=== PATIENT | male | born 1935 | race Caucasian/White ===

== ENCOUNTER 2017-08-18 17:16 | Observation (INO) | payer MEDICARE, OTHER ==
[~2017-08-18] VITALS: Ht 170.2 cm; Wt 70.8 kg
--- NOTE | 2017-08-18 17:24 | ER Report ---
History and Physical Time Seen By MD: 17:24 HPI/ROS CHIEF COMPLAINT: cva HISTORY OF PRESENT ILLNESS: Pt was in the car with his family and at 4pm had sudden onset of slurred speach, trouble finding words, blurred vision (not sure what eye) and left facial droop. Symptoms lasted a few minutes and resolved. Pt currently states he feels fine. No headache. No weakness. Pt states that yesterday when he went up to urinate he almost felt secondary to his legs were weak. Pt is not sure if it was one leg or both but states those symptoms resolved. PT has no hx of cva or tia. pt is diabetic and has hx of dm and cardiac ds. Pt takes a baby aspirin daily for his heart. Pt on current exam shows a mild left facial droop which the son states that is not his norm. REVIEW OF SYSTEMS: Constitutional: No fever, no chills. Eyes: No discharge. ENT: No sore throat. Cardiovascular: No chest pain, no palpitations. Respiratory: No cough, no shortness of breath. Gastrointestinal: No abdominal pain, no vomiting. Genitourinary: No hematuria. Musculoskeletal: No back pain. Skin: No rashes. Neurological: No headache. + garbled speach, blurred vision, weakness Allergies: Coded Allergies: meperidine (Verified Allergy, Severe, 08/18/17) morphine (Verified Allergy, Severe, 08/18/17) Past Medical/Surgical History Pmhx: prostate ca, dm, mi, htn Pshx: prostate removal, cabg Reviewed Nurses Notes: Yes Old Medical Records Reviewed: No (never been here before) Smoking Status: Former Smoker Hx Alcohol Use: No Constitutional Vital Sign - Last 24 Hours 08/18/17 17:24 Temp 98.7 Pulse 78 Resp 16 B/P (MAP) 165/69 Pulse Ox 93 O2 Delivery Room Air Physical Exam General Appearance: The patient is alert, has no immediate need for airway protection and no signs of toxicity. Eyes: Pupils equal and round no pallor or injection, EOMI ENT: no pharyngeal erythema or exudates, Mucous membranes are moist, TM are nl b/l, + left facial droop when smiling Respiratory: There are no retractions, lungs are clear to auscultation. Cardiovascular: Regular rate and rhythm. pulses are equal and symmetrical Gastrointestinal: Abdomen is soft and non tender, no masses, bowel sounds normal, no guarding, no rigidity or rebound Neurological: Cranial nerves II-XII grossly intact however pt does have a slight left facial droop; upper motor 5/5; lower motor 5/5; no pronator drift or dysmetria Skin: Warm and dry, no rashes. Musculoskeletal: Neck is supple non tender, no vertebral tenderness Extremities are nontender, non swollen and have full range of motion. DIFFERENTIAL DIAGNOSIS: After history and physical exam differential diagnosis was considered for tia/cva hemorrhagic or ischemic Medical Decision Making Data Points Result Diagram: 08/18/17175108/18/171751 Laboratory Hematology Test 08/18/17 17:52 Red Blood Count 4.07 M/uL (4.00-5.60) Mean Corpuscular Volume 90.5 fL (80.0-96.0) Mean Corpuscular Hemoglobin 32.0 pg (26.0-33.0) Mean Corpuscular Hemoglobin Concent 35.3 g/dL (32.0-36.0) Red Cell Distribution Width 13.2 % (11.5-14.5) Mean Platelet Volume 7.5 fL (7.2-11.1) Neutrophils (%) (Auto) 64.7 % (39.4-72.5) Lymphocytes (%) (Auto) 24.4 % (17.6-49.6) Monocytes (%) (Auto) 8.0 % (4.1-12.4) Eosinophils (%) (Auto) 1.7 % (0.4-6.7) Basophils (%) (Auto) 1.2 % (0.3-1.4) Nucleated RBC Relative Count (auto) 0.1 /100WBC Neutrophils # (Auto) 3.7 K/uL (2.0-7.4) Lymphocytes # (Auto) 1.4 K/uL (1.3-3.6) Monocytes # (Auto) 0.5 K/uL (0.3-1.0) Eosinophils # (Auto) 0.1 K/uL (0.0-0.5) Basophils # (Auto) 0.1 K/uL (0.0-0.1) Nucleated RBC Absolute Count (auto) 0.00 K/uL Prothrombin Time 13.6 seconds (12.0-14.4) Prothromb Time International Ratio 1.03 Activated Partial Thromboplast Time 30 seconds (23-35) Sodium Level 138 mmol/L (137-145) Potassium Level 5.1 mmol/L (3.5-5.0) Chloride Level 102 mmol/L (98-107) Carbon Dioxide Level 23 mmol/L (22-30) Blood Urea Nitrogen 56 mg/dl (9-21) Creatinine 2.70 mg/dl (0.66-1.25) Glomerular Filtration Rate Calc 22.6 Random Glucose 166 mg/dl (75-110) Calcium Level 9.1 mg/dl (8.4-10.2) Total Bilirubin 0.3 mg/dl (0.2-1.3) Aspartate Amino Transf (AST/SGOT) 25 U/L (0-35) Alanine Aminotransferase (ALT/SGPT) 37 U/L (0-56) Alkaline Phosphatase 103 U/L (0-126) Troponin I < 0.012 ng/ml Total Protein 7.6 gm/dl (6.3-8.2) Albumin 3.9 g/dl (3.5-5.0) Chemistry Test 08/18/17 17:52 White Blood Count 5.7 k/uL (4.5-11.0) Red Blood Count 4.07 M/uL (4.00-5.60) Hemoglobin 13.0 g/dL (14.0-18.0) Hematocrit 36.8 % (42.0-52.0) Mean Corpuscular Volume 90.5 fL (80.0-96.0) Mean Corpuscular Hemoglobin 32.0 pg (26.0-33.0) Mean Corpuscular Hemoglobin Concent 35.3 g/dL (32.0-36.0) Red Cell Distribution Width 13.2 % (11.5-14.5) Platelet Count 143 K/uL (150-450) Mean Platelet Volume 7.5 fL (7.2-11.1) Neutrophils (%) (Auto) 64.7 % (39.4-72.5) Lymphocytes (%) (Auto) 24.4 % (17.6-49.6) Monocytes (%) (Auto) 8.0 % (4.1-12.4) Eosinophils (%) (Auto) 1.7 % (0.4-6.7) Basophils (%) (Auto) 1.2 % (0.3-1.4) Nucleated RBC Relative Count (auto) 0.1 /100WBC Neutrophils # (Auto) 3.7 K/uL (2.0-7.4) Lymphocytes # (Auto) 1.4 K/uL (1.3-3.6) Monocytes # (Auto) 0.5 K/uL (0.3-1.0) Eosinophils # (Auto) 0.1 K/uL (0.0-0.5) Basophils # (Auto) 0.1 K/uL (0.0-0.1) Nucleated RBC Absolute Count (auto) 0.00 K/uL Prothrombin Time 13.6 seconds (12.0-14.4) Prothromb Time International Ratio 1.03 Activated Partial Thromboplast Time 30 seconds (23-35) Glomerular Filtration Rate Calc 22.6 Calcium Level 9.1 mg/dl (8.4-10.2) Total Bilirubin 0.3 mg/dl (0.2-1.3) Aspartate Amino Transf (AST/SGOT) 25 U/L (0-35) Alanine Aminotransferase (ALT/SGPT) 37 U/L (0-56) Alkaline Phosphatase 103 U/L (0-126) Troponin I < 0.012 ng/ml Total Protein 7.6 gm/dl (6.3-8.2) Albumin 3.9 g/dl (3.5-5.0) Coagulation Test 08/18/17 17:52 Prothrombin Time 13.6 seconds Prothromb Time International Ratio 1.03 Activated Partial Thromboplast Time 30 seconds EKG/Imaging EKG Interpretation nsr @ 70 with lad and non specific st wave chanes Imaging no acute finding on xray or ct of head ED Course/Re-evaluation Clinical Indication for ER IV: IV Access ED Course 08/18/2017 6:38:44 pm Spoke with son again who now statse that his dad has been having symptoms on and off this week and did not tell him. I suspect pt having multiple TIA and is at risk for cva. Pt is not a tpa candidate due to symptoms rapidly resolve and only symptom currently is small facial droop. Pt is also having renal insufficiency. Hve no olds to compare renal function but when I spoke with pt he said that he was told "my kidney's are getting old". 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 It is currently snowing and highways are closed and no one is flying. We are unable to transfer. Spoke with pts and he states he can be admitted here. Spoke with Dr. Lui who will accept to the floor. States that he plans on changing his asa to plavix. Decision to Disposition Date: Aug 18, 2017 Decision to Disposition Time: 18:42 Depart Departure Latest Vital Signs Vital Signs Date Time Temp Pulse Resp B/P (MAP) Pulse Ox O2 Delivery O2 Flow Rate FiO2 08/18/17 17:24 98.7 78 16 165/69 93 Room Air Impression: Primary Impression: CVA (cerebral vascular accident) Additional Impression: Renal insufficiency Condition: Condition Unchanged Disposition: Admitted from ER Problem Qualifiers Primary Impression: CVA (cerebral vascular accident) CVA mechanism: unspecified Qualified Codes: I63.9 - Cerebral infarction, unspecified NIKA GOSS DO Aug 18, 2017 17:24
--- NOTE | 2017-08-18 17:54 | EKG ---
FACILITY: [facility] - [place] PATIENT NAME: SANDRA CORREA : [id number] MR: [id number] V: [id number] EXAM DATE: ORDERING PHYSICIAN: NIKA GOSS TECHNOLOGIST: Edu Meade Reason : Blood Pressure : / mmHG Vent. Rate : 073 BPM Atrial Rate : 073 BPM P-R Int : 174 ms QRS Dur : 070 ms QT Int : 394 ms P-R-T Axes : 022 -42 033 degrees QTc Int : 434 ms Normal sinus rhythm Left axis deviation Minimal voltage criteria for LVH, may be normal variant No ST-T abnormalities No previous ECGs available Confirmed by ELIUD ORTIZ ([id number]) on 08/18/2017 6:02:50 PM Referred By: Confirmed By:ELIUD ORTIZ
[2017-08-18 17:58] LABS: PLATELET COUNT, AUTOMATED 143 K/uL (150-450)
--- NOTE | 2017-08-18 18:06 | RADIOLOGY IMAGING REPORT ---
FACILITY: [facility] [place] PATIENT NAME: Deion Kwong : 1935 MR: [id number] V: [id number] EXAM DATE: ORDERING PHYSICIAN: NIKA GOSS TECHNOLOGIST: Location: [facility] - [place] Patient: Deion Kwong : 1935 Visit/Account:[id number] Date of Sevice: 08/18/2017 CHEST SINGLE AP Indication: Left-sided facial droop. Comparison: 08/07/2017. Findings: Cardiomediastinal silhouette and pulmonary vessels within normal limits. There is no focal infiltrate or lobar consolidation. No pneumothorax or pleural effusion. No nodule. There is again eventration the right hemidiaphragm. Upper abdomen is unremarkable. No acut e bony abnormality. IMPRESSION: 1. No acute cardiopulmonary process. Report Dictated By: Canelo White at 08/18/2017 6:01 PM Report E-Signed By: Canelo White at 08/18/2017 6:03 PM WSN:[id number]
[2017-08-18 18:07] LABS: INR 1.03
--- NOTE | 2017-08-18 18:16 | RADIOLOGY IMAGING REPORT ---
FACILITY: [facility] PATIENT NAME: Deion Kwong : 1935 MR: [id number] V: [id number] EXAM DATE: ORDERING PHYSICIAN: NIKA GOSS TECHNOLOGIST: Location: [facility] - [place] Patient: Deion Kwong : 1935 Visit/Account:[id number] Date of Sevice: 08/18/2017 CT OF THE BRAIN WITHOUT CONTRAST HISTORY: Left-sided facial droop PROCEDURE: 3.0 mm contiguous axial sections were performed through the brain. Sagittal and coronal r eformats were submitted. COMPARISON: FINDINGS: BRAIN: Brain and intracranial structures: There is no mass lesion, hemorrhage or acute infarct. Extensive ca vernous carotid atherosclerosis and prominent vertebral artery atherosclerosis. There may be an old i nfarct at the posterior margin of the caudate on the right. Orbits (included portions): Unremarkable. Scalp: Normal. Skull: Normal. Paranasal sinuses and mastoid air cells (included portions): Normal. IMPRESSION: No evidence of acute intracranial abnormality by CT. One of the following dose optimization techniques was utilized in the performance of this exam: Autom ated exposure control; adjustment of the mA and/or kV according to the patient's size; or use of an i terative reconstruction technique. Specific details can be referenced in the facility's radiology C T exam operational policy. Report Dictated By: Brad Messina MD at 08/18/2017 6:00 PM Report E-Signed By: Brad Messina MD at 08/18/2017 6:11 PM WSN:[id number]
[2017-08-18 19:42] VITALS: BP 198/91
[2017-08-18] MEDS ORDERED: METO25TA23 PO (20:30)
[2017-08-18] MEDS ORDERED: ASPI-1471 PO (20:30)
[2017-08-18] MEDS ORDERED: LOSA25TA50 PO (20:30)
[2017-08-18] MEDS ORDERED: cancer med (20:30)
[2017-08-18] MEDS ORDERED: HUM100VI15 SQ (20:30)
[2017-08-18] MEDS ORDERED: NAPR220C12 PO (20:30)
[2017-08-18] MEDS ORDERED: INFLUENZA VIRUS VAC 0.5 ML SYR IM ONLY ONE (21:30)
[2017-08-18] MEDS ORDERED: LOSARTAN POTASSIUM 50 MG TAB PO SCH (21:30)
[2017-08-18] MEDS ORDERED: ACETAMINOPHEN 325 MG TAB PO PRN (21:30)
--- NOTE | 2017-08-18 22:04 | History & Physical ---
History of Present Illness History of Present Illness 82yo male with a h/o CAD, T2DM and HTN who was brought to the ER for concerns of a stroke. He reports that a couple of nights ago he had an event where he couldn't speak for a couple of minutes. He didn't mention it to anyone. Today , he was with his son looking at houses, when he had sudden onset of inability to speak, blurred vision in the left eye and left facial droop. It lasted a couple of minutes and mostly resolved. He now feels tired. He denies any chest pain,nausea, vomiting, diarrhea, fevers or SOB. In the ER, it was noted that he had a bit of a left mouth droop. History Problems: (1) HTN (hypertension) Status: Chronic (2) Insomnia (3) T2DM (type 2 diabetes mellitus) Status: Chronic (4) Prostate cancer Status: Chronic (5) Hx of CABG (6) History of prostatectomy (7) History of bilateral inguinal hernia repair (8) History of appendectomy (9) History of tonsillectomy (10) History of exploratory laparotomy (11) Renal insufficiency Status: Chronic Home Meds Reported Medications Naproxen Sodium (ALEVE) 220 Mg Capsule, 220 MG PO TID, CAPSULE 08/18/17 [cancer med] No Conflict Check 08/18/17 Aspirin (ASPIR 81) 81 Mg Tablet.dr, 81 MG PO QDAY, TAB 08/18/17 Losartan Potassium (LOSARTAN POTASSIUM) 25 Mg Tablet, 25 MG PO QDAY 08/18/17 Metoprolol Succinate (METOPROLOL SUCCINATE) 25 Mg Tab.er.24h, 1 TAB PO BID, TAB 08/18/17 Hum Insulin Nph/Reg Insulin Hm (NOVOLIN 70-30 100 UNIT/ML VIAL) 100 Unit/1 Ml Vial, 35 UNIT SQ BID, VIAL 08/18/17 Allergies: Coded Allergies: meperidine (Verified Allergy, Severe, 08/18/17) morphine (Verified Allergy, Severe, 08/18/17) Smoking Status: Former Smoker Caffeine Intake: Coffee Caffeine/Cups Per Day: 1 cup Hx Alcohol Use: No Hx Substance Use Disorder: No Review of Systems All Systems Reviewed/Normal: Yes, Except as Noted Exam Vital Signs Vital Signs Date Time Temp Pulse Resp B/P (MAP) Pulse Ox O2 Delivery O2 Flow Rate FiO2 08/18/17 19:45 98 08/18/17 19:42 98.3 75 16 198/91 (126) Room Air General Appearance: Alert, Awake, No Acute Distress Neuro: No Gross deficits (CN 2-12 are intact, equal strength in UE and LE bilaterally, no pronator drift, normal alternating hand clap and finger to nose testing bilaterally) Cardiovascular: Regular Rate and Rhythm Respiratory: Clear to Auscultation GI: Abd Soft and Non-Tender Extremities: No Edema Integumentary: No Jaundice, No Cyanosis Medical Decision Making Data Points Result Diagram: 08/18/17175108/18/171751 Item Value Date Time Neutrophils (%) (Auto) 64.7 % 08/18/17 175 Lymphocytes (%) (Auto) 24.4 % 08/18/171751 Monocytes (%) (Auto) 8.0 % 08/18/171751 Eosinophils (%) (Auto) 1.7 % 08/18/171751 Basophils (%) (Auto) 1.2 % 08/18/171751 Nucleated RBC Relative Count (auto) 0.1 /100WBC 08/18/17 175 Aspartate Amino Transf (AST/SGOT) 25 U/L 08/18/17 175 Alanine Aminotransferase (ALT/SGPT) 37 U/L 08/18/17 175 Alkaline Phosphatase 103 U/L 08/18/17 175 Troponin I < 0.012 ng/ml 08/18/17 175 Total Protein 7.6 gm/dl 08/18/17 1752 Albumin 3.9 g/dl 08/18/17 1752 Random Glucose 166 mg/dl H 08/18/17 1752 Prothromb Time International Ratio 1.03 08/18/17 175 EKG / Imaging EKG Interpretation Vent. Rate : 073 BPM Atrial Rate : 073 BPM P-R Int : 174 ms QRS Dur : 070 ms QT Int : 394 ms P-R-T Axes : 022 -42 033 degrees QTc Int : 434 ms Normal sinus rhythm Left axis deviation Minimal voltage criteria for LVH, may be normal variant No ST-T abnormalities No previous ECGs available Confirmed by ELIUD ORTIZ ([id number]) on 08/18/2017 6:02:50 PM Imaging CXR - 1. No acute cardiopulmonary process. Head CT - No evidence of acute intracranial abnormality by CT. Assessment and Plan Problems: (1) TIA (transient ischemic attack) Status: Acute Assessment & Plan: He presented with a couple minute event of left eye blurriness, left facial droop and inability to speak. He now has a normal exam. He cannot get an MRI because of a rhythm sensing device under the skin of his left pectoris. Will get a carotid Doppler, and echo. He has been on ASA 81mg, so will switch to Plavix. He is not on a statin, so will start atorvastatin 40mg for now to see how he tolerates it. He could be increased to 80mg but will defer to his primary. He will be on telemetry and get neuro checks. (2) Renal insufficiency Status: Chronic Assessment & Plan: It is unclear what his baseline function is. He doesn't have a large PVR by US. Will hold Losartan and get old labs. Will gently hydrate tonight and recheck tomorrow. (3) T2DM (type 2 diabetes mellitus) Status: Chronic Assessment & Plan: He is chronically on 70/30, which will be continued. Will cover with SSI level 2. (4) HTN (hypertension) Status: Chronic Assessment & Plan: Continue metoprolol, but will hold losartan. (5) Prostate cancer Status: Chronic Assessment & Plan: He had a prostatectomy over 15 years ago. He has had recurrence but has elected to only undergo antiandrogen therapy. Copies to: SUMAN GALLARDO; TONY NORRIS MD Venous Thromboembolism Antithrombotics Is Pt On Any Antithrombotics?: No Exam Sepsis Risk: No Definite Risk ELIUD ORTIZ MD Aug 18, 2017 22:03
[2017-08-18] MEDS: METOPROLOL TART 50 MG TAB PO SCH (22:52)
[2017-08-18] MEDS: CLOPIDOGREL BISULFATE 75MG TAB PO SCH (22:52)
[2017-08-18] MEDS: ATORVASTATIN 40 MG TAB PO SCH (22:52)
[2017-08-18] MEDS: NS(*) 0.9% 1000 ML BAG 1,000 ML IV PRN (22:52)
[2017-08-18 22:53] VITALS: BP 167/71
[2017-08-19 02:28] VITALS: BP 188/82
[2017-08-19 06:26] LABS: PLATELET COUNT, AUTOMATED 132 K/uL (150-450)
[2017-08-19 07:14] VITALS: BP 166/84
[2017-08-19] MEDS: METOPROLOL TART 50 MG TAB PO SCH ×2 (09:17→20:50)
[2017-08-19] MEDS: INS HUMAN ISOPH/INS REG 70/30 100 UNIT/ML 3ML VIAL SUBQ SCH ×2 (09:19→17:14)
[2017-08-19 10:57] VITALS: BP 147/74
[2017-08-19] MEDS: INSULIN HUM LISPRO 100 UN/ML 3 ML VIAL SUBQ PRN ×2 (12:06→17:14)
[2017-08-19] MEDS: NS(*) 0.9% 1000 ML BAG 1,000 ML IV PRN (12:49)
--- NOTE | 2017-08-19 13:55 | Hospitalist Progress Note ---
Subjective Progress Notes Subjective His aphasia and facial droop resolved. He has not had any recurrence, but this is his second occurrence in 3-4 days. He reports voiding seems to have improved. Physical Exam Vital Signs Date Time Temp Pulse Resp B/P (MAP) Pulse Ox O2 Delivery O2 Flow Rate FiO2 08/19/17 10:57 98.1 69 24 147/74 (98) 93 Room Air Intake and Output 08/20/17 07:00 Intake Total 824 ml Balance 824 ml Intake Oral 0 ml IV Total 824 ml Bladder Scan Volume Amount 51-75 ml # Voids 1 # Bowel Movements 1 General Appearance: Alert, Awake Neuro: Other (face symmetric/speech is fluent) Cardiovascular: Regular Rate and Rhythm Respiratory: Clear to Auscultation Result Diagram: 08/19/1749 08/19/1749 Assessment and Plan Problems: (1) TIA (transient ischemic attack) Status: Acute Assessment & Plan: He presented with a couple minute event of left eye blurriness, left facial droop and inability to speak. He now has a normal exam. He cannot get an MRI because of a rhythm sensing device under the skin of his left pectoralis. Carotid Doppler, and echocardiogram are still pending. He has been on ASA 81mg, so we have switched to Plavix. He is not on a statin , so we also started atorvastatin 40mg for now to see how he tolerates it. He could be increased to 80mg, but will defer to his primary. (2) Renal insufficiency Status: Chronic Assessment & Plan: It is unclear what his baseline function is - we are [facility]. He doesn't have a large PVR by US - second re-check is only 60cc. Will continue to hold Losartan. Will continue to gently hydrate and recheck tomorrow. (3) T2DM (type 2 diabetes mellitus) Status: Chronic Assessment & Plan: He is chronically on Humulin 70/30, which will be continued. Will continue to cover with SSI level 2. (4) HTN (hypertension) Status: Chronic Assessment & Plan: Continue metoprolol, but will hold losartan. (5) Prostate cancer Status: Chronic Assessment & Plan: He had a prostatectomy over 15 years ago. He has had recurrence, but has elected to only undergo antiandrogen therapy. If he has any ongoing voiding difficulties, may need to CT pelvis to see if any residual/ enlarging disease. Exam Sepsis Risk: No Definite Risk ANNA HERNANDEZ MD Aug 19, 2017 13:55
--- NOTE | 2017-08-19 15:03 | RADIOLOGY IMAGING REPORT ---
FACILITY: [facility] PATIENT NAME: Deion Kwong : 1935 MR: [id number] V: [id number] EXAM DATE: ORDERING PHYSICIAN: ELIUD ORTIZ TECHNOLOGIST: [place] [facility] [place]ion Kwong : 1935 Visit/Account:[id number] Date of Sevice: 08/19/2017 CAROTID HISTORY: TIA COMPARISON: None. FINDINGS: Grayscale, duplex and color Doppler interrogation of the extracranial carotid and vertebral arteries was performed bilateral. On the right, peak systolic velocities within the common and internal carotid arteries are 99 and 175 cm/sec respectively. There is a small to moderate amount of hard plaque right carotid bulb and a mo derate amount of hard plaque in the proximal right internal carotid artery. Antegrade flow within th e common, internal and external carotid arteries as well as vertebral artery. ICA/CCA ratio 1.8. On the left, peak systolic velocities within the common and internal carotid arteries are 96 and 298 cm/sec respectively. There is a long segment of soft plaque extending from the left carotid bulb int o the left internal carotid artery. Antegrade flow within the common, internal and external carotid arteries as well as vertebral artery. ICA/CCA ratio 3.1. . IMPRESSION: Small to moderate amount of hard plaque right carotid bulb and moderate amount of hard plaque in the proximal right internal carotid artery producing a peak systolic velocity consistent with a 50-69% ca tegory stenosis There is a long segment of soft plaque left carotid bulb extending into the left internal carotid art [place] with a peak systolic velocity of 298 cm/s which is consistent with a greater than 70% stenosis Velocity criteria are extrapolated from diameter data as defined by the Society of Radiologists [place] [facility] Consensus Conference Radiology 2003; 229;340-346 Results were called to Dr. Kaleb Ortiz at 08/19/2017 2:59 PM. Report Dictated By: Sarita Virgen MD at 08/19/2017 2:52 PM Report E-Signed By: Sarita Virgen MD at 08/19/2017 2:59 PM WSN:[id number]
[2017-08-19 15:40] VITALS: BP 176/81
[2017-08-19 20:39] VITALS: BP 175/90
[2017-08-19] MEDS: CLOPIDOGREL BISULFATE 75MG TAB PO SCH (20:50)
[2017-08-19] MEDS: ATORVASTATIN 40 MG TAB PO SCH (20:50)
[2017-08-20 00:47] VITALS: BP 166/81
[2017-08-20 03:43] VITALS: BP 157/75
[2017-08-20 05:30] LABS: PLATELET COUNT, AUTOMATED 124 K/uL (150-450)
[2017-08-20 07:12] VITALS: BP 177/83
[2017-08-20] MEDS: INS HUMAN ISOPH/INS REG 70/30 100 UNIT/ML 3ML VIAL SUBQ SCH (08:12)
[2017-08-20] MEDS: METOPROLOL TART 50 MG TAB PO SCH (08:17)
[2017-08-20] MEDS ORDERED: ATOR40TA69 PO (08:56)
[2017-08-20] MEDS ORDERED: CLOP75TA PO (08:56)
[2017-08-20] MEDS ORDERED: ACET-2007 PO (08:56)
--- NOTE | 2017-08-20 09:16 | Hospitalist Depart ---
Discharge Summary Reason for Hosp/Final Diag: (1) TIA (transient ischemic attack) Status: Acute Hospital Course & Plan: He presented with a couple minutes event of left eye blurriness, left facial droop and inability to speak. His symptoms resolved completely and he now has a normal exam. He cannot have an MRI because of a rhythm sensing device under the skin of his left pectoralis. Prior to admission , he had been on ASA 81mg, so we have switched him to Plavix 75mg daily. He had not been on a statin, so we also started atorvastatin 40mg daily. His telemetry monitoring while hospitalized did not show any dysrhythmias. He had an echocardiogram, which preliminary report is unremarkable. His carotid ultrasound does show some plaque in both with stenosis of 70+% on the left and 50-69% on the right. I discussed these findings with the patient and his family. It may be he could benefit from intervention with the stenoses. They seemed to understand this very well. He wished to see his cook 3 pastry, Dr. Norris in [place], [place] to discuss further. We have arranged an appointment with Dr. Norris for Tuesday08/24/17 at 3:00PM. (2) Renal insufficiency Status: Chronic Hospital Course & Plan: Most likely related to NSAID use (naproxen). It is unclear what his baseline function is - we are awaiting records from [place]. He doesn't have a large PVR by US - second re-check is only 60cc. We did give him gentle IV fluids and his creatinine did improve (2.7 at admission and 2.3 at discharge). He has been advised to stop all NSAIDs, but may use acetaminophen. He will need a follow up metabolic panel in one week. (3) T2DM (type 2 diabetes mellitus) Status: Chronic Hospital Course & Plan: He will continue his usual regimen of Humulin 70/30. (4) HTN (hypertension) Status: Chronic Hospital Course & Plan: Continue metoprolol and losartan. (5) Prostate cancer Status: Chronic Hospital Course & Plan: He had a prostatectomy over 15 years ago. He had recurrence, but has elected to only use antiandrogen therapy. If he has any ongoing voiding difficulties, may need a CT scan of abdomen and pelvis to see if any residual/enlarging disease. Departure Weight (Pounds): 156 Result Diagram: 08/20/17 0505 08/20/17 0505 Item Value Date Time Sodium Level 139 mmol/L 08/19/17 0549 Potassium Level 4.5 mmol/L 08/19/17 0549 Chloride Level 105 mmol/L 08/19/17 0549 Carbon Dioxide Level 21 mmol/L L 08/19/17 0549 Blood Urea Nitrogen 51 mg/dl H 08/19/17 0549 Creatinine 2.50 mg/dl H 08/19/17 0549 Glomerular Filtration Rate Calc 24.7 08/19/17 0549 Random Glucose 139 mg/dl H 08/19/17 0549 Calcium Level 9.1 mg/dl 08/19/17 0549 Total Bilirubin 0.3 mg/dl 08/19/17 0549 Aspartate Amino Transf (AST/SGOT) 23 U/L 08/19/17 0549 Alanine Aminotransferase (ALT/SGPT) 36 U/L 08/19/17 0549 Alkaline Phosphatase 93 U/L 08/19/17 0549 Total Protein 6.8 gm/dl 08/19/17 0549 Albumin 3.5 g/dl 08/19/17 0549 Sodium Level 138 mmol/L 08/18/17 1752 Potassium Level 5.1 mmol/L H 08/18/17 1752 Chloride Level 102 mmol/L 08/18/17 1752 Carbon Dioxide Level 23 mmol/L 08/18/17 1752 Blood Urea Nitrogen 56 mg/dl H 08/18/17 1752 Creatinine 2.70 mg/dl H 08/18/17 1752 Glomerular Filtration Rate Calc 22.6 08/18/17 1752 Random Glucose 166 mg/dl H 08/18/17 1752 Calcium Level 9.1 mg/dl 08/18/17 1752 Total Bilirubin 0.3 mg/dl 08/18/17 1752 Aspartate Amino Transf (AST/SGOT) 25 U/L 08/18/17 1752 Alanine Aminotransferase (ALT/SGPT) 37 U/L 08/18/17 1752 Troponin I < 0.012 ng/ml 08/18/17 1752 Alkaline Phosphatase 103 U/L 08/18/17 1752 Total Protein 7.6 gm/dl 08/18/17 1752 Albumin 3.9 g/dl 08/18/17 1752 Prothrombin Time 13.6 seconds 08/18/17 1752 Prothromb Time International Ratio 1.03 08/18/17 1752 Activated Partial Thromboplast Time 30 seconds 08/18/17 1752 White Blood Count 5.7 k/uL 08/18/17 1752 Hemoglobin 13.0 g/dL L 08/18/17 1752 Hematocrit 36.8 % L 08/18/17 1752 Platelet Count 143 K/uL L 08/18/17 1752 Platelet Count 132 K/uL L 08/19/17 0549 Hematocrit 37.1 % L 08/19/17 0549 Hemoglobin 13.2 g/dL L 08/19/17 0549 White Blood Count 5.4 k/uL 08/19/17 0549 Imaging PATIENT NAME: Sandra Kwong : 1935 MR: [id number] V: [id number] EXAM DATE: ORDERING PHYSICIAN: ELIUD ORTIZ TECHNOLOGIST: [place] [facility] [place] Kwong : 1935 Visit/Account:[id number] Date of Sevice: 08/19/2017 CAROTID HISTORY: TIA COMPARISON: None. FINDINGS: Grayscale, duplex and color Doppler interrogation of the extracranial carotid and vertebral arteries was performed bilateral. On the right, peak systolic velocities within the common and internal carotid arteries are 99 and 175 cm/sec respectively. There is a small to moderate amount of hard plaque right carotid bulb and a moderate amount of hard plaque in the proximal right internal carotid artery. Antegrade flow within the common , internal and external carotid arteries as well as vertebral artery. ICA/CCA ratio 1.8. On the left, peak systolic velocities within the common and internal carotid arteries are 96 and 298 cm/sec respectively. There is a long segment of soft plaque extending from the left carotid bulb into the left internal carotid artery. Antegrade flow within the common, internal and external carotid arteries as well as vertebral artery. ICA/CCA ratio 3.1. . IMPRESSION: Small to moderate amount of hard plaque right carotid bulb and moderate amount of hard plaque in the proximal right internal carotid artery producing a peak systolic velocity consistent with a 50-69% category stenosis There is a long segment of soft plaque left carotid bulb extending into the left internal carotid artery with a peak systolic velocity of 298 cm/s which is consistent with a greater than 70% stenosis Velocity criteria are extrapolated from diameter data as defined by the Society of Radiologists in Ultrasound Consensus Conference Radiology 2003; 229;340-346 Results were called to Dr. Anna Ortiz at 08/19/2017 2:59 PM. Report Dictated By: Sarita Virgen MD at 08/19/2017 2:52 PM Report E-Signed By: Sarita Virgen MD at 08/19/2017 2:59 PM WSN:[id number] PATIENT NAME: Sandra Kwong : 1935 MR: [id number] V: [id number] EXAM DATE: [id number] ORDERING PHYSICIAN: NIKA GOSS TECHNOLOGIST: [place] [facility] [place] Patient: Sandra Kwong : 1935 Visit/Account:[id number] Date of Sevice: 08/18/2017 CHEST SINGLE AP Indication: Left-sided facial droop. Comparison: 08/07/2017. Findings: Cardiomediastinal silhouette and pulmonary vessels within normal limits. There is no focal infiltrate or lobar consolidation. No pneumothorax or pleural effusion. No nodule. There is again eventration the right hemidiaphragm. Upper abdomen is unremarkable. No acute bony abnormality. IMPRESSION: 1. No acute cardiopulmonary process. Report Dictated By: Canelo White at 08/18/2017 6:01 PM Report E-Signed By: Canelo White at 08/18/2017 6:03 PM WSN:[id number] NAME: Sandra Kwong : 1935 MR: [id number] V: [id number] EXAM DATE: [id number] ORDERING PHYSICIAN: NIKA GOSS TECHNOLOGIST: [place] [facility] [place] Patient: Sandra Kwong : 1935 Visit/Account:[id number] Date of Sevice: 08/18/2017 CT OF THE BRAIN WITHOUT CONTRAST HISTORY: Left-sided facial droop PROCEDURE: 3.0 mm contiguous axial sections were performed through the brain. Sagittal and coronal reformats were submitted. COMPARISON: FINDINGS: BRAIN: Brain and intracranial structures: There is no mass lesion, hemorrhage or acute infarct. Extensive cavernous carotid atherosclerosis and prominent vertebral artery atherosclerosis. There may be an old infarct at the posterior margin of the caudate on the right. Orbits (included portions): Unremarkable. Scalp: Normal. Skull: Normal. Paranasal sinuses and mastoid air cells (included portions): Normal. IMPRESSION: No evidence of acute intracranial abnormality by CT. One of the following dose optimization techniques was utilized in the performance of this exam: Automated exposure control; adjustment of the mA and/ or kV according to the patient's size; or use of an iterative reconstruction technique. Specific details can be referenced in the facility's radiology CT exam operational policy. Report Dictated By: Brad Messina MD at 08/18/2017 6:00 PM Report E-Signed By: Brad Messina MD at 08/18/2017 6:11 PM WSN:[id number] EKG PATIENT NAME: SANDRA KWONG : [id number] MR: [id number] V: [id number] EXAM DATE: ORDERING PHYSICIAN: NIKA GOSS TECHNOLOGIST: Edu Meade Reason : Blood Pressure : / mmHG Vent. Rate : 073 BPM Atrial Rate : 073 BPM P-R Int : 174 ms QRS Dur : 070 ms QT Int : 394 ms P-R-T Axes : 022 -42 033 degrees QTc Int : 434 ms Normal sinus rhythm Left axis deviation Minimal voltage criteria for LVH, may be normal variant No ST-T abnormalities No previous ECGs available Confirmed by ELIUD ORTIZ ([id number]) on 08/18/2017 6:02:50 PM Referred By: Confirmed By:ELIUD ORTIZ Condition: Improved Discharge: Home, Self Care Time Spent: > 30 min Discharge Instructions Home Meds Active Scripts Acetaminophen (MAPAP) 325 Mg Tablet, 650 MG PO Q6H Y for PAIN OR FEVER 100 OR GREATER for 30 Days, TAB Prov:ANNA HERNANDEZ MD 08/20/17 Clopidogrel Bisulfate (CLOPIDOGREL) 75 Mg Tablet, 75 MG PO HS, #10 TAB 1 Refill Prov:ANNA HERNANDEZ MD 08/20/17 Atorvastatin Calcium (ATORVASTATIN CALCIUM) 40 Mg Tablet, 40 MG PO QHS, #10 TAB 1 Refill Prov:ANNA HERNANDEZ MD 08/20/17 Reported Medications [cancer med] No Conflict Check 08/18/17 Losartan Potassium (LOSARTAN POTASSIUM) 25 Mg Tablet, 25 MG PO QDAY 08/18/17 Metoprolol Succinate (METOPROLOL SUCCINATE) 25 Mg Tab.er.24h, 1 TAB PO BID, TAB 08/18/17 Hum Insulin Nph/Reg Insulin Hm (NOVOLIN 70-30 100 UNIT/ML VIAL) 100 Unit/1 Ml Vial, 35 UNIT SQ BID, VIAL 08/18/17 Discontinued Reported Medications Naproxen Sodium (ALEVE) 220 Mg Capsule, 220 MG PO TID, CAPSULE 08/18/17 Aspirin (ASPIR 81) 81 Mg Tablet.dr, 81 MG PO QDAY, TAB 08/18/17 Diet: Diabetic Activity: As Tolerated, No Exertion Special Instructions: Follow up with Dr. Norris on Tue08/24/17 at 3:00PM in [place], [place]. Copies to: TONY NORRIS MD Venous Thromboembolism Antithrombotics Is Pt On Any Antithrombotics?: No ANNA HERNANDEZ MD Aug 20, 2017 09:16
--- NOTE | 2017-08-22 08:50 | RADIOLOGY IMAGING REPORT ---
FACILITY: [facility] PATIENT NAME: SANDRA CORREA : [id number] MR: [id number] V: [id number] EXAM DATE: ORDERING PHYSICIAN: ELIUD ORTIZ TECHNOLOGIST: Russ Malhotra EXAMINATION:TWO-DIMENSIONAL ECHOCARDIOGRAPH REASON:TIA 2D Measurements (normal values in centimeters) LV endLV endRV endVent.LV PostAorticLeftPercent DiastolicSystolicDiastolicSeptumWallRootAtriumShortening (3.5-5.7)(0.9-2.6)(0.6-1.1)(0.6-1.1)(2.0-3.7)(1.9-4.0)(25-35%) [id number]% STROKE VOLUME: 44mL ESTIMATED EJECTION FRACTION: 62% PARASTERNAL LONG AXIS: Overall left ventricular systolic function appears to be normal right ventricle appears to contract normally. Aortic valve is minimally sclerotic but not stenotic. Color examination of the valves revealed a trace of aortic and mitral insufficiency present. PARASTERNAL SHORT AXIS: Overall left ventricular function appears to be normal. No wall motion abnormalities are noted. The aortic valve is trileaflet in configuration. Minimal aortic sclerosis. Color examination of pulmonic valve reveals a traced amount of pulmonic insufficiency there is also a traced amount of tricuspid insufficiency noted. APICAL FOUR AND TWO CHAMBER: Normal left ventricular ejection fraction and normal chamber sizes. The aortic valve area and mitral valve area both measure within normal range of 3.3 and 3.5cm/2 respectively. The tricuspid regurgitation Vmax is measured at 2.88mt/2 with an estimated right atrial pressure 3mm Hg. Left and right atrial volumes are measured within normal ranges 24 and 13ml/2. SUBCOSTAL VIEW: Difficult to obtain but no pericardial effusion was noted. Agitated saline bubble contrast study was done and there is no evidence for any ventricular or atrioseptal defects. Doppler examination of the mitral valve in diastole does reveal the A wave > E wave. OVERALL IMPRESSION: 1. Normal left ventricular ejection fraction of 62% with a Grade 1/4 decrease in diastolic function. 2. Normal chamber sizes. 3. Right ventricle appears to contract normally. 4. Trace of aortic and mitral insuff and pulmonic insuff. With no stenosis of any of the valves 5. Mild amount of tricuspid insuff with rv pressures at upper ranges of nl. Dictated by: Giorgio Flores M.D. on 08/19/2017 at 12:46 Transcribed by: WALE on 08/19/2017 at 14:40 Approved by: Giorgio Flores M.D. on 08/22/2017 at 8:49 [facility]
== END 2017-08-20 08:56 | disposition home or self-care (01) ==
LOC: ER 17:36 → MED 18:48 → INTOOBSV 18:48
PROVIDERS: ADMIT Internal Medicine; ATTEND Internal Medicine
DX: I63.9 Cerebral infarction, unspecified (principal); N28.9 Disorder of kidney and ureter, unspecified; E11.9 Type 2 diabetes mellitus without complications; C61 Malignant neoplasm of prostate; I10 Essential (primary) hypertension
CPT/HCPCS: 36415; 36416; 70450; 71045; 82948; 84484; 85025; 85610; 85730; 93005; 93306; 93880; 99285; A9270; G0378; J1815; J7030; 82040; 82247; 82310; 82374; 82435; 82565; 82947; 84075; 84132; 84155; 84295; 84450; 84460; 84520; 96372

== ENCOUNTER 2017-09-18 14:47 | Inpatient (IN) | payer MEDICARE, OTHER ==
[~2017-09-18] VITALS: Ht 167.6 cm; Wt 68.0 kg
[~2017-09-18 14:47] MED LIST: ACET-2007 PO; ASPI-1471 PO; ATOR40TA69 PO; CLOP75TA PO; HUM100VI15 SQ; LOSA25TA50 PO; METO25TA23 PO; NAPR220C12 PO; cancer med
[2017-09-18] MEDS ORDERED: CARV25TA78 PO (15:04)
[2017-09-18] MEDS ORDERED: NS(*) 0.9% 500 ML BAG 500 ML IV ONE (15:11)
[2017-09-18] MEDS ORDERED: ONDANSETRON 4 MG/2 ML VIAL IVP ONE ×2 (15:15→16:30)
--- NOTE | 2017-09-18 15:16 | ER Report ---
History and Physical Time Seen By MD: 15:02 Hx. of Stated Complaint: possible reaction to carvedolol HPI/ROS CHIEF COMPLAINT: Abdominal pain HISTORY OF PRESENT ILLNESS: This is an 82-year-old male who presents to the emergency department for abdominal pain. 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 According to the son and the patient he's been having some abdominal pain and they're concerned that this could be the cause of it the beginning contact with the hospitalist and [facility] who was helping manage the patient's care as well as the [place] doctor they were concerned that maybe he was having an issue with the carvedilol and suggested coming to the emergency department for further evaluation. Patient was also treated for a urinary tract infection recently around September 11. Patient states that he is having difficulties urinating as well as having to strain with his bowel movements. He is also having some intermittent nausea associated with the pain. Patient denies aches, fevers, chills, chest pain or shortness of breath. REVIEW OF SYSTEMS: Constitutional: No fever, no chills. Eyes: No discharge. ENT: No sore throat. Cardiovascular: No chest pain, no palpitations. Respiratory: No cough, no shortness of breath. Gastrointestinal: As above. Genitourinary: As above. Musculoskeletal: No back pain. Skin: No rashes. Neurological: No headache. Allergies: Coded Allergies: meperidine (Verified Allergy, Severe, 09/18/17) morphine (Verified Allergy, Severe, 09/18/17) Home Meds Active Scripts Acetaminophen (MAPAP) 325 Mg Tablet, 650 MG PO Q6H Y for PAIN OR FEVER 100 OR GREATER for 30 Days, TAB Prov:ANNA HERNANDEZ MD 08/20/17 Clopidogrel Bisulfate (CLOPIDOGREL) 75 Mg Tablet, 75 MG PO HS, #10 TAB 1 Refill Prov:ANNA HERNANDEZ MD 08/20/17 Atorvastatin Calcium (ATORVASTATIN CALCIUM) 40 Mg Tablet, 40 MG PO QHS, #10 TAB 1 Refill Prov:ANNA HERNANDEZ MD 08/20/17 Reported Medications Carvedilol (CARVEDILOL) 25 Mg Tablet, 25 MG PO BID, #10 TAB 09/18/17 [cancer med] No Conflict Check 08/18/17 Hum Insulin Nph/Reg Insulin Hm (NOVOLIN 70-30 100 UNIT/ML VIAL) 100 Unit/1 Ml Vial, 35 UNIT SQ BID, VIAL 08/18/17 Discontinued Reported Medications Losartan Potassium (LOSARTAN POTASSIUM) 25 Mg Tablet, 25 MG PO QDAY 08/18/17 Metoprolol Succinate (METOPROLOL SUCCINATE) 25 Mg Tab.er.24h, 1 TAB PO BID, TAB 08/18/17 Past Medical/Surgical History Patient has a past medical and surgical history of 4 cardiac stents, TIAs versus CVA, asthma, hypercholesterolemia, hypertension, cholecystectomy, prostatitis, prostatectomy, type II diabetes, tonsillectomy, appendectomy. Reviewed Nurses Notes: Yes Smoking Status: Former Smoker Hx Substance Use Disorder: No Hx Alcohol Use: No Constitutional Vital Sign - Last 24 Hours 09/18/17 09/18/17 09/18/17 09/18/17 14:54 15:00 15:00 15:02 Temp 98.0 Pulse 90 86 Resp 16 B/P (MAP) 176/100 (125) 178/102 173/97 (122) Pulse Ox 99 99 O2 Delivery Room Air 09/18/17 09/18/17 09/18/17 09/18/17 15:30 15:32 15:37 15:52 Pulse 80 82 ??? B/P (MAP) 193/98 (129) Pulse Ox 100 100 09/18/17 09/18/17 09/18/17 09/18/17 16:03 16:07 16:22 16:30 Pulse 82 82 B/P (MAP) 175/96 (122) 199/96 (130) Pulse Ox 98 99 09/18/17 09/18/17 09/18/17 09/18/17 16:37 16:52 17:00 17:05 Pulse 84 88 ??? B/P (MAP) 197/96 (129) Pulse Ox 99 99 09/18/17 09/18/17 09/18/17 09/18/17 17:20 17:50 18:00 18:05 Pulse 89 80 90 B/P (MAP) 207/109 (141) Pulse Ox 100 100 100 09/18/17 09/18/17 18:10 18:25 Pulse 86 88 Pulse Ox 100 100 Intake and Output 09/18/17 09/18/17 09/19/17 15:00 23:00 07:00 Intake Total 500 ml Balance 500 ml Physical Exam General Appearance: The patient is alert, has no immediate need for airway protection and no signs of toxicity. Eyes: Pupils equal and round no pallor or injection. ENT, Mouth: Mucous membranes are moist. Respiratory: There are no retractions, lungs are clear to auscultation. Cardiovascular: Regular rate and rhythm, no murmurs, clicks or rubs. Gastrointestinal: Abdomen is soft, tenderness to the epigastrium and the left upper quadrant, hypoactive bowel sounds with intermittent tinkles, no bruits, no masses. No CVA tenderness. Neurological: Alert and oriented 4. Moving all extremities. Following all commands. No focal neuro deficits. Skin: Warm and dry, no rashes. Musculoskeletal: Neck is supple non tender. Extremities are nontender, nonswollen and have full range of motion. DIFFERENTIAL DIAGNOSIS: After history and physical exam differential diagnosis was considered for abdominal pain including but not limited to appendicitis, myocardial infarction, constipation, cholecystitis, gastritis and urinary tract infection. Medical Decision Making Data Points Result Diagram: 09/18/17 1510 09/18/17 1510 Laboratory Hematology Test 09/18/17 15:10 09/18/17 15:29 Red Blood Count 4.29 M/uL (4.00-5.60) Mean Corpuscular Volume 89.8 fL (80.0-96.0) Mean Corpuscular Hemoglobin 31.5 pg (26.0-33.0) Mean Corpuscular Hemoglobin Concent 35.0 g/dL (32.0-36.0) Red Cell Distribution Width 13.0 % (11.5-14.5) Mean Platelet Volume 7.5 fL (7.2-11.1) Neutrophils (%) (Auto) 81.2 % (39.4-72.5) Lymphocytes (%) (Auto) 11.2 % (17.6-49.6) Monocytes (%) (Auto) 7.1 % (4.1-12.4) Eosinophils (%) (Auto) 0.2 % (0.4-6.7) Basophils (%) (Auto) 0.3 % (0.3-1.4) Nucleated RBC Relative Count (auto) 0.0 /100WBC Neutrophils # (Auto) 11.2 K/uL (2.0-7.4) Lymphocytes # (Auto) 1.5 K/uL (1.3-3.6) Monocytes # (Auto) 1.0 K/uL (0.3-1.0) Eosinophils # (Auto) 0.0 K/uL (0.0-0.5) Basophils # (Auto) 0.0 K/uL (0.0-0.1) Nucleated RBC Absolute Count (auto) 0.00 K/uL Prothrombin Time 15.8 seconds (12.0-14.4) Prothromb Time International Ratio 1.25 Activated Partial Thromboplast Time 30 seconds (23-35) Sodium Level 135 mmol/L (137-145) Potassium Level 5.8 mmol/L (3.5-5.0) Chloride Level 99 mmol/L (98-107) Carbon Dioxide Level 22 mmol/L (22-30) Blood Urea Nitrogen 58 mg/dl (9-21) Creatinine 3.40 mg/dl (0.66-1.25) Glomerular Filtration Rate Calc 17.3 Random Glucose 268 mg/dl (75-110) Calcium Level 10.3 mg/dl (8.4-10.2) Total Bilirubin 0.7 mg/dl (0.2-1.3) Aspartate Amino Transf (AST/SGOT) 33 U/L (0-35) Alanine Aminotransferase (ALT/SGPT) 32 U/L (0-56) Alkaline Phosphatase 127 U/L (0-126) Troponin I < 0.012 ng/ml Total Protein 8.0 gm/dl (6.3-8.2) Albumin 4.2 g/dl (3.5-5.0) Amylase Level 77 U/L (0-110) Lipase 222 U/L (23-300) Urine Color Yellow Urine Clarity Clear Urine pH 8.0 pH (4.8-9.5) Urine Specific [place] 1.014 Urine Protein 30 mg/dL (NEGATIVE) Urine Glucose (UA) 50 mg/dL (NEGATIVE) Urine Ketones Negative mg/dL (NEGATIVE) Urine Blood Small (NEGATIVE) Urine Nitrite Negative (NEGATIVE) Urine Bilirubin Negative (NEGATIVE) Urine Urobilinogen Negative mg/dL (0.2-1.9) Urine Leukocyte Esterase Negative (NEGATIVE) Urine RBC 9 /HPF (0-2/HPF) Urine WBC 11 /HPF (0-5/HPF) Urine Squamous Epithelial Cells None /LPF (</=FEW) Urine Bacteria Negative /HPF (NONE-FEW) Urine Mucus None /HPF (NONE-FEW) Chemistry Test 09/18/17 15:10 09/18/17 15:29 White Blood Count 13.8 k/uL (4.5-11.0) Red Blood Count 4.29 M/uL (4.00-5.60) Hemoglobin 13.5 g/dL (14.0-18.0) Hematocrit 38.6 % (42.0-52.0) Mean Corpuscular Volume 89.8 fL (80.0-96.0) Mean Corpuscular Hemoglobin 31.5 pg (26.0-33.0) Mean Corpuscular Hemoglobin Concent 35.0 g/dL (32.0-36.0) Red Cell Distribution Width 13.0 % (11.5-14.5) Platelet Count 272 K/uL (150-450) Mean Platelet Volume 7.5 fL (7.2-11.1) Neutrophils (%) (Auto) 81.2 % (39.4-72.5) Lymphocytes (%) (Auto) 11.2 % (17.6-49.6) Monocytes (%) (Auto) 7.1 % (4.1-12.4) Eosinophils (%) (Auto) 0.2 % (0.4-6.7) Basophils (%) (Auto) 0.3 % (0.3-1.4) Nucleated RBC Relative Count (auto) 0.0 /100WBC Neutrophils # (Auto) 11.2 K/uL (2.0-7.4) Lymphocytes # (Auto) 1.5 K/uL (1.3-3.6) Monocytes # (Auto) 1.0 K/uL (0.3-1.0) Eosinophils # (Auto) 0.0 K/uL (0.0-0.5) Basophils # (Auto) 0.0 K/uL (0.0-0.1) Nucleated RBC Absolute Count (auto) 0.00 K/uL Prothrombin Time 15.8 seconds (12.0-14.4) Prothromb Time International Ratio 1.25 Activated Partial Thromboplast Time 30 seconds (23-35) Glomerular Filtration Rate Calc 17.3 Calcium Level 10.3 mg/dl (8.4-10.2) Total Bilirubin 0.7 mg/dl (0.2-1.3) Aspartate Amino Transf (AST/SGOT) 33 U/L (0-35) Alanine Aminotransferase (ALT/SGPT) 32 U/L (0-56) Alkaline Phosphatase 127 U/L (0-126) Troponin I < 0.012 ng/ml Total Protein 8.0 gm/dl (6.3-8.2) Albumin 4.2 g/dl (3.5-5.0) Amylase Level 77 U/L (0-110) Lipase 222 U/L (23-300) Urine Color Yellow Urine Clarity Clear Urine pH 8.0 pH (4.8-9.5) Urine Specific [place] 1.014 Urine Protein 30 mg/dL (NEGATIVE) Urine Glucose (UA) 50 mg/dL (NEGATIVE) Urine Ketones Negative mg/dL (NEGATIVE) Urine Blood Small (NEGATIVE) Urine Nitrite Negative (NEGATIVE) Urine Bilirubin Negative (NEGATIVE) Urine Urobilinogen Negative mg/dL (0.2-1.9) Urine Leukocyte Esterase Negative (NEGATIVE) Urine RBC 9 /HPF (0-2/HPF) Urine WBC 11 /HPF (0-5/HPF) Urine Squamous Epithelial Cells None /LPF (</=FEW) Urine Bacteria Negative /HPF (NONE-FEW) Urine Mucus None /HPF (NONE-FEW) Coagulation Test 09/18/17 15:10 Prothrombin Time 15.8 seconds Prothromb Time International Ratio 1.25 Activated Partial Thromboplast Time 30 seconds Urinalysis Test 09/18/17 15:29 Urine Color Yellow Urine Clarity Clear Urine pH 8.0 pH (4.8-9.5) Urine Specific [place] 1.014 Urine Protein 30 mg/dL (NEGATIVE) Urine Glucose (UA) 50 mg/dL (NEGATIVE) Urine Ketones Negative mg/dL (NEGATIVE) Urine Blood Small (NEGATIVE) Urine Nitrite Negative (NEGATIVE) Urine Bilirubin Negative (NEGATIVE) Urine Urobilinogen Negative mg/dL (0.2-1.9) Urine Leukocyte Esterase Negative (NEGATIVE) Urine RBC 9 /HPF (0-2/HPF) Urine WBC 11 /HPF (0-5/HPF) Urine Squamous Epithelial Cells None /LPF (</=FEW) Urine Bacteria Negative /HPF (NONE-FEW) Urine Mucus None /HPF (NONE-FEW) EKG/Imaging EKG Interpretation 12 lead EKG: Time of EKG 1525. Rhythm: Sinus rhythm, ventricular rate 79 BPM. [place]: Left QRS: normal ST segments: No ST elevation or depression identified. Imaging Location: [facility] [place] Patient: Deion Kwong : 1935 Visit/Account:[id number] Date of Sevice: 09/18/2017 ACUTE ABDOMEN SERIES 3 VIEW HISTORY: Abdominal pain COMPARISON: None FINDINGS: Chest: Negative. Abdomen: No free intraperitoneal air. There is a nonobstructive bowel gas pattern. There are no abnormal calcifications. Bony structures are unremarkable. IMPRESSION: 1. Nonobstructive bowel gas pattern. Report Dictated By: Ren Ma MD at 09/18/2017 4:21 PM Report E-Signed By: Ren Ma MD at 09/18/2017 4:23 PM WSN:[id number] Location: [facility] Patient: Deion Kwong : 1935 Visit/Account:[id number] Date of Sevice: 09/18/2017 CT abdomen and pelvis without contrast Indication: Flank pain. Comparison: None Available. Technique: Axial CT images are obtained through the abdomen and pelvis. Reformatted coronal and sagittal images were reviewed. IV contrast was not administered. One of the following dose optimization techniques was utilized in the performance of this exam: automated exposure control; adjustment of the mA and/ or kV according to the patient's size; or use of an iterative reconstruction technique. Specific details can be referenced in the facility's radiology CT exam operational policy. Findings: Lower lung anne: Limited views lower lung field are unremarkable. Evaluation of the solid organs of the abdomen is limited without IV contrast. Liver: No focal parenchymal abnormality of the liver. Biliary: Status post cholecystectomy. The biliary system is unremarkable. Pancreas: Normal appearance. Spleen: Normal appearance. Adrenal glands: Unremarkable. Kidneys / retroperitoneum: There is a 2 mm stone in the right collecting system without hydronephrosis. Right ureter shows no stone. Right kidney does show a 1.3 cm cyst. Left kidney shows at least mild hydronephrosis and hydroureter down to the urinary bladder. Discrete stone is not identified. However this portion of the urinary bladder there is a faint ill-defined density measuring approximately 2.3 cm. The left kidney ureter shows no stone. The left kidney does show a 4.2 cm cyst which shows a punctate calcification. Bowel / peritoneum / mesenteries: Small bowel moderate hiatal hernia. Stomach shows no other focal abnormality. Multiple diverticula seen along the descending and sigmoid colon without pericolonic inflammation. The colon shows no other focal abnormality. The appendix is not visualized may been surgically removed. Small bowel shows no focal abnormality or obstruction. No free air, free fluid, fluid collections or areas of inflammation. Lymph node assessment: No pathologic adenopathy identified. Pelvic structures: Urinary bladder shows no focal normality. The uterus is not visualized may been surgically removed. There is prominence of the vaginal cuff. The remaining pelvic structures visualized within normal limits. Vessels: Mild atherosclerotic calcifications seen throughout a nonaneurysmal abdominal aorta and branches. Musculoskeletal / Body wall: No acute or aggressive osseous abnormality. There is bilateral pars defect at L5 level causing mild anterior spondylolisthesis of L5 over S1 approximately 5.8 mm. Degenerative changes of the spine. IMPRESSION: 1. There is at least mild left hydronephrosis and hydroureter down to the urinary bladder. A stone is not identified. In this portion of the urinary bladder is an ill-defined mildly hyperdense foci measuring 2.3 cm. Unsure if this is a blood clot, tumor or compression from the vaginal cuff process. 2. Nonobstructing right renal calculi. 3. Other chronic findings as above. Report Dictated By: Canelo White at 09/18/2017 5:49 PM Report E-Signed By: Canelo White at 09/18/2017 5:58 PM WSN:[id number] ED Course/Re-evaluation Clinical Indication for ER IV: Hydration, IV Access ED Course The patient was admitted to room. A history of physical obtained. Differential diagnoses were considered. An IV was started. A CBC, CMP were obtained. CBC showing WBC's 13.8 with a left shift. Chemistry showing sodium 135, potassium 5.8 which is elevated from his previous studies a month ago, BUN and 58, creatinine 3.40 which is up from about 2.3 a month ago. Glucose 268. UA showing 50 of glucose, small blood in the urine, urine to be PVCs 11 with negative urine bacteria. Three-view abdomen pelvis showing nonobstructive bowel gas pattern. After reviewing these results with the patient's as well as Dr. Lui we elected to go ahead and proceed with a noncontrast abdomen and pelvis CT, showing a mild left hydronephrosis and hydroureter down to the urinary bladder. No stone identified but there is an ill-defined hyperdense foci measuring 2.3 cm unsure if it's a blood clot, tumor or compression of the cuff process. Nonobstructive right renal calculi. With other chronic findings multiple diverticula no obstruction noted. I did review these results with the patient and the family and did tell them that I feel that it would be best to keep him in the hospital I did consult with Dr. Lui again as well as Dr. Gandhi as noted below. The patient will be admitted to the hospital for acute renal failure, hyperkalemia, and hydronephrosis. Dr. Lui did come down and evaluate the patient. Patient was also given 4 mg IV Zofran 2. Continue to have nausea was given 12.5 IV Phenergan. Was given a 500 mL bolus of normal saline. 09/18/2017 5:40:49 pm I did speak with Dr. Lui the hospitalist on-call regarding the patient's case and he said to go ahead and check a postvoid residual and then proceed with a noncontrast abdomen and pelvis CT. I did discuss this with patient and they're in agreement with this. 09/18/2017 7:06:22 pm his peak with Dr. Gandhi at the request of Dr. Lui regarding the patient's case. Dr. Gandhi said that he would be fine consult in with Dr. Lui for a possible renal evaluation tomorrow. 09/18/2017 7:06:[address] Lui again regarding the patient's case and did tell him that Dr. Gandhi is okay with consult tingling. Dr. Lui will be coming down to the emergency department to evaluate the patient. I did discuss this with the patient and the family and are anxiously awaiting Dr. Lui's arrival. Decision to Disposition Date: Sep 18, 2017 Decision to Disposition Time: 19:16 Depart Departure Latest Vital Signs Vital Signs Date Time Temp Pulse Resp B/P (MAP) Pulse Ox O2 Delivery O2 Flow Rate FiO2 09/18/17 18:25 88 100 09/18/17 18:00 207/109 (141) 09/18/17 15:00 98.0 16 Room Air Impression: Primary Impression: Hyperkalemia Additional Impressions: Hydronephrosis Acute renal failure Condition: Improved Disposition: Admitted from ER Problem Qualifiers Additional Impressions: Hydronephrosis Hydronephrosis type: other Qualified Codes: N13.39 - Other hydronephrosis Acute renal failure Acute renal failure type: unspecified Qualified Codes: N17.9 - Acute kidney failure, unspecified JEAN GEE-BRIANA Sep 18, 2017 15:16
[2017-09-18 15:23] LABS: PLATELET COUNT, AUTOMATED 272 K/uL (150-450)
[2017-09-18 15:32] LABS: INR 1.25
--- NOTE | 2017-09-18 15:39 | EKG ---
FACILITY: [facility] [place] PATIENT NAME: SANDRA CORREA : [id number] MR: [id number] V: [id number] EXAM DATE: ORDERING PHYSICIAN: JEAN GEE TECHNOLOGIST: DARCY Test Reason : NAUSEA Blood Pressure : / mmHG Vent. Rate : 079 BPM Atrial Rate : 079 BPM P-R Int : 154 ms QRS Dur : 082 ms QT Int : 378 ms P-R-T Axes : 047 -56 031 degrees QTc Int : 433 ms Normal sinus rhythm Left axis deviation Abnormal ECG When compared with ECG of 18-AUG-2017 17:45, No significant change was found Confirmed by ELIUD ORTIZ ([id number]) on 09/18/2017 7:52:17 PM Referred By: PO Confirmed By:ELIUD ORTIZ
--- NOTE | 2017-09-18 16:27 | RADIOLOGY IMAGING REPORT ---
FACILITY: [facility] PATIENT NAME: Deion Kwong : 1935 MR: [id number] V: [id number] EXAM DATE: ORDERING PHYSICIAN: JEAN GEE TECHNOLOGIST: Location: [facility] [place] Patient: Deion Kwong : 1935 Visit/Account:[id number] Date of Sevice: 09/18/2017 ACUTE ABDOMEN SERIES 3 VIEW HISTORY: Abdominal pain COMPARISON: None FINDINGS: Chest: Negative. Abdomen: No free intraperitoneal air. There is a nonobstructive bowel gas pattern. There are no abno rmal calcifications. Bony structures are unremarkable. IMPRESSION: 1. Nonobstructive bowel gas pattern. Report Dictated By: Ren Ma MD at 09/18/2017 4:21 PM Report E-Signed By: Ren Ma MD at 09/18/2017 4:23 PM WSN:[id number]
--- NOTE | 2017-09-18 18:03 | RADIOLOGY IMAGING REPORT ---
FACILITY: [facility] [place] PATIENT NAME: Deion Kwong : 1935 MR: [id number] V: [id number] EXAM DATE: ORDERING PHYSICIAN: JEAN GEE TECHNOLOGIST: Location: [facility] Patient: Deion Kwong : 1935 Visit/Account:[id number] Date of Sevice: 09/18/2017 ADDENDUM #1 There is a mistake in the dictation. In the pelvic structures: There was previous statement of status post hysterectomy. This is wrong. The patient is a male patient. The prostate is present and may valentino w impression to the urinary bladder. The density seen within the urinary bladder could be secondary t o the prostate impression or a bladder tumor/blood clot causing obstruction of the left UVJ. Report Dictated By: Canelo White at 09/20/2017 4:26 PM Report E-Signed By: Canelo White at 09/20/2017 4:[address] abdomen and pelvis without contrast Indication: Flank pain. Comparison: None Available. Technique: Axial CT images are obtained through the abdomen and pelvis. Reformatted coronal and sagit kendra images were reviewed. IV contrast was not administered. One of the following dose optimization techniques was utilized in the performance of this exam: auto mated exposure control; adjustment of the mA and/or kV according to the patient's size; or use of an iterative reconstruction technique. Specific details can be referenced in the facility's radiology C T exam operational policy. Findings: Lower lung anne: Limited views lower lung field are unremarkable. Evaluation of the solid organs of the abdomen is limited without IV contrast. Liver: No focal parenchymal abnormality of the liver. Biliary: Status post cholecystectomy. The biliary system is unremarkable. Pancreas: Normal appearance. Spleen: Normal appearance. Adrenal glands: Unremarkable. Kidneys / retroperitoneum: There is a 2 mm stone in the right collecting system without hydronephrosi s. Right ureter shows no stone. Right kidney does show a 1.3 cm cyst. Left kidney shows at least mild hydronephrosis and hydroureter down to the urinary bladder. Discrete stone is not identified. Howeve r this portion of the urinary bladder there is a faint ill-defined density measuring approximately 2. 3 cm. The left kidney ureter shows no stone. The left kidney does show a 4.2 cm cyst which shows a pu nctate calcification. Bowel / peritoneum / mesenteries: Small bowel moderate hiatal hernia. Stomach shows no other focal ab normality. Multiple diverticula seen along the descending and sigmoid colon without pericolonic infla mmation. The colon shows no other focal abnormality. The appendix is not visualized may been surgical ly removed. Small bowel shows no focal abnormality or obstruction. No free air, free fluid, fluid collections or areas of inflammation. Lymph node assessment: No pathologic adenopathy identified. Pelvic structures: Urinary bladder shows no focal normality. The uterus is not visualized may been surgically removed. There is prominence of the vaginal cuff. The remaining pelvic structures visuali zed within normal limits. Vessels: Mild atherosclerotic calcifications seen throughout a nonaneurysmal abdominal aorta and bran ches. Musculoskeletal / Body wall: No acute or aggressive osseous abnormality. There is bilateral pars defe ct at L5 level causing mild anterior spondylolisthesis of L5 over S1 approximately 5.8 mm. Degenerati ve changes of the spine. IMPRESSION: 1. There is at least mild left hydronephrosis and hydroureter down to the urinary bladder. A stone is not identified. In this portion of the urinary bladder is an ill-defined mildly hyperdense foci lauryn uring 2.3 cm. Unsure if this is a blood clot, tumor or compression from the vaginal cuff process. 2. Nonobstructing right renal calculi. 3. Other chronic findings as above. Report Dictated By: Canelo White at 09/18/2017 5:49 PM Report E-Signed By: Canelo White at 09/18/2017 5:58 PM WSN:[id number]
[2017-09-18] MEDS ORDERED: PROMETHAZINE 25 MG/ML 1 ML AMP IVP ONE (18:20)
[2017-09-18] MEDS: POLYETHYLENE GLYCOL 17 GM PKT PO SCH (19:25)
[2017-09-18] MEDS ORDERED: ONDANSETRON 4 MG/2 ML VIAL IVP PRN (19:25)
[2017-09-18] MEDS ORDERED: cloNIDine HCL 0.1 MG TAB PO PRN (19:25)
[2017-09-18] MEDS ORDERED: MAGNESIUM HYDROXIDE* 30ML UDCP PO PRN (19:25)
[2017-09-18] MEDS ORDERED: BISACODYL 10 MG SUPP PR PRN (19:25)
[2017-09-18] MEDS ORDERED: PROMETHAZINE 25 MG/ML 1 ML AMP IVP PRN (19:25)
[2017-09-18] MEDS ORDERED: cefTRIAXone 2 GM VIAL IVP SCH (20:00)
[2017-09-18] MEDS ORDERED: cefTRIAXone(*) 2 GM VIAL 2 GM in NS(*) 0.9% 100 ML ADDVANT BAG 100 ML IVPB SCH (20:00)
[2017-09-18 20:04] VITALS: BP 187/103
--- NOTE | 2017-09-18 20:11 | History & Physical ---
History of Present Illness History of Present Illness 82yo male with a h/o recent carotid endarterectomy, T2DM and HTN who came to the ER for abdominal "sickness". About 2 weeks ago, he had a left CEA for stenosis and TIA. He stayed 2 extra days in the hospital because of hypertension and hyperglycemia. He did fairly well after coming home. 2 days ago, he developed nausea that resolved with Tums. Yesterday, he developed nausea with dry heaves that resolved again with some Tums. Today, he came to the ER complaining of abdominal pain in the epigastric region. However, he doesn't report pain to me. He had a ruth, hard BM this morning, but chronically has problems passing stools. He denies fevers, diarrhea, cp, or sob. The surgical site on his neck is healing well and is non-tender. He noted to the ER staff that he has had some decreasing UOP today. He admits to me that he has had decreased oral intake because of the nausea, but he has continued to take his pills. In the ER, he received IVF, Zofran and Phenergan. History Problems: (1) TIA (transient ischemic attack) Status: Acute (2) Prostate cancer Status: Chronic (3) HTN (hypertension) Status: Chronic (4) T2DM (type 2 diabetes mellitus) Status: Chronic (5) History of appendectomy (6) History of prostatectomy (7) History of tonsillectomy (8) History of bilateral inguinal hernia repair (9) Hx of CABG (10) History of exploratory laparotomy (11) History of carotid endarterectomy Status: Chronic Home Meds Active Scripts Acetaminophen (MAPAP) 325 Mg Tablet, 650 MG PO Q6H Y for PAIN OR FEVER 100 OR GREATER for 30 Days, TAB Prov:ANNA HERNANDEZ MD 08/20/17 Clopidogrel Bisulfate (CLOPIDOGREL) 75 Mg Tablet, 75 MG PO HS, #10 TAB 1 Refill Prov:ANNA HERNANDEZ MD 08/20/17 Atorvastatin Calcium (ATORVASTATIN CALCIUM) 40 Mg Tablet, 40 MG PO QHS, #10 TAB 1 Refill Prov:ANNA HERNANDEZ MD 08/20/17 Reported Medications Carvedilol (CARVEDILOL) 25 Mg Tablet, 25 MG PO BID, #10 TAB 09/18/17 [cancer med] No Conflict Check 08/18/17 Hum Insulin Nph/Reg Insulin Hm (NOVOLIN 70-30 100 UNIT/ML VIAL) 100 Unit/1 Ml Vial, 35 UNIT SQ BID, VIAL 08/18/17 Discontinued Reported Medications Losartan Potassium (LOSARTAN POTASSIUM) 25 Mg Tablet, 25 MG PO QDAY 08/18/17 Metoprolol Succinate (METOPROLOL SUCCINATE) 25 Mg Tab.er.24h, 1 TAB PO BID, TAB 08/18/17 Allergies: Coded Allergies: meperidine (Verified Allergy, Severe, 09/18/17) morphine (Verified Allergy, Severe, 09/18/17) Smoking Status: Former Smoker Caffeine Intake: Coffee Caffeine/Cups Per Day: 1 cup Hx Alcohol Use: No Hx Substance Use Disorder: No Review of Systems All Systems Reviewed/Normal: Yes, Except as Noted Exam Vital Signs Vital Signs Date Time Temp Pulse Resp B/P (MAP) Pulse Ox O2 Delivery O2 Flow Rate FiO2 09/18/17 18:25 88 100 09/18/17 18:00 207/109 (141) 09/18/17 15:00 98.0 16 Room Air General Appearance: Alert, Awake, No Acute Distress (but he did get nauseated during the interview, but felt back to baseline after vomiting. Breathing comfortably) ENT: Moist Mucous Membranes Neck: Other (Left surgical scar is C/D/I. No erythema) Cardiovascular: Regular Rate and Rhythm, No JVD Respiratory: Clear to Auscultation GI: Abd Soft and Non-Tender : Other (Mild discomfort in the left flank with palpation.) Extremities: No Edema Integumentary: No Jaundice, No Cyanosis Medical Decision Making Data Points Result Diagram: 09/18/17 1510 09/18/17 1510 Item Value Date Time Creatinine 2.30 mg/dl H 08/20/17 0505 Creatinine 3.40 mg/dl H 09/18/17 1510 Potassium Level 5.8 mmol/L H 09/18/17 1510 Potassium Level 4.3 mmol/L 08/20/17 0505 Sodium Level 139 mmol/L 08/20/17 0505 Sodium Level 135 mmol/L L 09/18/17 1510 Troponin I < 0.012 ng/ml 09/18/17 1510 Calcium Level 10.3 mg/dl H 09/18/17 1510 Calcium Level 9.2 mg/dl 08/20/17 0505 Total Bilirubin 0.5 mg/dl 08/20/17 0505 Total Bilirubin 0.7 mg/dl 09/18/17 1510 Aspartate Amino Transf (AST/SGOT) 33 U/L 09/18/17 1510 Alanine Aminotransferase (ALT/SGPT) 32 U/L 09/18/17 1510 Alanine Aminotransferase (ALT/SGPT) 36 U/L 08/20/17 0505 Aspartate Amino Transf (AST/SGOT) 26 U/L 08/20/17 0505 Alkaline Phosphatase 79 U/L 08/20/17 0505 Alkaline Phosphatase 127 U/L H 09/18/17 1510 Lipase 222 U/L 09/18/17 1510 Amylase Level 77 U/L 09/18/17 1510 Albumin 4.2 g/dl 09/18/17 1510 Prothromb Time International Ratio 1.25 09/18/17 1510 Urine RBC 9 /HPF 09/18/17 1529 Urine WBC 11 /HPF 09/18/17 1529 Urine Squamous Epithelial Cells None /LPF 09/18/17 1529 Urine Bacteria Negative /HPF 09/18/17 1529 Urine Blood Small 09/18/17 1529 Urine Glucose (UA) 50 mg/dL H 09/18/17 1529 Urine Specific [place] 1.014 09/18/17 1529 Urine Protein 30 mg/dL 09/18/17 1529 Random Glucose 268 mg/dl H 09/18/17 1510 White Blood Count 13.8 k/uL H 09/18/17 1510 Neutrophils (%) (Auto) 81.2 % H 09/18/17 1510 Hemoglobin 13.5 g/dL L 09/18/17 1510 EKG / Imaging EKG Interpretation NSR, no ST-T abnormalities. Unchanged from previous Imaging Abd/Pelvis CT - 1. There is at least mild left hydronephrosis and hydroureter down to the urinary bladder. A stone is not identified. In this portion of the urinary bladder is an ill-defined mildly hyperdense foci measuring 2.3 cm. Unsure if this is a blood clot, tumor or compression from the vaginal cuff process. 2. Nonobstructing right renal calculi. 3. Other chronic findings as above. Abd Xray - 1. Nonobstructive bowel gas pattern. Assessment and Plan Problems: (1) Acute renal failure Status: Acute Assessment & Plan: He presented with an increase creatinine from baseline. At baseline, has CKD. The etiology is likely a combination of dehydration from nausea, hydronephrosis and losartan use. He will be hydrated and BMP followed. See below. (2) Hydronephrosis Status: Acute Assessment & Plan: The etiology is unclear. He has a h/o stones. He was told 2 weeks ago about a possible mass on right ureter and was going to get a formal evaluation done later because of the recent anesthesia with the CEA. He has pyuria and leukocytosis, so will start Ceftriaxone. He is afebrile and P is stable and his BP is high. Dr. Gandhi will see the patient tomorrow. The patient will be continued on ASA and Plavix because of the recent surgery. (3) Nausea & vomiting Status: Acute Assessment & Plan: Likely secondary to the hydronephrosis. He did have abdominal pain in the ER, but that has resolved. Will give IV Pepcid for gastritis and treat symptoms with Phenergan and Zofran. He is having hard BM, so will put him on a bowel regimen. (4) Hyperkalemia Status: Acute Assessment & Plan: Secondary to dehydration, ARF and Losartan use. (5) HTN (hypertension) Status: Chronic Assessment & Plan: BP is elevated to 191/95, currently. Will continue metoprolol and give clonidine prn. (6) History of carotid endarterectomy Status: Chronic Assessment & Plan: This was done on 09/06 in [place]. He had had a TIA and was found to have a stenosed carotid artery. He is chronically on ASA, Plavix and Lipitor, which will be continued. Will try to get those records. (7) T2DM (type 2 diabetes mellitus) Status: Chronic Assessment & Plan: He is chronically on 70/30 insulin and leuprolide. Will switch him, per his request, to Lantus 20 units and SSI level 2. 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 Baseline creatinine at his previous admission at [facility] was 2.3-2.5. Copies to: SUMAN GALLARDO; Deion Owen MD; TONY NORRIS MD Venous Thromboembolism Antithrombotics Is Pt On Any Antithrombotics?: No Exam Sepsis Risk: No Definite Risk Problem Qualifiers (1) Acute renal failure: Acute renal failure type: unspecified Qualified Codes: N17.9 - Acute kidney failure, unspecified (2) Hydronephrosis: Hydronephrosis type: other Qualified Codes: N13.39 - Other hydronephrosis ELIUD ORTIZ MD Sep 18, 2017 20:10
[2017-09-18] MEDS ORDERED: FAMOTIDINE(*) 20MG/50ML PREMIX 50 ML IVPB SCH (21:00)
[2017-09-18] MEDS ORDERED: CLOPIDOGREL BISULFATE 75MG TAB PO SCH (21:00)
[2017-09-18] MEDS: NS(*) 0.9% 1000 ML BAG 1,000 ML IV PRN (21:04)
[2017-09-18] MEDS: INSULIN GLARGINE 100 U/ML 3 ML PEN SUBQ SCH (21:21)
[2017-09-18] MEDS: METOPROLOL TART 50 MG TAB PO SCH (21:25)
[2017-09-18] MEDS: MELATONIN 3 MG TAB PO SCH (21:29)
[2017-09-18] MEDS: ATORVASTATIN 40 MG TAB PO SCH (21:29)
[2017-09-18] MEDS: DOCUSATE SODIUM 100 MG CAP PO SCH (21:29)
[2017-09-18 23:19] VITALS: BP 184/96
[2017-09-19] VITALS (12 sets, daily range): BP systolic 74–148; BP diastolic 38–85; Ht 167.6 cm; Wt 68.0 kg
[2017-09-19] MEDS: NS(*) 0.9% 1000 ML BAG 1,000 ML IV PRN ×3 (02:59→23:07)
[2017-09-19 05:46] LABS: PLATELET COUNT, AUTOMATED 185 K/uL (150-450)
[2017-09-19] MEDS: METOPROLOL TART 50 MG TAB PO SCH ×2 (09:00→20:38)
[2017-09-19] MEDS: POLYETHYLENE GLYCOL 17 GM PKT PO SCH (09:58)
[2017-09-19] MEDS: ASPIRIN 81 MG ENTERIC COATED PO SCH (09:58)
[2017-09-19] MEDS: DOCUSATE SODIUM 100 MG CAP PO SCH ×2 (09:59→20:38)
[2017-09-19] MEDS: FAMOTIDINE(*) 20MG/50ML PREMIX 50 ML IVPB SCH (10:03)
--- NOTE | 2017-09-19 10:11 | Hospitalist Progress Note ---
Subjective Progress Notes Subjective The patient states he feels great this am. He received promethazine last evening and was able to sleep all night. He ate breakfast this am without difficulty. Physical Exam Vital Signs Date Time Temp Pulse Resp B/P (MAP) Pulse Ox O2 Delivery O2 Flow Rate FiO2 09/19/17 07:47 98.5 68 20 88/46 (60) 98 Nasal Cannula 1.0 Intake and Output 09/20/17 07:00 Intake Total 240 ml Balance 240 ml Intake Oral 240 ml General Appearance: Alert, Awake, No Acute Distress, Afebrile Neuro: No Gross deficits Eyes: PERRLA Cardiovascular: Regular Rate and Rhythm Respiratory: Clear to Auscultation GI: Soft and Non-Tender Extremities: Warm, Perfused Psych: Appropriate Mood & Affect Result Diagram: 09/19/1735 09/19/17534 Assessment and Plan Problems: (1) Acute renal failure Status: Acute Assessment & Plan: He presented with an increase creatinine from baseline. At baseline, has CKD. The etiology is likely a combination of dehydration from nausea, hydronephrosis and losartan use. He will be hydrated and BMP followed. See below. (2) Hydronephrosis Status: Acute Assessment & Plan: L hydronephrosis. The etiology is unclear. He has a h/o stones. He was told 2 weeks ago about a possible mass on right ureter and was going to get a formal evaluation done later because of the recent anesthesia with the CEA. He has pyuria and leukocytosis, so will start Ceftriaxone. He is afebrile and pulse is stable and his BP was high but he received a dose of clonidine and now he is hypotensive. He is receiving fluids now with bolus as needed for his pressure. Dr. Gandhi will see the patient today. The patient will be continued on ASA and Plavix because of the recent surgery. Will repeat a BMP at 1600 today. (3) Nausea & vomiting Status: Acute Assessment & Plan: Likely secondary to the hydronephrosis. He did have abdominal pain in the ER, but that has resolved. Will give IV Pepcid for gastritis and treat symptoms with Phenergan and Zofran. He is having hard BM, so will put him on a bowel regimen. (4) Hyperkalemia Status: Acute Assessment & Plan: Secondary to dehydration, ARF and Losartan use. (5) HTN (hypertension) Status: Chronic Assessment & Plan: BP was elevated to 191/95. He was given a dose of prn clonidine and his BP dropped into the 80s systolic. Will hold BP meds today. Will give fluids. The clonidine may have a prolonged effect due to his renal failure. (6) History of carotid endarterectomy Status: Chronic Assessment & Plan: This was done on 09/06 in [place]. He had had a TIA and was found to have a stenosed carotid artery. He is chronically on ASA, Plavix and Lipitor, which will be continued. Will try to get those records. (7) T2DM (type 2 diabetes mellitus) Status: Chronic Assessment & Plan: He is chronically on 70/30 insulin. Will switch him, per his request, to Lantus 20 units and SSI level 2. 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 Baseline creatinine at [facility] was 2.3-2.5. Time Spent on Plan of Care: < 30 min Exam Sepsis Risk: Severe Sepsis Risk Problem Qualifiers (1) Acute renal failure: Acute renal failure type: unspecified Qualified Codes: N17.9 - Acute kidney failure, unspecified (2) Hydronephrosis: Hydronephrosis type: other Qualified Codes: N13.39 - Other hydronephrosis MARCELO HERNANDEZ MD Sep 19, 2017 10:11
[2017-09-19] MEDS ORDERED: LEUP3.753 IM (10:14)
--- NOTE | 2017-09-19 15:03 | Medical Nutrition Therapy ---
Nutrition Anthropometrics Height (Inches): 66.00 Height (Calculated Centimeters: 167.486188 Weight (Pounds): 150 Weight (Calculated Kilograms): 68.039 BMI Calculated: 24.21 Chun Nutrition Score: Probably Inadequate Chun Nutrition Risk Score: 16 Dietary Referral Nutrition Risk Factors: Unplanned Loss >10lbs Nutrition Risk Comment: Nutrition/Food History Decreased Appetite, N/V Poor Skipped Meals: Yes Breakfast: Usually consumes daily, something easy to make Dinner: Usually consumes daily, something prepared by [id number] or son Snacks: Pt drinks 1 boost per day Nutritional Diagnosis Nutritional Risk Acuity 1: Acute/ES Renal Nutritional Risk Acuity 3: Nausea Past Medical History: TIA, prostate cancer, HTN, T2DM, hx of CABG, appendectomy, prostatectomy, tonsillectomy, bilateral inguinal hernia repair, exploratory lapaotomy, carotid endarterectomy and CKD stage 4 Nutritional Acuity: 1-High Nutrition Diagnosis: Involuntary Wt. Loss Nutrition Etiology: Change in Appetite Nutrition Problem/Etiology/Sym: reported wt loss of 50 lbs in the past year, report of decreased appetite and typically not being hungry. Energy Requirement: 1735 (kcal/day (26 kcal/kg)- [place] [address]. Jeor RMR (1312) AF 1.2, IF 1.1) Protein Requirement: 54 (g/day (0.8 g/k)) Fluid Requirement: 1700 (mL/day (25 mL/kg)) Diet Type: Diabetic Nutrition Intervention: Cont diet as ordered, Encourage intake Diet Comment To [facility]: OFFER CHOCOLATE BOOST AT EVERY MEAL. Nutrition Monitoring & Eval Nutrition Goals: Eat 90-100% Meal Nutrition Follow-Up: Poor Intake RD Patient Assessment Time: [address] Assessment Type: RD Assessment Patient Nutrition Acuity: 1-High Follow Up Date: Sep 22, 2017 Nutritional Comment: 09/19 Pt admitted with acute renal failure and hydronephrosis. Per physician note, pt experiencing nausea, vomiting and has has reported unplanned weight loss greater than 10 lbs. Per EMR, pt wt stable since last visit on 08/18/17 at 68 kg. Pt on a diabetic diet order with no intakes recorded at this time. Per pt, he has lost 50 lbs in the past year with a usual body weight of 185 lbs. Pt stated usual body weight compared to current weight reflects a 35 lb weight loss. Pt weight prior to weightloss places pt in the overweight category. Pt current BMI is appropriate. Pt states that he has a significantly decreased appetite and isn't usually hungry at all. Pt states that he typically consumes two meals per day, one at breakfast and one at dinnner and usually drinks one boost per day. Pt states that he does not have any teeth but is able to chew everything he would like with his gums. Pt son in room during time of visit requesting information on local organizations that provide help with meals for the pt. Director Government encouraged pt son to contact meals on wheels. [facility] to offer Boost at each meal in order to prevent further weight loss. Glucose 152-228, BUN 54, Creat 3.6. Continue to monitor intake, weight and clinical progress. YARELY KIRBY Sep 19, 2017 13:43
[2017-09-19] MEDS: INSULIN HUM LISPRO 100 UN/ML 3 ML VIAL SUBQ PRN ×2 (16:42→20:52)
[2017-09-19] MEDS ORDERED: cefTRIAXone(*) 1 GM VIAL 1 GM in NS(*) 0.9% 100 ML ADDVANT BAG 100 ML IVPB SCH (20:00)
[2017-09-19] MEDS: MELATONIN 3 MG TAB PO SCH (20:38)
[2017-09-19] MEDS: ACETAMINOPHEN 500 MG TAB PO PRN (20:38)
[2017-09-19] MEDS: ATORVASTATIN 40 MG TAB PO SCH (20:38)
[2017-09-19] MEDS: INSULIN GLARGINE 100 U/ML 3 ML PEN SUBQ SCH (20:49)
[2017-09-20 04:16] VITALS: BP 135/65
--- NOTE | 2017-09-20 04:40 | CONSULTATION ---
EVENT DATE: September 19, 2017 CONSULTING PHYSICIAN Vincent Gandhi MD HISTORY OF PRESENT ILLNESS This is an 82-year-old white male whom I was asked to see following his recent carotid endarterectomy in [place], [place] by Dr. Owen on September 06, 2017. The patient had some difficulty postoperatively, but subsequently improved and was discharged home and returns with a complaint of nausea with dry heaves and some abdominal pain. When interviewed, patient was having no pain. Patient is known to have an obstructed left ureter and kidney that was diagnosed in [place], [place]. Urologist explained possible problem with an invasive lesion and the need for cystoscopy, biopsy and/or stent placement. Patient at this time shows a creatinine in the range of approximately 3.5, and is stable, stating it is probably around 2.7, possibly a little bit lower or slightly higher at any given time. Patient is currently markedly improved as compared to last p.m., and is tolerating fluids. Patient appears to be comfortable lying in his bed. Patient's and son and probable [id number] were in the room as well. Additional history reveals that patient had a radical prostatectomy approximately 21 years ago. Followup PSA was noted to be elevated approximately two months ago in the 18 range. Patient was started on Lupron and Casodex therapy, and his most current PSA is 0.3. There is concern, as well as mine, that patient has an invasive mass, probably related to his prostate cancer or elevated PSA, and it may be extending into his left distal ureter and causing the obstruction. Options were discussed with the patient and his family, and he is agreeable to followup cystoscopy and biopsy, possible stent placement in approximately one week. Patient's cardiovascular surgeon, Dr. Owen, was contacted as to his Plavix therapy. Dr. Owen was agreeable to discontinuing the Plavix for seven days and continuing his baby aspirin throughout his procedure, and then keeping him off the Plavix for a couple of days, and then restart his Plavix to follow his biopsy and stent placement. If the patient's kidney function fails to stabilize and continues to elevate, the patient may need temporary nephrostomy tube and/or stent placement. The interventional radiologist, Dr. Tamayo, was contacted, and he stated that if the patient's creatinine elevated significantly, that patient could probably have intervention with a nephrostomy tube placement after being off the Plavix two or three days. The above information has been conveyed to the patient as well as his family, and he is agreeable to monitoring the kidney function over the next couple of days and tentatively being scheduled a week from now for his cystoscopy, biopsy and possible stent placement. IMPRESSION 1. Obstructed left distal ureter, etiology ?, probably secondary to invasive prostate cancer. 2. Renal insufficiency secondary to #1 and probable chronic kidney disease secondary to his diabetes and age with arteriosclerotic disease. RECOMMENDATIONS Cystoscopy, biopsy of the lesion, and placement of indwelling ureteral stent. Thank you for letting me share in the care of your patient. FRANKIE
[2017-09-20 06:08] LABS: PLATELET COUNT, AUTOMATED 152 K/uL (150-450)
[2017-09-20] MEDS: ACETAMINOPHEN 500 MG TAB PO PRN (06:13)
[2017-09-20] MEDS: INSULIN HUM LISPRO 100 UN/ML 3 ML VIAL SUBQ PRN (08:04)
[2017-09-20 08:05] VITALS: BP 150/74
[2017-09-20] MEDS: ASPIRIN 81 MG ENTERIC COATED PO SCH (09:00)
[2017-09-20] MEDS: DOCUSATE SODIUM 100 MG CAP PO SCH (09:00)
[2017-09-20] MEDS: POLYETHYLENE GLYCOL 17 GM PKT PO SCH (09:00)
[2017-09-20] MEDS: FAMOTIDINE(*) 20MG/50ML PREMIX 50 ML IVPB SCH (09:00)
[2017-09-20] MEDS: METOPROLOL TART 50 MG TAB PO SCH (09:00)
[2017-09-20] MEDS ORDERED: ASPI81TA86 PO (10:03)
--- NOTE | 2017-09-20 10:36 | Hospitalist Depart ---
Discharge Summary Reason for Hosp/Final Diag: (1) Hydronephrosis Status: Acute Hospital Course & Plan: Left hydronephrosis. 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 He was told 2 weeks ago about a possible mass on right ureter and was going to get a formal evaluation done later because of the recent anesthesia with the left carotid endarterectomy. He did have some pyuria on UA, but culture is negative and he did not have any fever/symptoms. Dr. Moran did see the patient and recommended biopsy and possible stent placement. The patient will be continued on ASA 81mg daily, but Plavix will be held for upcoming procedure. This was discussed with his vascular surgeon (Dr. Owen in [place], [place]) and he was agreeable. (2) Acute renal failure Status: Acute Hospital Course & Plan: He presented with an increase in his creatinine from baseline. At baseline, he does have chronic kidney disease. The acute etiology is likely a combination of dehydration from nausea, hydronephrosis due to ureteral obstruction, and losartan use. He was given IV fluids. Labs were monitored closely. His creatinine did improve throughout his stay. His nausea/ vomiting resolved. He was eating and drinking normally. He will need close follow up on his lab as an outpatient. (3) Nausea & vomiting Status: Acute Hospital Course & Plan: Likely secondary to the hydronephrosis/uremia. He did have abdominal pain in the ER, but that resolved fairly quickly. He had no ongoing problems and was eating/drinking without problems. (4) Hyperkalemia Status: Acute Hospital Course & Plan: Resolved. Secondary to dehydration, acute on chronic renal failure, and previous Losartan use. (5) HTN (hypertension) Status: Chronic Hospital Course & Plan: BP was elevated to 191/95 initially. He was continued on beta kamar therapy. His BPs have been under fairly good control. He will be continued on metoprolol alone. (6) History of carotid endarterectomy Status: Chronic Hospital Course & Plan: This was done on 09/06/17 in [place] with Dr. Owen. He had a TIA in August 2017 and was found to have a stenosed carotid artery. He is chronically on ASA, Plavix and Lipitor. He will hold his Plavix until urology procedure can be completed. Following the procedure, he will resume the Plavix. He will continue the aspirin and Lipitor. (7) T2DM (type 2 diabetes mellitus) Status: Chronic Hospital Course & Plan: He is chronically on 70/30 insulin. He is hoping to switch to a long acting insulin in the future, but [facility] and has not been changed up to this point. Will not change at this time and allow his primary care providers to manage this. (8) CKD (chronic kidney disease) stage 4, GFR 15-29 ml/min Status: Chronic Hospital Course & Plan: Baseline creatinine at his previous admission at [facility] was 2.3-2.5. At time of admission his creatinine was 3.6 and had improved to 3.2 at time of discharge. He will need close follow up on his lab as an outpatient. Departure Weight (Pounds): 150 Result Diagram: 09/20/1752409/20/17524 Item Value Date Time Sodium Level 135 mmol/L L 09/18/17 1510 Potassium Level 5.8 mmol/L H 09/18/17 1510 Chloride Level 99 mmol/L 09/18/17 1510 Carbon Dioxide Level 22 mmol/L 09/18/17 1510 Blood Urea Nitrogen 58 mg/dl H 09/18/17 1510 Creatinine 3.40 mg/dl H 09/18/17 1510 Glomerular Filtration Rate Calc 17.3 09/18/17 1510 Random Glucose 268 mg/dl H 09/18/17 1510 Calcium Level 10.3 mg/dl H 09/18/17 1510 Total Bilirubin 0.7 mg/dl 09/18/17 1510 Aspartate Amino Transf (AST/SGOT) 33 U/L 09/18/17 1510 Alanine Aminotransferase (ALT/SGPT) 32 U/L 09/18/17 1510 Alkaline Phosphatase 127 U/L H 09/18/17 1510 Total Protein 8.0 gm/dl 09/18/17 1510 Albumin 4.2 g/dl 09/18/17 1510 Amylase Level 77 U/L 09/18/17 1510 Lipase 222 U/L 09/18/17 1510 Troponin I < 0.012 ng/ml 09/18/17 1510 Lactate 1.5 mmol/L 09/19/17 0535 Prothrombin Time 15.8 seconds H 09/18/17 1510 Prothromb Time International Ratio 1.25 09/18/17 1510 Activated Partial Thromboplast Time 30 seconds 09/18/17 1510 White Blood Count 13.8 k/uL H 09/18/17 1510 Hemoglobin 13.5 g/dL L 09/18/17 1510 Hematocrit 38.6 % L 09/18/17 1510 Platelet Count 272 K/uL 09/18/17 1510 Platelet Count 185 K/uL 09/19/17 0535 Hematocrit 29.9 % L 09/19/17 0535 Hemoglobin 10.4 g/dL L 09/19/17 0535 White Blood Count 7.7 k/uL 09/19/17 0535 Urine Color Yellow 09/18/17 1529 Urine Clarity Clear 09/18/17 1529 Urine pH 8.0 pH 09/18/17 1529 Urine Specific [place] 1.014 09/18/17 1529 Urine Protein 30 mg/dL 09/18/17 1529 Urine Glucose (UA) 50 mg/dL H 09/18/17 1529 Urine Ketones Negative mg/dL 09/18/17 1529 Urine Blood Small 09/18/17 1529 Urine Nitrite Negative 09/18/17 1529 Urine Bilirubin Negative 09/18/17 1529 Urine Urobilinogen Negative mg/dL 09/18/17 1529 Urine Leukocyte Esterase Negative 09/18/17 1529 Urine RBC 9 /HPF 09/18/17 1529 Urine WBC 11 /HPF 09/18/17 1529 Urine Squamous Epithelial Cells None /LPF 09/18/17 1529 Urine Bacteria Negative /HPF 09/18/17 1529 Urine Mucus None /HPF 09/18/17 1529 [facility] *LIVE* [address] [place] [address] FLETCHER GUTIERREZ M.D., DIRECTOR OF LABORATORY SERVICES VERONICA STEPHENS M.D., PATHOLOGIST RUN DATE: 09/19/17 Specimen Inquiry Report PAGE 1 RUN TIME: 1025 PATIENT: SANDRA KWONG ACCT: [id number] LOC: [facility] U : [id number] AGE/SX: 82/M ROOM: 2275 REG : 09/18/[address]: ELIUD ORTIZ MD : 1935 BED: 275 DIS : STATUS: ADM IN TLOC: SPEC #: [id number] GREGORIA: 09/18/17-UNK STATUS: RES REQ #: [id number] RECD: 09/18/[address]: ELIUD ORTIZ MD SOURCE: [facility] ENTR: 09/18/17 [facility] DR: JEAN GEE [facility] SPDESC: ORDERED: CULT URINE COMMENTS: Comments: use urine from the ER Procedure Result Verified URINE CULTURE Preliminary 09/19/17-1025 NO GROWTH SO FAR, SET LATE. REINCUBATED Imaging PATIENT NAME: Sandra Kwong : 1935 MR: [id number] V: [id number] EXAM DATE: [id number] ORDERING PHYSICIAN: JEAN GEE TECHNOLOGIST: Location: [facility] Patient: Sandra Kwong : 1935 Visit/Account:[id number] Date of Sevice: 09/18/2017 ACUTE ABDOMEN SERIES 3 VIEW HISTORY: Abdominal pain COMPARISON: None FINDINGS: Chest: Negative. Abdomen: No free intraperitoneal air. There is a nonobstructive bowel gas pattern. There are no abnormal calcifications. Bony structures are unremarkable. IMPRESSION: 1. Nonobstructive bowel gas pattern. Report Dictated By: Ren Ma MD at 09/18/2017 4:21 PM Report E-Signed By: Ren Ma MD at 09/18/2017 4:23 PM WSN:[id number] PATIENT NAME: Sandra Kwong : 1935 MR: [id number] V: [id number] EXAM DATE: [id number] ORDERING PHYSICIAN: JEAN GEE TECHNOLOGIST: Location: [facility] Patient: Sandra Kwong : 1935 Visit/Account:[id number] Date of Sevice: 09/18/2017 CT abdomen and pelvis without contrast Indication: Flank pain. Comparison: None Available. Technique: Axial CT images are obtained through the abdomen and pelvis. Reformatted coronal and sagittal images were reviewed. IV contrast was not administered. One of the following dose optimization techniques was utilized in the performance of this exam: automated exposure control; adjustment of the mA and/ or kV according to the patient's size; or use of an iterative reconstruction technique. Specific details can be referenced in the facility's radiology CT exam operational policy. Findings: Lower lung anne: Limited views lower lung field are unremarkable. Evaluation of the solid organs of the abdomen is limited without IV contrast. Liver: No focal parenchymal abnormality of the liver. Biliary: Status post cholecystectomy. The biliary system is unremarkable. Pancreas: Normal appearance. Spleen: Normal appearance. Adrenal glands: Unremarkable. Kidneys / retroperitoneum: There is a 2 mm stone in the right collecting system without hydronephrosis. Right ureter shows no stone. Right kidney does show a 1.3 cm cyst. Left kidney shows at least mild hydronephrosis and hydroureter down to the urinary bladder. Discrete stone is not identified. However this portion of the urinary bladder there is a faint ill-defined density measuring approximately 2.3 cm. The left kidney ureter shows no stone. The left kidney does show a 4.2 cm cyst which shows a punctate calcification. Bowel / peritoneum / mesenteries: Small bowel moderate hiatal hernia. Stomach shows no other focal abnormality. Multiple diverticula seen along the descending and sigmoid colon without pericolonic inflammation. The colon shows no other focal abnormality. The appendix is not visualized may been surgically removed. Small bowel shows no focal abnormality or obstruction. No free air, free fluid, fluid collections or areas of inflammation. Lymph node assessment: No pathologic adenopathy identified. Pelvic structures: Urinary bladder shows no focal normality. The uterus is not visualized may been surgically removed. There is prominence of the vaginal cuff. The remaining pelvic structures visualized within normal limits. Vessels: Mild atherosclerotic calcifications seen throughout a nonaneurysmal abdominal aorta and branches. Musculoskeletal / Body wall: No acute or aggressive osseous abnormality. There is bilateral pars defect at L5 level causing mild anterior spondylolisthesis of L5 over S1 approximately 5.8 mm. Degenerative changes of the spine. IMPRESSION: 1. There is at least mild left hydronephrosis and hydroureter down to the urinary bladder. A stone is not identified. In this portion of the urinary bladder is an ill-defined mildly hyperdense foci measuring 2.3 cm. Unsure if this is a blood clot, tumor or compression from the vaginal cuff process. 2. Nonobstructing right renal calculi. 3. Other chronic findings as above. Report Dictated By: Canelo White at 09/18/2017 5:49 PM Report E-Signed By: Canelo White at 09/18/2017 5:58 PM WSN:[id number] EKG PATIENT NAME: SANDRA KWONG : [id number] MR: [id number] V: [id number] EXAM DATE: ORDERING PHYSICIAN: JEAN GEE TECHNOLOGIST: DARCY Test Reason : NAUSEA Blood Pressure : / mmHG Vent. Rate : 079 BPM Atrial Rate : 079 BPM P-R Int : 154 ms QRS Dur : 082 ms QT Int : 378 ms P-R-T Axes : 047 -56 031 degrees QTc Int : 433 ms Normal sinus rhythm Left axis deviation Abnormal ECG When compared with ECG of 18-AUG-2017 17:45, No significant change was found Confirmed by ELIUD ORTIZ ([id number]) on 09/18/2017 7:52:17 PM Referred By: PO Confirmed By:ELIUD ORTIZ Condition: Improved Discharge: Home, Self Care Follow-Up Labs: Other (BMP in 7-10 days) Time Spent: > 30 min Discharge Instructions Home Meds Active Scripts Metoprolol Tartrate (METOPROLOL TARTRATE) 25 Mg Tablet, 25 MG PO BID, #60 TAB 1 Refill Prov:ANNA HERNANDEZ MD 09/20/17 Aspirin (ASPIRIN EC) 81 Mg Tablet.dr, 81 MG PO QDAY for 30 Days, #30 TAB 1 Refill Prov:ANNA HERNANDEZ MD 09/20/17 Acetaminophen (MAPAP) 325 Mg Tablet, 650 MG PO Q6H Y for PAIN OR FEVER 100 OR GREATER for 30 Days, TAB Prov:ANNA HERNANDEZ MD 08/20/17 Atorvastatin Calcium (ATORVASTATIN CALCIUM) 40 Mg Tablet, 40 MG PO QHS, #10 TAB 1 Refill Prov:ANNA HERNANDEZ MD 08/20/17 Reported Medications Leuprolide Acet 3.75 Mg Qmonth (LUPRON DEPOT 3.75 MG QMONTH) 3.75 Mg Syringekit , 0 IM DIRECTED, SYR Dose unknown. 09/19/17 Hum Insulin Nph/Reg Insulin Hm (NOVOLIN 70-30 100 UNIT/ML VIAL) 100 Unit/1 Ml Vial, 35 UNIT SQ BID, VIAL 08/18/17 Discontinued Reported Medications [cancer med] No Conflict Check 08/18/17 Losartan Potassium (LOSARTAN POTASSIUM) 25 Mg Tablet, 25 MG PO QDAY 08/18/17 Metoprolol Succinate (METOPROLOL SUCCINATE) 25 Mg Tab.er.24h, 1 TAB PO BID, TAB 08/18/17 Discontinued Scripts Clopidogrel Bisulfate (CLOPIDOGREL) 75 Mg Tablet, 75 MG PO HS, #10 TAB 1 Refill Prov:ANNA HERNANDEZ MD 08/20/17 Follow up Referrals: Internal Medicine @ [facility] with Chemo Barry Md Urology with Vincent Moran Md Diet: Diabetic Activity: As Tolerated, No Exertion Special Instructions: Follow up with Dr. Barry on Tuesday at 1:15. Follow up with Dr. Moran for urology procedure on TuesdaySeptember 26. Copies to: VINCENT MORAN MD; CHEMO BARRY MD Venous Thromboembolism Antithrombotics Is Pt On Any Antithrombotics?: No Problem Qualifiers (1) Hydronephrosis: Hydronephrosis type: other Qualified Codes: N13.39 - Other hydronephrosis (2) Acute renal failure: Acute renal failure type: unspecified Qualified Codes: N17.9 - Acute kidney failure, unspecified ANNA HERNANDEZ MD Sep 20, 2017 10:36
[2017-09-20] MEDS ORDERED: METO25TA93 PO (10:53)
[2017-09-21] MEDS ORDERED: INFLUENZA VIRUS VAC 0.5 ML SYR IM ONLY ONE (09:00)
== END 2017-09-20 12:15 | disposition home or self-care (01) | DRG 694 ==
LOC: ER 15:10 → MED 19:35
PROVIDERS: ADMIT Internal Medicine; ATTEND Internal Medicine
DX: N13.2 Hydronephrosis with renal and ureteral calculous obstruction (principal); N17.9 Acute kidney failure, unspecified; C61 Malignant neoplasm of prostate; E87.5 Hyperkalemia; E11.22 Type 2 diabetes mellitus with diabetic chronic kidney disease; I12.9 Hypertensive chronic kidney disease with stage 1 through stage 4 chronic kidney disease, or unspecified chronic kidney disease; N18.4 Chronic kidney disease, stage 4 (severe); J45.909 Unspecified asthma, uncomplicated; E78.00 Pure hypercholesterolemia, unspecified; E11.65 Type 2 diabetes mellitus with hyperglycemia; E86.0 Dehydration; T46.5X5A Adverse effect of other antihypertensive drugs, initial encounter; I95.2 Hypotension due to drugs; Y92.230 Patient room in hospital as the place of occurrence of the external cause; Z99.81 Dependence on supplemental oxygen; Z79.4 Long term (current) use of insulin; Z86.73 Personal history of transient ischemic attack (TIA), and cerebral infarction without residual deficits; Z88.5 Allergy status to narcotic agent; Z88.8 Allergy status to other drugs, medicaments and biological substances; Z90.49 Acquired absence of other specified parts of digestive tract; Z87.891 Personal history of nicotine dependence; Z95.1 Presence of aortocoronary bypass graft
CPT/HCPCS: 36415; 36416; 74022; 74176; 81001; 82040; 82150; 82247; 82310; 82374; 82435; 82565; 82947; 82948; 83605; 83690; 84075; 84132; 84155; 84295; 84450; 84460; 84484; 84520; 85025; 85610; 85730; 87088; 93005; 99285; J0696; J1815; J2405; J2550; J3490; J7030; J7040; J7050

== ENCOUNTER 2017-09-26 02:12 | Observation (INO) | payer MEDICARE, OTHER ==
[~2017-09-26] VITALS: Ht 167.6 cm; Wt 65.3 kg
[2017-09-26] VITALS (11 sets, daily range): BP systolic 93–154; BP diastolic 54–82
[~2017-09-26 02:12] MED LIST changes: +ASPI81TA86 PO; +CARV25TA78 PO; +LEUP3.753 IM; +METO25TA93 PO
[2017-09-26] MEDS ORDERED: fentaNYL CITR 100 MCG/2 ML AMP ONE ×2 (08:30→11:51)
[2017-09-26] MEDS ORDERED: PROPOFOL EMUL(*) 10MG/ML 20 ML 20 ML ONE (08:39)
[2017-09-26] MEDS ORDERED: LIDOCAINE MPF 1% 5 ML VIAL ONE (08:39)
[2017-09-26] MEDS ORDERED: ONDANSETRON 4 MG/2 ML VIAL ONE (08:39)
[2017-09-26] MEDS ORDERED: GENTAMICIN(*) 80 MG/2 ML VIAL 160 MG in NS(*) 0.9% 100 ML BAG 100 ML IVPB ONE (09:55)
[2017-09-26] MEDS ORDERED: LIDOCAINE/SOD BICARB 8.4% SYR ID ONE (09:55)
[2017-09-26] MEDS ORDERED: ceFAZolin(*) 1 GM VIAL 1 GM in NS(*) 0.9% 100 ML ADDVANT BAG 100 ML IVPB ONE (09:55)
[2017-09-26] MEDS ORDERED: NORMOSOL R SOLN(*) 1000 ML BAG 1,000 ML IV PRN (09:55)
[2017-09-26] MEDS ORDERED: FAMOTIDINE 20 MG TAB PO ONE (09:55)
[2017-09-26] MEDS ORDERED: MIDAZOLAM 2 MG/2 ML VIAL IVP PRN (09:55)
[2017-09-26 09:59] LABS: PLATELET COUNT, AUTOMATED 203 K/uL (150-450)
[2017-09-26] MEDS ORDERED: IOPAMIDOL-200 50 ML VIAL IS ONE (10:00)
[2017-09-26] MEDS ORDERED: INDIGOTINDISULF SOD 40 MG/5 ML IVP ONE (10:05)
[2017-09-26] MEDS ORDERED: ROCURONIUM BROM 10 MG/ML 5 ML ONE (10:30)
[2017-09-26] MEDS ORDERED: SUGAMMADEX SOD 200 MG/2 ML SDV ONE (10:47)
[2017-09-26] MEDS ORDERED: WATER FOR IRRIG,STERILE 3000ML IR ONE (11:14)
[2017-09-26] MEDS ORDERED: HYDROCORTISONE 1% CR 28.35 GM TP ONE (11:27)
--- NOTE | 2017-09-26 12:19 | RADIOLOGY IMAGING REPORT ---
FACILITY: [facility] PATIENT NAME: Deion Kwong : 1935 MR: [id number] V: [id number] EXAM DATE: ORDERING PHYSICIAN: RADHA MORAN TECHNOLOGIST: Location: [facility] Patient: Deion Kwong : 1935 Visit/Account:[id number] Date of Sevice: 09/26/2017 KUB SINGLE VIEW ABDOMEN HISTORY: HEMATURIA COMPARISON: None. FINDINGS: Single fluoroscopic image of the abdomen reveals nonobstructive pattern. No definite urolithiasis. Metallic density overlies right iliac wing. Correlate with procedural findings DOSE: Air kerma was 0.4 mGy. IMPRESSION: Procedural fluoroscopy Report Dictated By: Francisco Benítez MD at 09/26/2017 12:12 PM Report E-Signed By: Francisco Benítez MD at 09/26/2017 12:15 PM WSN:[id number]
[2017-09-26] MEDS ORDERED: HYDROmorphone PCA 6 MG/30 ML IV PRN (12:25)
[2017-09-26] MEDS ORDERED: FLUSH 10 ML SYR IVP PRN (12:25)
[2017-09-26] MEDS ORDERED: ZOLPIDEM TARTRATE 5 MG TAB PO PRN (12:25)
[2017-09-26] MEDS ORDERED: ONDANSETRON 4 MG/2 ML VIAL IVP PRN (12:25)
[2017-09-26] MEDS ORDERED: GLYCOPYRROLATE 0.2MG/ML 1 ML INJ IVP PRN (12:25)
[2017-09-26] MEDS ORDERED: PROPANTHELINE BROMIDE 15MG TAB PO PRN (12:25)
[2017-09-26] MEDS ORDERED: NALOXONE HCL 0.4 MG/ML VIAL IVP PRN (12:25)
[2017-09-26] MEDS ORDERED: BELLADONNA ALK/OPIUM 60MG SUPP PR PRN (12:30)
[2017-09-26] MEDS ORDERED: INSULIN HUM LISPRO 100 UN/ML 3 ML VIAL SUBQ PRN (14:55)
[2017-09-26] MEDS ORDERED: NS 0.9% 3000 ML IRRIGATION BAG 3,000 ML in NS 0.9% 3000 ML IRRIGATION BAG 3,000 ML IR PRN ×2 (15:05→15:10)
[2017-09-26] MEDS ORDERED: NS 0.9% 3000 ML IRRIGATION BAG 3,000 ML IR ONE (15:08)
[2017-09-26] MEDS: LR(*) 1000 ML BAG 1,000 ML IV PRN (15:15)
[2017-09-26] MEDS: ceFAZolin 1 GM VIAL IVP SCH ×2 (15:37→22:33)
[2017-09-26] MEDS ORDERED: ceFAZolin(*) 1 GM VIAL 1 GM in NS(*) 0.9% 100 ML ADDVANT BAG 100 ML IV SCH (16:00)
[2017-09-26] MEDS: ACETAMIN/CODEINE #3 300-30 MG PO PRN ×2 (16:12→20:52)
--- NOTE | 2017-09-26 17:02 | Hospitalist Consultation ---
History of Present Illness Requesting Physician Dr. Gandhi Reason for Consult Medication Management Chief Complaint s/p TURBT History of Present Illness He was admitted s/p cystoscopy. He was admitted for medication management. History Problems: (1) TIA (transient ischemic attack) Status: Acute (2) Prostate cancer Status: Chronic (3) HTN (hypertension) Status: Chronic (4) T2DM (type 2 diabetes mellitus) Status: Chronic (5) History of appendectomy (6) History of prostatectomy (7) History of tonsillectomy (8) History of bilateral inguinal hernia repair (9) Hx of CABG (10) History of exploratory laparotomy (11) History of carotid endarterectomy Status: Chronic Home Meds Active Scripts Metoprolol Tartrate (METOPROLOL TARTRATE) 25 Mg Tablet, 25 MG PO BID, #60 TAB 1 Refill Prov:ANNA HERNANDEZ MD 09/20/17 Aspirin (ASPIRIN EC) 81 Mg Tablet.dr, 81 MG PO QDAY for 30 Days, #30 TAB 1 Refill Prov:ANNA HERNANDEZ MD 09/20/17 Acetaminophen (MAPAP) 325 Mg Tablet, 650 MG PO Q6H Y for PAIN OR FEVER 100 OR GREATER for 30 Days, TAB Prov:ANNA HERNANDEZ MD 08/20/17 Atorvastatin Calcium (ATORVASTATIN CALCIUM) 40 Mg Tablet, 40 MG PO QHS, #10 TAB 1 Refill Prov:ANNA HERNANDEZ MD 08/20/17 Reported Medications Clopidogrel Bisulfate (CLOPIDOGREL) 75 Mg Tablet, 1 TAB PO HS, TAB 09/23/17 Leuprolide Acet 3.75 Mg Qmonth (LUPRON DEPOT 3.75 MG QMONTH) 3.75 Mg Syringekit , 0 IM DIRECTED, SYR Dose unknown. 09/19/17 Hum Insulin Nph/Reg Insulin Hm (NOVOLIN 70-30 100 UNIT/ML VIAL) 100 Unit/1 Ml Vial, 35 UNIT SQ BID, VIAL 08/18/17 Discontinued Reported Medications [cancer med] No Conflict Check 08/18/17 Discontinued Scripts Clopidogrel Bisulfate (CLOPIDOGREL) 75 Mg Tablet, 75 MG PO HS, #10 TAB 1 Refill Prov:ANNA HERNANDEZ MD 08/20/17 Allergies: Coded Allergies: meperidine (Verified Allergy, Severe, 09/18/17) morphine (Verified Allergy, Severe, 09/18/17) Patient History: FH: arthritis BROTHER OR SISTER FH: pancreatic cancer FATHER BROTHER OR SISTER Hx Smoking: Yes Smoking Status: Former Smoker Caffeine Intake: Coffee, Soda Caffeine/Cups Per Day: 1 cup HS NOT HAD COFFEE FOR OVER A MONTH Hx Alcohol Use: No Hx Substance Use Disorder: No Review of Systems All Systems Reviewed/Normal: Yes, Except as Noted Genitourinary: Other (pain) Exam Vital Signs Vital Signs Date Time Temp Pulse Resp B/P (MAP) Pulse Ox O2 Delivery O2 Flow Rate FiO2 09/26/17 15:01 94 09/26/17 14:30 83 124/55 (78) Room Air 09/26/17 13:44 97.7 16 2.0 General Appearance: Alert, Awake, No Acute Distress, Afebrile Neuro: No Gross deficits Cardiovascular: Regular Rate and Rhythm Respiratory: No Respiratory Distress, Clear to Auscultation Psych: Alert & Oriented X3, Appropriate Mood & Affect Medical Decision Making Data Points Result Diagram: 09/26/17 0945 09/26/17 0945 Assessment and Plan Problems: (1) Bladder mass Status: Acute Assessment & Plan: He was admitted s/p cystoscopy. Dr. Gandhi to follow. Per Dr. Gandhi, do not restart Plavix due to the possible need for more surgery. 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 Baseline creatinine at his previous admission at [facility] was 2.3-2.5. Creatinine 2.2 prior to surgery this morning. We will check BMP tomorrow. (3) HTN (hypertension) Status: Chronic Assessment & Plan: He is on chronic treatment with Metoprolol. This has been restarted with parameters. (4) History of carotid endarterectomy Status: Chronic Assessment & Plan: This was done on 09/06 in [place]. He had had a TIA and was found to have a stenosed carotid artery. He is chronically on ASA, Plavix and Lipitor. He stopped the Plavix 09/18/17 for surgery, and will continue to hold per Dr. Gandhi. We will continue Aspirin and Lipitor. (5) T2DM (type 2 diabetes mellitus) Status: Chronic Assessment & Plan: He is chronically on 70/30 insulin. We will start him on a sliding scale insulin scale #2 and ADA diet. Venous Thromboembolism Antithrombotics Is Pt On Any Antithrombotics?: No Prophylaxis Tx Contraindicated Pharmacological Contraindicati: Surgical Contraindication Problem Qualifiers (1) HTN (hypertension): Hypertension type: essential hypertension Qualified Codes: I10 - Essential ( primary) hypertension GISSELL ANDERSENP Sep 26, 2017 17:02
[2017-09-26] MEDS: INS HUMAN ISOPH/INS REG 70/30 100 UNIT/ML 3ML VIAL SUBQ SCH (18:25)
[2017-09-26] MEDS: NEOMYCIN/POLYMYX/BACITR OINT 1 PACKET TP SCH (20:50)
[2017-09-26] MEDS: FAMOTIDINE 20 MG TAB PO SCH (20:50)
[2017-09-26] MEDS: DOCUSATE SODIUM 100 MG CAP PO SCH (20:50)
[2017-09-26] MEDS: NS 0.9% IVPB SCH (20:51)
[2017-09-26] MEDS: BENZALKONIUM CL 1:750 TOP SOLN TP SCH (20:51)
[2017-09-26] MEDS: GENTAMICIN IVPB SCH (20:51)
[2017-09-26] MEDS: METOPROLOL TART 50 MG TAB PO SCH (20:52)
[2017-09-26] MEDS ORDERED: ATORVASTATIN 40 MG TAB PO SCH (21:00)
[2017-09-26] MEDS ORDERED: WATER FOR INJ,STERILE 20 ML 20 ML ONE (23:37)
[2017-09-27] MEDS: ACETAMIN/CODEINE #3 300-30 MG PO PRN ×2 (01:07→05:24)
[2017-09-27] MEDS ORDERED: NS 0.9% 3000 ML IRRIGATION BAG 3,000 ML IR ONE (02:49)
[2017-09-27 03:29] VITALS: BP 102/49
[2017-09-27] MEDS: LR(*) 1000 ML BAG 1,000 ML IV PRN (04:35)
[2017-09-27] MEDS: ceFAZolin 1 GM VIAL IVP SCH (04:38)
[2017-09-27] MEDS ORDERED: NS(*) 0.9% 1000 ML BAG 1,000 ML IV PRN (05:15)
[2017-09-27 07:07] VITALS: BP 133/65
[2017-09-27 07:50] VITALS: BP 132/70
[2017-09-27 07:56] VITALS: Ht 167.6 cm; Wt 65.3 kg
[2017-09-27] MEDS: INS HUMAN ISOPH/INS REG 70/30 100 UNIT/ML 3ML VIAL SUBQ SCH (08:00)
[2017-09-27] MEDS ORDERED: CIPR-214 PO (08:09)
[2017-09-27] MEDS ORDERED: HYDR-4309 PO (08:10)
[2017-09-27] MEDS ORDERED: FAMO20TA28 PO (08:11)
[2017-09-27] MEDS ORDERED: DOCU-416 PO (08:11)
--- NOTE | 2017-09-27 08:47 | Hospitalist Progress Note ---
Subjective Progress Notes Subjective He has no complaints this morning. Patient Complains of: Cardiovascular: No: Chest Pain Respiratory: No: Shortness of Breath Physical Exam Vital Signs Date Time Temp Pulse Resp B/P (MAP) Pulse Ox O2 Delivery O2 Flow Rate FiO2 09/27/17 07:07 72 133/65 (87) 96 Nasal Cannula 1.0 09/27/17 03:29 98.4 09/26/17 13:44 16 General Appearance: Alert, Awake, No Acute Distress, Afebrile Neuro: No Gross deficits Cardiovascular: Regular Rate and Rhythm Respiratory: No Respiratory Distress, Clear to Auscultation Psych: Alert & Oriented X3, Appropriate Mood & Affect Result Diagram: 09/26/17 0945 09/27/17 0523 Assessment and Plan Problems: (1) Bladder mass Status: Acute Assessment & Plan: He was admitted s/p cystoscopy. Dr. Gandhi to follow. Per Dr. Gandhi, do not restart Plavix, as the patient requires urological surgery this morning. He has been off Plavix since 09/18/17. 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 Baseline creatinine at his previous admission at [facility] was 2.3-2.5. Creatinine 1.9 this morning. (3) HTN (hypertension) Status: Chronic Assessment & Plan: He is on chronic treatment with Metoprolol. This has been restarted with parameters. (4) History of carotid endarterectomy Status: Chronic Assessment & Plan: This was done on 09/06 in [place]. He had had a TIA and was found to have a stenosed carotid artery. He is chronically on ASA, Plavix and Lipitor. He stopped the Plavix 09/18/17 for surgery, and will continue to hold per Dr. Gandhi. We will continue Aspirin and Lipitor. (5) T2DM (type 2 diabetes mellitus) Status: Chronic Assessment & Plan: He is chronically on 70/30 insulin. We will start him on a sliding scale insulin scale #2 and ADA diet. Exam Sepsis Risk: No Definite Risk Problem Qualifiers (1) HTN (hypertension): Hypertension type: essential hypertension Qualified Codes: I10 - Essential ( primary) hypertension GISSELL ANDERSEN [facility] Sep 27, 2017 08:47
[2017-09-27] MEDS: FAMOTIDINE 20 MG TAB PO SCH (08:52)
[2017-09-27] MEDS: DOCUSATE SODIUM 100 MG CAP PO SCH (08:52)
[2017-09-27] MEDS: GENTAMICIN IVPB SCH (08:52)
[2017-09-27] MEDS: METOPROLOL TART 50 MG TAB PO SCH (08:52)
[2017-09-27] MEDS: NS 0.9% IVPB SCH (08:52)
[2017-09-27] MEDS: BENZALKONIUM CL 1:750 TOP SOLN TP SCH (08:53)
[2017-09-27] MEDS: NEOMYCIN/POLYMYX/BACITR OINT 1 PACKET TP SCH (08:53)
[2017-09-27] MEDS ORDERED: ASPIRIN 81 MG ENTERIC COATED PO SCH (09:00)
--- NOTE | 2017-09-27 17:36 | DISCHARGE SUMMARY ---
ADMISSION DIAGNOSES 1. Obstructed left distal ureter with associated ureteropyelocaliectasis, etiology ?. 2. Probable invasive prostate cancer. DISCHARGE DIAGNOSIS 1. 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 HISTORY OF PRESENT ILLNESS This is an 82-year-old white male who had cystoscopy the preceding day on September 26, 2017 to evaluate for the obstructive problem involving his left distal ureter and causing the left ureteropyelocaliectasis and impaired renal function tests. 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 The lesion was resected and appeared to go well down into the muscle in that area. Patient appears to have local extension into the proximal urethra on the left and posterior. Patient is status postop radical prostatectomy approximately 19 years ago. Approximately two months ago patient was found to have an elevated PSA of 18 and was placed on androgen therapy, Lupron and Casodex and his current PSA is less than 0.3. Patient is doing well following his procedure. Catheter has been removed. His urine has been clear throughout the night. I have contacted the interventional radiologist at the [facility] and he is scheduled for 10:30 a.m. 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 The patient is being discharged this a.m. and to go by private vehicle to [facility] to the Imaging Department for care by , interventional radiologist, to be considered for his left percutaneous nephrostomy tube. Patient will be discharged home on Cipro, Pepcid, [place] therapy, in addition to his usual medication. The patient has been off his Plavix for over a week, is on a baby aspirin, and according to Dr. Owen, his cardiovascular surgeon in [place], once his percutaneous nephrostomy has been completed, he can probably restart his Plavix a day or two later if he is not bleeding. [facility]
--- NOTE | 2017-09-27 20:06 | OPERATIVE REPORT 1 ---
EVENT DATE: September 27, 2017 SURGEON: Vincent Gandhi MD ANESTHESIOLOGIST: Myron Nicole MD ANESTHESIA: General anesthetic. PREOPERATIVE DIAGNOSES 1. Bladder lesion, etiology ? 2. 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 3. Bladder catheter. 4. Urethral catheter. POSTOPERATIVE DIAGNOSES 1. Bladder lesion, etiology ? 2. 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 3. Bladder catheter. 4. Urethral catheter. PROCEDURES PERFORMED 1. Cystourethroscopy. 2. Transurethral resection of a large bladder tumor approximately 1 to 2 inches across its base. 3. Proximal urethral catheter with extension from the bladder lesion. 4. Hydrodistention of the bladder. DESCRIPTION OF PROCEDURE Under general anesthetic, the patient was prepped and draped in an extended lithotomy position. The 21 panendoscope admitted through the urethra into the bladder. Bladder showed 4+ trabeculation. There was a mushy papillary lesion at the bladder neck area that extended across almost the entire trigone and the bladder neck area. There appeared to be probable extension from the bladder into the proximal urethra on the left lateral posterior area of the proximal urethra. The primary lesion in the bladder was transurethrally resected well down into the muscle in my opinion. It is my clinical impression that the patient probably has muscular invasion and that resecting further might perforate the bladder. Biopsy was obtained of the urethral lesion. Bleeding was controlled with spot coagulation and vaporization. Bladder capacity with anesthesia approximately 450 mL. The lesion appeared to be removed grossly. The anterior papillary portion of the lesion was totally removed in my opinion. A #20 three-way Maddox was left indwelling. Irrigation was satisfactory at the conclusion of the procedure. Patient tolerated the procedures satisfactorily and returned to the recovery room in satisfactory condition. This is an 82-year-old white male complaining of left ureteral pyelocaliectasis with obstruction at the junction of the ureter to the bladder. By history, the patient had prostate cancer treated approximately 19 years ago. Recent PSA approximately two months ago showed a PSA of 24. He was treated with Lupron and Casodex therapy. PSA is currently less than 1. Clinically, my impression was of probably a mass lesion and probably recurrent prostate cancer. However, transitional cell-appearing carcinoma was found. Pathological diagnosis is pending. Patient will be probably ready for discharge in the a.m. if all is going well. Force fluids, 2 L per day. Activities are restricted to careful ambulation. He will be restarting his Brilinta antiplatelet therapy in a day or two. Patient is to continue his other medications as prescribed by the hospitalist or his local physician. Patient is a known diabetic and on insulin. Discussed with the patient and the family the obstructive lesion and the reason for not placing a left ureteral stent. They were informed that my clinic opinion was that the patient has a bladder lesion, probably mitotic in nature, and I was concerned about the spread of the problem in his bladder up into his left kidney. Currently, they are considering possible percutaneous nephrostomy to improve his kidney function tests. Digital examination at the beginning of the procedure revealed an area of induration, fairly firm approximately 1/2 inch in width and approximately 2 inches in length just to the left of midline. We will be following with the patient as to his biopsy results and any considerations as to further therapy that may be needed if this is an adverse problem such as cancer. FRANKIE
== END 2017-09-27 08:12 | disposition home or self-care (01) ==
LOC: OR 02:12 → MED 13:35 → INTOOBSV 13:35
DX: N32.9 Bladder disorder, unspecified (principal); N28.82 Megaloureter; N28.9 Disorder of kidney and ureter, unspecified; E11.9 Type 2 diabetes mellitus without complications
CPT/HCPCS: 36415; 36416; 52235; 74018; 81001; 82948; 85025; 87088; 88305; 96372; A9270; G0378; J0690; J1580; J1815; J2001; J2405; J2704; J3010; J3490; J7030; J7050; J7120; Q9966; 82310; 82374; 82435; 82565; 82947; 84132; 84295; 84520; A4346; C1758

== ENCOUNTER 2017-11-04 01:11 | Day surgery (SDC) | payer MEDICARE, OTHER ==
[2017-09-27 07:56] VITALS: Ht 167.6 cm; Wt 67.6 kg
--- NOTE | 2017-11-01 16:58 | HISTORY AND PHYSICAL ---
DATE OF ADMISSION: November 04, 2017 CHIEF COMPLAINT Metastatic prostate cancer. HISTORY OF PRESENT ILLNESS This is an 82-year-old male with a history of diabetes mellitus, hypertension, atherosclerotic coronary heart disease. He has had cardiac stents placed. He has had TIA. He has had a left carotid endarterectomy. He has prostate cancer and he is in for a port. PAST SURGICAL HISTORY * Bilateral inguinal hernia repair. * Bilateral rotator cuff repair. * Carotid endarterectomy. * Cholecystectomy. * Bone marrow biopsy. * Deviated septum surgery. * Exploratory laparotomy. * Hemorrhoidectomy. * Knee operation. * Percutaneous nephrostomy tube. * Prostatectomy. * Tonsillectomy. * Transurethral resection bladder tumor. ALLERGIES * DEMEROL. * MORPHINE. CURRENT MEDICATIONS * Aspirin 81 mg a day. * Atorvastatin 40 mg a day. * Casodex 50 mg daily. * Humalog U-100. * Lupron. * Metoprolol 25 mg. * Plavix 75 mg. REVIEW OF SYSTEMS Significant for history of hypertension, atherosclerotic coronary heart disease , diabetes, TIA. PHYSICAL EXAMINATION GENERAL: An 80-year-old male in no acute distress. IMPRESSION Metastatic prostate cancer. PLAN We will place a port. Discussed the procedure, complications, recovery time. He seems to understand and wishes to proceed. FRANKIE
[2017-11-04] VITALS (9 sets, daily range): BP systolic 98–170; BP diastolic 56–97
[~2017-11-04] VITALS: Ht 167.6 cm; Wt 67.6 kg
[~2017-11-04 01:11] MED LIST changes: +ACET-1966 PO; +ASPI81TA94 PO; +ATOR40TA24 PO; +CIPR-214 PO; +CLOP75TA43 PO; +DOCU-416 PO; +FAMO20TA28 PO; +HUM100VI SQ; +HYDR-4309 PO; +LEUP11.26 IM; +MULT1CAP59 PO
[2017-11-04] MEDS ORDERED: MIDAZOLAM 2 MG/2 ML VIAL IVP PRN (06:30)
[2017-11-04] MEDS ORDERED: ceFAZolin(*) 2GM/D5W 50ML 50 ML IVPB ONE (06:30)
[2017-11-04] MEDS ORDERED: NORMOSOL R SOLN(*) 1000 ML BAG 1,000 ML IV PRN (06:30)
[2017-11-04] MEDS ORDERED: FAMOTIDINE 20 MG TAB PO ONE (06:30)
[2017-11-04] MEDS ORDERED: LIDOCAINE/SOD BICARB 8.4% SYR ID ONE (06:30)
[2017-11-04] MEDS ORDERED: HEPARIN SOD LCK FLSH 100 UN/ML ONE (06:34)
[2017-11-04] MEDS ORDERED: NS(*) 0.9% 10 ML VIAL 10 ML ONE (06:35)
[2017-11-04] MEDS ORDERED: NS(*) 0.9% 1000 ML BAG 0 ML ONE (06:35)
[2017-11-04] MEDS ORDERED: ROPIVACAINE 0.2% 20 ML VIAL ONE ×2 (06:35→07:04)
--- NOTE | 2017-11-04 07:15 | Post Operative Progress Note ---
Post Operative Progress Note Date: Nov 04, 2017 Time: 08:10 Surgeon: kate Anesthesia: dr zuleta Pre-Op Diagnosis: bladder cancer Post-Op Diagnosis: same Procedure(s): power port placement CRISTA PALMA MD Nov 04, 2017 07:15
[2017-11-04] MEDS ORDERED: HYDR-4309 PO (07:17)
--- NOTE | 2017-11-04 07:18 | Short(Outpt) Discharge Summary ---
Discharge Summary Reason for Hosp/Final Diag: (1) Prostate cancer Status: Chronic Hospital Course & Plan: power port placed Departure Discharge to: Home Discharge Instructions Home Meds Active Scripts Hydrocodone Bit/Acetaminophen (NORCO 5-325 TABLET) 1 Each Tablet, 1 EACH PO Q4H Y for PAIN, #20 TAB Prov:CRISTA PALMA MD 11/04/17 Reported Medications Acetaminophen (TYLENOL) 325 Mg Tablet, 2 TAB PO QHS Y for PAIN, TAB 11/02/17 Multivitamin (MULTIVITAMINS) 1 Each Capsule, 1 EACH PO QDAY, CAPSULE 11/02/17 Leuprolide Acet 11.25 Mg J9iweml (LUPRON DEPOT 11.25 MG [id number]) 11.25 Mg Syringekit, 11.25 MG IM DIRECTED, SYR EVERY 3 MONTHS 11/02/17 Hum Insulin Nph/Reg Insulin Hm (RELION NOVOLIN 70-30 VIAL) 100 Unit/1 Ml Vial, 20-40 UNIT SQ PRN Y for SLIDING SCALE, VIAL 11/02/17 Atorvastatin Calcium (LIPITOR) 40 Mg Tablet, 1 TAB PO QHS, TAB 11/02/17 Metoprolol Tartrate (METOPROLOL TARTRATE) 25 Mg Tablet, 0.5 TAB PO BID, TAB 11/02/17 Clopidogrel Bisulfate (PLAVIX) 75 Mg Tablet, 1 TAB PO QDAY, TAB 11/02/17 Aspirin (ASPIRIN) 81 Mg Tab.chew, 81 MG PO QDAY, TAB.CHEW 11/02/17 Discontinued Reported Medications Leuprolide Acet 3.75 Mg Qmonth (LUPRON DEPOT 3.75 MG QMONTH) 3.75 Mg Syringekit , 0 IM DIRECTED, SYR Dose unknown. 09/19/17 Hum Insulin Nph/Reg Insulin Hm (NOVOLIN 70-30 100 UNIT/ML VIAL) 100 Unit/1 Ml Vial, 35 UNIT SQ BID, VIAL 08/18/17 Discontinued Scripts Metoprolol Tartrate (METOPROLOL TARTRATE) 25 Mg Tablet, 25 MG PO BID, #60 TAB 1 Refill Prov:ANNA HERNANDEZ MD 09/20/17 Aspirin (ASPIRIN EC) 81 Mg Tablet.dr, 81 MG PO QDAY for 30 Days, #30 TAB 1 Refill Prov:ANNA HERNANDEZ MD 09/20/17 Acetaminophen (MAPAP) 325 Mg Tablet, 650 MG PO Q6H Y for PAIN OR FEVER 100 OR GREATER for 30 Days, TAB Prov:ANNA HERNANDEZ MD 08/20/17 Atorvastatin Calcium (ATORVASTATIN CALCIUM) 40 Mg Tablet, 40 MG PO QHS, #10 TAB 1 Refill Prov:ANNA HERNANDEZ MD 08/20/17 Diet: Regular Activity: As Tolerated Special Instructions: remove bandage tuesday use CRISTA Cheema MD Nov 04, 2017 07:18
[2017-11-04] MEDS ORDERED: fentaNYL CITR 100 MCG/2 ML AMP ONE (07:20)
[2017-11-04] MEDS ORDERED: PROPOFOL EMUL(*) 10MG/ML 20 ML 20 ML ONE (07:30)
[2017-11-04] MEDS ORDERED: GLYCOPYRROLATE 0.2MG/ML 1 ML INJ ONE (07:30)
[2017-11-04] MEDS ORDERED: SUGAMMADEX SOD 200 MG/2 ML SDV ONE (07:30)
[2017-11-04] MEDS ORDERED: LIDOCAINE MPF 1% 5 ML VIAL ONE (07:30)
[2017-11-04] MEDS ORDERED: ONDANSETRON 4 MG/2 ML VIAL ONE (07:30)
[2017-11-04] MEDS ORDERED: ePHEDrine 25 MG/5 ML DISP.SYR IVP ONE (07:30)
--- NOTE | 2017-11-04 09:34 | RADIOLOGY IMAGING REPORT ---
FACILITY: [facility] - [place] PATIENT NAME: Deion Kwong : 1935 MR: [id number] V: [id number] EXAM DATE: ORDERING PHYSICIAN: CRISTA PALMA TECHNOLOGIST: Location: [facility] Patient: Deion Kwong : 1935 Visit/Account:[id number] Date of Sevice: 11/04/2017 C-ARM FLUORO PORT/CATH HISTORY: PORT PLACEMENT INTRAOPERATIVE FILMS (3 films) FINDINGS: Right chest [id number] catheter identified. Good positioning of the distal tip in the mid SVC. No obvious postplacement adverse sequela change. IMPRESSION: 1 intraoperative films as described. Fluoroscopic time of 26.2 seconds. DAP [id number] [id number] Report Dictated By: Kentrell Watson MD at 11/04/2017 9:27 AM Report E-Signed By: Kentrell Watson MD at 11/04/2017 9:30 AM WSN:[id number]
[2017-11-04] MEDS ORDERED: APAP/HYDROCODONE 325/5 TAB PO ONE (09:50)
--- NOTE | 2017-11-04 13:29 | OPERATIVE REPORT 1 ---
EVENT DATE: November 04, 2017 SURGEON: Eusebio Smith MD ANESTHESIOLOGIST: Myron Nicole MD ANESTHESIA: General. PREOPERATIVE DIAGNOSIS Bladder cancer. POSTOPERATIVE DIAGNOSIS Bladder cancer. PROCEDURE PowerPort placement. DESCRIPTION OF PROCEDURE Patient was placed in the supine position, given general anesthetic. His right neck and chest were pepped and draped in a sterile fashion. We used ultrasound to identify the internal jugular vein, cannulated it under direct vision. Good blood return was obtained. Guide wire was passed. Needle was removed. Fluoroscopy was used, showed the guide wire in position in the superior vena cava. We then created an incision on the anterior chest wall, created a pocket for the port, tunneled the catheter from the chest site through the neck site. We then passed the dilator and introducer sheath over the guide wire, removed the guide wire and dilator, passed the catheter through the sheath. Sheath was removed. The catheter was positioned with the fluoroscopy. It was cut to the appropriate length, attached to the port. Port was sutured down with 3-0 nylon. It was aspirated and flushed with saline and heparin. Subcu was reapproximated with 4-0 Maxon. Skin was closed with interrupted 4-0 Maxon. Steri-Strips and Airstrip were placed. Patient tolerated the procedure well, no apparent complications. [facility]
== END 2017-11-04 09:00 | disposition home or self-care (01) ==
LOC: OR 01:11
PROVIDERS: ATTEND Surgery
DX: C67.9 Malignant neoplasm of bladder, unspecified (principal); E11.9 Type 2 diabetes mellitus without complications
CPT/HCPCS: 36416; 36561; 77001; 82948; 94667; A9270; C1788; J1642; J2001; J2405; J2704; J2795; J3010; J3490; J0690; J7030

== ENCOUNTER 2017-11-07 21:29 | Emergency (ER) | payer MEDICARE, OTHER ==
[2017-09-27 07:56] VITALS: Wt 67.6 kg
--- NOTE | 2017-11-07 21:31 | ER Report ---
History and Physical Time Seen By MD: 21:31 HPI/ROS CHIEF COMPLAINT: Chest pain HISTORY OF PRESENT ILLNESS: 82-year-old male with a history of bladder cancer. He is a survivor of prostate cancer from 20 years ago. Patient had a internal jugular catheter placed. Patient's receiving chemotherapy on a pump. Patient' s diabetic and also noted his blood sugar at home was 489. Patient had a brief five-minute episode of chest pain. He describes a substernal without radiation to his arms. He had no shortness of breath and no diaphoresis. He had no nausea. REVIEW OF SYSTEMS: Respiratory: No cough, no dyspnea. Cardiovascular: As above Gastrointestinal: No vomiting, no abdominal pain. Musculoskeletal: No back pain. Allergies: Coded Allergies: meperidine (Verified Allergy, Severe, 11/07/17) morphine (Verified Allergy, Severe, 11/07/17) Home Meds Active Scripts Hydrocodone Bit/Acetaminophen (NORCO 5-325 TABLET) 1 Each Tablet, 1 EACH PO Q4H Y for PAIN, #20 TAB Prov:CRISTA PALMA MD 11/04/17 Reported Medications Acetaminophen (TYLENOL) 325 Mg Tablet, 2 TAB PO QHS Y for PAIN, TAB 11/02/17 Multivitamin (MULTIVITAMINS) 1 Each Capsule, 1 EACH PO QDAY, CAPSULE 11/02/17 Leuprolide Acet 11.25 Mg Z8aeaeu (LUPRON DEPOT 11.25 MG [id number]) 11.25 Mg Syringekit, 11.25 MG IM DIRECTED, SYR EVERY 3 MONTHS 11/02/17 Hum Insulin Nph/Reg Insulin Hm (RELION NOVOLIN 70-30 VIAL) 100 Unit/1 Ml Vial, 20-40 UNIT SQ PRN Y for SLIDING SCALE, VIAL 11/02/17 Atorvastatin Calcium (LIPITOR) 40 Mg Tablet, 1 TAB PO QHS, TAB 11/02/17 Metoprolol Tartrate (METOPROLOL TARTRATE) 25 Mg Tablet, 0.5 TAB PO BID, TAB 11/02/17 Clopidogrel Bisulfate (PLAVIX) 75 Mg Tablet, 1 TAB PO QDAY, TAB 11/02/17 Aspirin (ASPIRIN) 81 Mg Tab.chew, 81 MG PO QDAY, TAB.CHEW 11/02/17 Discontinued Reported Medications Leuprolide Acet 3.75 Mg Qmonth (LUPRON DEPOT 3.75 MG QMONTH) 3.75 Mg Syringekit , 0 IM DIRECTED, SYR Dose unknown. 09/19/17 Hum Insulin Nph/Reg Insulin Hm (NOVOLIN 70-30 100 UNIT/ML VIAL) 100 Unit/1 Ml Vial, 35 UNIT SQ BID, VIAL 08/18/17 Discontinued Scripts Metoprolol Tartrate (METOPROLOL TARTRATE) 25 Mg Tablet, 25 MG PO BID, #60 TAB 1 Refill Prov:ANNA HERNANDEZ MD 09/20/17 Aspirin (ASPIRIN EC) 81 Mg Tablet.dr, 81 MG PO QDAY for 30 Days, #30 TAB 1 Refill Prov:ANNA HERNANDEZ MD 09/20/17 Acetaminophen (MAPAP) 325 Mg Tablet, 650 MG PO Q6H Y for PAIN OR FEVER 100 OR GREATER for 30 Days, TAB Prov:ANNA HERNANDEZ MD 08/20/17 Atorvastatin Calcium (ATORVASTATIN CALCIUM) 40 Mg Tablet, 40 MG PO QHS, #10 TAB 1 Refill Prov:ANNA HERNANDEZ MD 08/20/17 Reviewed Nurses Notes: Yes Old Medical Records Reviewed: Yes Hx Smoking: Yes (20 YRS) Smoking Status: Former Smoker Hx Substance Use Disorder: No Hx Alcohol Use: Yes Constitutional Vital Sign - Last 24 Hours 11/07/17 11/07/17 11/07/17 11/07/17 21:32 21:34 21:44 21:59 Temp 98.2 Pulse 121 114 107 Resp 20 9 30 B/P (MAP) 188/105 188/105 (132) Pulse Ox 95 93 O2 Delivery Room Air 11/07/17 11/07/17 11/07/17 11/07/17 22:00 22:14 22:29 22:30 Pulse 104 107 Resp 18 8 B/P (MAP) 148/83 (104) 185/99 (127) 11/07/17 11/07/17 11/07/17 11/07/17 22:44 22:59 23:00 23:14 Pulse 105 105 107 Resp 13 17 13 B/P (MAP) 143/83 (103) Pulse Ox 91 96 94 11/07/17 11/07/17 11/07/17 11/07/17 23:19 23:30 23:34 23:39 Pulse 107 110 109 Resp 17 10 13 B/P (MAP) 152/93 (112) Pulse Ox 96 92 94 11/07/17 11/07/17 23:54 23:59 Pulse 104 Resp 17 B/P (MAP) 160/100 (120) Pulse Ox 94 Physical Exam General Appearance: The patient is alert, has no immediate need for airway protection and no current signs of toxicity. No acute distress, skin warm, dry , pink, vital signs stable, afebrile, pulse ox normal HEENT: Pupils equal and round no injection. Oropharynx without redness or exudate, mucous. Membranes are moist Respiratory: Chest is non tender, lungs are clear to auscultation., Intact port in the right internal jugular Cardiac: regular rate and rhythm Gastrointestinal: Abdomen is soft and non tender, no masses, bowel sounds normal. Musculoskeletal: Neck: Neck is supple and non tender. Extremities have full range of motion and are non tender. Skin: No rashes or lesions. DIFFERENTIAL DIAGNOSIS: After history and physical exam differential diagnosis was considered for chest pain including but not limited to myocardial ischemia, pericarditis pulmonary embolus, chest wall pain, pleural inflammation and pulmonary infectious causes. Medical Decision Making Data Points Result Diagram: 11/07/17215811/07/172158 Laboratory Hematology Test 11/07/17 21:59 11/07/17 23:42 Red Blood Count 4.09 M/uL (4.00-5.60) Mean Corpuscular Volume 89.2 fL (80.0-96.0) Mean Corpuscular Hemoglobin 31.5 pg (26.0-33.0) Mean Corpuscular Hemoglobin Concent 35.3 g/dL (32.0-36.0) Red Cell Distribution Width 13.8 % (11.5-14.5) Mean Platelet Volume 7.8 fL (7.2-11.1) Neutrophils (%) (Auto) 85.8 % (39.4-72.5) Lymphocytes (%) (Auto) 11.6 % (17.6-49.6) Monocytes (%) (Auto) 2.4 % (4.1-12.4) Eosinophils (%) (Auto) 0.1 % (0.4-6.7) Basophils (%) (Auto) 0.1 % (0.3-1.4) Nucleated RBC Relative Count (auto) 0.0 /100WBC Neutrophils # (Auto) 2.3 K/uL (2.0-7.4) Lymphocytes # (Auto) 0.3 K/uL (1.3-3.6) Monocytes # (Auto) 0.1 K/uL (0.3-1.0) Eosinophils # (Auto) 0.0 K/uL (0.0-0.5) Basophils # (Auto) 0.0 K/uL (0.0-0.1) Nucleated RBC Absolute Count (auto) 0.00 K/uL D-Dimer Quantitative (PE/DVT) 1.09 ug/ml (0-0.50) Sodium Level 133 mmol/L (137-145) Potassium Level 4.5 mmol/L (3.5-5.0) Chloride Level 98 mmol/L (98-107) Carbon Dioxide Level 22 mmol/L (22-30) Blood Urea Nitrogen 33 mg/dl (9-21) Creatinine 1.50 mg/dl (0.66-1.25) Glomerular Filtration Rate Calc 44.6 Random Glucose 543 mg/dl (75-110) Calcium Level 9.8 mg/dl (8.4-10.2) Total Bilirubin 0.4 mg/dl (0.2-1.3) Aspartate Amino Transf (AST/SGOT) 31 U/L (0-35) Alanine Aminotransferase (ALT/SGPT) 34 U/L (0-56) Alkaline Phosphatase 164 U/L (0-126) Troponin I < 0.012 ng/ml B-Type Natriuretic Peptide 49 pg/ml (0-100) Total Protein 7.4 gm/dl (6.3-8.2) Albumin 3.9 g/dl (3.5-5.0) Whole Blood Glucose 394 mg/DL (75-110) Chemistry Test 11/07/17 21:59 11/07/17 23:42 White Blood Count 2.7 k/uL (4.5-11.0) Red Blood Count 4.09 M/uL (4.00-5.60) Hemoglobin 12.9 g/dL (14.0-18.0) Hematocrit 36.5 % (42.0-52.0) Mean Corpuscular Volume 89.2 fL (80.0-96.0) Mean Corpuscular Hemoglobin 31.5 pg (26.0-33.0) Mean Corpuscular Hemoglobin Concent 35.3 g/dL (32.0-36.0) Red Cell Distribution Width 13.8 % (11.5-14.5) Platelet Count 144 K/uL (150-450) Mean Platelet Volume 7.8 fL (7.2-11.1) Neutrophils (%) (Auto) 85.8 % (39.4-72.5) Lymphocytes (%) (Auto) 11.6 % (17.6-49.6) Monocytes (%) (Auto) 2.4 % (4.1-12.4) Eosinophils (%) (Auto) 0.1 % (0.4-6.7) Basophils (%) (Auto) 0.1 % (0.3-1.4) Nucleated RBC Relative Count (auto) 0.0 /100WBC Neutrophils # (Auto) 2.3 K/uL (2.0-7.4) Lymphocytes # (Auto) 0.3 K/uL (1.3-3.6) Monocytes # (Auto) 0.1 K/uL (0.3-1.0) Eosinophils # (Auto) 0.0 K/uL (0.0-0.5) Basophils # (Auto) 0.0 K/uL (0.0-0.1) Nucleated RBC Absolute Count (auto) 0.00 K/uL D-Dimer Quantitative (PE/DVT) 1.09 ug/ml (0-0.50) Glomerular Filtration Rate Calc 44.6 Calcium Level 9.8 mg/dl (8.4-10.2) Total Bilirubin 0.4 mg/dl (0.2-1.3) Aspartate Amino Transf (AST/SGOT) 31 U/L (0-35) Alanine Aminotransferase (ALT/SGPT) 34 U/L (0-56) Alkaline Phosphatase 164 U/L (0-126) Troponin I < 0.012 ng/ml B-Type Natriuretic Peptide 49 pg/ml (0-100) Total Protein 7.4 gm/dl (6.3-8.2) Albumin 3.9 g/dl (3.5-5.0) Whole Blood Glucose 394 mg/DL (75-110) Coagulation Test 11/07/17 21:59 D-Dimer Quantitative (PE/DVT) 1.09 ug/ml EKG/Imaging EKG Interpretation 12 lead EK Rhythm: Sinus tachycardia, rate 160 bpm Brule: normal QRS: normal, old anterior Q waves, indeterminate age ST segments: normal, comparison to previous EKG 08/18/17 and 09/18/17, no significant change Imaging X-ray: Single view portable chest x-ray was obtained. I viewed the images myself on the PACS system. My interpretation of the images is: No infiltrate, no effusion, normal mediastinum, intact right IJ line. The radiologist interpretation had no clinically significant variation from this interpretation. ED Course/Re-evaluation Clinical Indication for ER IV: IV Access ED Course Patient was admitted to an examination room. H&P was done. The differential diagnosis was considered. On clinical examination. Patient had a brief episode of chest pain. His EKG is unchanged. His troponin returns unremarkable. Patient has grossly elevated blood glucose, which she was told to expect with this chemotherapy. His blood glucose returns at 543. He receives regular insulin 10 units IV. One hour later. His repeat glucose is 393. Patient's given an additional 10 units of regular insulin IV to bring down his glucose. He is advised to continue checking his glucose 3 times daily as planned and give Humalog insulin as he recommended by his sliding scale. He' s advised to follow-up with oncology clinic tomorrow as planned. Decision to Disposition Date: Nov 07, 2017 Decision to Disposition Time: 23:54 Depart Departure Latest Vital Signs Vital Signs Date Time Temp Pulse Resp B/P (MAP) Pulse Ox O2 Delivery O2 Flow Rate FiO2 11/07/17 23:59 160/100 (120) 11/07/17 23:54 104 17 94 11/07/17 21:32 98.2 Room Air Impression: Primary Impression: Chest pain Additional Impressions: Hyperglycemia Bladder cancer Condition: Improved Disposition: HOME OR SELF-CARE Patient Instructions: Chest Pain (ED), Diabetic Hyperglycemia (ED) Additional Instructions: Follow-up with oncology clinic as planned tomorrow Problem Qualifiers Primary Impression: Chest pain Chest pain type: unspecified Qualified Codes: R07.9 - Chest pain, unspecified Additional Impressions: Bladder cancer Bladder location: unspecified site Qualified Codes: C67.9 - Malignant neoplasm of bladder, unspecified JORGE L MENDOZA DO Nov 07, 2017 21:31
--- NOTE | 2017-11-07 22:01 | EKG ---
FACILITY: [facility] - [place] PATIENT NAME: SANDRA CORREA : [id number] MR: [id number] V: [id number] EXAM DATE: ORDERING PHYSICIAN: JORGE L MENDOZA TECHNOLOGIST: JORI Test Reason : CP Blood Pressure : / mmHG Vent. Rate : 116 BPM Atrial Rate : 116 BPM P-R Int : 174 ms QRS Dur : 084 ms QT Int : 336 ms P-R-T Axes : 052 -56 062 degrees QTc Int : 467 ms Sinus tachycardia Left anterior fascicular block V2 appears incorrectly placed. 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 Abnormal ECG When compared with ECG of 18-SEP-2017 15:25, Anterior infarct is now present Confirmed by LU MARIN ([id number]) on 11/08/2017 6:02:41 AM Referred By: Confirmed By:LU MARIN
[2017-11-07 22:19] LABS: PLATELET COUNT, AUTOMATED 144 K/uL (150-450)
[2017-11-07] MEDS ORDERED: INSU HUM REG 100 U/ML(ER ONLY) 10 ML VIAL IV ONE ×2 (22:35→23:55)
--- NOTE | 2017-11-07 22:40 | RADIOLOGY IMAGING REPORT ---
FACILITY: [facility] [place]IENT NAME: Deion Kwong : 1935 MR: [id number] V: [id number] EXAM DATE: ORDERING PHYSICIAN: JORGE L MENDOZA TECHNOLOGIST: Location: [facility] - [place] Patient: Deion Kwong : 1935 Visit/Account:[id number] Date of Sevice: 11/07/2017 AP CHEST 11/07/2017 9:37 PM. INDICATION: Chest Pain COMPARISON: 08/18/2017. FINDINGS: Lungs are well-expanded. There is no consolidation. No pleural effusion or pneumothorax. Heart size i s normal. Right IJ central venous catheter with port terminates in the superior vena cava. Implante d cardiac cath tech overlying the cardiac silhouette. Surgical clips over the left lower neck. IMPRESSION: No acute abnormality. Report Dictated By: John Nogueira MD at 11/07/2017 10:34 PM Report E-Signed By: John Nogueira MD at 11/07/2017 10:36 PM WSN:[id number]
[2017-11-07 23:59] VITALS: BP 160/100
== END 2017-11-08 00:10 | disposition home or self-care (01) ==
LOC: ER 21:42
DX: E11.65 Type 2 diabetes mellitus with hyperglycemia (principal); R07.89 Other chest pain; C67.9 Malignant neoplasm of bladder, unspecified; I44.4 Left anterior fascicular block; R00.0 Tachycardia, unspecified
CPT/HCPCS: 36415; 36416; 71045; 82948; 83880; 84484; 85025; 85379; 93005; 99284; A9270; 82040; 82247; 82310; 82374; 82435; 82565; 82947; 84075; 84132; 84155; 84295; 84450; 84460; 84520; J1815

== ENCOUNTER → 2017-11-11 | Outpatient (CLI) | payer MEDICARE, OTHER ==
[2017-09-27 07:56] VITALS: BMI 23.2
== END ==
LOC: CT 11:57
PROVIDERS: ATTEND Internal Medicine Hematology
DX: N32.89 Other specified disorders of bladder (principal)

== ENCOUNTER 2017-12-30 09:00 | Outpatient (RCR) | payer MEDICARE, OTHER ==
[2017-09-27 07:56] VITALS: BMI 23.2
[2017-11-11 09:19] VITALS: BP 149/72
--- NOTE | 2017-12-16 16:15 | Oncology Note ---
[facility] Patient History: FH: arthritis BROTHER OR SISTER FH: diabetes mellitus MOTHER, , Age:86 FH: pancreatic cancer FATHER, , Age:61 BROTHER OR SISTER Social/Occupational History Social History: Social History This is a 82 Yr old White male, he is U Unknown and has [] Children Hx Smoking: Yes (20 YRS) Smoking Status: Former Smoker Allergies & Medications Allergies: Coded Allergies: meperidine (Verified Allergy, Severe, 11/07/17) morphine (Verified Allergy, Severe, 11/07/17) Home Meds Active Scripts Hydrocodone Bit/Acetaminophen (NORCO 5-325 TABLET) 1 Each Tablet, 1 EACH PO Q4H Y for PAIN, #20 TAB Prov:CRISTA PALMA MD 11/04/17 Reported Medications Acetaminophen (TYLENOL) 325 Mg Tablet, 2 TAB PO QHS Y for PAIN, TAB 11/02/17 Multivitamin (MULTIVITAMINS) 1 Each Capsule, 1 EACH PO QDAY, CAPSULE 11/02/17 Leuprolide Acet 11.25 Mg [id number] (LUPRON DEPOT 11.25 MG [id number]) 11.25 Mg Syringekit, 11.25 MG IM DIRECTED, SYR EVERY 3 MONTHS 11/02/17 Hum Insulin Nph/Reg Insulin Hm (RELION NOVOLIN 70-30 VIAL) 100 Unit/1 Ml Vial, 20-40 UNIT SQ PRN Y for SLIDING SCALE, VIAL 11/02/17 Atorvastatin Calcium (LIPITOR) 40 Mg Tablet, 1 TAB PO QHS, TAB 11/02/17 Metoprolol Tartrate (METOPROLOL TARTRATE) 25 Mg Tablet, 0.5 TAB PO BID, TAB 11/02/17 Clopidogrel Bisulfate (PLAVIX) 75 Mg Tablet, 1 TAB PO QDAY, TAB 11/02/17 Aspirin (ASPIRIN) 81 Mg Tab.chew, 81 MG PO QDAY, TAB.CHEW 11/02/17 Mr. Elenita Albarran is an 82 year old male who has Metastatic urothelial carcinoma high grade Dx 10/[address]-guided biopsy . Patient is seen at infusion room, for hydration. Continues to complain of diarrhea. Patient appears dehydrated patient is hemodynamically stable, afebrile, no cardiac type chest pain, no abdominal pain. appetite ok, he denies nausea and vomiting and he reports diarrhea "small scant amounts throughout the day. Currently patient is being treated with radiation therapy, completed mitomycin and 5-FU as of 12/05/2017. Patient is s/p left-sided percutaneous nephrostomy tube placement on September 27, 2017. His creatinine dropped after that. Patient had recent carotid endarterectomy in [place], September 2017. 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 DIAGNOSTIC DATA WBC WBCs 1.7; hemoglobin 10.1; hematocrit 28.6; platelet count 85; absolute neutrophil count is 1.0; chemistry panel within normal limits except BUN 40; creatinine 1.6; 1.Metastatic urothelial carcinoma high grade Dx 10/2017 s/p chemo , currently on radiation therapy aprox 7-8 more session to be completed. 2. Diarrhea. stool specimen negative for C-diff negative, we will administer Rx hydration support, and treat presumed c-diff with [id number] POTID; oral vancomycin 125mgPo QID for 10 days. 3. Thrombocytopenia. Platelet count today 86k, no active bleeding or bruising at present moment.Continue close monitoring of counts 4. Constipation. Resolved, on stool softeners PRN 5. Hx of Hyperglycemia. on sliding scale insulin 6. Hx of diabetic retinopathy. Patient due for Ophthalmology/Diabetic retinopathy check up January 2018. 7. ID. nephrostomy tube site assessed clean dry intact, no leaking, no drainage. patient continues to urinate naturally . UA specimen from Nephrostomy tube reveal elevated leukocyte esterase. Awaiting culture . patient on Ppfx antibiotics. 8. Neutropenia/Leukopenia. s/p chemo mitomycin and 5-FU on 12/05/2017. currently undergoing XRT WBC 1.7; ANC 1.0. Ppfx levaquin Initiate one time loading dose of 500mg POx1 dose today. followed 250mg PO daily x10 days;Bactrim DS 1 tab daily Q MWF#30 Pills. 9. Will consider Growth factors, prior authorization requested from [facility]. 10. Patient to RTC per protocol and as scheduled, and to call with any issues or concerns. 11. We will continue to Renally adjust patient medications. 12. Instructions provided on appropriate diet (hand outs printed for diarrhea an change of taste.smell education given to patient and son, and medication indication and possible side effects to patient and son Edson. Both parties agree with plan. CHRONIC 1. Type 2 diabetes. HX of Diabetic retinopathy Denies diabetic neuropathy. on Humalog 70/30 ( Reported).per patient and son his BG in the A.m is in the 97s range for which he typically gets 20units of insulin SC. Followed by BG in the P.M is in the 165-200 for which he injects 25 units of insulin SC. 2. History of prostate cancer. on Lupron and casodex, 3. Hypertension. on Metoprolol 25mg PO BID. 4. Coronary artery disease status post four stent placement. 5. 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 6. Chronic kidney disease stage 4. -Education, patient instructed to go to ER immediately and or call Clinic if any Shortness of Breath, Temp >/=100.4, fevers, chills, cardiac type chest pain , bleeding, excessive bruising, headaches, blurry vision, dizziness, abdominal pain, and pain unrelieved by medication. TIME SPENT: 30 minutes 20> minutes includes but not limited to discussion, counselling and co-ordination~ of care. Discussion with other health care providers, record review, review of lab work, diagnostic tests. Plan discussed extensively with patient. All the questions answered today. Thank you for the opportunity to be involved in the care of Deion Kwong Level: sick visit 4 RIGO GENTILE, ONC Dec 16, 2017 16:15
[~2017-12-30 09:00] MED LIST changes: +ALTEPLASE RECOMB 2 MG VIAL IVP PRN; +DEXTROSE 5%(*) 100 ML BAG 100 ML IVPB PRN; +HEPARIN FLSH (PORT) 500 UN/5ML IVP PRN; +LEVO250T55 PO; +LIDOCAINE/SOD BICARB 8.4% SYR ID PRN; +NS(*) 0.9% 100 ML BAG 100 ML IVPB PRN; +NS(*) 0.9% 500 ML BAG 500 ML IV PRN; +SULF-198 PO; +WATER FOR INJ,STERILE 20 ML IVP PRN
--- NOTE | 2018-01-02 16:59 | Oncology Progress Note ---
History of Present Illness Evaluation Evaluation Date: Jan 02, 2018 Evaluation Time: 10:20 Accompanied by Accompanied by: Zane Sandhu Last seen by : Teddy 12/15/17 Chief Complaint Chief Complaint Dehydration Oncology History Oncology History In early 2017 patient was noted to have an elevated PSA in the range of 18 and he started on Lupron and Casodex therapy, and his PSA was brought under control. - Patient had recent carotid endarterectomy in [place], September 2017, and during his hospitalization patient was found to have obstructed left ureter and hydronephrosis, so the patient was referred to Dr. Gandhi in [place] for further evaluation and management. - He had a CT abdomen and pelvis done on September 28, 2017 which showed status post prostatectomy. There may be some residual soft tissue present which is causing mild compression to the urinary bladder versus an intramedullary bladder abnormality with mild left hydronephrosis. - He had cystoscopy with bladder and urethral biopsies done on September 26, 2017 under the direction of Dr. 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 - Patient underwent left-sided percutaneous nephrostomy tube placement on September 27, 2017. His creatinine dropped after that. - He was evaluated by Dr. You, who requested a PET/CT scan which was done on October 14, 2017, which showed asymmetric thickening of the left posterolateral wall of the urinary bladder, likely correlates with the patient's nonbladder cancer. There was subcentimeter left pelvic side wall lymph node with no prominent uptake. There was also hypermetabolic lytic lesion in the inferior right pubic bone, and a second lytic lesion in the lower sacrum to the left of the midline with mild uptake concerning for bony metastasis. - Patient is scheduled for CT-guided biopsy of one of the bone lesions in [place]. 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 - The patient started chemotherapy and radiosensitizer with radiation therapy with mitomycin and 5-FU on November 07, 2017 Treatment Treatment treated with XRT radiation therapy, completed mitomycin and 5-FU as of 12/05/2017 HPI HPI Mr. Elenita Albarran is an 82 year old male who has Metastatic urothelial carcinoma high grade Dx 10/[address]-guided biopsy . Patient is seen at infusion room, for management of XRT. He is hemodynamically stable, with a BP of 96/59-95. Patient is afebrile, no cardiac type chest pain, no dizziness, or headache, no abdominal pain. appetite ok, he denies nausea and vomiting and he reports no diarrhea, no constipation. no bruising, no bleeding. Patient and his son inform me that he has had a great week, with good oral intake, and good balanced meals. He is pleased that he only has three more fractions of XRT to go and he can't believe he is almost through radiation treatment. Currently patient is being treated with radiation therapy, completed mitomycin and 5-FU as of 2017. Patient is s/p left-sided percutaneous nephrostomy tube placement on September 27, 2017. His creatinine dropped after that. Patient had recent carotid endarterectomy in [place], September 2017. 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 Living Conditions Has sons support. PMH Patient History: FH: arthritis BROTHER OR SISTER FH: diabetes mellitus MOTHER, , Age:86 FH: pancreatic cancer FATHER, , Age:61 BROTHER OR SISTER Social/Occupational History Social History: Social History This is a 82 Yr old White male, he is U Unknown and has [] Children Hx Smoking: Yes (20 YRS) Smoking Status: Former Smoker Allergies & Medications Allergies: Coded Allergies: meperidine (Verified Allergy, Severe, 11/07/17) morphine (Verified Allergy, Severe, 11/07/17) Home Meds Active Scripts Hydrocodone Bit/Acetaminophen (NORCO 5-325 TABLET) 1 Each Tablet, 1 EACH PO Q4H Y for PAIN, #20 TAB Prov:CRISTA PALMA MD 11/04/17 Reported Medications Sulfamethoxazole/Trimet 800-160 Mg Tab (BACTRIM DS TABLET) 1 Each Tablet, 1 TAB PO DAILY, TAB Tuesday/Tuesday/Tuesday12/19/17 Acetaminophen (TYLENOL) 325 Mg Tablet, 2 TAB PO QHS Y for PAIN, TAB 11/02/17 Multivitamin (MULTIVITAMINS) 1 Each Capsule, 1 EACH PO QDAY, CAPSULE 11/02/17 Leuprolide Acet 11.25 Mg P0awmnd (LUPRON DEPOT 11.25 MG [id number]) 11.25 Mg Syringekit, 11.25 MG IM DIRECTED, SYR EVERY 3 MONTHS 11/02/17 Hum Insulin Nph/Reg Insulin Hm (RELION NOVOLIN 70-30 VIAL) 100 Unit/1 Ml Vial, 20-40 UNIT SQ PRN Y for SLIDING SCALE, VIAL 11/02/17 Atorvastatin Calcium (LIPITOR) 40 Mg Tablet, 1 TAB PO QHS, TAB 11/02/17 Metoprolol Tartrate (METOPROLOL TARTRATE) 25 Mg Tablet, 0.5 TAB PO BID, TAB 11/02/17 Aspirin (ASPIRIN) 81 Mg Tab.chew, 81 MG PO QDAY, TAB.CHEW 11/02/17 Discontinued Reported Medications Levofloxacin 250 Mg Tab (LEVAQUIN 250 MG TAB) 250 Mg Tablet, 250 MG PO DAILY, TAB Times 10 days starting on 12/16/17 12/19/17 Clopidogrel Bisulfate (PLAVIX) 75 Mg Tablet, 1 TAB PO QDAY, TAB 11/02/17 Review of Systems Constitution: Positive for Appetite/Weight Change, Positive for Other HEENT: No EARS: Tinnitus, No NOSE: Nasal Discharge, No THROAT: Sore Throat, No EYES: Dipolpia, No EARS: Hearing Problems, No NOSE: Epistaxis, No THROAT: Mouth Ulcers, No EYES: Vision Change, No OTHER Respiratory: No Cough, No Expectoration, No Hemoptysis, No Shortness of Breath , No OTHER Cardiovascular: No Chest Pain, No Orthopnea, No Edema, No Palpitations, No OTHER Gastrointestinal: No Nausea, No Vomitting, No Diarrehea, No Constipation, No Heart Burn, No Swallowing Difficulties, No Abdominal Pain, No Other Musculoskeletal: No Muscle Pain, No Joint Pain, Bone Pain, No Other Hematological: No Bleeding, Weakness, No Enlarged Lyph Nodes, No Bruising, No Fatigue, No Other Skin: Skin Rash Psychiatric: Anxiety Vital Signs Vital Signs Temperature: 97.2 Pulse: 95 BP Systolic: 96 BP Diastolic: 59 Respiratory Rate: 16 O2 SAT: 97% RA O2 Delivery: Height (feet) Height (inches) Weight lb: 149 Weight oz: Weight Kg (Ayan): Pain: 0 ECOG-3 Physical Exam General: Looks Stable, Other (In no acute distress) HEENT: HEAD:Atraumatic Neck: Supple Lungs: Clear to Auscultation, Percussion Bilaterally Heart: Regular Rate and Rhythm Abdomen: Soft and Nontender, Other Extremities: No Cyanosis, No Clubbing, No Edema, Other (Left ankle edema +1) Lymphatics: No Peripheral Lymphadenopathy, No Other Psychiatric: Mood appears normal, Other Skin: No Skin Rashes, No Bruising, No Purpura, No Moist Desquamation, No Dry Desquamation, No Errythema, No Mild Errythema, No Moderate Errythema, No Severe Errythema, No Induration, No Other Breast: No No Masses, No No Nipple Discharge, No No Skin Changes, No Other Assessment and Plan Assessment and Plan Mr. Elenita Albarran is an 82 year old male who has Metastatic urothelial carcinoma high grade Dx 10/[address]-guided biopsy . Patient is seen at infusion room, for management of XRT. He is hemodynamically stable, with a BP of 96/59-95. O2 sats 97% room air.Patient is afebrile, no cardiac type chest pain, no dizziness , or headache, no abdominal pain. appetite ok, he denies nausea and vomiting and he reports no diarrhea, no constipation. no bruising, no bleeding. Minimal left ankle edema, alleviated by elevating the leg. DIAGNOSTIC DATA WBC WBCs 3.5; hemoglobin 11.6; hematocrit 33.4.; platelet count 104; absolute neutrophil count is 2.5; chemistry panel within normal limits except BUN 23 from (40 on 12/12/17); creatinine 1.70; A&P 1 .Metastatic urothelial carcinoma high grade Dx 10/2017 s/p chemo , currently on radiation therapy aprox 3 more session to be completed. 2. Dehydration/Hypotension. Please admin 1Liter NS x1 now. BP after hydration 142/75-80. O2 sats 97% room air 3. Thrombocytopenia. Platelet count today 104k, trending up , no active bleeding or bruising at present moment.Continue close monitoring of counts 4. Diarrhea. resolved was treated with Rx hydration support, and treat presumed c-diff treatment with [id number] PO TID; oral vancomycin 125mgPo QID for 10 days. 5. Hx of Hyperglycemia. on sliding scale insulin 6. Hx of diabetic retinopathy. Patient due for Ophthalmology/Diabetic retinopathy check up January 2018. 7. ID. nephrostomy tube site assessed clean dry intact, no leaking, no drainage. patient continues to urinate naturally .s/p UTI on abx. Patient has upcoming Appointment on 01/26/18 with Nephrology Md and nephrostomy tube exchange with IR. 8. Anticipating Neutropenia/Leukopenia. counts trending up s/p chemo mitomycin and 5-FU on 12/05/2017. currently undergoing XRT will monitor Ppfx levaquin and to continuer Bactrim DS 1 tab daily Q MWF#30 Pills. 9. We will continue to Renally adjust patient medications. 10. History of Constipation. Resolved, on stool softeners PRN 11.Patient to take antiemetics PRN. and to RTC per protocol and as scheduled, and to call with any issues or concerns. CHRONIC 1. Type 2 diabetes. HX of Diabetic retinopathy Denies diabetic neuropathy. on Humalog 70/30 ( Reported).per patient and son his BG in the A.m is in the 97s range for which he typically gets 20units of insulin SC. Followed by BG in the P.M is in the 165-200 for which he injects 25 units of insulin SC. 2. History of prostate cancer. on Lupron and casodex, 3. Hypertension. on Metoprolol 25mg PO BID. 4. Coronary artery disease status post four stent placement. 5. 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 6. Chronic kidney disease stage 4. -Education, patient instructed to go to ER immediately and or call Clinic if any Shortness of Breath, Temp >/=100.4, fevers, chills, cardiac type chest pain , bleeding, excessive bruising, headaches, blurry vision, dizziness, abdominal pain, and pain unrelieved by medication. TIME SPENT: 20 minutes 15> minutes includes but not limited to discussion, counselling and co-ordination~ of care. Discussion with other health care providers, record review, review of lab work, diagnostic tests. Plan discussed extensively with patient. All the questions answered today. Thank you for the opportunity to be involved in the care of Deion Kwong Level: sick visit 3 RIGO GENTILE, ONC Jan 02, 2018 16:59
[2018-01-05] MEDS ORDERED: ONDA4TAB PO (10:12)
[2018-01-09] MEDS ORDERED: ENOX100D5 SQ (10:17)
== END 2018-01-08 ==
LOC: RAON 09:00
PROVIDERS: ATTEND Radiology Radiation Oncology
DX: Z51.0 Encounter for antineoplastic radiation therapy (principal); C67.9 Malignant neoplasm of bladder, unspecified; C79.89 Secondary malignant neoplasm of other specified sites; Z85.46 Personal history of malignant neoplasm of prostate; Z86.73 Personal history of transient ischemic attack (TIA), and cerebral infarction without residual deficits; N18.4 Chronic kidney disease, stage 4 (severe); E11.9 Type 2 diabetes mellitus without complications; I10 Essential (primary) hypertension; I25.10 Atherosclerotic heart disease of native coronary artery without angina pectoris; N13.30 Unspecified hydronephrosis; K59.00 Constipation, unspecified
CPT/HCPCS: 36415; 77280; 77290; 77300; 77301; 77336; 77338; 77386; G0463; 36416; 36591; 74176; 77334; 81001; 82040; 82247; 82274; 82310; 82374; 82435; 82565; 82705; 82947; 82948; 83630; 83735; 84075; 84132; 84155; 84295; 84450; 84460; 84520; 84550; 85025; 85027; 87077; 87088; 87186; 87324; 87449; 96360; 96361; 96372; 96374; 96375; 96413; 96416; 99203; 99212; 99213; J1100; J1642; J1815; J2405; J2997; J7030; J7040; J9280

== ENCOUNTER 2018-01-03 12:40 | Inpatient (IN) | payer MEDICARE, OTHER ==
[2017-09-27 07:56] VITALS: Ht 167.6 cm; Wt 65.3 kg
[~2018-01-03] VITALS: Ht 167.6 cm; Wt 65.3 kg
[~2018-01-03 12:40] MED LIST changes: -ALTEPLASE RECOMB 2 MG VIAL IVP PRN; -DEXTROSE 5%(*) 100 ML BAG 100 ML IVPB PRN; -HEPARIN FLSH (PORT) 500 UN/5ML IVP PRN; -LIDOCAINE/SOD BICARB 8.4% SYR ID PRN; -NS(*) 0.9% 100 ML BAG 100 ML IVPB PRN; -NS(*) 0.9% 500 ML BAG 500 ML IV PRN; -WATER FOR INJ,STERILE 20 ML IVP PRN
--- NOTE | 2018-01-03 12:50 | ER Report ---
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 He is currently being treated with radiation therapy he completed mitomycin and 5 fluorouracil as of 12/05/2017. Who presents to the emergency department with acute nausea and vomiting. The patient's last radiation therapy was today. Patient had been doing well yesterday having routine blood work drawn but approximately an hour after returning home from radiation therapy he developed severe nausea and vomiting. He is been battling diarrhea which is worsened over the past 24 hours. Patient had a history of leukopenia with a lilliana of white blood cell count of 1.7 with an absolute neutrophil count of 1054 on December 16. White count on January 02 was 3.5 with an absolute neutrophil count of 1200. He is currently on prophylactic doses of Bactrim 1 tablet by mouth every 3 days. Patient does report also abdominal pain that is diffuse that began after the vomiting. There is no reported history of fevers or chills. Patient denies chest pain or shortness of breath. REVIEW OF SYSTEMS: Constitutional: No fever, chills and shakes Eyes: No discharge. ENT: No sore throat. Cardiovascular: No chest pain, no palpitations. Respiratory: No cough, no shortness of breath. Gastrointestinal: Generalized abdominal pain, intractable nausea vomiting and diarrhea Genitourinary: History of left nephrostomy tube Musculoskeletal: No back pain. Skin: No rashes. Neurological: No headache. Allergies: Coded Allergies: meperidine (Verified Allergy, Severe, 11/07/17) morphine (Verified Allergy, Severe, 11/07/17) Home Meds Active Scripts Hydrocodone Bit/Acetaminophen (NORCO 5-325 TABLET) 1 Each Tablet, 1 EACH PO Q4H Y for PAIN, #20 TAB Prov:CRISTA PALMA MD 11/04/17 Reported Medications Levofloxacin 250 Mg Tab (LEVAQUIN 250 MG TAB) 250 Mg Tablet, 250 MG PO DAILY, TAB Times 10 days starting on 12/16/17 12/19/17 Sulfamethoxazole/Trimet 800-160 Mg Tab (BACTRIM DS TABLET) 1 Each Tablet, 1 TAB PO DAILY, TAB Tuesday/Tuesday/Tuesday12/19/17 Acetaminophen (TYLENOL) 325 Mg Tablet, 2 TAB PO QHS Y for PAIN, TAB 11/02/17 Multivitamin (MULTIVITAMINS) 1 Each Capsule, 1 EACH PO QDAY, CAPSULE 11/02/17 Leuprolide Acet 11.25 Mg Y4ckarx (LUPRON DEPOT 11.25 MG [id number]) 11.25 Mg Syringekit, 11.25 MG IM DIRECTED, SYR EVERY 3 MONTHS 11/02/17 Hum Insulin Nph/Reg Insulin Hm (RELION NOVOLIN 70-30 VIAL) 100 Unit/1 Ml Vial, 20-40 UNIT SQ PRN Y for SLIDING SCALE, VIAL 11/02/17 Atorvastatin Calcium (LIPITOR) 40 Mg Tablet, 1 TAB PO QHS, TAB 11/02/17 Metoprolol Tartrate (METOPROLOL TARTRATE) 25 Mg Tablet, 0.5 TAB PO BID, TAB 11/02/17 Clopidogrel Bisulfate (PLAVIX) 75 Mg Tablet, 1 TAB PO QDAY, TAB 11/02/17 Aspirin (ASPIRIN) 81 Mg Tab.chew, 81 MG PO QDAY, TAB.CHEW 11/02/17 Past Medical/Surgical History Past medical history includes type II diabetes with history of diabetic retinopathy also diabetic neuropathy. 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 History of chronic kidney disease stage IV. Baseline creatinine approximate 1.6 with a GFR of approximately 44 Hx Smoking: Yes (20 YRS) Smoking Status: Former Smoker Hx Substance Use Disorder: No Hx Alcohol Use: Yes Constitutional Vital Sign - Last 24 Hours 01/03/18 01/03/18 01/03/18 01/03/18 12:47 13:00 13:15 13:30 Temp 97.4 Pulse 130 131 122 B/P (MAP) 135/78 136/114 (121) 140/61 (87) 83/71 (75) Pulse Ox 91 92 88 01/03/18 01/03/18 01/03/18 01/03/18 13:49 14:00 14:30 14:45 Pulse 120 117 118 B/P (MAP) 129/65 (86) 127/58 (81) 107/49 (68) 103/49 (67) Pulse Ox 98 96 95 Intake and Output 01/03/18 01/03/18 01/04/18 15:00 23:00 07:00 Intake Total 500 ml Balance 500 ml Physical Exam General/Constitutional: Patient is awake, alert, nontoxic and in no acute respiratory distress. Head: Normocephalic and atraumatic. Eyes: Conjunctival clear, Sclera are clear and anicteric. Ears:External canals are clear. Tympanic membranes are clear with normal landmarks and light reflex. Nares: No rhinorrhea or bleeding. Turbinates are pink and moist. Oropharyngeal: Mucous membranes are moist. There is no pharyngeal erythema or exudate. Neck: Supple, no adenopathy. Cardiovascular: Heart is regular rate and rhythm without audible murmurs, rubs or gallops. Pulmonary: Lungs are clear to auscultation bilaterally. There are no wheezes, rales, or rhonchi. Chest rise is symmetrical Abdomen: Soft, nontender, no guarding or peritoneal signs. Extremities: No gross deformities, No peripheral cyanosis. Able to move all 4 extremities. Neuro: Alert and oriented X3, Skin: No rashes, skin is warm dry and well perfused. Medical Decision Making Data Points Result Diagram: 01/03/18 1320 01/03/18 1320 Laboratory Hematology Test 01/03/18 13:20 01/03/18 13:30 Red Blood Count 4.24 M/uL (4.00-5.60) Mean Corpuscular Volume 93.0 fL (80.0-96.0) Mean Corpuscular Hemoglobin 32.0 pg (26.0-33.0) Mean Corpuscular Hemoglobin Concent 34.4 g/dL (32.0-36.0) Red Cell Distribution Width 19.7 % (11.5-14.5) Mean Platelet Volume 7.5 fL (7.2-11.1) Neutrophils (%) (Auto) 82.3 % (39.4-72.5) Lymphocytes (%) (Auto) 3.4 % (17.6-49.6) Monocytes (%) (Auto) 13.6 % (4.1-12.4) Eosinophils (%) (Auto) 0.5 % (0.4-6.7) Basophils (%) (Auto) 0.2 % (0.3-1.4) Nucleated RBC Relative Count (auto) 0.0 /100WBC Neutrophils # (Auto) 5.6 K/uL (2.0-7.4) Lymphocytes # (Auto) 0.2 K/uL (1.3-3.6) Monocytes # (Auto) 0.9 K/uL (0.3-1.0) Eosinophils # (Auto) 0.0 K/uL (0.0-0.5) Basophils # (Auto) 0.0 K/uL (0.0-0.1) Nucleated RBC Absolute Count (auto) 0.00 K/uL Peripheral Blood Smear Y/N Sodium Level 140 mmol/L (137-145) Potassium Level 3.3 mmol/L (3.5-5.0) Chloride Level 102 mmol/L (98-107) Carbon Dioxide Level 21 mmol/L (22-30) Blood Urea Nitrogen 23 mg/dl (9-21) Creatinine 2.10 mg/dl (0.66-1.25) Glomerular Filtration Rate Calc 30.2 Random Glucose 167 mg/dl (75-110) Calcium Level 9.5 mg/dl (8.4-10.2) Total Bilirubin 0.4 mg/dl (0.2-1.3) Aspartate Amino Transf (AST/SGOT) 35 U/L (0-35) Alanine Aminotransferase (ALT/SGPT) 35 U/L (0-56) Alkaline Phosphatase 108 U/L (0-126) Total Protein 8.0 g/dl (6.3-8.2) Albumin 4.5 g/dl (3.5-5.0) Lipase 193 U/L (23-300) Helicobacter pylori IgG Antibody Positive (NEGATIVE) Urine Color Yellow Urine Clarity Cloudy Urine pH 6.0 pH (4.8-9.5) Urine Specific [place] 1.010 Urine Protein 30 mg/dL (NEGATIVE) Urine Glucose (UA) Negative mg/dL (NEGATIVE) Urine Ketones Negative mg/dL (NEGATIVE) Urine Blood Small (NEGATIVE) Urine Nitrite Negative (NEGATIVE) Urine Bilirubin Negative (NEGATIVE) Urine Urobilinogen Negative mg/dL (0.2-1.9) Urine Leukocyte Esterase Large (NEGATIVE) Urine RBC 7 /HPF (0-2/HPF) Urine WBC 14 /HPF (0-5/HPF) Urine Squamous Epithelial Cells Few /LPF (</=FEW) Urine Bacteria Few /HPF (NONE-FEW) Urine Mucus Few /HPF (NONE-FEW) Chemistry Test 01/03/18 13:20 01/03/18 13:30 White Blood Count 6.7 k/uL (4.5-11.0) Red Blood Count 4.24 M/uL (4.00-5.60) Hemoglobin 13.6 g/dL (14.0-18.0) Hematocrit 39.5 % (42.0-52.0) Mean Corpuscular Volume 93.0 fL (80.0-96.0) Mean Corpuscular Hemoglobin 32.0 pg (26.0-33.0) Mean Corpuscular Hemoglobin Concent 34.4 g/dL (32.0-36.0) Red Cell Distribution Width 19.7 % (11.5-14.5) Platelet Count 134 K/uL (150-450) Mean Platelet Volume 7.5 fL (7.2-11.1) Neutrophils (%) (Auto) 82.3 % (39.4-72.5) Lymphocytes (%) (Auto) 3.4 % (17.6-49.6) Monocytes (%) (Auto) 13.6 % (4.1-12.4) Eosinophils (%) (Auto) 0.5 % (0.4-6.7) Basophils (%) (Auto) 0.2 % (0.3-1.4) Nucleated RBC Relative Count (auto) 0.0 /100WBC Neutrophils # (Auto) 5.6 K/uL (2.0-7.4) Lymphocytes # (Auto) 0.2 K/uL (1.3-3.6) Monocytes # (Auto) 0.9 K/uL (0.3-1.0) Eosinophils # (Auto) 0.0 K/uL (0.0-0.5) Basophils # (Auto) 0.0 K/uL (0.0-0.1) Nucleated RBC Absolute Count (auto) 0.00 K/uL Peripheral Blood Smear Y/N Glomerular Filtration Rate Calc 30.2 Calcium Level 9.5 mg/dl (8.4-10.2) Total Bilirubin 0.4 mg/dl (0.2-1.3) Aspartate Amino Transf (AST/SGOT) 35 U/L (0-35) Alanine Aminotransferase (ALT/SGPT) 35 U/L (0-56) Alkaline Phosphatase 108 U/L (0-126) Total Protein 8.0 g/dl (6.3-8.2) Albumin 4.5 g/dl (3.5-5.0) Lipase 193 U/L (23-300) Helicobacter pylori IgG Antibody Positive (NEGATIVE) Urine Color Yellow Urine Clarity Cloudy Urine pH 6.0 pH (4.8-9.5) Urine Specific [place] 1.010 Urine Protein 30 mg/dL (NEGATIVE) Urine Glucose (UA) Negative mg/dL (NEGATIVE) Urine Ketones Negative mg/dL (NEGATIVE) Urine Blood Small (NEGATIVE) Urine Nitrite Negative (NEGATIVE) Urine Bilirubin Negative (NEGATIVE) Urine Urobilinogen Negative mg/dL (0.2-1.9) Urine Leukocyte Esterase Large (NEGATIVE) Urine RBC 7 /HPF (0-2/HPF) Urine WBC 14 /HPF (0-5/HPF) Urine Squamous Epithelial Cells Few /LPF (</=FEW) Urine Bacteria Few /HPF (NONE-FEW) Urine Mucus Few /HPF (NONE-FEW) Urinalysis Test 01/03/18 13:30 Urine Color Yellow Urine Clarity Cloudy Urine pH 6.0 pH (4.8-9.5) Urine Specific [place] 1.010 Urine Protein 30 mg/dL (NEGATIVE) Urine Glucose (UA) Negative mg/dL (NEGATIVE) Urine Ketones Negative mg/dL (NEGATIVE) Urine Blood Small (NEGATIVE) Urine Nitrite Negative (NEGATIVE) Urine Bilirubin Negative (NEGATIVE) Urine Urobilinogen Negative mg/dL (0.2-1.9) Urine Leukocyte Esterase Large (NEGATIVE) Urine RBC 7 /HPF (0-2/HPF) Urine WBC 14 /HPF (0-5/HPF) Urine Squamous Epithelial Cells Few /LPF (</=FEW) Urine Bacteria Few /HPF (NONE-FEW) Urine Mucus Few /HPF (NONE-FEW) EKG/Imaging EKG Interpretation EKG from 11/07/2017 shows sinus tachycardia with a ventricular rate of 116 bpm there is noted to be a left anterior fascicular block further V2 appears to be misplaced lead. EKG from today shows sinus tachycardia with left axis deviation and premature atrial contractions ventricular rate is 132 bpm when comparing to EKG from November there is no significant appreciable change in axis or in ST segment or T-wave appearance ED Course/Re-evaluation Clinical Indication for ER IV: Hydration, IV Access ED Course 01/03/2018 1:12:48 pm patient with intractable vomiting status post radiation therapy. Plan at this time will be to access his port place an IV for IV fluid resuscitation we'll give IV Zofran and Protonix. I will perform CBC CMP lipase we will also send for stool cultures including for C. difficile. It is likely patient will require admission Decision to Disposition Date: Jan 03, 2018 Decision to Disposition Time: 15:24 Depart Departure Latest Vital Signs Vital Signs Date Time Temp Pulse Resp B/P (MAP) Pulse Ox O2 Delivery O2 Flow Rate FiO2 01/03/18 14:45 118 103/49 (67) 95 01/03/18 12:47 97.4 Impression: Primary Impression: Intractable vomiting with nausea Additional Impression: Helicobacter pylori (H. pylori) infection Condition: Improved Disposition: Admitted from ER (to Med/surg) Problem Qualifiers Primary Impression: Intractable vomiting with nausea Vomiting type: unspecified Qualified Codes: R11.2 - Nausea with vomiting, unspecified GRECIA ALVAREZ MD Jan 03, 2018 12:50
[2018-01-03] MEDS ORDERED: ONDANSETRON 4 MG/2 ML VIAL IVP ONE (13:05)
[2018-01-03] MEDS ORDERED: NS(*) 0.9% 500 ML BAG 500 ML IV ONE ×2 (13:07→19:10)
[2018-01-03] MEDS ORDERED: PANTOPRAZOLE SOD 40 MG IV VIAL IVP ONE (13:10)
--- NOTE | 2018-01-03 13:19 | EKG ---
FACILITY: [facility] - [place] PATIENT NAME: SANDRA CORREA : [id number] MR: [id number] V: [id number] EXAM DATE: ORDERING PHYSICIAN: GRECIA ALVAREZ TECHNOLOGIST: EDSON Meade Reason : VOMITING Blood Pressure : / mmHG Vent. Rate : 132 BPM Atrial Rate : 133 BPM P-R Int : 148 ms QRS Dur : 074 ms QT Int : 294 ms P-R-T Axes : 053 -58 086 degrees QTc Int : 435 ms Sinus tachycardia with premature atrial complexes Left axis deviation Abnormal ECG When compared with ECG of 07-NOV-2017 21:37, premature atrial complexes are now present Confirmed by Joby Daley ([id number]) on 01/03/2018 8:08:14 PM Referred By: Confirmed By:Joby Pool
[2018-01-03 13:40] LABS: PLATELET COUNT, AUTOMATED 134 K/uL (150-450)
--- NOTE | 2018-01-03 14:09 | RADIOLOGY IMAGING REPORT ---
FACILITY: [facility] - [place], [place] PATIENT NAME: Deion Kwong : 1935 MR: [id number] V: [id number] EXAM DATE: ORDERING PHYSICIAN: GRECIA ALVAREZ TECHNOLOGIST: Location: [facility] Patient: Deion Kwong : 1935 Visit/Account:[id number] Date of Sevice: 01/03/2018 EXAMINATION: Portable chest radiograph single view at 1340 hours HISTORY: Vomiting, diarrhea. COMPARISON: 11/07/2017. FINDINGS: A single portable AP view of the chest is obtained. Lines/tubes: Right IJ central venous port with the tip overlying the distal SVC is unchanged. Wirel ess pacemaker is unchanged in position. Lungs/pleura: No focal consolidation or pleural effusion. Heart: Negative. Mediastinum: Atherosclerotic calcifications of the aorta. Bony structures/body wall: Negative. IMPRESSION: No radiographic evidence of acute cardiopulmonary disease. Report Dictated By: Isela Ga MD at 01/03/2018 2:02 PM Report E-Signed By: Isela Ga MD at 01/03/2018 2:05 PM WSN:[id number]
--- NOTE | 2018-01-03 15:00 | RADIOLOGY IMAGING REPORT ---
FACILITY: [facility] [place] PATIENT NAME: Deion Kwong : 1935 MR: [id number] V: [id number] EXAM DATE: ORDERING PHYSICIAN: GRECIA ALVAREZ TECHNOLOGIST: Location: [facility] - [place] Patient: Deion Kwong : 1935 Visit/Account:[id number] Date of Sevice: 01/03/2018 ABDOMEN/PELVIS W/O CONTRAST HISTORY: Vomiting x1 day, history of prostate cancer and prostatectomy and bladder cancer TECHNIQUE: Axial images acquired through the abdomen/pelvis. Coronal and sagittal reformatting also performed. No IV contrast administered. Dose Lowering Technique One of the following dose optimization techniques was utilized in the performance of this exam: Autom ated exposure control; adjustment of the mA and/or kV according to the patient's size; or use of an i terative reconstruction technique. Specific details can be referenced in the facility's radiology C T exam operational policy. COMPARISON: CT abdomen pelvis November 11, 2017 FINDINGS: Visualized lung bases: Incompletely imaged is the previously noted 4 mm nodule in the right lower lo be. The other pulmonary nodules described are not included within the scan. Three coronary artery c alcifications also noted Hepatobiliary: A small linear calcification is seen along the posterior border of the right hepatic dome. There are postsurgical changes from cholecystectomy Spleen: Negative. Adrenals: Negative. Pancreas: Replacement of the head the pancreas. There is a questionable 1.2 cm solid mass tail the pancreas Kidneys ureters and bladder: 1 mm nonobstructing calculus lower pole the right kidney There is a percutaneous nephrostomy tube on the left exophytic cyst projecting from the upper pole th e left kidney with small sheri of calcium and suggestion of thin septations appears similar The bladder wall appears markedly thickened and slightly irregular although this could in part be rel ated to underdistention. There is irregular hyperdensity seen along the posterior inferior aspect of the bladder could be partially calcified mass within the bladder wall or possibly faintly calcified bladder calculi Genitalia: Postsurgical changes from a prostatectomy with slightly lobular soft tissue density mater ial projecting just inferior to the bladder anterior the rectum possibly related to the prior surgery although tumor recurrence not excluded GI: There Is diverticulosis left-sided colon although no CT evidence of acute diverticulitis. There is a large hiatal hernia Vessels/spaces/nodes: Extensive vascular calcifications are seen throughout the abdomen and pelvis. The previous noted left obturator lymph node has decreased in size and now measures 7 mm as opposed t o 9 mm previously Bones/soft tissues: Again noted is the lytic destructive process involving the right ischium extendi ng into the inferior pubic ramus . This has a more mottled appearance than on the prior study and t here now appears to be a pathologic fracture along the lateral most aspect of the inferior pubic juliano s on the right Additional findings: None pertinent. IMPRESSION: Questionable 1.2 cm solid mass tail the pancreas Percutaneous nephrostomy tube noted on the left with no evidence of hydronephrosis. There is an exop hytic cyst projecting from the upper pole of the left kidney that appears similar to the prior study and appears to contain small flecks of calcium and thin septations The bladder wall appears markedly thickened and slightly irregular could in part be related to underd istention. There is however irregular thickening and hyperdensity along the posterior inferior aspec t left side of the bladder this could be related to calcified tumor within the bladder wall or faintl y calcified bladder calculi. Irregular soft tissue density also projects between the floor of the bl adder and the anterior rectum which could be related to postsurgical changes from patient's prostatec pradip although tumor recurrence is included in the different al diagnosis. Diverticulosis left-sided colon Large hiatal hernia. The previously noted left upper tracheal lymph node has decrease in size now measuring 7 mm as oppose d to 9 mmLytic destructive process involving the right is seen extending into the inferior pubic juliano s has a more mottled appearance on the prior study. There now appears to be a pathologic fracture al marcia the lateral most aspect of the inferior pubic ramus on the right Report Dictated By: Sarita Virgen MD at 01/03/2018 2:35 PM Report E-Signed By: Sarita Virgen MD at 01/03/2018 2:56 PM WSN:[email or web address]
[2018-01-03] MEDS ORDERED: NS(*) 0.9% 1000 ML BAG 1,000 ML ONE (16:24)
[2018-01-03 16:29] VITALS: BP 90/50
[2018-01-03] MEDS ORDERED: KCL/NS* 20 MEQ/1000 ML PREMIX 1,000 ML IV SCH ×3 (16:38→23:33)
[2018-01-03] MEDS ORDERED: ACETAMINOPHEN 325 MG TAB PO PRN (16:45)
[2018-01-03] MEDS ORDERED: PROMETHAZINE 25 MG/ML 1 ML AMP IVP PRN (16:45)
[2018-01-03] MEDS ORDERED: INSULIN HUM LISPRO 100 UN/ML 3 ML VIAL SUBQ PRN (16:50)
--- NOTE | 2018-01-03 17:50 | History & Physical ---
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 He is currently being treated with radiation therapy he completed mitomycin and 5 fluorouracil as of 12/05/2017. Who presented to the emergency department with acute nausea and vomiting. The patient's last radiation therapy was today. Patient had been doing well yesterday having routine blood work drawn but approximately an hour after returning home from radiation therapy he developed severe nausea and vomiting. He is been battling diarrhea which is worsened over the past 24 hours. Patient had a history of leukopenia with a lilliana of white blood cell count of 1.7 with an absolute neutrophil count of 1054 on December 16. White count on January 02 was 3.5 with an absolute neutrophil count of 1200. He is currently on prophylactic doses of Bactrim 1 tablet by mouth every 3 days. Patient does report also abdominal pain that is diffuse that began after the vomiting. There is no reported history of fevers or chills. Patient denies chest pain or shortness of breath. He was recommended for admission for IV hydration. History Problems: (1) T2DM (type 2 diabetes mellitus) Status: Chronic (2) HTN (hypertension) Status: Chronic (3) TIA (transient ischemic attack) Status: Acute (4) Transitional cell bladder cancer Status: Acute (5) Prostate cancer Status: Chronic (6) CKD (chronic kidney disease) stage 4, GFR 15-29 ml/min Status: Chronic (7) History of appendectomy (8) History of prostatectomy (9) History of tonsillectomy (10) Hx of CABG (11) History of carotid endarterectomy Status: Chronic Home Meds Active Scripts Hydrocodone Bit/Acetaminophen (NORCO 5-325 TABLET) 1 Each Tablet, 1 EACH PO Q4H Y for PAIN, #20 TAB Prov:CRISTA PALMA MD 11/04/17 Reported Medications Sulfamethoxazole/Trimet 800-160 Mg Tab (BACTRIM DS TABLET) 1 Each Tablet, 1 TAB PO DAILY, TAB Tuesday/Tuesday/Tuesday12/19/17 Acetaminophen (TYLENOL) 325 Mg Tablet, 2 TAB PO QHS Y for PAIN, TAB 11/02/17 Multivitamin (MULTIVITAMINS) 1 Each Capsule, 1 EACH PO QDAY, CAPSULE 11/02/17 Leuprolide Acet 11.25 Mg [id number] (LUPRON DEPOT 11.25 MG [id number]) 11.25 Mg Syringekit, 11.25 MG IM DIRECTED, SYR EVERY 3 MONTHS 11/02/17 Hum Insulin Nph/Reg Insulin Hm (RELION NOVOLIN 70-30 VIAL) 100 Unit/1 Ml Vial, 20-40 UNIT SQ PRN Y for SLIDING SCALE, VIAL 11/02/17 Atorvastatin Calcium (LIPITOR) 40 Mg Tablet, 1 TAB PO QHS, TAB 11/02/17 Metoprolol Tartrate (METOPROLOL TARTRATE) 25 Mg Tablet, 0.5 TAB PO BID, TAB 11/02/17 Aspirin (ASPIRIN) 81 Mg Tab.chew, 81 MG PO QDAY, TAB.CHEW 11/02/17 Discontinued Reported Medications Levofloxacin 250 Mg Tab (LEVAQUIN 250 MG TAB) 250 Mg Tablet, 250 MG PO DAILY, TAB Times 10 days starting on 12/16/17 12/19/17 Clopidogrel Bisulfate (PLAVIX) 75 Mg Tablet, 1 TAB PO QDAY, TAB 11/02/17 Allergies: Coded Allergies: meperidine (Verified Allergy, Severe, 11/07/17) morphine (Verified Allergy, Severe, 11/07/17) Patient History: FH: arthritis BROTHER OR SISTER FH: diabetes mellitus MOTHER, , Age:86 FH: pancreatic cancer FATHER, , Age:61 BROTHER OR SISTER Hx Smoking: Yes (20 YRS) Smoking Status: Former Smoker When Quit Tobacco?: 50years ago Caffeine Intake: Soda Caffeine/Cups Per Day: 1 CUP Hx Alcohol Use: Yes Hx Substance Use Disorder: No Review of Systems All Systems Reviewed/Normal: Yes, Except as Noted Gastrointestinal: Nausea, Vomiting, Diarrhea, Abdominal Pain Exam Vital Signs Vital Signs Date Time Temp Pulse Resp B/P (MAP) Pulse Ox O2 Delivery O2 Flow Rate FiO2 01/03/18 16:29 99 Nasal Cannula 0.5 01/03/18 16:29 98.6 106 12 90/50 (63) General Appearance: Alert, Awake, No Acute Distress Neuro: No Gross deficits Cardiovascular: Regular Rate and Rhythm Respiratory: No Respiratory Distress, Clear to Auscultation GI: Abd Soft and Non-Tender Extremities: Warm, Perfused, No Edema Psych: Alert & Oriented X3, Appropriate Mood & Affect Medical Decision Making Data Points Result Diagram: 01/03/18 1320 01/03/18 1320 Item Value Date Time Potassium Level 3.3 mmol/L L 01/03/18 1320 Creatinine 2.10 mg/dl H 01/03/18 1320 Magnesium Level 1.7 mg/dl 01/03/18 1320 Urine culture pending EKG / Imaging Imaging FACILITY: [facility] PATIENT NAME: Deion Kwong : 1935 MR: [id number] V: [id number] EXAM DATE: ORDERING PHYSICIAN: GRECIA ALVAREZ TECHNOLOGIST: Location: [facility] Patient: Deion Kwong : 1935 Visit/Account:[id number] Date of Sevice: 01/03/2018 ABDOMEN/PELVIS W/O CONTRAST HISTORY: Vomiting x1 day, history of prostate cancer and prostatectomy and bladder cancer TECHNIQUE: Axial images acquired through the abdomen/pelvis. Coronal and sagittal reformatting also performed. No IV contrast administered. Dose Lowering Technique One of the following dose optimization techniques was utilized in the performance of this exam: Automated exposure control; adjustment of the mA and/ or kV according to the patient's size; or use of an iterative reconstruction technique. Specific details can be referenced in the facility's radiology CT exam operational policy. COMPARISON: CT abdomen pelvis November 11, 2017 FINDINGS: Visualized lung bases: Incompletely imaged is the previously noted 4 mm nodule in the right lower lobe. The other pulmonary nodules described are not included within the scan. Three coronary artery calcifications also noted Hepatobiliary: A small linear calcification is seen along the posterior border of the right hepatic dome. There are postsurgical changes from cholecystectomy Spleen: Negative. Adrenals: Negative. Pancreas: Replacement of the head the pancreas. There is a questionable 1.2 cm solid mass tail the pancreas Kidneys ureters and bladder: 1 mm nonobstructing calculus lower pole the right kidney There is a percutaneous nephrostomy tube on the left exophytic cyst projecting from the upper pole the left kidney with small sheri of calcium and suggestion of thin septations appears similar The bladder wall appears markedly thickened and slightly irregular although this could in part be related to underdistention. There is irregular hyperdensity seen along the posterior inferior aspect of the bladder could be partially calcified mass within the bladder wall or possibly faintly calcified bladder calculi Genitalia: Postsurgical changes from a prostatectomy with slightly lobular soft tissue density material projecting just inferior to the bladder anterior the rectum possibly related to the prior surgery although tumor recurrence not excluded GI: There Is diverticulosis left-sided colon although no CT evidence of acute diverticulitis. There is a large hiatal hernia Vessels/spaces/nodes: Extensive vascular calcifications are seen throughout the abdomen and pelvis. The previous noted left obturator lymph node has decreased in size and now measures 7 mm as opposed to 9 mm previously Bones/soft tissues: Again noted is the lytic destructive process involving the right ischium extending into the inferior pubic ramus . This has a more mottled appearance than on the prior study and there now appears to be a pathologic fracture along the lateral most aspect of the inferior pubic ramus on the right Additional findings: None pertinent. IMPRESSION: Questionable 1.2 cm solid mass tail the pancreas Percutaneous nephrostomy tube noted on the left with no evidence of hydronephrosis. There is an exophytic cyst projecting from the upper pole of the left kidney that appears similar to the prior study and appears to contain small flecks of calcium and thin septations The bladder wall appears markedly thickened and slightly irregular could in part be related to underdistention. There is however irregular thickening and hyperdensity along the posterior inferior aspect left side of the bladder this could be related to calcified tumor within the bladder wall or faintly calcified bladder calculi. Irregular soft tissue density also projects between the floor of the bladder and the anterior rectum which could be related to postsurgical changes from patient's prostatectomy although tumor recurrence is included in the different al diagnosis. Diverticulosis left-sided colon Large hiatal hernia. The previously noted left upper tracheal lymph node has decrease in size now measuring 7 mm as opposed to 9 mmLytic destructive process involving the right is seen extending into the inferior pubic ramus has a more mottled appearance on the prior study. There now appears to be a pathologic fracture along the lateral most aspect of the inferior pubic ramus on the right Report Dictated By: Sarita Virgen MD at 01/03/2018 2:35 PM Report E-Signed By: Sarita Virgen MD at 01/03/2018 2:56 PM [id number] Assessment and Plan Problems: (1) Intractable vomiting with nausea Status: Acute Assessment & Plan: He was hypotensive upon arrival to the medical floor. He did respond well to IV hydration and became normotensive. He will be given IV hydration overnight. He also will have Phenergan for nausea and vomiting. (2) Transitional cell bladder cancer Status: Acute Assessment & Plan: Receiving radiation and chemotherapy. Last radiation today. He reports he will not do another radiation at this time. He was suppose to do three more treatments. (3) T2DM (type 2 diabetes mellitus) Status: Chronic Assessment & Plan: He is on chronic treatment with 70/30 insulin. This has been held at this time secondary to decreased appetite. He will be started on SSI level 2 and AC/HS blood sugars. (4) HTN (hypertension) Status: Chronic Assessment & Plan: He is on chronic treatment with Metoprolol. This has been restarted with hold parameters. (5) Renal insufficiency Status: Chronic Assessment & Plan: He does have acute on chronic renal insufficiency. His baseline creatinine appears to be 1.5. His creatinine is 2.1 today. We will hydrate overnight. (6) TIA (transient ischemic attack) Status: Acute Assessment & Plan: Left carotid endarterectomy done 09/06/17. He is on chronic treatment with Aspirin. Venous Thromboembolism Antithrombotics Is Pt On Any Antithrombotics?: Yes Exam Sepsis Risk: No Definite Risk Problem Qualifiers (1) Intractable vomiting with nausea: Vomiting type: unspecified Qualified Codes: R11.2 - Nausea with vomiting, unspecified GISSELL ANDERSEN [employer]DRINIER W[employer]AVER Jan 03, 2018 17:50
[2018-01-03 19:00] VITALS: BP 76/44
[2018-01-03 19:30] VITALS: BP 96/51
[2018-01-03 20:00] VITALS: BP 93/49
[2018-01-03 20:30] VITALS: BP 95/48
[2018-01-03] MEDS: ATORVASTATIN 40 MG TAB PO SCH (20:46)
[2018-01-03] MEDS: METOPROLOL TART 50 MG TAB PO SCH (20:46)
[2018-01-04] VITALS (7 sets, daily range): BP systolic 98–174; BP diastolic 49–104
[2018-01-04 06:25] LABS: PLATELET COUNT, AUTOMATED 72 K/uL (150-450)
[2018-01-04] MEDS: METOPROLOL TART 50 MG TAB PO SCH ×2 (08:44→21:17)
[2018-01-04] MEDS: ENOXAPARIN 30 MG/0.3 ML SYR SC SCH (08:49)
[2018-01-04] MEDS: NS(*) 0.9% 1000 ML BAG 1,000 ML IV PRN (09:46)
--- NOTE | 2018-01-04 11:13 | Hospitalist Progress Note ---
Subjective Progress Notes Subjective He reports feeling much improved. No further vomiting. No diarrhea. Physical Exam Vital Signs Date Time Temp Pulse Resp B/P (MAP) Pulse Ox O2 Delivery O2 Flow Rate FiO2 01/04/18 10:58 99.1 87 16 109/95 (100) 95 Nasal Cannula 0.5 01/04/18 06:28 21.0 Intake and Output 01/05/18 07:00 Intake Total 1554 ml Output Total 125 ml Balance 1429 ml Intake Oral 440 ml IV Total 1114 ml Output Urine Total 125 ml # Voids 1 General Appearance: Alert, Awake Cardiovascular: Regular Rate and Rhythm Respiratory: Clear to Auscultation GI: Soft and Non-Tender Musculoskeletal: Other (nephrostomy left flank) Extremities: Warm, Perfused Psych: Alert & Oriented X3 Result Diagram: 01/04/18 0551 01/04/18 0551 Assessment and Plan Problems: (1) Intractable vomiting with nausea Status: Acute Assessment & Plan: He was hypotensive upon arrival to the medical floor. He did respond well to IV hydration and has become normotensive. Will continue IV fluids. He also will have Phenergan for nausea and vomiting. (2) Transitional cell bladder cancer Status: Acute Assessment & Plan: Treated with radiation and chemotherapy. He reports he will not do another radiation at this time. He was scheduled to do three more treatments. Mitomycin and 5-FU completed in early December. (3) T2DM (type 2 diabetes mellitus) Status: Chronic Assessment & Plan: He is on chronic treatment with 70/30 insulin. This has been held at this time secondary to decreased appetite. He is on SSI level 2 and AC/HS blood sugar monitoring. (4) HTN (hypertension) Status: Chronic Assessment & Plan: He is on chronic treatment with Metoprolol. This has been restarted with hold parameters. (5) TIA (transient ischemic attack) Status: Acute Assessment & Plan: Left carotid endarterectomy done 09/06/17. He is on chronic treatment with aspirin. (6) Acute renal failure Status: Acute Assessment & Plan: He does have acute on chronic renal failure. His baseline creatinine appears to be 1.5-1.7. His creatinine at time of admission was 2.1 yesterday. With IV fluids overnight, creatinine has improved to 2.0 today. Continue fluids and watch labs. Exam Sepsis Risk: No Definite Risk Problem Qualifiers (1) Intractable vomiting with nausea: Vomiting type: unspecified Qualified Codes: R11.2 - Nausea with vomiting, unspecified ANNA HERNANDEZ MD Jan 04, 2018 11:13
--- NOTE | 2018-01-04 12:54 | Medical Nutrition Therapy ---
Nutrition Anthropometrics Height (Inches): 66.00 Height (Calculated Centimeters: 167.608366 Weight (Pounds): 144 (pt reported wt of 144#) Weight (Calculated Kilograms): 47.372 BMI: 23.2 Chun Nutrition Score: Probably Inadequate Chun Nutrition Risk Score: 17 Dietary Referral Nutrition Risk Factors: Unplanned Loss >10lbs Nutrition Risk Comment: Nutrition/Food History > 10 lb Wt Loss/1 Month (pt reports 45# wt loss past 1.5 years) Nutritional Diagnosis Nutritional Risk Acuity 1: Acute/ES Renal, Malnutrition (per nutrition physical assessment) Nutritional Risk Acuity 2: Head/Neck/GI Cancer (metastatic urethral carcinoma, recieving RO) Nutritional Risk Acuity 3: Nausea, Weight Loss Past Medical History: TIA, prostate cancer, HTN, T2DM, hx of CABG, appendectomy, prostatectomy, tonsillectomy, bilateral inguinal hernia repair, exploratory lapaotomy, carotid endarterectomy and CKD stage 4 Nutritional Acuity: 1-High Nutrition Problem/Etiology/Sym: Mild malnutrtion per nutrtion physical assessment AEB muscle wasting of triceps,temporal muscle softening, clavicle wasting. Energy Requirement: 2000 ([address] X 1.2 SF) Protein Requirement: 65 (1gm/kg) Fluid Requirement: 1625 (25ml/kg) Diet Type: Diabetic Nutrition Intervention: Cont diet as ordered, Encourage intake Additional Diet Restrictions: OFFER SF NUTR SUPPLMENT IF NO HIGH PROTEIN FOOD ORDERED OR CONSUMED Nutrition Monitoring & Eval Nutrition Goals: Eat 75-100% Meal RD Patient Assessment Time: [address] Assessment Type: RD Assessment Patient Nutrition Acuity: 1-High Follow Up Date: Jan 07, 2018 Nutritional Comment: 01/04 Pt admitted N/V/D. Pt has dx metastatic urethral carcinoma and is recieving RO. N/V has improved per DrSnow Pt on ADA diet with 100% intake. Pt reports 45# wt loss past 1.5 years. Mild malnutriton was observed following nutrition physical assessment with wasting to tricepts, and clavicle and temporal softening. ALB 2.5. Pt has dx of ARF. BUN 25, creatinine 2. Goal is to provide adequat but not excessive protein. Will offer SF nutr supplment if no high protien food ordered or consumed. Cont to monitor and encourage intake. FINA DENIS Jan 04, 2018 12:54
[2018-01-04] MEDS: ATORVASTATIN 40 MG TAB PO SCH (21:17)
[2018-01-05] MEDS: NS(*) 0.9% 1000 ML BAG 1,000 ML IV PRN (00:13)
[2018-01-05 02:53] VITALS: BP 152/84
[2018-01-05 05:44] LABS: PLATELET COUNT, AUTOMATED 75 K/uL (150-450)
[2018-01-05 07:53] VITALS: BP 157/74
[2018-01-05] MEDS: ENOXAPARIN 30 MG/0.3 ML SYR SC SCH (08:30)
[2018-01-05] MEDS: METOPROLOL TART 50 MG TAB PO SCH (08:30)
[2018-01-05] MEDS ORDERED: ONDA4TAB PO (10:12)
--- NOTE | 2018-01-05 10:18 | Hospitalist Depart ---
Discharge Summary Reason for Hosp/Final Diag: (1) Intractable vomiting with nausea Status: Acute Hospital Course & Plan: He was hypotensive upon arrival to the medical floor. He did respond well to IV hydration and has become normotensive. Will continue IV fluids. The nausea and vomiting has resolved, but he has requested a prescription of Zofran to go home with. He will be sent home with Zofran for his nausea. (2) Transitional cell bladder cancer Status: Acute Hospital Course & Plan: Treated with radiation and chemotherapy. He reports he will not do another radiation at this time. He was scheduled to do three more treatments. Mitomycin and 5-FU completed in early December. He will follow up with cancer center next week as scheduled. (3) T2DM (type 2 diabetes mellitus) Status: Chronic Hospital Course & Plan: He is on chronic treatment with 70/30 insulin. (4) HTN (hypertension) Status: Chronic Hospital Course & Plan: He is on chronic treatment with Metoprolol. (5) TIA (transient ischemic attack) Status: Acute Hospital Course & Plan: Left carotid endarterectomy done 09/06/17. He is on chronic treatment with aspirin. (6) Acute renal failure Status: Acute Hospital Course & Plan: He does have acute on chronic renal failure. His baseline creatinine appears to be 1.5-1.7. His creatinine at time of admission was 2.1. With IV fluids, creatinine has improved to 1.6 today. Departure Latest Vital Signs Vital Signs 01/05/18 01/05/18 01/05/18 00:47 07:53 07:57 Temp 98.7 Pulse 94 Resp 18 B/P (MAP) 157/74 (101) Pulse Ox 95 O2 Delivery Room Air O2 Flow Rate 0.5 FiO2 21.0 Weight (Pounds): 144 (pt reported wt of 144#) Weight (Ounces): 7.0 Result Diagram: 01/05/1852701/05/18527 Condition: Improved Discharge: Home, Self Care Discharge Instructions Home Meds Active Scripts Ondansetron (ZOFRAN ODT) 4 Mg Tab.rapdis, 4 MG PO Q12H Y for NAUSEA, #20 TAB.NINOSKA Prov:GISSELL ANDERSEN MACHINE HAND 01/05/18 Hydrocodone Bit/Acetaminophen (NORCO 5-325 TABLET) 1 Each Tablet, 1 EACH PO Q4H Y for PAIN, #20 TAB Prov:CRISTA PALMA MD 11/04/17 Reported Medications Sulfamethoxazole/Trimet 800-160 Mg Tab (BACTRIM DS TABLET) 1 Each Tablet, 1 TAB PO DAILY, TAB Tuesday/Tuesday/Tuesday12/19/17 Acetaminophen (TYLENOL) 325 Mg Tablet, 2 TAB PO QHS Y for PAIN, TAB 11/02/17 Multivitamin (MULTIVITAMINS) 1 Each Capsule, 1 EACH PO QDAY, CAPSULE 11/02/17 Leuprolide Acet 11.25 Mg [id number] (LUPRON DEPOT 11.25 MG [id number]) 11.25 Mg Syringekit, 11.25 MG IM DIRECTED, SYR EVERY 3 MONTHS 11/02/17 Hum Insulin Nph/Reg Insulin Hm (RELION NOVOLIN 70-30 VIAL) 100 Unit/1 Ml Vial, 20-40 UNIT SQ PRN Y for SLIDING SCALE, VIAL 11/02/17 Atorvastatin Calcium (LIPITOR) 40 Mg Tablet, 1 TAB PO QHS, TAB 11/02/17 Metoprolol Tartrate (METOPROLOL TARTRATE) 25 Mg Tablet, 0.5 TAB PO BID, TAB 11/02/17 Aspirin (ASPIRIN) 81 Mg Tab.chew, 81 MG PO QDAY, TAB.CHEW 11/02/17 Discontinued Reported Medications Levofloxacin 250 Mg Tab (LEVAQUIN 250 MG TAB) 250 Mg Tablet, 250 MG PO DAILY, TAB Times 10 days starting on 12/16/17 12/19/17 Clopidogrel Bisulfate (PLAVIX) 75 Mg Tablet, 1 TAB PO QDAY, TAB 11/02/17 Diet: Regular Activity: As Tolerated Special Instructions: Follow up with Cancer Center as scheduled. Copies to: [facility], ONC Venous Thromboembolism Antithrombotics Is Pt On Any Antithrombotics?: Yes Problem Qualifiers (1) Intractable vomiting with nausea: Vomiting type: unspecified Qualified Codes: R11.2 - Nausea with vomiting, unspecified GISSELL ANDERSEN MACHINE HAND Jan 05, 2018 10:18
[2018-01-05] MEDS ORDERED: HEPARIN FLSH (PORT) 500 UN/5ML ONE (10:39)
== END 2018-01-05 11:00 | disposition home or self-care (01) | DRG 315 ==
LOC: ER 12:51 → MED 15:37
PROVIDERS: ADMIT Internal Medicine; ATTEND Internal Medicine
DX: I95.9 Hypotension, unspecified (principal); N18.4 Chronic kidney disease, stage 4 (severe); N17.9 Acute kidney failure, unspecified; I12.9 Hypertensive chronic kidney disease with stage 1 through stage 4 chronic kidney disease, or unspecified chronic kidney disease; T45.1X5A Adverse effect of antineoplastic and immunosuppressive drugs, initial encounter; R11.2 Nausea with vomiting, unspecified; C67.9 Malignant neoplasm of bladder, unspecified; E11.22 Type 2 diabetes mellitus with diabetic chronic kidney disease; E11.319 Type 2 diabetes mellitus with unspecified diabetic retinopathy without macular edema; E11.40 Type 2 diabetes mellitus with diabetic neuropathy, unspecified; I25.10 Atherosclerotic heart disease of native coronary artery without angina pectoris; Z90.49 Acquired absence of other specified parts of digestive tract; Z86.73 Personal history of transient ischemic attack (TIA), and cerebral infarction without residual deficits; Z88.5 Allergy status to narcotic agent; Z88.8 Allergy status to other drugs, medicaments and biological substances; Z87.891 Personal history of nicotine dependence; Z95.1 Presence of aortocoronary bypass graft; Z92.3 Personal history of irradiation; Z79.4 Long term (current) use of insulin
CPT/HCPCS: 36415; 36416; 71045; 74176; 81001; 82040; 82247; 82274; 82310; 82374; 82435; 82565; 82947; 82948; 83630; 83690; 83735; 84075; 84132; 84155; 84295; 84450; 84460; 84520; 85025; 86677; 87045; 87077; 87088; 87186; 87324; 87338; 87449; 93005; 94660; 96361; 96374; 96375; 99284; C9113; J1642; J1650; J2405; J3480; J7030; J7040

== ENCOUNTER 2018-01-06 13:42 | Inpatient (IN) | payer MEDICARE, OTHER ==
[~2018-01-06] VITALS: Ht 167.6 cm; Wt 66.0 kg
[~2018-01-06 13:42] MED LIST changes: -ENOX100D5 SQ
--- NOTE | 2018-01-06 13:53 | ER Report ---
History and Physical Time Seen By MD: 13:53 Hx. of Stated Complaint: PT JUST ENDED CHEMO THERAPY 2 WEEKS FINISHED RADATION TUESDAY FOR BLADDER AND PROSTATE WITH METS TO THE BONE HPI/ROS 82-year-old male with a history of bladder cancer. He was most recently undergoing a regimen of combined chemotherapy and radiation. He last had chemotherapy in early December and last had radiation 3 days ago. Shortly after his radiation treatment this week he developed severe nausea vomiting and explosive diarrhea. He was hospitalized for dehydration and intractable nausea and vomiting. He was discharged after a short hospital stay. Within 24 hours the symptoms of nausea vomiting and severe diarrhea returned. Of note he was recently put on Bactrim for a urinary tract infection. He has not had radiation treatment since Tuesday. He is unable to take by mouth. He presented to the emergency department actively vomiting. He complains of mild suprapubic pain which he has had from his radiation treatments. No travel. No known food intolerance. No chest pain no shortness of breath no fever chills Allergies: Coded Allergies: meperidine (Verified Allergy, Severe, 01/06/18) morphine (Verified Allergy, Severe, 01/06/18) Home Meds Active Scripts Ondansetron (ZOFRAN ODT) 4 Mg Tab.rapdis, 4 MG PO Q12H Y for NAUSEA, #20 TAB.NINOSKA Prov:GISSELL ANDERSEN [employer] ATTENDANT 01/05/18 Hydrocodone Bit/Acetaminophen (NORCO 5-325 TABLET) 1 Each Tablet, 1 EACH PO Q4H Y for PAIN, #20 TAB Prov:CRISTA PALMA MD 11/04/17 Reported Medications Sulfamethoxazole/Trimet 800-160 Mg Tab (BACTRIM DS TABLET) 1 Each Tablet, 1 TAB PO DAILY, TAB Tuesday/Tuesday/Tuesday12/19/17 Acetaminophen (TYLENOL) 325 Mg Tablet, 2 TAB PO QHS Y for PAIN, TAB 11/02/17 Multivitamin (MULTIVITAMINS) 1 Each Capsule, 1 EACH PO QDAY, CAPSULE 11/02/17 Leuprolide Acet 11.25 Mg [id number] (LUPRON DEPOT 11.25 MG [id number]) 11.25 Mg Syringekit, 11.25 MG IM DIRECTED, SYR EVERY 3 MONTHS 11/02/17 Hum Insulin Nph/Reg Insulin Hm (RELION NOVOLIN 70-30 VIAL) 100 Unit/1 Ml Vial, 20-40 UNIT SQ PRN Y for SLIDING SCALE, VIAL 11/02/17 Atorvastatin Calcium (LIPITOR) 40 Mg Tablet, 1 TAB PO QHS, TAB 11/02/17 Metoprolol Tartrate (METOPROLOL TARTRATE) 25 Mg Tablet, 0.5 TAB PO BID, TAB 11/02/17 Aspirin (ASPIRIN) 81 Mg Tab.chew, 81 MG PO QDAY, TAB.CHEW 11/02/17 Discontinued Reported Medications Levofloxacin 250 Mg Tab (LEVAQUIN 250 MG TAB) 250 Mg Tablet, 250 MG PO DAILY, TAB Times 10 days starting on 12/16/17 12/19/17 Clopidogrel Bisulfate (PLAVIX) 75 Mg Tablet, 1 TAB PO QDAY, TAB 11/02/17 Reviewed Nurses Notes: Yes Old Medical Records Reviewed: Yes Hx Smoking: Yes (20 YRS) Smoking Status: Former Smoker Hx Substance Use Disorder: No Hx Alcohol Use: Yes Constitutional Vital Sign - Last 24 Hours 01/06/18 01/06/18 01/06/18 01/06/18 13:42 13:45 13:57 14:00 Temp 97.9 Pulse 122 115 111 Resp 16 B/P (MAP) 106/87 (93) 106/87 124/65 (84) Pulse Ox 98 98 O2 Delivery Room Air Nasal Cannula O2 Flow Rate 2 01/06/18 01/06/18 01/06/18 01/06/18 14:12 14:27 14:30 14:42 Pulse 110 114 106 B/P (MAP) 110/53 (72) Pulse Ox 96 96 100 O2 Delivery Nasal Cannula Nasal Cannula Nasal Cannula O2 Flow Rate 2 2 2 01/06/18 01/06/18 01/06/18 01/06/18 14:57 15:02 15:30 15:32 Pulse 103 105 101 B/P (MAP) 106/52 (70) Pulse Ox 97 98 98 O2 Delivery Nasal Cannula Nasal Cannula O2 Flow Rate 2 2 01/06/18 01/06/18 01/06/18 01/06/18 16:00 16:02 16:30 16:32 Pulse 93 101 B/P (MAP) 110/61 (77) 131/62 (85) Pulse Ox 100 98 Intake and Output 01/06/18 01/06/18 01/07/18 15:00 23:00 07:00 Intake Total 1360 ml Balance 1360 ml Physical Exam General Appearance: The patient is alert, has no immediate need for airway protection and no current signs of toxicity. Eyes: Pupils equal and round no injection. Respiratory: Chest is non tender, lungs are clear to auscultation. Cardiac: regular rate and rhythm Gastrointestinal: Abdomen is soft with mild TTP at the suprapubic region, no masses, bowel sounds normal. Neck: Neck is supple and non tender. Extremities have full range of motion and are non tender. Skin: No rashes or lesions. DIFFERENTIAL DIAGNOSIS: After history and physical exam differential diagnosis was considered for intractable nausea and vomiting including but not limited to appendicitis, cholecystitis, gastritis and urinary tract infection, medication reaction. Medical Decision Making Data Points Result Diagram: 01/06/18 1408 01/06/18 1408 Laboratory Hematology Test 01/06/18 14:08 01/06/18 16:00 Red Blood Count 3.91 M/uL (4.00-5.60) Mean Corpuscular Volume 91.9 fL (80.0-96.0) Mean Corpuscular Hemoglobin 32.4 pg (26.0-33.0) Mean Corpuscular Hemoglobin Concent 35.3 g/dL (32.0-36.0) Red Cell Distribution Width 19.4 % (11.5-14.5) Mean Platelet Volume 7.1 fL (7.2-11.1) Neutrophils (%) (Auto) 78.6 % (39.4-72.5) Lymphocytes (%) (Auto) 6.7 % (17.6-49.6) Monocytes (%) (Auto) 13.2 % (4.1-12.4) Eosinophils (%) (Auto) 1.2 % (0.4-6.7) Basophils (%) (Auto) 0.3 % (0.3-1.4) Nucleated RBC Relative Count (auto) 0.0 /100WBC Neutrophils # (Auto) 3.5 K/uL (2.0-7.4) Lymphocytes # (Auto) 0.3 K/uL (1.3-3.6) Monocytes # (Auto) 0.6 K/uL (0.3-1.0) Eosinophils # (Auto) 0.1 K/uL (0.0-0.5) Basophils # (Auto) 0.0 K/uL (0.0-0.1) Nucleated RBC Absolute Count (auto) 0.00 K/uL Sodium Level 140 mmol/L (137-145) Potassium Level 3.2 mmol/L (3.5-5.0) Chloride Level 103 mmol/L (98-107) Carbon Dioxide Level 25 mmol/L (22-30) Blood Urea Nitrogen 20 mg/dl (9-21) Creatinine 1.80 mg/dl (0.66-1.25) Glomerular Filtration Rate Calc 36.1 Random Glucose 138 mg/dl (75-110) Calcium Level 9.3 mg/dl (8.4-10.2) Total Bilirubin 0.6 mg/dl (0.2-1.3) Aspartate Amino Transf (AST/SGOT) 33 U/L (0-35) Alanine Aminotransferase (ALT/SGPT) 26 U/L (0-56) Alkaline Phosphatase 109 U/L (0-126) Total Protein 7.5 g/dl (6.3-8.2) Albumin 4.1 g/dl (3.5-5.0) Lactate 1.9 mmol/L (0.7-2.1) Chemistry Test 01/06/18 14:08 01/06/18 16:00 White Blood Count 4.4 k/uL (4.5-11.0) Red Blood Count 3.91 M/uL (4.00-5.60) Hemoglobin 12.7 g/dL (14.0-18.0) Hematocrit 35.9 % (42.0-52.0) Mean Corpuscular Volume 91.9 fL (80.0-96.0) Mean Corpuscular Hemoglobin 32.4 pg (26.0-33.0) Mean Corpuscular Hemoglobin Concent 35.3 g/dL (32.0-36.0) Red Cell Distribution Width 19.4 % (11.5-14.5) Platelet Count 107 K/uL (150-450) Mean Platelet Volume 7.1 fL (7.2-11.1) Neutrophils (%) (Auto) 78.6 % (39.4-72.5) Lymphocytes (%) (Auto) 6.7 % (17.6-49.6) Monocytes (%) (Auto) 13.2 % (4.1-12.4) Eosinophils (%) (Auto) 1.2 % (0.4-6.7) Basophils (%) (Auto) 0.3 % (0.3-1.4) Nucleated RBC Relative Count (auto) 0.0 /100WBC Neutrophils # (Auto) 3.5 K/uL (2.0-7.4) Lymphocytes # (Auto) 0.3 K/uL (1.3-3.6) Monocytes # (Auto) 0.6 K/uL (0.3-1.0) Eosinophils # (Auto) 0.1 K/uL (0.0-0.5) Basophils # (Auto) 0.0 K/uL (0.0-0.1) Nucleated RBC Absolute Count (auto) 0.00 K/uL Glomerular Filtration Rate Calc 36.1 Calcium Level 9.3 mg/dl (8.4-10.2) Total Bilirubin 0.6 mg/dl (0.2-1.3) Aspartate Amino Transf (AST/SGOT) 33 U/L (0-35) Alanine Aminotransferase (ALT/SGPT) 26 U/L (0-56) Alkaline Phosphatase 109 U/L (0-126) Total Protein 7.5 g/dl (6.3-8.2) Albumin 4.1 g/dl (3.5-5.0) Lactate 1.9 mmol/L (0.7-2.1) ED Course/Re-evaluation ED Course This is an extremely pleasant 82-year-old male who is currently undergoing palliative treatment with chemotherapy and radiation for stage IV bladder cancer. He was admitted and discharged the hospital this week for dehydration and intractable nausea and vomiting. He went home and was well for approximately 12 hours and then the symptoms returned. I think his symptoms could be related to the Bactrim that he is taking. After looking at his urine cultures, he does not have a urinary tract infection. I spoke with Dr. Perez and she agrees that she will take him off Bactrim. His initial lactate was 2.4. He was given 2 L of normal saline, and was able to drink a diet Pepsi and Sprite after receiving the fluids and Zofran. He was also given 40 mEq of potassium chloride as a powder. His repeat lactate is improved. His potassium has not been repeated yet after the potassium chloride. I spoke with Dr. Perez who admit the patient for further hydration as well as gentle advancement of diet. I also spoke with Dr. Hassan who will coordinate discharge planning the patient and his family. Decision to Disposition Date: Jan 06, 2018 Decision to Disposition Time: 17:32 Depart Departure Latest Vital Signs Vital Signs Date Time Temp Pulse Resp B/P (MAP) Pulse Ox O2 Delivery O2 Flow Rate FiO2 01/06/18 16:32 101 98 01/06/18 16:30 131/62 (85) 01/06/18 15:02 Nasal Cannula 2 01/06/18 13:45 97.9 16 Impression: Primary Impression: Intractable vomiting with nausea Condition: Improved Disposition: Admitted from ER Problem Qualifiers Primary Impression: Intractable vomiting with nausea Vomiting type: unspecified Qualified Codes: R11.2 - Nausea with vomiting, unspecified KERRY FONTENOT MD Jan 06, 2018 13:53
[2018-01-06] MEDS ORDERED: NS(*) 0.9% 1000 ML BAG 1,000 ML IV ONE ×2 (13:55→15:10)
[2018-01-06] MEDS ORDERED: ONDANSETRON 4 MG/2 ML VIAL IVP ONE (14:20)
[2018-01-06 14:21] LABS: PLATELET COUNT, AUTOMATED 107 K/uL (150-450)
[2018-01-06] MEDS ORDERED: POTASSIUM CHL PWDR 20 MEQ PKT PO ONE (15:50)
--- NOTE | 2018-01-06 17:56 | History & Physical ---
History of Present Illness Chief Complaint Recurrent nausea, vomiting and diarrhea. History of Present Illness The patient is an 82 year old male who was discharged yesterday after a 2 day stay for intractable vomiting with nausea. Per the patient's family, he was doing well the day prior to discharge, with no further nausea or vomiting, and was ambulating well. His IV fluids were stopped. The day of discharge the patient developed recurrent nausea and had to take nausea medication shortly after returning home. He continued to eat and drink poorly and by this am he was once again very weak and had several syncopal episodes at home. EMS was called and he was brought back to [facility] ER for evaluation. The patient's family states that he has been unable to eat or drink well and can not keep up with fluids at home. For this reason, they talked with Dr. Espinal who has agreed to order prn fluids at the [facility] for the patient once he discharges from the hospital. 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 (9) Prostate cancer Status: Chronic (10) T2DM (type 2 diabetes mellitus) Status: Chronic (11) CKD (chronic kidney disease) stage 4, GFR 15-29 ml/min Status: Chronic (12) HTN (hypertension) Status: Chronic (13) TIA (transient ischemic attack) Status: Resolved (14) CVA (cerebral vascular accident) Status: Resolved Home Meds Active Scripts Ondansetron (ZOFRAN ODT) 4 Mg Tab.rapdis, 4 MG PO Q12H Y for NAUSEA, #20 TAB.NINOSKA Prov:GISSELL ANDERSEN [employer] ASSISTANT 01/05/18 Hydrocodone Bit/Acetaminophen (NORCO 5-325 TABLET) 1 Each Tablet, 1 EACH PO Q4H Y for PAIN, #20 TAB Prov:CRISTA PALMA MD 11/04/17 Reported Medications Acetaminophen (TYLENOL) 325 Mg Tablet, 2 TAB PO QHS Y for PAIN, TAB 11/02/17 Multivitamin (MULTIVITAMINS) 1 Each Capsule, 1 EACH PO QDAY, CAPSULE 11/02/17 Leuprolide Acet 11.25 Mg [id number] (LUPRON DEPOT 11.25 MG [id number]) 11.25 Mg Syringekit, 11.25 MG IM DIRECTED, SYR EVERY 3 MONTHS 11/02/17 Hum Insulin Nph/Reg Insulin Hm (RELION NOVOLIN 70-30 VIAL) 100 Unit/1 Ml Vial, 20-40 UNIT SQ PRN Y for SLIDING SCALE, VIAL 11/02/17 Atorvastatin Calcium (LIPITOR) 40 Mg Tablet, 1 TAB PO QHS, TAB 11/02/17 Metoprolol Tartrate (METOPROLOL TARTRATE) 25 Mg Tablet, 0.5 TAB PO BID, TAB 11/02/17 Aspirin (ASPIRIN) 81 Mg Tab.chew, 81 MG PO QDAY, TAB.CHEW 11/02/17 Discontinued Reported Medications Sulfamethoxazole/Trimet 800-160 Mg Tab (BACTRIM DS TABLET) 1 Each Tablet, 1 TAB PO DAILY, TAB Tuesday/Tuesday/Tuesday12/19/17 Levofloxacin 250 Mg Tab (LEVAQUIN 250 MG TAB) 250 Mg Tablet, 250 MG PO DAILY, TAB Times 10 days starting on 12/16/17 12/19/17 Clopidogrel Bisulfate (PLAVIX) 75 Mg Tablet, 1 TAB PO QDAY, TAB 11/02/17 Allergies: Coded Allergies: meperidine (Verified Allergy, Severe, 01/06/18) morphine (Verified Allergy, Severe, 01/06/18) Patient History: FH: arthritis BROTHER OR SISTER FH: diabetes mellitus MOTHER, , Age:86 FH: pancreatic cancer FATHER, , Age:61 BROTHER OR SISTER Other Social/Family Hx The patient lives in [place] and has family who help care for him. Hx Smoking: Yes (20 YRS) Smoking Status: Former Smoker Caffeine Intake: Soda Caffeine/Cups Per Day: 1 CUP Hx Alcohol Use: Yes Hx Substance Use Disorder: No Review of Systems All Systems Reviewed/Normal: Yes, Except as Noted Neurological: Syncope, Weakness Cardiovascular: No Chest Pain Respiratory: No Shortness of Breath Gastrointestinal: Nausea, Vomiting, Diarrhea Exam Vital Signs Vital Signs Date Time Temp Pulse Resp B/P (MAP) Pulse Ox O2 Delivery O2 Flow Rate FiO2 01/06/18 17:57 98.6 86 18 136/62 (86) 97 Nasal Cannula 3.0 General Appearance: Alert, Awake, No Acute Distress, Afebrile Neuro: No Gross deficits Eyes: PERRLA Cardiovascular: Regular Rate and Rhythm Respiratory: Clear to Auscultation Chest: Other (Port in right upper chest clean and dry.) GI: Other (Abdomen soft, nondistended with tenderness in the LLQ to deep palpation.) Lymph: Cervical Nodes Benign Extremities: Warm, Other (L LE with edema and increased girth compared with R LE.) Integumentary: Other (Well healed abdominal scars noted. ) Psych: Alert & Oriented X3, Appropriate Mood & Affect Medical Decision Making Data Points Result Diagram: 01/06/18 1408 01/06/18 1408 Item Value Date Time Lactate 2.4 mmol/L H 01/06/18 1408 Lactate 1.9 mmol/L 01/06/18 1600 Calcium Level 9.3 mg/dl 01/06/18 1408 Total Bilirubin 0.6 mg/dl 01/06/18 1408 Aspartate Amino Transf (AST/SGOT) 33 U/L 01/06/18 1408 Alanine Aminotransferase (ALT/SGPT) 26 U/L 01/06/18 1408 Alkaline Phosphatase 109 U/L 01/06/18 1408 Total Protein 7.5 g/dl 01/06/18 1408 Albumin 4.1 g/dl 01/06/18 1408 Pre-Admit Course Medical Record Review: Yes (Cancer Center Notes, ER records.) Assessment and Plan Problems: (1) Intractable vomiting with nausea Status: Acute Assessment & Plan: Will admit and hydrate. Antiemetics prn. (2) Dehydration Status: Acute Assessment & Plan: Due to above. Hydrate with IV NS. (3) Syncope Status: Acute Assessment & Plan: Likely due to dehydration. Will place on telemetry overnight. (4) Acute renal failure Status: Acute Assessment & Plan: Due to above. Will hydrate and repeat BMP in am. (5) Hypokalemia Status: Acute Assessment & Plan: He received 40meq of KCl in ER. Will repeat BMP in am. (6) T2DM (type 2 diabetes mellitus) Status: Chronic Assessment & Plan: Will monitor glucoses AC/HS and place on SSI. (7) HTN (hypertension) Status: Chronic Assessment & Plan: Hold metoprolol for now. (8) Prostate cancer Status: Chronic Assessment & Plan: Diagnosed early 2018. See Cancer Center notes for details of treatment. 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 See Cancer Center notes for details of treatment. L nephrostomy tube in place. PET scan scheduled for 01/20. Plans to start immunotherapy if possible and also potentially have resection of the bladder tumor. (10) CKD (chronic kidney disease) stage 4, GFR 15-29 ml/min Status: Chronic (11) CAD (coronary artery disease) Status: Chronic Assessment & Plan: He has had 4 cardiac stents. Will hold ASA 81mg and metoprolol for now. Restart when able. Time Spent on Plan of Care: < 30 min Venous Thromboembolism Antithrombotics Is Pt On Any Antithrombotics?: Yes Exam Sepsis Risk: No Definite Risk Problem Qualifiers (1) Intractable vomiting with nausea: Vomiting type: unspecified Qualified Codes: R11.2 - Nausea with vomiting, unspecified MARCELO HERNANDEZ MD Jan 06, 2018 17:56
[2018-01-06 17:57] VITALS: BP 136/62
[2018-01-06] MEDS ORDERED: NS(*) 0.9% 1000 ML BAG 1,000 ML ONE (17:57)
[2018-01-06 18:56] VITALS: BP 104/51
[2018-01-06] MEDS ORDERED: ACETAMINOPHEN 325 MG TAB PO PRN (19:00)
[2018-01-06] MEDS ORDERED: INFLUENZA VIRUS VAC 0.5 ML SYR IM ONLY ONE (19:00)
[2018-01-06] MEDS: NS(*) 0.9% 1000 ML BAG 1,000 ML IV PRN (20:01)
[2018-01-06] MEDS: ATORVASTATIN 40 MG TAB PO SCH (20:19)
[2018-01-06 23:37] VITALS: BP 120/70
[2018-01-07] MEDS: NS(*) 0.9% 1000 ML BAG 1,000 ML IV PRN ×3 (03:02→22:10)
[2018-01-07 03:03] VITALS: BP 128/63
[2018-01-07 06:14] LABS: PLATELET COUNT, AUTOMATED 71 K/uL (150-450)
[2018-01-07 07:43] VITALS: BP 139/72
[2018-01-07] MEDS ORDERED: ENOXAPARIN 40 MG/0.4ML SYR SC SCH (09:00)
--- NOTE | 2018-01-07 10:42 | RADIOLOGY IMAGING REPORT ---
[place] [facility] [place] Deion Kwong : 1935 MR: [id number] V: [id number] EXAM DATE: ORDERING PHYSICIAN: MARCELO HERNANDEZ TECHNOLOGIST: Location: [facility] Patient: Deion Kwong : 1935 Visit/Account:[id number] Date of Sevice: 01/07/2018 Venous Doppler ultrasound left lower extremity Indication: Left leg swelling. Underlying malignancy.. Comparison: None Available Findings: Duplex Doppler and color flow imaging was performed. Examination is positive for DVT. There is obstructing thrombus within the common femoral vein at the junction of the common femoral vein and the greater saphenous vein. This occlusive thrombus extends i nto the proximal superficial femoral vein. The deep profunda vein is patent. This propagates into the mid and distal portions of the superficial femoral vein. These vessels are noncompressible. There is propagation of this obstructing DVT into the left popliteal vein. Below the knee, there is occlusion of the anterior tibial vein. Peroneal and posterior tibial veins a ppear patent and compressible. IMPRESSION: 1. Extensive occlusive DVT within the left lower extremity. This begins in the distal common femoral vein and extends to the below the knee popliteal vein and into the anterior tibial vein beyond the t rifurcation. Results were discussed with Dr. Pool at 01/07/2018 10:37 AM. Report Dictated By: King Boothe at 01/07/2018 10:22 AM Report E-Signed By: King Boothe at 01/07/2018 10:39 AM WSN:[id number]
--- NOTE | 2018-01-07 10:57 | Hospitalist Progress Note ---
Subjective Progress Notes Subjective 82M presented with dehydration and malaise. Reports improvement with IV hydration. Asymetric lower extremity edema noted, US shows extensive DVT. Patient Complains of: Neurological: No: Syncope, Confusion Cardiovascular: No: Chest Pain, Palpitations Respiratory: No: Cough, Congestion Gastrointestinal: No Nausea, No Vomiting Genitourinary: No Dysuria Musculoskeletal: No: Pain, Sprain Physical Exam Vital Signs Date Time Temp Pulse Resp B/P (MAP) Pulse Ox O2 Delivery O2 Flow Rate FiO2 01/07/18 07:48 95 Nasal Cannula 1.0 01/07/18 07:45 80 01/07/18 07:43 97.9 16 139/72 (94) Intake and Output 01/08/18 07:00 Intake Total 867 ml Balance 867 ml IV Total 867 ml General Appearance: Alert, Awake, No Acute Distress Neuro: No Gross deficits Eyes: PERRLA ENT: Normal Neck: No Masses Cardiovascular: Normal Rhythm & Peripheral Pulses Respiratory: No Respiratory Distress Chest: No Masses GI: Soft and Non-Tender Lymph: Cervical Nodes Benign Musculoskeletal: No Weakness/Pain Extremities: Soft and Non Tender, Edema (LLE edema) Integumentary: Skin Intact without Lesion / Mass Psych: Alert & Oriented X3 Result Diagram: 01/07/18 0512 01/07/18 0512 Assessment and Plan Problems: (1) DVT (deep venous thrombosis) Assessment & Plan: US shows extensive DVT in LLE, begin Lovenox 1mg/kg q12h. Could use Savaysa or Lovenox outpatient for DVT in setting of malignancy. (2) [id number] kidney injury Assessment & Plan: Resolved, at baseline Cr clearance. (3) Intractable vomiting with nausea Status: Acute Assessment & Plan: Improved with IV fluids and antiemetic. Will continue IV hydration. (4) Dehydration Status: Acute Assessment & Plan: Improved. Continue IV hydration. (5) Syncope Status: Acute Assessment & Plan: No further episodes, dc telemetry. (6) Hypokalemia Status: Acute Assessment & Plan: Resolved. He received 40meq of KCl in ER. (7) T2DM (type 2 diabetes mellitus) Status: Chronic Assessment & Plan: Monitor glucose AC/HS and place on SSI. (8) HTN (hypertension) Status: Chronic Assessment & Plan: Resume metoprolol with parameters. (9) Prostate cancer Status: Chronic Assessment & Plan: Diagnosed early 2017. See Cancer Center notes for details of treatment. (10) Transitional cell bladder cancer Status: Chronic Assessment & Plan: Diagnosed early 2017. See Cancer Center notes for details of treatment. L nephrostomy tube in place. PET scan scheduled for 01/20. Plans to start immunotherapy if possible and also potentially have resection of the bladder tumor. (11) CAD (coronary artery disease) Status: Chronic Assessment & Plan: He has had 4 cardiac stents. Will hold ASA 81mg and metoprolol for now. Restart when able. Exam Sepsis Risk: No Definite Risk Problem Qualifiers (1) Intractable vomiting with nausea: Vomiting type: unspecified Qualified Codes: R11.2 - Nausea with vomiting, unspecified VERONICA GIBBONS DO Jan 07, 2018 10:52
[2018-01-07] MEDS ORDERED: ENOXAPARIN 30 MG/0.3 ML SYR SC ONE (11:00)
[2018-01-07 11:14] VITALS: BP 140/76
[2018-01-07 12:43] VITALS: Ht 167.6 cm; Wt 66.0 kg
[2018-01-07 15:43] VITALS: BP 148/74
[2018-01-07 19:51] VITALS: BP 169/77
[2018-01-07] MEDS: ATORVASTATIN 40 MG TAB PO SCH (20:42)
[2018-01-07] MEDS: METOPROLOL TART 50 MG TAB PO SCH (20:42)
[2018-01-07] MEDS: ENOXAPARIN 100 MG/ML SYR SC SCH (20:42)
[2018-01-07 23:51] VITALS: BP 148/76
[2018-01-07] MEDS: ONDANSETRON 4 MG/2 ML VIAL IVP PRN (23:58)
[2018-01-08 02:34] VITALS: BP 131/77
[2018-01-08] MEDS: NS(*) 0.9% 1000 ML BAG 1,000 ML IV PRN (05:20)
[2018-01-08 07:13] VITALS: BP 135/64
[2018-01-08] MEDS: ENOXAPARIN 100 MG/ML SYR SC SCH ×2 (08:30→21:30)
[2018-01-08] MEDS: METOPROLOL TART 50 MG TAB PO SCH ×2 (08:31→21:31)
--- NOTE | 2018-01-08 09:37 | Hospitalist Progress Note ---
Subjective Progress Notes Subjective He reports that he hasn't vomited since admission. He had nausea last night that resolved with Zofran. Physical Exam Vital Signs Date Time Temp Pulse Resp B/P (MAP) Pulse Ox O2 Delivery O2 Flow Rate FiO2 01/08/18 07:13 99.7 85 18 135/64 (87) 96 Nasal Cannula 0.5 Intake and Output 01/09/18 07:00 Intake Total 255 ml Balance 255 ml IV Total 255 ml General Appearance: Alert, Awake, No Acute Distress Extremities: Edema (LLE with trace edema compared to the RLE) Result Diagram: 01/07/18 0512 01/08/18 0515 Assessment and Plan Problems: (1) Intractable vomiting with nausea Status: Acute Assessment & Plan: Improved with IV fluids and antiemetic. He is eating and drinking some. No more vomiting since admission. Will saline lock. (2) DVT (deep venous thrombosis) Status: Acute Assessment & Plan: US shows extensive DVT in LLE. Now on Lovenox 1mg/kg q12h. Could use Savaysa or Lovenox outpatient for DVT in setting of malignancy. (3) Anemia Status: Chronic Assessment & Plan: Likely related to chemo, but has had positive tests for occult blood in stool (i.e. last on 01/04). See below. No evidence of active bleeding, but Hgb dropped from admission. Follow closely. (4) CAD (coronary artery disease) Status: Chronic Assessment & Plan: He has had 4 cardiac stents. Will hold ASA 81mg for now because of the drop in Hgb and positive occult blood in stool on 01/04. Restart when able. (5) [id number] kidney injury Status: Resolved Assessment & Plan: Resolved, at baseline Cr clearance. (6) Dehydration Status: Acute Assessment & Plan: Improved. Continue IV hydration. (7) Syncope Status: Acute Assessment & Plan: No further episodes, dc telemetry. (8) Hypokalemia Status: Acute Assessment & Plan: Resolved. He received 40meq of KCl in ER. (9) T2DM (type 2 diabetes mellitus) Status: Chronic Assessment & Plan: Monitor glucose AC/HS and place on SSI. (10) HTN (hypertension) Status: Chronic Assessment & Plan: Resume metoprolol with parameters. (11) Prostate cancer Status: Chronic Assessment & Plan: Diagnosed early 2018. See Cancer Center notes for details of treatment. (12) Transitional cell bladder cancer Status: Chronic Assessment & Plan: Diagnosed early 2017. See Cancer Center notes for details of treatment. L nephrostomy tube in place. PET scan scheduled for 01/20. Plans to start immunotherapy if possible and also potentially have resection of the bladder tumor. Problem Qualifiers (1) Intractable vomiting with nausea: Vomiting type: unspecified Qualified Codes: R11.2 - Nausea with vomiting, unspecified ELIUD ORTIZ MD Jan 08, 2018 09:37
[2018-01-08 11:04] VITALS: BP 124/57
[2018-01-08] MEDS ORDERED: LOPERAMIDE HCL 2 MG CAP PO PRN (14:35)
[2018-01-08 14:50] VITALS: BP 114/62
[2018-01-08 19:59] VITALS: BP 155/82
[2018-01-08] MEDS: ONDANSETRON 4 MG/2 ML VIAL IVP PRN (21:20)
[2018-01-08] MEDS: ATORVASTATIN 40 MG TAB PO SCH (21:30)
[2018-01-09 05:26] VITALS: BP 95/60
[2018-01-09 06:01] LABS: PLATELET COUNT, AUTOMATED 77 K/uL (150-450)
[2018-01-09 07:08] VITALS: BP 111/54
[2018-01-09] MEDS ORDERED: NS(*) 0.9% 1000 ML BAG 1,000 ML IV ONE (07:45)
[2018-01-09] MEDS ORDERED: POTASSIUM CHL 20 MEQ TABCR PO ONE (08:15)
[2018-01-09] MEDS: METOPROLOL TART 50 MG TAB PO SCH ×2 (08:25→21:03)
[2018-01-09] MEDS ORDERED: MAGNESIUM SUL* 4 GM/100 ML BAG 100 ML IVPB ONE (08:25)
[2018-01-09] MEDS: ENOXAPARIN 100 MG/ML SYR SC SCH ×2 (08:26→21:11)
--- NOTE | 2018-01-09 09:27 | Hospitalist Progress Note ---
Subjective Progress Notes Subjective He has complaints of being light-headed this morning. He had no acute events overnight. Patient Complains of: Cardiovascular: No: Chest Pain Respiratory: No: Shortness of Breath Physical Exam Vital Signs Date Time Temp Pulse Resp B/P (MAP) Pulse Ox O2 Delivery O2 Flow Rate FiO2 01/09/18 07:12 95 Room Air 01/09/18 07:08 98.9 97 16 111/54 (73) 01/08/18 11:04 0.5 Intake and Output 01/10/18 07:00 Intake Total 636 ml Balance 636 ml Intake Oral 636 ml # Voids 1 General Appearance: Alert, Awake, No Acute Distress Neuro: No Gross deficits Cardiovascular: Regular Rate and Rhythm Respiratory: No Respiratory Distress, Clear to Auscultation Psych: Alert & Oriented X3, Appropriate Mood & Affect Result Diagram: 01/09/1852401/09/18524 Assessment and Plan Problems: (1) Intractable vomiting with nausea Status: Acute Assessment & Plan: Improved with IV fluids and antiemetic. He is eating and drinking some. No more vomiting since admission. He will receive a liter of normal saline today. (2) DVT (deep venous thrombosis) Status: Acute Assessment & Plan: US shows extensive DVT in LLE. Now on Lovenox 1mg/kg q12h. Could use Savaysa or Lovenox outpatient for DVT in setting of malignancy. We will consult oncology for advice for anticoagulation. (3) Anemia Status: Chronic Assessment & Plan: Likely related to chemo, but has had positive tests for occult blood in stool (i.e. last on 01/04). See below. No evidence of active bleeding, but Hgb dropped from admission. Follow closely. (4) CAD (coronary artery disease) Status: Chronic Assessment & Plan: He has had 4 cardiac stents. Will hold ASA 81mg for now because of the drop in Hgb and positive occult blood in stool on 01/04. Restart when able. (5) Xoqjv-eh-wgglkba kidney injury Status: Resolved Assessment & Plan: Resolved, at baseline Cr clearance. (6) Dehydration Status: Acute Assessment & Plan: Improved. Continue IV hydration. Blood pressure lower this morning, with symptoms of light-headedness, will restart fluids. We will try to arrange infusion prn for hydration. (7) Syncope Status: Acute Assessment & Plan: No further episodes, dc telemetry. (8) Hypokalemia Status: Acute Assessment & Plan: Resolved. He received 40meq of KCl in ER. (9) T2DM (type 2 diabetes mellitus) Status: Chronic Assessment & Plan: Monitor glucose AC/HS and place on SSI. (10) HTN (hypertension) Status: Chronic Assessment & Plan: Resume metoprolol with parameters. (11) Prostate cancer Status: Chronic Assessment & Plan: Diagnosed early 2018. See Cancer Center notes for details of treatment. 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 See Cancer Center notes for details of treatment. L nephrostomy tube in place. PET scan scheduled for 01/20. Plans to start immunotherapy if possible and also potentially have resection of the bladder tumor. Exam Sepsis Risk: No Definite Risk Problem Qualifiers (1) Intractable vomiting with nausea: Vomiting type: unspecified Qualified Codes: R11.2 - Nausea with vomiting, unspecified GISSELL ANDERSEN MATH INSTRUCTOR Jan 09, 2018 09:27
[2018-01-09] MEDS ORDERED: ENOX100D5 SQ (10:17)
[2018-01-09 11:15] VITALS: BP_SYST 100; BP_DIAS 3; BP_DIAS 63
[2018-01-09] MEDS: INSULIN HUM LISPRO 100 UN/ML 3 ML VIAL SUBQ PRN ×2 (11:22→21:12)
[2018-01-09 16:17] VITALS: BP 156/75
[2018-01-09 18:55] VITALS: BP 142/71
[2018-01-09] MEDS: ATORVASTATIN 40 MG TAB PO SCH (21:03)
[2018-01-10 02:35] VITALS: BP 141/70
[2018-01-10 06:00] LABS: PLATELET COUNT, AUTOMATED 68 K/uL (150-450)
[2018-01-10 07:10] VITALS: BP 97/55
[2018-01-10] MEDS: INSULIN HUM LISPRO 100 UN/ML 3 ML VIAL SUBQ PRN ×2 (07:14→11:10)
[2018-01-10] MEDS ORDERED: POTASSIUM CHL 20 MEQ TABCR PO ONE (08:10)
[2018-01-10] MEDS ORDERED: NS(*) 0.9% 1000 ML BAG 1,000 ML IV ONE (08:10)
[2018-01-10] MEDS ORDERED: ENOXAPARIN 100 MG/ML SYR SC ONE (09:00)
[2018-01-10] MEDS: METOPROLOL TART 50 MG TAB PO SCH (09:05)
[2018-01-10] MEDS ORDERED: ENOX100D5 SQ (11:04)
[2018-01-10 11:06] VITALS: BP 148/68
--- NOTE | 2018-01-10 11:23 | Hospitalist Depart ---
Discharge Summary Reason for Hosp/Final Diag: (1) Intractable vomiting with nausea Status: Acute Hospital Course & Plan: Improved with IV fluids and antiemetic. He is eating and drinking some. He has discovered he does like Boost drinks. He was encouraged to drink Boost, to help keep up nutrition. No more vomiting since admission. He will receive a liter of normal saline again today. He will go to the infusion center for IV hydration Tuesday, Tuesday, and Tuesday. (2) DVT (deep venous thrombosis) Status: Acute Hospital Course & Plan: US shows extensive DVT in LLE. Per Dr. Perry Espinal, patient should be on Lovenox for DVT. He will be prescribed Lovenox 1.5mg/kg for once daily dosing. He will follow up with Cancer Center Tuesday as scheduled. Continue to watch platelet count on Lovenox. (3) Anemia Status: Chronic Hospital Course & Plan: Likely related to chemo, but has had positive tests for occult blood in stool (i.e. last on 01/04). See below. No evidence of active bleeding, but Hgb dropped from admission. (4) CAD (coronary artery disease) Status: Chronic Hospital Course & Plan: He has had 4 cardiac stents. Continue Aspirin 81mg daily. No evidence of bleeding. (5) Zqwib-sh-pjxhyuo kidney injury Status: Resolved Hospital Course & Plan: Resolved, at baseline Cr clearance. (6) Dehydration Status: Acute Hospital Course & Plan: Improved. Continue IV hydration. Blood pressure lower this morning, with symptoms of light-headedness, will restart fluids. We will try to arrange infusion prn for hydration. (7) Syncope Status: Acute Hospital Course & Plan: No further episodes, dc telemetry. (8) Hypokalemia Status: Acute Hospital Course & Plan: Resolved. (9) T2DM (type 2 diabetes mellitus) Status: Chronic Hospital Course & Plan: Continue on usual insulin regimen at home and monitor blood sugars. (10) HTN (hypertension) Status: Chronic Hospital Course & Plan: Continue metoprolol. (11) Prostate cancer Status: Chronic Hospital Course & Plan: Diagnosed early 2018. See Cancer Center notes for details of treatment. 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 See Cancer Center notes for details of treatment. L nephrostomy tube in place. PET scan scheduled for . Plans to start immunotherapy if possible and also potentially have resection of the bladder tumor. Departure Latest Vital Signs Vital Signs 01/10/18 01/10/18 01/10/18 02:35 07:10 07:17 Temp 98.5 Pulse 92 Resp 15 B/P (MAP) 97/55 (69) Pulse Ox 92 O2 Delivery Room Air O2 Flow Rate 1.0 Weight (Pounds): 145 Weight (Ounces): 7.0 Result Diagram: 01/10/1852501/10/18525 Condition: Improved Discharge: Home, Self Care Discharge Instructions Home Meds Active Scripts Enoxaparin Sodium (LOVENOX) 100 Mg/1 Ml Disp.syrin, 100 MG SQ DAILY, #7 SYR Prov:GISSELL ANDERSEN [facility] 01/10/18 Enoxaparin Sodium (LOVENOX) 100 Mg/1 Ml Disp.syrin, 100 MG SQ DAILY, #90 SYR Prov:GISSELL ANDERSEN [facility] 01/09/18 Reported Medications Hum Insulin Nph/Reg Insulin Hm (RELION NOVOLIN 70-30 VIAL) 100 Unit/1 Ml Vial, 20-40 UNIT SQ PRN Y for SLIDING SCALE, VIAL 11/02/17 Atorvastatin Calcium (LIPITOR) 40 Mg Tablet, 1 TAB PO QHS, TAB 11/02/17 Metoprolol Tartrate (METOPROLOL TARTRATE) 25 Mg Tablet, 0.5 TAB PO BID, TAB 11/02/17 Aspirin (ASPIRIN) 81 Mg Tab.chew, 81 MG PO QDAY, TAB.CHEW 11/02/17 Discontinued Reported Medications Sulfamethoxazole/Trimet 800-160 Mg Tab (BACTRIM DS TABLET) 1 Each Tablet, 1 TAB PO DAILY, TAB Tuesday/Tuesday/Tuesday12/19/17 Acetaminophen (TYLENOL) 325 Mg Tablet, 2 TAB PO QHS Y for PAIN, TAB 11/02/17 Multivitamin (MULTIVITAMINS) 1 Each Capsule, 1 EACH PO QDAY, CAPSULE 11/02/17 Leuprolide Acet 11.25 Mg Q1uyduh (LUPRON DEPOT 11.25 MG N1YQBTE) 11.25 Mg Syringekit, 11.25 MG IM DIRECTED, SYR EVERY 3 MONTHS 11/02/17 Levofloxacin 250 Mg Tab (LEVAQUIN 250 MG TAB) 250 Mg Tablet, 250 MG PO DAILY, TAB Times 10 days starting on 7/13/18 7/16/18 Clopidogrel Bisulfate (PLAVIX) 75 Mg Tablet, 1 TAB PO QDAY, TAB 11/02/17 Discontinued Scripts Ondansetron (ZOFRAN ODT) 4 Mg Tab.rapdis, 4 MG PO Q12H Y for NAUSEA, #20 TAB.NINOSKA Prov:GISSELL ANDERSEN 01/05/18 Hydrocodone Bit/Acetaminophen (NORCO 5-325 TABLET) 1 Each Tablet, 1 EACH PO Q4H Y for PAIN, #20 TAB Prov:CRISTA PALMA MD 11/04/17 Diet: Regular Activity: As Tolerated Copies to: EMILI SCHNEIDER MD Venous Thromboembolism Antithrombotics Is Pt On Any Antithrombotics?: Yes Problem Qualifiers (1) Intractable vomiting with nausea: Vomiting type: unspecified Qualified Codes: R11.2 - Nausea with vomiting, unspecified GISSELL ANDERSEN Jan 10, 2018 11:22
[2018-01-10] MEDS ORDERED: HEPARIN FLSH (PORT) 500 UN/5ML ONE (12:38)
--- NOTE | 2018-01-11 08:51 | Miscellaneous Provider Note ---
Miscellaneous Provider Note Note Late entry for date 01/09/18- [address] Perry Espinal on the phone regarding patient with DVT to the left lower extremity for drug therapy. Concern for patient with lower platelet count. Dr. Perry Espinal recommends patient to take Lovenox 1.5mg/kg daily, which was better for patient's with cancer. Use daily dosing for better compliance vs twice daily dosing. He states that we should continue Lovenox unless platelet count reaches 50K, then Lovenox should be discontinued. Dr. Perry Espinal will see the patient Tuesday at the Cancer Center for follow up for labs and appointment. He also will coordinate the patient to have outpatient infusions for hydration. [facility], since he does not have [facility] otherwise. 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 GISSELL ANDERSEN Jan 11, 2018 08:51
== END 2018-01-10 13:55 | disposition home or self-care (01) | DRG 641 ==
LOC: ER 13:55 → MED 17:32
PROVIDERS: ADMIT Internal Medicine; ATTEND Internal Medicine
DX: E86.0 Dehydration (principal); N17.9 Acute kidney failure, unspecified; N18.4 Chronic kidney disease, stage 4 (severe); I82.412 Acute embolism and thrombosis of left femoral vein; I82.492 Acute embolism and thrombosis of other specified deep vein of left lower extremity; I82.432 Acute embolism and thrombosis of left popliteal vein; I82.442 Acute embolism and thrombosis of left tibial vein; R55 Syncope and collapse; E87.6 Hypokalemia; E11.22 Type 2 diabetes mellitus with diabetic chronic kidney disease; I12.9 Hypertensive chronic kidney disease with stage 1 through stage 4 chronic kidney disease, or unspecified chronic kidney disease; C61 Malignant neoplasm of prostate; C67.9 Malignant neoplasm of bladder, unspecified; I25.10 Atherosclerotic heart disease of native coronary artery without angina pectoris; D64.81 Anemia due to antineoplastic chemotherapy; D63.0 Anemia in neoplastic disease; Z95.1 Presence of aortocoronary bypass graft; Z86.73 Personal history of transient ischemic attack (TIA), and cerebral infarction without residual deficits; Z90.49 Acquired absence of other specified parts of digestive tract; Z79.4 Long term (current) use of insulin
CPT/HCPCS: 36415; 36416; 82040; 82247; 82274; 82310; 82374; 82435; 82565; 82947; 82948; 83605; 83630; 83735; 84075; 84132; 84155; 84295; 84450; 84460; 84520; 85025; 87045; 87324; 87449; J1642; J1650; J2405; J3475; J7030

== ENCOUNTER → 2018-01-06 | Outpatient (CLI) | payer MEDICARE, OTHER ==
[~2018-01-06] MED LIST changes: +ENOX100D5 SQ; +ONDA4TAB PO
[2018-01-07 12:43] VITALS: BMI 23.4
== END ==
LOC: AMB 13:14
PROVIDERS: ATTEND Nurse Practitioner
DX: R53.1 Weakness (principal); E86.0 Dehydration; R53.83 Other fatigue
CPT/HCPCS: A0425; A0429

== ENCOUNTER → 2018-01-18 | Outpatient (RCR) | payer MEDICARE, OTHER ==
[2017-10-21 15:43] VITALS: BP 144/78
--- NOTE | 2017-10-21 19:34 | ONCOLOGY CONSULTATION ---
EVENT DATE: October 21, 2017 REFERRING PHYSICIAN MD Patsy Rocha MD REASON FOR CONSULTATION Evaluation and management of muscle invasive bladder cancer. HISTORY OF PRESENT ILLNESS Patient is an 82-year-old male who had prior oncologic history of prostate cancer for which he underwent radical prostatectomy approximately 20 years ago. In early 2017 patient was noted to have an elevated PSA in the range of 18 and he started on Lupron and Casodex therapy, and his PSA was brought under control. Patient had recent carotid endarterectomy in [place], September 2017, and during his hospitalization patient was found to have obstructed left ureter and hydronephrosis, so the patient was referred to Dr. Gandhi in [place] for further evaluation and management. He had a CT abdomen and pelvis done on September 28, 2017 which showed status post prostatectomy. There may be some residual soft tissue present which is causing mild compression to the urinary bladder versus an intramedullary bladder abnormality with mild left hydronephrosis. He had cystoscopy with bladder and urethral biopsies done on September 26, 2017 under the direction of Dr. 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 Patient underwent left-sided percutaneous nephrostomy tube placement on September 27, 2017. His creatinine dropped after that. He has been evaluated by Dr. You, who requested a PET/CT scan which was done on October 14, 2017, which showed asymmetric thickening of the left posterolateral wall of the urinary bladder, likely correlates with the patient's nonbladder cancer. There was subcentimeter left pelvic side wall lymph node with no prominent uptake. There was also hypermetabolic lytic lesion in the inferior right pubic bone, and a second lytic lesion in the lower sacrum to the left of the midline with mild uptake concerning for bony metastasis. Patient is scheduled for CT-guided biopsy of one of the bone lesions in [place]. PAST MEDICAL HISTORY 1. Type 2 diabetes. 2. History of prostate cancer. 3. Hypertension. 4. Coronary artery disease status post four stent placement. 5. 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 6. Chronic kidney disease stage 4. PAST SURGICAL HISTORY 1. Carotid endarterectomy September 06, 2017. 2. Tonsillectomy. 3. Hemorrhoidectomy. 4. Prostatectomy. 5. Bilateral inguinal hernia repair. 6. Exploratory laparotomy. 7. Bilateral rotator cuff repair. 8. Deviated septum surgery. 9. Cholecystectomy. 10. Status post percutaneous nephrostomy tube placement. FAMILY HISTORY Father with pancreatic cancer. Paternal uncle had prostate cancer. Brother had both prostate and pancreatic cancer. SOCIAL HISTORY Patient is with two children. 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 He quit smoking 44 years ago after half a pack a day for 15 years. He chewed tobacco for about seven years. He denies any abuse of alcohol or illicit drugs. CURRENT MEDICATIONS 1. Plavix 75 mg daily. 2. Metoprolol 25 mg twice daily. 3. Aspirin 81 mg daily. 4. Lupron 7.5 mg as directed. 5. Casodex 50 mg daily. 6. Atorvastatin 40 mg at bedtime. 7. Humalog insulin as directed. ALLERGIES 1. DEMEROL which causes his heart to stop. 2. MORPHINE which causes skin rash. REVIEW OF SYSTEMS CONSTITUTIONAL: No appetite or weight change. No fever. The patient has some chills. No sweating. No recent infection. He has lost about 50 pounds in the last one and a half years. HEENT: Ears: No tinnitus or hearing problem. Nose: No nasal discharge or epistaxis. Throat: No sore throat or mouth ulcers. Eyes: No diplopia or visual changes. RESPIRATORY: No shortness of breath. He has a dry cough. No expectoration or hemoptysis. CARDIOVASCULAR: No chest pain, orthopnea, or paroxysmal nocturnal dyspnea (PND) . No edema. No palpitations. GASTROINTESTINAL: No nausea or vomiting. No diarrhea or constipation. No change in bowel movements. No heartburn or swallowing difficulties. No abdominal pain. No jaundice. No hematemesis, melena or rectal bleeding. GENITOURINARY: No hematuria or dysuria. He is currently on a nephrostomy tube. MUSCULOSKELETAL: No pain in the muscles, joints or bones. NEUROLOGICAL: No tingling or numbness in the hands or feet. No headaches or convulsions. HEMATOLOGIC/LYMPHATIC: No bleeding or easy bruising. He is weak, tired and fatigued. No enlarged lymph nodes. SKIN: No skin rash or lumps. PSYCHIATRIC: No anxiety or depression. PHYSICAL EXAMINATION GENERAL: Looks stable. Well-developed, well-nourished, and in no acute distress. VITAL SIGNS: Blood pressure 144/78, pulse 78 per minute, respirations 16 per minute, temperature 97.2, pulse ox 96% on room air. HEENT: Head: Atraumatic. No sinus tenderness to palpation. Eyes: No icterus or conjunctivitis. Mouth and Throat: No oral thrush or mucositis. NECK: Supple. No cervical or supraclavicular lymphadenopathy. LUNGS: Clear to auscultation and percussion bilaterally. HEART: Regular rate and rhythm. No gallops, murmurs, clicks or rubs. ABDOMEN: Soft and lax. No tenderness. No hepatosplenomegaly. No masses. Nephrostomy tube is noted. EXTREMITIES: No cyanosis, clubbing or edema. LYMPHATICS: No peripheral lymphadenopathy. NEUROLOGICAL: Conscious, alert and oriented times three. No focal motor or sensory deficits. PSYCHIATRIC: Mood and affect appear normal. SKIN: No skin rash, bruise or purpuric eruption. ASSESSMENT 1. 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 Gandhi. Patient is not a candidate for radical cystectomy. Bladder preservation therapy will be the plan of management. Given that the patient has chronic kidney disease stage 4 he is not eligible for cisplatin therapy, which is the standard of care as radiosensitization with chemotherapy and for this reason I am planning to treat him with 5-FU and mitomycin like the way we treat patients with anal carcinoma. His PET scan done on October 14, 2017 did reveal besides the abnormal area in the bladder, two lytic lesions, one at the inferior right pubic bone, the second one in the lower sacrum, and the patient is scheduled to have CT-guided biopsy next week. I will await the result of the CT-guided biopsy to decide about further management. If the CT-guided biopsy will come back positive for transitional cell carcinoma this means that he has stage IV bladder cancer, and after chemoradiotherapy I am planning to treat him with immune therapy with one of the checkpoint inhibitors which are approved for stage IV bladder cancer. If the bone metastasis turns out to be due to prostate cancer, I believe he is under control currently with a drop of his PSA with the current treatment with Casodex and Lupron from 18 to 0.3. I explained that to the patient and his son. They are agreeable with the plan of management. 2. History of prostate cancer. Currently on Lupron and Casodex with PSA control. Continue the same treatment. 3. History of transient ischemic attack status post carotid endarterectomy, September 2017. PLAN 1. Await the pathology from the CT-guided biopsy of one of the lytic bone lesions. 2. Consider treatment with mitomycin and 5-FU as radiosensitization with radiation therapy for his bladder cancer, and if the patient will prove to have stage IV then we will treat him with checkpoint inhibitor after finishing his chemoradiation. 3. Patient to return in one week for further evaluation and management. 4. Patient to contact us for any new concern or complaints. MTDD
[2017-10-28 15:52] VITALS: BP 122/71
--- NOTE | 2017-10-28 19:35 | ONCOLOGY FOLLOW UP NOTE ---
EVENT DATE: October 28, 2017 DIAGNOSES 1. 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 2. History of prostate cancer. 3. History of transient ischemic attack status post carotid endarterectomy, September 2017. 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 ONCOLOGY HISTORY Patient is an 82-year-old male who had prior oncologic history of prostate cancer for which he underwent radical prostatectomy approximately 20 years ago. In early 2017 patient was noted to have an elevated PSA in the range of 18 and he started on Lupron and Casodex therapy, and his PSA was brought under control. Patient had recent carotid endarterectomy in [place], September 2017, and during his hospitalization patient was found to have obstructed left ureter and hydronephrosis, so the patient was referred to Dr. Gandhi in [place] for further evaluation and management. He had a CT abdomen and pelvis done on September 28, 2017 which showed status post prostatectomy. There may be some residual soft tissue present which is causing mild compression to the urinary bladder versus an intramedullary bladder abnormality with mild left hydronephrosis. He had cystoscopy with bladder and urethral biopsies done on September 26, 2017 under the direction of Dr. 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 Patient underwent left-sided percutaneous nephrostomy tube placement on September 27, 2017. His creatinine dropped after that. He has been evaluated by Dr. You, who requested a PET/CT scan which was done on October 14, 2017, which showed asymmetric thickening of the left posterolateral wall of the urinary bladder, likely correlates with the patient's nonbladder cancer. There was subcentimeter left pelvic side wall lymph node with no prominent uptake. There was also hypermetabolic lytic lesion in the inferior right pubic bone, and a second lytic lesion in the lower sacrum to the left of the midline with mild uptake concerning for bony metastasis. Patient is scheduled for CT-guided biopsy of one of the bone lesions in [place]. 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 HISTORY OF PRESENT ILLNESS Patient is here today for followup of his metastatic bladder cancer. He is having some pain at the site of his CT-guided biopsy, but other than that his general condition is stable. He has a nephrostomy tube. PAST MEDICAL HISTORY 1. Type 2 diabetes. 2. History of prostate cancer. 3. Hypertension. 4. Coronary artery disease status post four stent placement. 5. 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 6. Chronic kidney disease stage 4. PAST SURGICAL HISTORY 1. Carotid endarterectomy September 06, 2017. 2. Tonsillectomy. 3. Hemorrhoidectomy. 4. Prostatectomy. 5. Bilateral inguinal hernia repair. 6. Exploratory laparotomy. 7. Bilateral rotator cuff repair. 8. Deviated septum surgery. 9. Cholecystectomy. 10. Status post percutaneous nephrostomy tube placement. FAMILY HISTORY Father with pancreatic cancer. Paternal uncle had prostate cancer. Brother had both prostate and pancreatic cancer. SOCIAL HISTORY Patient is with two children. 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 He quit smoking 44 years ago after half a pack a day for 15 years. He chewed tobacco for about seven years. He denies any abuse of alcohol or illicit drugs. CURRENT MEDICATIONS 1. Plavix 75 mg daily. 2. Metoprolol 25 mg twice daily. 3. Aspirin 81 mg daily. 4. Lupron 7.5 mg as directed. 5. Casodex 50 mg daily. 6. Atorvastatin 40 mg at bedtime. 7. Humalog insulin as directed. ALLERGIES 1. DEMEROL which causes his heart to stop. 2. MORPHINE which causes skin rash. REVIEW OF SYSTEMS CONSTITUTIONAL: No appetite or weight change. No fever. The patient has some chills. No sweating. No recent infection. He has lost about 50 pounds in the last one and a half years. HEENT: Ears: No tinnitus or hearing problem. Nose: No nasal discharge or epistaxis. Throat: No sore throat or mouth ulcers. Eyes: No diplopia or visual changes. RESPIRATORY: No shortness of breath. He has a dry cough. No expectoration or hemoptysis. CARDIOVASCULAR: No chest pain, orthopnea, or paroxysmal nocturnal dyspnea (PND) . No edema. No palpitations. GASTROINTESTINAL: No nausea or vomiting. No diarrhea or constipation. No change in bowel movements. No heartburn or swallowing difficulties. No abdominal pain. No jaundice. No hematemesis, melena or rectal bleeding. GENITOURINARY: No hematuria or dysuria. He is currently on a nephrostomy tube. MUSCULOSKELETAL: He has pain at the site of his bone biopsy. NEUROLOGICAL: No tingling or numbness in the hands or feet. No headaches or convulsions. HEMATOLOGIC/LYMPHATIC: No bleeding or easy bruising. He is weak, tired and fatigued. No enlarged lymph nodes. SKIN: No skin rash or lumps. PSYCHIATRIC: No anxiety or depression. PHYSICAL EXAMINATION GENERAL: Looks stable. Well-developed, well-nourished, and in no acute distress. VITAL SIGNS: Blood pressure 122/71, pulse 81 per minute, respirations 16 per minute, temperature 97, pulse ox 96% on room air. HEENT: Head: Atraumatic. No sinus tenderness to palpation. Eyes: No icterus or conjunctivitis. Mouth and Throat: No oral thrush or mucositis. NECK: Supple. No cervical or supraclavicular lymphadenopathy. LUNGS: Clear to auscultation and percussion bilaterally. HEART: Regular rate and rhythm. No gallops, murmurs, clicks or rubs. ABDOMEN: Soft and lax. No tenderness. No hepatosplenomegaly. No masses. Nephrostomy tube is noted. EXTREMITIES: No cyanosis, clubbing or edema. LYMPHATICS: No peripheral lymphadenopathy. NEUROLOGICAL: Conscious, alert and oriented times three. No focal motor or sensory deficits. PSYCHIATRIC: Mood and affect appear normal. SKIN: No skin rash, bruise or purpuric eruption. DIAGNOSTIC DATA CT-guided biopsy of the symphysis pubis bone lesions done on October 25, 2017 came back positive for high grade metastatic urothelial carcinoma. ASSESSMENT 1. 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 Gandhi. Patient is not a candidate for radical cystectomy. Bladder preservation therapy will be the plan of management given that the patient has obstructive uropathy and having nephrostomy tube, and hoping with chemoradiation the tumor will shrink and this will help to take the nephrostomy tube out. Patient also had history of chronic kidney disease stage 4 and he is not eligible for cisplatin therapy. For radiosensitization I am planning to use a combination of 5-FU and mitomycin together with radiation therapy, and after patient will finish his chemoradiation I will give him four weeks rest, then after that I will treat him for his systemic disease with gemcitabine and Taxol. His PET scan done October 14, 2017 did reveal besides the abnormal area of the bladder, two lytic lesions, one in the inferior right pubic bone, the second one in the lower sacrum, and CT-guided biopsy of the symphysis pubis lesion on October 25, 2017 came back positive for high grade transitional cell carcinoma. I talked to Dr. You and we are going to coordinate together for his local treatment, which is a priority currently because of the obstructive uropathy. I am planning to treat him with mitomycin and 5-FU like the way we treat patients with anal carcinoma for two cycles every 28 days during his radiation therapy to be followed by systemic chemotherapy for his systemic disease with a combination of gemcitabine and Taxol. I am planning to see him prior to the second cycle of chemotherapy, and I am planning to refer him to Dr. Smith for placement of central port. I am planning to check is CBC weekly after he will start the treatment. I explained to the patient and his son and they are agreeable with the plan of management. 2. History of prostate cancer. Currently on Lupron and Casodex with PSA control. His PSA dropped from 18 to 0.3, and his bone metastasis proved to be due to his bladder cancer not his prostate cancer. 3. History of transient ischemic attack status post carotid endarterectomy, September 2017. PLAN 1. Coordinate with Dr. You, our radiation oncologist, to start chemoradiation for his bladder cancer. Hopefully this will shrink the tumor and open the obstructed urinary tract. I am planning to treat him with chemotherapy with mitomycin and 5-FU because the patient is not a candidate for cisplatin therapy given is stage 4 chronic kidney disease. I am planning for two cycles every 28 days during radiation therapy. 2. Refer to Dr. Smith for placement of central port. 3. CBC, chem panel to be checked weekly. 4. No Neulasta during radiation and chemotherapy. 5. Patient to return prior to the next cycle of of chemotherapy with CBC and chem panel. 6. Patient to contact us for any new concern or complaints. MTDD
[2017-11-07 09:00] VITALS: BP 114/54
[2017-11-07] MEDS: LIDOCAINE/SOD BICARB 8.4% SYR ID PRN (10:49)
[2017-11-07] MEDS: NS(*) 0.9% 500 ML BAG 500 ML IV PRN (10:49)
[2017-11-07] MEDS: DEXAMETHASONE SOD PHOS 10MG/ML IVP PRN (11:42)
[2017-11-09 15:56] VITALS: BP 106/49
[2017-11-09 15:58] LABS: PLATELET COUNT, AUTOMATED 160 K/uL (150-450)
[2017-11-10] MEDS: LIDOCAINE/SOD BICARB 8.4% SYR ID PRN (09:49)
[2017-11-10] MEDS: NS(*) 0.9% 1000 ML BAG 1,000 ML IV PRN (09:54)
[2017-11-10 11:20] VITALS: BP 120/53
[2017-11-11] MEDS: HEPARIN FLSH (PORT) 500 UN/5ML IVP PRN (14:48)
--- NOTE | 2017-11-11 14:52 | RADIOLOGY IMAGING REPORT ---
FACILITY: [facility] - [place] PATIENT NAME: Deion Kwong : 1935 MR: [id number] V: [id number] EXAM DATE: ORDERING PHYSICIAN: EMILI SCHNEIDER TECHNOLOGIST: Location: [facility] [place] Patient: Deion Kwong : 1935 Visit/Account:[id number] Date of Sevice: 11/11/2017 CT abdomen and pelvis without contrast Indication: Bladder cancer. History of prostate cancer and prostatectomy. Comparison: 09/18/2017 Technique: Axial CT images are obtained through the abdomen and pelvis. Reformatted coronal and sagit kendra images were reviewed. IV contrast was not administered. One of the following dose optimization techniques was utilized in the performance of this exam: Autom ated exposure control; adjustment of the mA and/or kV according to the patient's size; or use of an i terative reconstruction technique. Specific details can be referenced in the facility's radiology C T exam operational policy. Findings: Lower lung anne: Within the periphery of the left upper lobe on image 4, there is a 4-5 mm pulmonar y nodule identified. This area was not included in the [id number] on the prior study. There are several small nodules seen within the right middle lobe near the minor fissure on or about image 3 of 161. 2 of these may be calcified. One of these does not appear calcified and measures 2 to 3 mm. This was also not included in the mdmih-rw-apho on the prior exam. A small nodule measuring 4 mm is seen in the right lower lobe on image 9. This is new since the prior study. Calcifications are seen in the region of the aortic valve. There are dense coronary artery atheroscl erotic calcifications and there are atherosclerotic calcifications in the descending aorta. There is an intermediate-hernia. Evaluation of the solid organs of the abdomen is limited without IV contrast. Liver: No focal parenchymal abnormality of the liver. Biliary: There has been previous cholecystectomy. Pancreas: There is atrophy involving the head of the pancreas. Spleen: Normal appearance. Adrenal glands: Unremarkable. Kidneys / retroperitoneum: On the right side, there is a tiny nonobstructing lower pole stone measuri ng 2 mm in size. On the left, there has been interval placement of a percutaneous nephrostomy tube. Coiled portion is seen overlying the lower pole calyces. Single sheri of gas, an expected finding i s seen within the collecting system. No left-sided stone. No evidence for hydronephrosis. There is an exophytic cyst arising from the upper pole of the left kidney. This is unchanged. Bowel / peritoneum / mesenteries: There is colonic diverticulosis. No colonic wall thickening or per icolic inflammation. No small bowel dilatation. Lymph node assessment: There is a new, round left obturator node on image 126. This measures 9 mm bu t is suspicious for a metastatic node. This is larger than on the prior exam. Pelvic structures: Surgical clips are seen within the low pelvis which are unchanged. This is con sistent with a prior prostatectomy. There is thickening of the bladder wall which is asymmetric. Th is is predominantly seen on the left lateral and posterior wall of the bladder. This extends to the anterior bladder. There is relative sparing of the right lateral bladder wall. There is soft tissue attenuation seen along the undersurface of the bladder which may extend to involve the anterior rect al wall inferiorly. Given the history of prostatectomy, concern is for bladder tumor in this locatio n. Similar findings were seen previously. For index purposes, this area of masslike soft tissue att enuation measures 3.7 x 4.4 cm on image 146. Vessels: Atherosclerotic vascular calcifications are seen within the abdominal aorta and its branch v essels. Musculoskeletal / Body wall: Multilevel degenerative changes involve the spine. There is a lytic, de structive lesion involving the right ischial extending into the inferior pubic ramus. Correlate clin ically. Concern is for metastatic dise se. This appears larger than on the prior study and more reinier tructive. IMPRESSION: 1. No evidence of hydronephrosis involving either kidney. 2. Interval placement of a left percutaneous nephrostomy tube.3. Known bladder wall malignancy wh ich appears to extend along the undersurface of the bladder and may involve the anterior wall of the rectum. There is a new suspicious left obturator node. Bladder wall thickening is more circumferent ial which may be related to ongoing radiation therapy. 4. Prior prostatectomy. 5. 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 More bone destruction on the prior study is seen. 6. Hiatal hernia. 7. Bilateral pulmonary nodules suspicious for metastatic disease. Consider dedicated chest CT to co mpletely evaluate extent of pulmonary disease. 8. Atherosclerosis. Results were discussed with EMILI SCHNEIDER at 11/11/2017 2:46 PM. Report Dictated By: King Boothe at 11/11/2017 1:54 PM Report E-Signed By: King Boothe at 11/11/2017 2:47 PM WSN:[id number]
[2017-11-14 09:19] VITALS: BP 96/48
[2017-11-14 09:47] LABS: PLATELET COUNT, AUTOMATED 162 K/uL (150-450)
[2017-11-14] MEDS: LIDOCAINE/SOD BICARB 8.4% SYR ID PRN (11:00)
[2017-11-14] MEDS: NS(*) 0.9% 1000 ML BAG 1,000 ML IV PRN (11:00)
[2017-11-14] MEDS: HEPARIN FLSH (PORT) 500 UN/5ML IVP PRN (11:00)
[2017-11-14 11:26] VITALS: BP 114/55
[2017-11-22] MEDS: LIDOCAINE/SOD BICARB 8.4% SYR ID PRN (10:49)
[2017-11-22] MEDS: HEPARIN FLSH (PORT) 500 UN/5ML IVP PRN (10:50)
[2017-11-22] MEDS: NS(*) 0.9% 500 ML BAG 500 ML IV PRN (10:50)
[2017-11-22 10:56] LABS: PLATELET COUNT, AUTOMATED 77 K/uL (150-450)
[2017-11-24 09:20] VITALS: BP 109/63
--- NOTE | 2017-11-24 20:21 | ONCOLOGY FOLLOW UP NOTE ---
EVENT DATE: November 24, 2017 DIAGNOSES 1. 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 2. History of prostate cancer. 3. History of transient ischemic attack status post carotid endarterectomy, September 2017. 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 ONCOLOGY HISTORY Patient is an 82-year-old male who had prior oncologic history of prostate cancer for which he underwent radical prostatectomy approximately 20 years ago. In early 2017 patient was noted to have an elevated PSA in the range of 18 and he started on Lupron and Casodex therapy, and his PSA was brought under control. Patient had recent carotid endarterectomy in [place], September 2017, and during his hospitalization patient was found to have obstructed left ureter and hydronephrosis, so the patient was referred to Dr. Gandhi in [place] for further evaluation and management. He had a CT abdomen and pelvis done on September 28, 2017 which showed status post prostatectomy. There may be some residual soft tissue present which is causing mild compression to the urinary bladder versus an intramedullary bladder abnormality with mild left hydronephrosis. He had cystoscopy with bladder and urethral biopsies done on September 26, 2017 under the direction of Dr. 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 Patient underwent left-sided percutaneous nephrostomy tube placement on September 27, 2017. His creatinine dropped after that. He has been evaluated by Dr. You, who requested a PET/CT scan which was done on October 14, 2017, which showed asymmetric thickening of the left posterolateral wall of the urinary bladder, likely correlates with the patient's nonbladder cancer. There was subcentimeter left pelvic side wall lymph node with no prominent uptake. There was also hypermetabolic lytic lesion in the inferior right pubic bone, and a second lytic lesion in the lower sacrum to the left of the midline with mild uptake concerning for bony metastasis. Patient is scheduled for CT-guided biopsy of one of the bone lesions in [place]. 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 The patient started chemotherapy and radiosensitizer with radiation therapy with mitomycin and 5-FU on November 07, 2017. HISTORY OF PRESENT ILLNESS Patient is here today for followup of his metastatic bladder cancer. After his last chemotherapy he developed high blood sugar and the patient went to the emergency room. He has also some nausea and he vomited twice after chemotherapy. He is complaining of some cough with expectoration. He has pain in the right groin after his bone biopsy, for which the patient had CT abdomen and pelvis, which really did not show much changes except for a nodule in the lung which was not actually covered by the field or with initial scan. There was also some suspicious obturator lymph node which is new. He is complaining also of some weakness and fatigue. PAST MEDICAL HISTORY 1. Type 2 diabetes. 2. History of prostate cancer. 3. Hypertension. 4. Coronary artery disease status post four stent placement. 5. 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 6. Chronic kidney disease stage 4. PAST SURGICAL HISTORY 1. Carotid endarterectomy September 06, 2017. 2. Tonsillectomy. 3. Hemorrhoidectomy. 4. Prostatectomy. 5. Bilateral inguinal hernia repair. 6. Exploratory laparotomy. 7. Bilateral rotator cuff repair. 8. Deviated septum surgery. 9. Cholecystectomy. 10. Status post percutaneous nephrostomy tube placement. FAMILY HISTORY Father with pancreatic cancer. Paternal uncle had prostate cancer. Brother had both prostate and pancreatic cancer. SOCIAL HISTORY Patient is with two children. 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 He quit smoking 44 years ago after half a pack a day for 15 years. He chewed tobacco for about seven years. He denies any abuse of alcohol or illicit drugs. CURRENT MEDICATIONS 1. Plavix 75 mg daily. 2. Metoprolol 25 mg twice daily. 3. Aspirin 81 mg daily. 4. Lupron 7.5 mg as directed. 5. Casodex 50 mg daily. 6. Atorvastatin 40 mg at bedtime. 7. Humalog insulin as directed. ALLERGIES 1. DEMEROL which causes his heart to stop. 2. MORPHINE which causes skin rash. REVIEW OF SYSTEMS CONSTITUTIONAL: No appetite or weight change. No fever. The patient has some chills. No sweating. No recent infection. He has lost about 50 pounds in the last one and a half years. HEENT: Ears: No tinnitus or hearing problem. Nose: No nasal discharge or epistaxis. Throat: No sore throat or mouth ulcers. Eyes: No diplopia or visual changes. RESPIRATORY: No shortness of breath. No has cough with expectoration. No hemoptysis. CARDIOVASCULAR: No chest pain, orthopnea, or paroxysmal nocturnal dyspnea (PND) . No edema. No palpitations. GASTROINTESTINAL: He has nausea after his chemotherapy. No diarrhea or constipation. No change in bowel movements. No heartburn or swallowing difficulties. No abdominal pain. No jaundice. No hematemesis, melena or rectal bleeding. GENITOURINARY: No hematuria or dysuria. He is currently on a nephrostomy tube. MUSCULOSKELETAL: He has right groin pain. NEUROLOGICAL: No tingling or numbness in the hands or feet. No headaches or convulsions. HEMATOLOGIC/LYMPHATIC: No bleeding or easy bruising. He is weak, tired and fatigued. No enlarged lymph nodes. SKIN: No skin rash or lumps. PSYCHIATRIC: No anxiety or depression. PHYSICAL EXAMINATION GENERAL: Looks stable. Well-developed, well-nourished, and in no acute distress. VITAL SIGNS: Blood pressure 109/63, pulse 73 per minute, respirations 16 per minute, temperature 97.3, pulse ox 98% on room air. HEENT: Head: Atraumatic. No sinus tenderness to palpation. Eyes: No icterus or conjunctivitis. Mouth and Throat: No oral thrush or mucositis. NECK: Supple. No cervical or supraclavicular lymphadenopathy. LUNGS: Clear to auscultation and percussion bilaterally. HEART: Regular rate and rhythm. No gallops, murmurs, clicks or rubs. ABDOMEN: Soft and lax. No tenderness. No hepatosplenomegaly. No masses. Nephrostomy tube is noted. EXTREMITIES: No cyanosis, clubbing or edema. LYMPHATICS: No peripheral lymphadenopathy. NEUROLOGICAL: Conscious, alert and oriented times three. No focal motor or sensory deficits. PSYCHIATRIC: Mood and affect appear normal. SKIN: No skin rash, bruise or purpuric eruption. DIAGNOSTIC DATA CBC shows white count 2.8, hemoglobin 10.1, hematocrit 28.9, platelets 77,000. ANC 1.5. Chem panel totally normal except BUN 29, creatinine 1.3 and total protein 5.6. ASSESSMENT 1. 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 Gandhi. Patient is not a candidate for radical cystectomy. Bladder preservation therapy will be the plan of management given that the patient has obstructive uropathy and currently is having nephrostomy tube, and hoping chemoradiation will shrink the tumor so a stent can be placed and the nephrostomy tube and be taken out. Patient has a history of chronic kidney disease stage 4 and he is not eligible for cisplatin therapy. For radiosensitization the patient started is first cycle of chemistry with 5-FU and mitomycin on November 07, 2017, and following his first cycle of chemotherapy patient developed very high blood sugar above 500, went to the emergency room, and he had also high blood pressure at that time. He has some nausea after his chemotherapy, and he vomited twice, but currently he is doing fine. My plan in the future after finishing the chemoradiation, I will treat him with gemcitabine and Taxol, and he will be a candidate for immunotherapy with Tecentriq as a second line treatment. PET scan done October 14, 2017 did reveal besides the abnormal area of the bladder, two lytic lesions, one in the inferior right pubic bone, and the second one in the lower sacrum, and CT- guided biopsy of the symphysis pubis lesion on October 25, 2017 came back positive for high grade transitional cell carcinoma. Patient was not planning to continue his treatment, but after talking to him today, he decided to proceed with his chemotherapy at this time. Because of his poor sugar control after the first cycle, most probably because of the Decadron use, I am planning to treat him with a prophylactic dose of insulin 12 units with his premedication to prevent the high blood sugar, and will continue to monitor his blood sugar closely during his treatment. Patient is due for his second cycle of mitomycin and 5-FU on November 28, and I will proceed with chemotherapy as planned. I will see him a month after he will finish his chemotherapy to start his next chemotherapy with Taxol and gemcitabine. I had a long discussion with the patient and his family today regarding all these issues, and they are agreeable to continue the treatment, and patient himself is willing to do so. 2. History of prostate cancer. He is currently on Lupron and Casodex with PSA control. His PSA dropped from 18 to 0.3, and his bone metastasis proved to be due to his bladder cancer rather than the prostate cancer. 3. History of transient ischemic attack status post carotid endarterectomy, September 2017. PLAN 1. Chemotherapy with mitomycin and 5-FU. This will be the second last cycle on November 28, 2017. 2. CBC, chem panel to be checked weekly. 3. Patient to return in a month from now with CBC and chem panel. 4. No Neulasta during radiation and chemotherapy. 5. Patient to contact us for any new concerns or complaints. MTDD
[2017-11-28] MEDS: LIDOCAINE/SOD BICARB 8.4% SYR ID PRN (09:33)
[2017-11-28 11:27] LABS: PLATELET COUNT, AUTOMATED 72 K/uL (150-450)
[2017-11-28] MEDS: HEPARIN FLSH (PORT) 500 UN/5ML IVP PRN (16:42)
[2017-12-05 10:30] VITALS: BP 105/62
[2017-12-05] MEDS: NS(*) 0.9% 500 ML BAG 500 ML IV PRN (11:04)
[2017-12-05] MEDS: LIDOCAINE/SOD BICARB 8.4% SYR ID PRN (11:04)
[2017-12-05] MEDS: DEXAMETHASONE SOD PHOS 10MG/ML IVP PRN (11:05)
--- NOTE | 2017-12-05 15:26 | Oncology Progress Note ---
History of Present Illness Evaluation Evaluation Date: Dec 05, 2017 Evaluation Time: 10:00 Accompanied by Accompanied by: Son & Grandson Last seen by : Teddy Chief Complaint Chief Complaint Treatment for Radiosensitizer with mitomycin and 5-FU for Metastatic urothelial carcinoma high grade Dx 10/2017 Oncology History Oncology History - In early 2017 patient was noted to have an elevated PSA in the range of 18 and he started on Lupron and Casodex therapy, and his PSA was brought under control. - Patient had recent carotid endarterectomy in [place], September 2017, and during his hospitalization patient was found to have obstructed left ureter and hydronephrosis, so the patient was referred to Dr. Gandhi in [place] for further evaluation and management. - He had a CT abdomen and pelvis done on September 28, 2017 which showed status post prostatectomy. There may be some residual soft tissue present which is causing mild compression to the urinary bladder versus an intramedullary bladder abnormality with mild left hydronephrosis. - He had cystoscopy with bladder and urethral biopsies done on September 26, 2017 under the direction of Dr. 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 - Patient underwent left-sided percutaneous nephrostomy tube placement on September 27, 2017. His creatinine dropped after that. - He was evaluated by Dr. You, who requested a PET/CT scan which was done on October 14, 2017, which showed asymmetric thickening of the left posterolateral wall of the urinary bladder, likely correlates with the patient's nonbladder cancer. There was subcentimeter left pelvic side wall lymph node with no prominent uptake. There was also hypermetabolic lytic lesion in the inferior right pubic bone, and a second lytic lesion in the lower sacrum to the left of the midline with mild uptake concerning for bony metastasis. - Patient is scheduled for CT-guided biopsy of one of the bone lesions in [place]. 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 - The patient started chemotherapy and radiosensitizer with radiation therapy with mitomycin and 5-FU on November 07, 2017 HPI HPI Mr. Elenita Albarran is an 82 year old male who has Metastatic urothelial carcinoma high grade Dx 10/2017. Patient is seen at the infusion center today for his treatment , he is accompany by his loved ones Son and Grandson. Currently patient is being treated with radiation therapy, mitomycin and 5-FU as of November 07, 2017. Patient is s/p left-sided percutaneous nephrostomy tube placement on September 27, 2017. His creatinine dropped after that. Patient had recent carotid endarterectomy in [place], September 2017, and during his hospitalization patient was found to have obstructed left ureter and hydronephrosis. He had cystoscopy with bladder and urethral biopsies done on September 26, 2017 under the direction of Dr. 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 In early 2017 patient was noted to have an elevated PSA in the range of 18 and he started on Lupron and Casodex therapy, and his PSA was brought under control. Significant oncologic PMH of prostate cancer for which he underwent radical prostatectomy approximately 20 years ago (1997). 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 Denies any recent infections, nor starting n any new medications. Patient reports feeling in his usual state of health, reports some fatigue for which he takes naps. He reports having constipation; he informs me that he has not had a bowel movement for the last 2-3 days and he has been taking been Dulcolax [id number] over the weekend in fear of having an accident during treatment. Living Conditions Lives with family, with great support of his son and grandson Diagnostic Studies Result Diagram: 12/05/1794012/05/17 09 PMH Patient History: FH: arthritis BROTHER OR SISTER FH: diabetes mellitus MOTHER, , Age:86 FH: pancreatic cancer FATHER, , Age:61 BROTHER OR SISTER Social/Occupational History Social History: Social History This is a 82 Yr old White male, he is U Unknown and has [] Children Hx Smoking: Yes (20 YRS) Smoking Status: Former Smoker Allergies & Medications Allergies: Coded Allergies: meperidine (Verified Allergy, Severe, 11/07/17) morphine (Verified Allergy, Severe, 11/07/17) Home Meds Active Scripts Hydrocodone Bit/Acetaminophen (NORCO 5-325 TABLET) 1 Each Tablet, 1 EACH PO Q4H Y for PAIN, #20 TAB Prov:CRISTA PALMA MD 11/04/17 Reported Medications Acetaminophen (TYLENOL) 325 Mg Tablet, 2 TAB PO QHS Y for PAIN, TAB 11/02/17 Multivitamin (MULTIVITAMINS) 1 Each Capsule, 1 EACH PO QDAY, CAPSULE 11/02/17 Leuprolide Acet 11.25 Mg [id number] (LUPRON DEPOT 11.25 MG [id number]) 11.25 Mg Syringekit, 11.25 MG IM DIRECTED, SYR EVERY 3 MONTHS 11/02/17 Hum Insulin Nph/Reg Insulin Hm (RELION NOVOLIN 70-30 VIAL) 100 Unit/1 Ml Vial, 20-40 UNIT SQ PRN Y for SLIDING SCALE, VIAL 11/02/17 Atorvastatin Calcium (LIPITOR) 40 Mg Tablet, 1 TAB PO QHS, TAB 11/02/17 Metoprolol Tartrate (METOPROLOL TARTRATE) 25 Mg Tablet, 0.5 TAB PO BID, TAB 11/02/17 Clopidogrel Bisulfate (PLAVIX) 75 Mg Tablet, 1 TAB PO QDAY, TAB 11/02/17 Aspirin (ASPIRIN) 81 Mg Tab.chew, 81 MG PO QDAY, TAB.CHEW 11/02/17 Review of Systems Constitution: Positive for Appetite/Weight Change (reports weight loss of > 50lbs in the ast year ), Denies Fever/Chills/Sweating, Denies Recent Infection, Positive for Other ( erate fatigue) HEENT: No EARS: Tinnitus, No NOSE: Nasal Discharge, No THROAT: Sore Throat, No EYES: Dipolpia, No EARS: Hearing Problems, No NOSE: Epistaxis, No THROAT: Mouth Ulcers, No EYES: Vision Change, No OTHER Respiratory: No Cough, No Expectoration, No Hemoptysis, No Shortness of Breath , No OTHER Cardiovascular: No Chest Pain, No Orthopnea, No Edema, No Palpitations, No OTHER Gastrointestinal: No Nausea, No Vomitting, No Diarrehea, Constipation, No Heart Burn, No Swallowing Difficulties, No Abdominal Pain, No Other Gentiourinary: No Hematuria, No Dysuria, No Nocturia, No Other Musculoskeletal: Bone Pain Hematological: Weakness Skin: No Skin Rash, No Lumps, No Erythema, No Dry Skin, No Moist Skin, No Other Psychiatric: Anxiety Vital Signs Vital Signs Temperature: 96.9 Pulse: 78 BP Systolic: 105 BP Diastolic: 62 Respiratory Rate: 16 O2 SAT: 93 O2 Delivery: Height (feet) Height (inches) 65.25 Weight lb: 149 Weight oz: Weight Kg (Ayan): Pain: 3 PERFORMANCE STATUS: ECOG 1- 1- Strenuous physical activity restricted; fully ambulatory and able to carry out light work. Physical Exam General: Looks Stable, Well Nourished, Other (in no acute distress) HEENT: HEAD:Atraumatic Neck: Supple, No Cervical Lymphadenopathy, No Subclavicular Lymphadopathy, No Thyromegaly, No Other Lungs: Clear to Auscultation, Percussion Bilaterally Heart: Regular Rate and Rhythm, No Gallops, No Murmurs, No Clicks, No Rubs, No Other Abdomen: No Soft and Nontender, No Hepatosplenomegaly, No Masses, No Other Extremities: No Cyanosis, No Clubbing, No Edema, No Other Lymphatics: No Peripheral Lymphadenopathy, No Other Psychiatric: Mood appears normal, Affect appears normal Skin: No Skin Rashes, No Bruising, No Purpura, No Moist Desquamation, No Dry Desquamation, No Errythema, No Mild Errythema, No Moderate Errythema, No Severe Errythema, No Induration, No Other Breast: No No Masses, No No Nipple Discharge, No No Skin Changes, No Other Assessment and Plan Assessment and Plan Mr. Elenita Albarran is an 82 year old male who has Metastatic urothelial carcinoma high grade Dx 10/[address]-guided biopsy . Patient is seen [facility] for his treatment , he is accompany by his loved ones Son and Grandson. Currently patient is being treated with radiation therapy, mitomycin and 5-FU as of November 07, 2017. Patient is s/p left-sided percutaneous nephrostomy tube placement on September 27, 2017. His creatinine dropped after that. Patient had recent carotid endarterectomy in , September 2017. Significant oncologic PMH of prostate cancer for which he underwent radical prostatectomy approximately 20 years ago (1997). 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 1. Metastatic urothelial carcinoma high grade Dx 10/2017 2. Thrombocytopenia in the setting of chemo/radiation treatment. No active bleeding, no bruising, bleeding precautions teaching reinforced, patient instructed to take Tylenol for pain, vs. Ibuprofen. 3. Constipation. Patient reports That He Has Not Had a Bowel Movement for a Couple of 2-3 Days and That He's Been Scared to Take His Dulcolax in fear of Having Accidents. Patient Was Prescribed Colace, Senokot and MiraLAX Patient Was Instructed to Stop Taking Dulcolax [id number]. We Will Monitor Closely in the Next f/u appointment. Patient Was Instructed to Back off the Stool Softeners If He Has More Than 3 Bowel Movements per Day, to keep hydrated with water in between meals. Patient and Family Agrees with the Plan. 4. s/p left-sided percutaneous nephrostomy tube placement on September 27, 2017. left posterior lower flank nephrostomy tube noted, dressing was clean dry and intact, no drainage, no sign of infection, teaching was reinforced on how to keep the nephrostomy tube empty and closed as tube was slightly loose after a visit to the bathroom and he was leaking urine from the bottom of the tube. 5. Hx of Hyperglycemia. After his last chemotherapy his BG spiked in the 500s approximately high blood sugar and the patient went to the emergency room. Patient to get 12 units of insulin per Dr. Espinal orders, BG prior to initiation of treatment was 182; BG s/p 2 hours after treatment reported 132. He reports having awareness of hypoglycemic episodes , his eyesight gets blurry. Teaching provided to patient to always check his glucose levels before administering insulin, and to always carry a snack, candy, juice, and water with him. 6. Hx of diabetic retinopathy. Patient due for Ophthalmology/Diabetic retinopathy check up January 2018. CHRONIC 1. Type 2 diabetes. HX of Diabetic retinopathy Denies diabetic neuropathy. on Humalog 70/30 ( Reported). he informs me that his BG in the A.m is in the 97 range for which he typically gets 20units of insulin SC. Followed by BG in the P.M is in the 165-200 for which he injects 25 units of insulin SC. 2. History of prostate cancer. on Lupron and casodex 3. Hypertension. on Metoprolol 25mg PO BID. 4. Coronary artery disease status post four stent placement. 5. 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 6. Chronic kidney disease stage 4. PLAN 1. Administer Chemotherapy with mitomycin and 5-FU as planned today. Last cycle today 2017. Patient to get 12 units of insulin per Dr. Espinal orders, BG prior to initiation of treatment 182. Patient to check BG 2 hours after insulin administration, Patient to call Clinic and report BG level. If Blood Glucose level >/=165 patient may administer 10 units of his home insulin, and to continue with his regular evening routine of checking blood glucose and administering insulin per sliding scale. Patient did call RN and his BG 2 hours s/p insulin and treatment was 132. 2. CBC, chem panel to be checked weekly. 3. Patient to have Pump place today12/05/17 , and remove on 12/09/17 3a. to return in a month from now with CBC and chem panel. 4. No Neulasta during radiation and chemotherapy. 5. Anticipatory Pancytopenia. We will monitor counts closely 6. Patient may take tylenol for pain, patient to stop taking Ibuprofen 7. Patient to stop taking OTC dulcolax for now, patient Rx colace, senna, and Miralax. Patient to keep hydrated, take sips of water in between meals. 8. RN to asses Bowel movement status and constipation on next visit 9. Patient has an an eye exam for drivers license this Tuesday12/09/17 . Patient due for Ophthalmology/Diabetic retinopathy check up January 2018. Please include report in chart. 10.Patient to contact us for any new concerns or complaints. TIME SPENT: 45 minutes 40 > minutes includes but not limited to discussion, counselling and co-ordination~ of care. Discussion with other health care providers, record review, review of lab work, diagnostic tests. Plan discussed extensively with patient, son and grandson. All the questions answered today. Thank you for the opportunity to be involved in the care of Deion Kwong. Billing Level: Return visit 5 CC Copies to: EMILI SCHNEIDER MD; BARRY YOU MD-RIGO RAJAN-C, ONC Dec 05, 2017 15:26
[2017-12-09 09:42] VITALS: BP 112/58
[2017-12-09] MEDS: HEPARIN FLSH (PORT) 500 UN/5ML IVP PRN (11:17)
[2017-12-12 09:51] VITALS: BP 107/64
[2017-12-12 10:12] LABS: PLATELET COUNT, AUTOMATED 105 K/uL (150-450)
[2017-12-12] MEDS: LIDOCAINE/SOD BICARB 8.4% SYR ID PRN (10:54)
[2017-12-12] MEDS: NS(*) 0.9% 1000 ML BAG 1,000 ML IV PRN (10:54)
[2017-12-12] MEDS: HEPARIN FLSH (PORT) 500 UN/5ML IVP PRN (11:29)
--- NOTE | 2017-12-13 09:11 | Oncology Progress Note ---
History of Present Illness Evaluation Evaluation Date: Dec 12, 2017 Evaluation Time: 10:30 Accompanied by Accompanied by: Zane Sandhu Last seen by : Teddy Chief Complaint Chief Complaint Diarrhea Oncology History Oncology History In early 2017 patient was noted to have an elevated PSA in the range of 18 and he started on Lupron and Casodex therapy, and his PSA was brought under control. - Patient had recent carotid endarterectomy in [place], September 2017, and during his hospitalization patient was found to have obstructed left ureter and hydronephrosis, so the patient was referred to Dr. Gandhi in [place] for further evaluation and management. - on September 28, [address] abdomen and pelvis done on September 28, 2017 which showed status post prostatectomy. There may be some residual soft tissue present which is causing mild compression to the urinary bladder versus an intramedullary bladder abnormality with mild left hydronephrosis. - He had cystoscopy with bladder and urethral biopsies done on September 26, 2017 under the direction of Dr. 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 - Patient underwent left-sided percutaneous nephrostomy tube placement on September 27, 2017. His creatinine dropped after that. - He was evaluated by Dr. You, who requested a PET/CT scan which was done on October 14, 2017, which showed asymmetric thickening of the left posterolateral wall of the urinary bladder, likely correlates with the patient's nonbladder cancer. There was subcentimeter left pelvic side wall lymph node with no prominent uptake. There was also hypermetabolic lytic lesion in the inferior right pubic bone, and a second lytic lesion in the lower sacrum to the left of the midline with mild uptake concerning for bony metastasis. - Patient is scheduled for CT-guided biopsy of one of the bone lesions in [place]. 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 - on November 07, 2017 patient started chemotherapy and radiosensitizer with radiation therapy with mitomycin and 5-FU on November 07, 2017 Treatment Treatment - November 07, 2017 Approximately 37 sessions of radiation therapy, Mitomycin and 5- FU - 2017 last cycle of mitomycin and 5-FU -Patient to have Pump place today 12/05/17 , and remove on Tuesday12/09/17 HPI HPI Mr. Elenita Albarran is an 82 year old male who has Metastatic urothelial carcinoma high grade Dx 10/[address]-guided biopsy . Patient presents to the clinic, accompany by his son Edson after radiation therapy complaining of abdominal cramps, diarrhea. Patient appears dehydrated patient is hemodynamically stable. he denies nausea and vomiting and he reports diarrhea "small scant amounts throughout today. Patient informs me that this is the worse he has ever felt throughout the treatment, the abdominal cramps started on Tuesday12/11/17, prior to that he had an excellent week. and he sounds quite discouraged. I reassured patient that we will address this symptom, and to not be discouraged. Patient is examined and hypoactive bowel sounds present. No SOB, No dizziness, No cardiac type chest pain, No bleeding or bruising, no night sweats, no coughing, apatite ok, sleeping ok, moderate fatigue, able to carry on ADLs within his baseline. INTERVAL HISTORY Patient is s/p left-sided percutaneous nephrostomy tube placement on September 27, 2017. His creatinine dropped after that. Patient had recent carotid endarterectomy in [place], September 2017, and during his hospitalization patient was found to have obstructed left ureter and hydronephrosis. He had cystoscopy with bladder and urethral biopsies done on September 26, 2017 under the direction of Dr. 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 In early 2017 patient was noted to have an elevated PSA in the range of 18 and he started on Lupron and Casodex therapy, and his PSA was brought under control. Significant oncologic PMH of prostate cancer for which he underwent radical prostatectomy approximately 20 years ago (1997). 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 Denies any recent infections, nor starting n any new medications. Diagnostic Studies Result Diagram: 12/12/17 1000 12/12/17 1000 PMH Patient History: FH: arthritis BROTHER OR SISTER FH: diabetes mellitus MOTHER, , Age:86 FH: pancreatic cancer FATHER, , Age:61 BROTHER OR SISTER Social/Occupational History Social History: Social History This is a 82 Yr old White male, he is U Unknown and has [] Children Hx Smoking: Yes (20 YRS) Smoking Status: Former Smoker Allergies & Medications Allergies: Coded Allergies: meperidine (Verified Allergy, Severe, 11/07/17) morphine (Verified Allergy, Severe, 11/07/17) Home Meds Active Scripts Hydrocodone Bit/Acetaminophen (NORCO 5-325 TABLET) 1 Each Tablet, 1 EACH PO Q4H Y for PAIN, #20 TAB Prov:CRISTA PALMA MD 11/04/17 Reported Medications Acetaminophen (TYLENOL) 325 Mg Tablet, 2 TAB PO QHS Y for PAIN, TAB 11/02/17 Multivitamin (MULTIVITAMINS) 1 Each Capsule, 1 EACH PO QDAY, CAPSULE 11/02/17 Leuprolide Acet 11.25 Mg [id number] (LUPRON DEPOT 11.25 MG [id number]) 11.25 Mg Syringekit, 11.25 MG IM DIRECTED, SYR EVERY 3 MONTHS 11/02/17 Hum Insulin Nph/Reg Insulin Hm (RELION NOVOLIN 70-30 VIAL) 100 Unit/1 Ml Vial, 20-40 UNIT SQ PRN Y for SLIDING SCALE, VIAL 11/02/17 Atorvastatin Calcium (LIPITOR) 40 Mg Tablet, 1 TAB PO QHS, TAB 11/02/17 Metoprolol Tartrate (METOPROLOL TARTRATE) 25 Mg Tablet, 0.5 TAB PO BID, TAB 11/02/17 Clopidogrel Bisulfate (PLAVIX) 75 Mg Tablet, 1 TAB PO QDAY, TAB 11/02/17 Aspirin (ASPIRIN) 81 Mg Tab.chew, 81 MG PO QDAY, TAB.CHEW 11/02/17 Review of Systems Constitution: Positive for Appetite/Weight Change (reports weight loss of > 50lbs in the ast year ), Denies Fever/Chills/Sweating, Denies Recent Infection, Positive for Other ( moderate fatigue) HEENT: No EARS: Tinnitus, No NOSE: Nasal Discharge, No THROAT: Sore Throat, No EYES: Dipolpia, No EARS: Hearing Problems, No NOSE: Epistaxis, No THROAT: Mouth Ulcers, No EYES: Vision Change, No OTHER Respiratory: No Cough, No Expectoration, No Hemoptysis, No Shortness of Breath , No OTHER Cardiovascular: No Chest Pain, No Orthopnea, No Edema, No Palpitations, No OTHER Gastrointestinal: Diarrehea, Abdominal Pain (started 7/8/18) Gentiourinary: No Hematuria, No Dysuria, No Nocturia, No Other Musculoskeletal: Bone Pain Hematological: Weakness Skin: No Skin Rash, No Lumps, No Erythema, No Dry Skin, No Moist Skin, No Other Psychiatric: Anxiety Vital Signs Vital Signs Temperature: 97.1 Pulse: 77 BP Systolic: 107 BP Diastolic: 64 Respiratory Rate: 16 O2 SAT: 96 O2 Delivery: Height (feet) Height (inches) 65.25 Weight lb: 149 Weight oz: Weight Kg (Ayan): Pain: 5 abdominal cramps ECOG- 2 Capable of all self-care but unable to carry out any work activities. Up and about >50% of waking hours Physical Exam General: Looks Stable, Other (in no acute distress) HEENT: HEAD:Atraumatic Neck: Supple, No Cervical Lymphadenopathy, No Subclavicular Lymphadopathy, No Thyromegaly, No Other Lungs: Clear to Auscultation, Percussion Bilaterally Heart: Regular Rate and Rhythm, No Gallops, No Murmurs, No Clicks, No Rubs, No Other Abdomen: Other (Hypoactive bowel sounds) Extremities: No Cyanosis, No Clubbing, No Edema, No Other Lymphatics: No Peripheral Lymphadenopathy, No Other Psychiatric: Other (Discouraged with treatment today) Skin: No Skin Rashes, No Bruising, No Purpura, No Moist Desquamation, No Dry Desquamation, No Errythema, No Mild Errythema, No Moderate Errythema, No Severe Errythema, No Induration, No Other Breast: No No Masses, No No Nipple Discharge, No No Skin Changes, No Other Assessment and Plan Assessment and Plan Mr. Elenita Albarran is an 82 year old male who has Metastatic urothelial carcinoma high grade Dx 10/[address]-guided biopsy . Patient's presents to the clinic, accompany by his son Edson after radiation therapy complaining of abdominal cramps, diarrhea. Patient appears dehydrated patient is hemodynamically stable. he denies nausea and vomiting and he reports diarrhea "small scant amounts throughout today. Patient informs me that this is the worse he has ever felt throughout the treatment, the abdominal cramps started on Tuesday, prior to that he had an excellent week. and he sounds quite discouraged. I reassured patient that we will address this symptom, and not be discouraged. Currently patient is being treated with radiation therapy, completed mitomycin and 5-FU as of 12/05/2017. Patient is s/p left-sided percutaneous nephrostomy tube placement on September 27, 2017. His creatinine dropped after that. Patient had recent carotid endarterectomy in [place], September 2017. 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 DIAGNOSTIC DATA WBC 2.4; hemoglobin 12.0; hematocrit 34.0; platelet 105; ANC 1.8; chemistry panel completely normal within normal limits GFR 41.4; except for BUN 40; creatinine 1.60; random glucose 254; 1.Metastatic urothelial carcinoma high grade Dx 10/2017 s/p chemo , currently on radiation therapy aprox 9 more session to be completed. 2. Diarrhea. stool specimen negative for C-diff negative, we will administer diclycomine Rx for abdominal cramps,x3 days, and hydration support. 3. Thrombocytopenia. Platelet count today 102k, no active bleeding or bruising at present moment. 4. Constipation. Resolved, on stool softeners PRN 5. Hx of Hyperglycemia. on sliding scale insulin 6. Hx of diabetic retinopathy. Patient due for Ophthalmology/Diabetic retinopathy check up January 2018. CHRONIC 1. Type 2 diabetes. HX of Diabetic retinopathy Denies diabetic neuropathy. on Humalog 70/30 ( Reported).per patient and son his BG in the A.m is in the 97s range for which he typically gets 20units of insulin SC. Followed by BG in the P.M is in the 165-200 for which he injects 25 units of insulin SC. 2. History of prostate cancer. on Lupron and casodex, 3. Hypertension. on Metoprolol 25mg PO BID. 4. Coronary artery disease status post four stent placement. 5. 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 6. Chronic kidney disease stage 4. PLAN 1. 1 L normal saline IV now for dehydration, please infuse over 90 minutes. 2. Stool specimen for C-diff leukocytes, occult blood 3. Dicyclomine admin 10mg Po x1 now ,followed by RX Dicyclomine 10mg Po BID# 6pills. Patient felt better at the end of treatment. 4. Pepcid famotidine 20 mg by mouth twice a day 10 pills 5. patient and son instructed to Call clinic Immediately or go to ER if abdominal cramps worsen 5. Patient to RTC per protocol and as scheduled, and to call with any issues or concerns. TIME SPENT: 45 minutes 40> minutes includes but not limited to discussion, counselling and co-ordination~ of care. Discussion with other health care providers, record review, review of lab work, diagnostic tests. Plan discussed extensively with patient. All the questions answered today. Thank you for the opportunity to be involved in the care of Deion Kwong Level: sick visit 5 CC Copies to: EMILI SCHNEIDER MD; BARRY YOU MD-RIGO RAJAN-Ginger, ONC Dec 12, 2017 17:16
[2017-12-15 14:27] VITALS: BP 105/54
[2017-12-15] MEDS: HEPARIN FLSH (PORT) 500 UN/5ML IVP PRN (15:39)
[2017-12-15] MEDS: NS(*) 0.9% 1000 ML BAG 1,000 ML IV PRN (15:39)
[2017-12-15 17:19] VITALS: BP 114/55
--- NOTE | 2017-12-15 17:33 | ONCOLOGY FOLLOW UP NOTE ---
EVENT DATE: December 15, 2017 DIAGNOSES 1. 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 2. History of prostate cancer. 3. History of transient ischemic attack status post carotid endarterectomy, September 2017. 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 ONCOLOGY HISTORY Patient is an 82-year-old male who had prior oncologic history of prostate cancer for which he underwent radical prostatectomy approximately 20 years ago. In early 2017 patient was noted to have an elevated PSA in the range of 18 and he started on Lupron and Casodex therapy, and his PSA was brought under control. Patient had recent carotid endarterectomy in [place], September 2017, and during his hospitalization patient was found to have obstructed left ureter and hydronephrosis, so the patient was referred to Dr. Gandhi in [place] for further evaluation and management. He had a CT abdomen and pelvis done on September 28, 2017 which showed status post prostatectomy. There may be some residual soft tissue present which is causing mild compression to the urinary bladder versus an intramedullary bladder abnormality with mild left hydronephrosis. He had cystoscopy with bladder and urethral biopsies done on September 26, 2017 under the direction of Dr. 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 Patient underwent left-sided percutaneous nephrostomy tube placement on September 27, 2017. His creatinine dropped after that. He has been evaluated by Dr. You, who requested a PET/CT scan which was done on October 14, 2017, which showed asymmetric thickening of the left posterolateral wall of the urinary bladder, likely correlates with the patient's nonbladder cancer. There was subcentimeter left pelvic side wall lymph node with no prominent uptake. There was also hypermetabolic lytic lesion in the inferior right pubic bone, and a second lytic lesion in the lower sacrum to the left of the midline with mild uptake concerning for bony metastasis. Patient is scheduled for CT-guided biopsy of one of the bone lesions in [place]. 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 The patient started chemotherapy and radiosensitizer with radiation therapy with mitomycin and 5-FU on November 07, 2017. HISTORY OF PRESENT ILLNESS Patient is here today for followup of his metastatic bladder cancer on chemoradiation. He is complaining of being very weak, tired and fatigued and dehydrated. He has also diarrhea, significant. PAST MEDICAL HISTORY 1. Type 2 diabetes. 2. History of prostate cancer. 3. Hypertension. 4. Coronary artery disease status post four stent placement. 5. 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 6. Chronic kidney disease stage 4. PAST SURGICAL HISTORY 1. Carotid endarterectomy September 06, 2017. 2. Tonsillectomy. 3. Hemorrhoidectomy. 4. Prostatectomy. 5. Bilateral inguinal hernia repair. 6. Exploratory laparotomy. 7. Bilateral rotator cuff repair. 8. Deviated septum surgery. 9. Cholecystectomy. 10. Status post percutaneous nephrostomy tube placement. FAMILY HISTORY Father with pancreatic cancer. Paternal uncle had prostate cancer. Brother had both prostate and pancreatic cancer. SOCIAL HISTORY Patient is with two children. 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 He quit smoking 44 years ago after half a pack a day for 15 years. He chewed tobacco for about seven years. He denies any abuse of alcohol or illicit drugs. CURRENT MEDICATIONS 1. Plavix 75 mg daily. 2. Metoprolol 25 mg twice daily. 3. Aspirin 81 mg daily. 4. Lupron 7.5 mg as directed. 5. Casodex 50 mg daily. 6. Atorvastatin 40 mg at bedtime. 7. Humalog insulin as directed. ALLERGIES 1. DEMEROL which causes his heart to stop. 2. MORPHINE which causes skin rash. REVIEW OF SYSTEMS CONSTITUTIONAL: The patient has generalized weakness. HEENT: Ears: No tinnitus or hearing problem. Nose: No nasal discharge or epistaxis. Throat: No sore throat or mouth ulcers. Eyes: No diplopia or visual changes. RESPIRATORY: No shortness of breath. No has cough with expectoration. No hemoptysis. CARDIOVASCULAR: No chest pain, orthopnea, or paroxysmal nocturnal dyspnea (PND) . No edema. No palpitations. GASTROINTESTINAL: He has significant diarrhea lately. GENITOURINARY: No hematuria or dysuria. He is currently on a nephrostomy tube. MUSCULOSKELETAL: He has right groin pain. NEUROLOGICAL: No tingling or numbness in the hands or feet. No headaches or convulsions. HEMATOLOGIC/LYMPHATIC: No bleeding or easy bruising. He is weak, tired and fatigued. No enlarged lymph nodes. SKIN: No skin rash or lumps. PSYCHIATRIC: No anxiety or depression. PHYSICAL EXAMINATION GENERAL: Looks stable. Well-developed, well-nourished, and in no acute distress. VITAL SIGNS: Blood pressure 105/54, pulse 86 per minute, respirations 16 per minute, temperature 97.7, pulse ox 98% on room air. HEENT: Head: Atraumatic. No sinus tenderness to palpation. Eyes: No icterus or conjunctivitis. Mouth and Throat: No oral thrush or mucositis. NECK: Supple. No cervical or supraclavicular lymphadenopathy. LUNGS: Clear to auscultation and percussion bilaterally. HEART: Regular rate and rhythm. No gallops, murmurs, clicks or rubs. ABDOMEN: Soft and lax. No tenderness. No hepatosplenomegaly. No masses. Nephrostomy tube is noted. EXTREMITIES: No cyanosis, clubbing or edema. LYMPHATICS: No peripheral lymphadenopathy. NEUROLOGICAL: Conscious, alert and oriented times three. No focal motor or sensory deficits. PSYCHIATRIC: Mood and affect appear normal. SKIN: No skin rash, bruise or purpuric eruption. DIAGNOSTIC DATA CBC shows white count 2.4, hemoglobin 12, hematocrit 34, platelets 105,000. ANC is 1.8. BUN 40, creatinine 1.6. Blood sugar 254. ASSESSMENT 1. 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 Gandhi. Patient is not a candidate for radical cystectomy. Bladder preservation therapy was the plan of management given that the patient has obstructive uropathy and on nephrostomy tube, and hoping that chemoradiation will shrink the tumor so a stent can be placed and the nephrostomy tube and be taken out. Patient has a history of chronic kidney disease stage 4 and he is not eligible for cisplatin therapy. For radiosensitization the patient started is first cycle of chemotherapy with 5-FU and mitomycin on November 07, 2017 and he received two cycles so far. He developed severe high blood sugar after his first cycle of chemotherapy, so the patient before the second cycle received insulin as a prophylaxis. He has 12 treatments of radiation to finish, and I am planning to see him in a month from now to start chemotherapy after that with gemcitabine and Taxol. His PET scan done October 14, 2017 did reveal besides the abnormal area of the bladder, two lytic lesions, one in the inferior right pubic bone, and the second one in the lower sacrum, and CT-guided biopsy of the symphysis pubis lesion on October 25, 2017 came back positive for high grade transitional cell carcinoma. Patient is complaining of dehydration and diarrhea currently with severe fatigue. I am planning to infuse normal saline 1 L today and 3 L tomorrow. I will see him in a month from now with CBC, chem panel and discuss the next chemo with gemcitabine and Taxol. After he will finish radiation therapy we are going to check his CT chest, abdomen and pelvis for further evaluation. 2. History of prostate cancer. He is currently on Lupron and Casodex with PSA control. His PSA dropped from 18 to 0.3, and his bone metastasis proved to be due to his bladder cancer rather than the prostate cancer. 3. History of transient ischemic attack status post carotid endarterectomy, September 2017. 4. Dehydration due to diarrhea. I am planning to infuse normal saline today and tomorrow. PLAN 1. IV fluids with normal saline 1 L today and 3 L tomorrow. 2. Patient to return in four weeks with CBC, chem panel prior to the next cycle of chemotherapy. 3. Consider CT chest, abdomen and pelvis after he will finish radiation therapy. 4. Patient is to contact us for any new concerns or complaints. MTDD
[2017-12-16] MEDS: NS(*) 0.9% 1000 ML BAG 1,000 ML IV PRN ×3 (10:00→14:31)
[2017-12-16 10:02] VITALS: BP 107/53
[2017-12-16 11:26] LABS: PLATELET COUNT, AUTOMATED 85 K/uL (150-450)
[2017-12-16 14:45] VITALS: BP 127/58
[2017-12-16] MEDS: HEPARIN FLSH (PORT) 500 UN/5ML IVP PRN (16:12)
[2017-12-16 16:13] VITALS: BP 138/67
[2017-12-20 10:17] VITALS: BP 92/46
[2017-12-20 10:33] LABS: PLATELET COUNT, AUTOMATED 95 K/uL (150-450)
[2017-12-20] MEDS: NS(*) 0.9% 1000 ML BAG 1,000 ML IV PRN ×2 (10:40→12:46)
[2017-12-20] MEDS: HEPARIN FLSH (PORT) 500 UN/5ML IVP PRN (14:55)
[2017-12-27 09:44] VITALS: BP 94/50
[2017-12-27 09:59] LABS: PLATELET COUNT, AUTOMATED 109 K/uL (150-450)
[2017-12-27] MEDS: NS(*) 0.9% 1000 ML BAG 1,000 ML IV PRN (10:15)
[2017-12-27 11:22] VITALS: BP 127/65
[2017-12-27] MEDS: HEPARIN FLSH (PORT) 500 UN/5ML IVP PRN (11:56)
[2018-01-02 09:30] VITALS: BP 96/59
[2018-01-02 10:04] LABS: PLATELET COUNT, AUTOMATED 104 K/uL (150-450)
[2018-01-02] MEDS: NS(*) 0.9% 1000 ML BAG 1,000 ML IV PRN (10:09)
[2018-01-02] MEDS: HEPARIN FLSH (PORT) 500 UN/5ML IVP PRN (11:02)
[2018-01-02 11:08] VITALS: BP 142/75
[2018-01-07 12:43] VITALS: Ht 165.7 cm; Wt 69.2 kg
[2018-01-11 11:27] VITALS: BP 112/70
[2018-01-11] MEDS: NS(*) 0.9% 1000 ML BAG 1,000 ML IV PRN (11:33)
[2018-01-11] MEDS: HEPARIN FLSH (PORT) 500 UN/5ML IVP PRN (12:36)
[2018-01-11 12:39] VITALS: BP 119/61
[2018-01-13] MEDS: NS(*) 0.9% 1000 ML BAG 1,000 ML IV PRN (13:30)
[2018-01-13 14:00] VITALS: BP 90/43
[2018-01-13 14:05] LABS: PLATELET COUNT, AUTOMATED 110 K/uL (150-450)
--- NOTE | 2018-01-13 17:09 | Medical Nutrition Therapy ---
Nutritional Education Nutrition Education Topic: Other (Nutrition and Cancer ) Learning Readiness: Interested Teaching Methods: Discussion, Handout Response to Teaching: Verbalize understanding Teaching Recipient: Patient, Family (Son ) Nutrition Counseling: Provided and reviewed handout on how to manage nutrition impact symptoms. Focused on Diarrhea/Constipation and encouraged patient to review additional information if he experiences additional nutrition impact symptoms Nutrition Monitoring & Eval Nutrition Goals: Eat 90-100% Meal, Drink > 2 liters/day Nutritional Goals Comment: regain weight, patients states ideal wt 165 lbs continue to drink boost 2-3 x/day Nutrition Follow-Up: Taking Snack Supplement, Fair Intake Nutrition Monitoring: patient states he eats normal foods just less than usual amounts, poor appetite, food doesn't taste good, issues with constipation and diarrhea RD Patient Assessment Time: [address] Assessment Type: RD Education Patient Nutrition Acuity: 2-Moderate Nutritional Comment: Encouraged patient to contact me if he has any nutrition related questions JUSTICE MARTIN RDN, ANGE Jan 13, 2018 17:09
--- NOTE | 2018-01-13 18:46 | ONCOLOGY FOLLOW UP NOTE ---
EVENT DATE: January 13, 2018 DIAGNOSES 1. 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 2. History of prostate cancer. 3. History of transient ischemic attack status post carotid endarterectomy, September 2017. 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 ONCOLOGY HISTORY Patient is an 82-year-old male who had prior oncologic history of prostate cancer for which he underwent radical prostatectomy approximately 20 years ago. In early 2017 patient was noted to have an elevated PSA in the range of 18 and he started on Lupron and Casodex therapy, and his PSA was brought under control. Patient had recent carotid endarterectomy in [place], September 2017, and during his hospitalization patient was found to have obstructed left ureter and hydronephrosis, so the patient was referred to Dr. Gandhi in [place] for further evaluation and management. He had a CT abdomen and pelvis done on September 28, 2017 which showed status post prostatectomy. There may be some residual soft tissue present which is causing mild compression to the urinary bladder versus an intramedullary bladder abnormality with mild left hydronephrosis. He had cystoscopy with bladder and urethral biopsies done on September 26, 2017 under the direction of Dr. 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 Patient underwent left-sided percutaneous nephrostomy tube placement on September 27, 2017. His creatinine dropped after that. He has been evaluated by Dr. You, who requested a PET/CT scan which was done on October 14, 2017, which showed asymmetric thickening of the left posterolateral wall of the urinary bladder, likely correlates with the patient's nonbladder cancer. There was subcentimeter left pelvic side wall lymph node with no prominent uptake. There was also hypermetabolic lytic lesion in the inferior right pubic bone, and a second lytic lesion in the lower sacrum to the left of the midline with mild uptake concerning for bony metastasis. Patient is scheduled for CT-guided biopsy of one of the bone lesions in [place]. 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 The patient started chemotherapy and radiosensitizer with radiation therapy with mitomycin and 5-FU on November 07, 2017. HISTORY OF PRESENT ILLNESS Patient is here today for followup of his metastatic bladder cancer after he finished his chemoradiation. Patient had a stormy reaction to the treatment, especially chemotherapy with severe diarrhea, nausea, vomiting, dehydration. He was admitted to the hospital and became very weak, tired and fatigued. He is complaining of shortness of breath, increased frequency of urine and weakness currently, but his diarrhea and vomiting resolved completely now. PAST MEDICAL HISTORY 1. Type 2 diabetes. 2. History of prostate cancer. 3. Hypertension. 4. Coronary artery disease status post four stent placement. 5. 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 6. Chronic kidney disease stage 4. PAST SURGICAL HISTORY 1. Carotid endarterectomy September 06, 2017. 2. Tonsillectomy. 3. Hemorrhoidectomy. 4. Prostatectomy. 5. Bilateral inguinal hernia repair. 6. Exploratory laparotomy. 7. Bilateral rotator cuff repair. 8. Deviated septum surgery. 9. Cholecystectomy. 10. Status post percutaneous nephrostomy tube placement. FAMILY HISTORY Father with pancreatic cancer. Paternal uncle had prostate cancer. Brother had both prostate and pancreatic cancer. SOCIAL HISTORY Patient is with two children. 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 He quit smoking 44 years ago after half a pack a day for 15 years. He chewed tobacco for about seven years. He denies any abuse of alcohol or illicit drugs. CURRENT MEDICATIONS 1. Plavix 75 mg daily. 2. Metoprolol 25 mg twice daily. 3. Aspirin 81 mg daily. 4. Lupron 7.5 mg as directed. 5. Casodex 50 mg daily. 6. Atorvastatin 40 mg at bedtime. 7. Humalog insulin as directed. ALLERGIES 1. DEMEROL which causes his heart to stop. 2. MORPHINE which causes skin rash. REVIEW OF SYSTEMS CONSTITUTIONAL: The patient has generalized weakness. HEENT: Ears: No tinnitus or hearing problem. Nose: No nasal discharge or epistaxis. Throat: No sore throat or mouth ulcers. Eyes: No diplopia or visual changes. RESPIRATORY: The patient has shortness of breath. No has cough with expectoration. No hemoptysis. CARDIOVASCULAR: No chest pain, orthopnea, or paroxysmal nocturnal dyspnea (PND) . No edema. No palpitations. GASTROINTESTINAL: He has significant diarrhea lately. GENITOURINARY: He has increased frequency of urine. No hematuria or dysuria. He is currently on a nephrostomy tube. MUSCULOSKELETAL: He has right groin pain. NEUROLOGICAL: No tingling or numbness in the hands or feet. No headaches or convulsions. HEMATOLOGIC/LYMPHATIC: No bleeding or easy bruising. He is weak, tired and fatigued. No enlarged lymph nodes. SKIN: No skin rash or lumps. PSYCHIATRIC: No anxiety or depression. PHYSICAL EXAMINATION GENERAL: Looks stable. Well-developed, well-nourished, and in no acute distress. VITAL SIGNS: Blood pressure 90/47, pulse 75 per minute, respirations 16 per minute, temperature 97.9, pulse ox 93% on room air. HEENT: Head: Atraumatic. No sinus tenderness to palpation. Eyes: No icterus or conjunctivitis. Mouth and Throat: No oral thrush or mucositis. NECK: Supple. No cervical or supraclavicular lymphadenopathy. LUNGS: Clear to auscultation and percussion bilaterally. HEART: Regular rate and rhythm. No gallops, murmurs, clicks or rubs. ABDOMEN: Soft and lax. No tenderness. No hepatosplenomegaly. No masses. Nephrostomy tube is noted. EXTREMITIES: No cyanosis, clubbing or edema. LYMPHATICS: No peripheral lymphadenopathy. NEUROLOGICAL: Conscious, alert and oriented times three. No focal motor or sensory deficits. PSYCHIATRIC: Mood and affect appear normal. SKIN: No skin rash, bruise or purpuric eruption. DIAGNOSTIC DATA CBC shows white count 3.5, hemoglobin 11.6, hematocrit 33.4, platelets 104,000. Chem panel totally normal except creatinine 1.7, blood sugar 221. ASSESSMENT 1. 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 Gandhi. Patient is not a candidate for radical cystectomy. Bladder preservation therapy was the plan of management given that the patient has obstructive uropathy on nephrostomy tube. Patient has a history of chronic kidney disease stage 4 and he is not eligible for cisplatin therapy. For radiosensitization the patient received chemotherapy with 5-FU and mitomycin started November 07, 2017, and he received two cycles, complicated with severe vomiting, diarrhea, dehydration and very high blood sugar after the first cycle of chemotherapy. He received radiation therapy. His PET scan done October 14, 2017 did reveal besides the abnormal area in the bladder, two lytic lesions, one in the inferior right pubic bone, the second one in the lower sacrum, and CT-guided biopsy of the symphysis pubis lesion done October 25, 2017 came back positive for high grade transitional cell carcinoma. Patient is starting to feel better, but he is still very extremely weak, tired and fatigued. I talked to him today that because he is not a candidate for cisplatin therapy, I am planning to treat him with Tecentriq, which is one of the check point inhibitors approved for transitional cell carcinoma of the bladder. I am planning to bring him back in three weeks with CBC, chem panel, and we will start treatment with Tecentriq at that time, and in the meantime I am planning to refer him to Physical Therapy for evaluation and management because of extreme fatigue. 2. Neoplastic-related fatigue. I am planning to refer the patient for physical therapy for evaluation and treatment. 3. History of prostate cancer. He is currently on Lupron and Casodex with PSA control. His PSA dropped from 18 to 0.3. 4. History of transient ischemic attack status post carotid endarterectomy, September 2017. PLAN 1. Continue follow-up. 2. Patient to return in three weeks with CBC, chem panel, and start treatment with Tecentriq. 3. Referral to Physical Therapy for evaluation and management of neoplastic- related fatigue. 5. Patient is to contact us for any new concerns or complaints. CORDELIAD
[2018-01-16] MEDS: NS(*) 0.9% 1000 ML BAG 1,000 ML IV PRN (14:30)
[2018-01-16 16:31] VITALS: BP 118/78
[2018-01-16] MEDS: HEPARIN FLSH (PORT) 500 UN/5ML IVP PRN (16:32)
[~2018-01-18] VITALS: Ht 165.7 cm; Wt 69.2 kg
[~2018-01-18] MED LIST changes: +ALTEPLASE RECOMB 2 MG VIAL IVP PRN; +APIX5TAB PO; +ATOR-1 PO; +DEXTROSE 5%(*) 100 ML BAG 100 ML IVPB PRN; +DICYCLOMINE HCL 10 MG CAP PO ONE; +ENOX100D5 SQ; +FLUOROURACIL IV ONE; +INS HUM LISPRO 100U/ML (ER ONLY) 10 ML VIAL SUBQ PRN; +MITOMYCIN 20 MG IV ONE; +NS 0.9% IV ONE; +NS(*) 0.9% 100 ML BAG 100 ML IVPB PRN; +NS(*) 0.9% 1000 ML BAG 1,000 ML IV ONE; +NS(*) 0.9% 1000 ML BAG 1,000 ML IV PRN; +ONDA-2 PO; +ONDANSETRON 4 MG/2 ML VIAL IVP ONE; +WATER FOR INJ,STERILE 20 ML IVP PRN; +[UNRECOGNIZED DRUG - OTHER] IV ONE
[2018-01-18 08:11] VITALS: BP 118/62
[2018-01-18] MEDS: LIDOCAINE/SOD BICARB 8.4% SYR ID PRN (08:39)
[2018-01-18] MEDS: NS(*) 0.9% 1000 ML BAG 1,000 ML IV PRN (08:39)
== END ==
LOC: ONC 10-20 14:07 → SPU 11-09 15:30 → ONC 11-24 08:54 → SPU 11-28 08:57 → ONC 12-05 08:51 → SPU 12-09 09:21 → ONC 12-12 09:52 → SPU 12-16 09:57
PROVIDERS: ATTEND Internal Medicine Hematology
DX: Z51.11 Encounter for antineoplastic chemotherapy (principal); C67.9 Malignant neoplasm of bladder, unspecified; N18.4 Chronic kidney disease, stage 4 (severe); Z85.46 Personal history of malignant neoplasm of prostate; Z86.73 Personal history of transient ischemic attack (TIA), and cerebral infarction without residual deficits; E11.9 Type 2 diabetes mellitus without complications; Z87.891 Personal history of nicotine dependence; R53.1 Weakness; R53.83 Other fatigue; M89.9 Disorder of bone, unspecified; K44.9 Diaphragmatic hernia without obstruction or gangrene; R91.8 Other nonspecific abnormal finding of lung field; Z93.6 Other artificial openings of urinary tract status
CPT/HCPCS: 36416; 36591; 74176; 82274; 82705; 82948; 83630; 83735; 84550; 85025; 85027; 87324; 87449; 96360; 96361; 96365; 96372; 96374; 96375; 96416; A9270; G0463; J1100; J1642; J2405; J2997; J7030; J7040; J9280; 81001; 82040; 82247; 82310; 82374; 82435; 82565; 82947; 84075; 84132; 84155; 84295; 84450; 84460; 84520; 87077; 87088; 87186; 96413; 99202; 99212; 99213; J1815

== ENCOUNTER 2018-01-22 14:40 | Observation (INO) | payer MEDICARE, OTHER ==
[~2018-01-22] VITALS: Ht 167.6 cm; Wt 65.8 kg
--- NOTE | 2018-01-22 14:46 | ER Report ---
History and Physical Time Seen By MD: 14:45 HPI/ROS CHIEF COMPLAINT: Upper diffuse abdominal pain, nausea, vomiting HISTORY OF PRESENT ILLNESS: Patient is an 82-year-old male with a history of prostate, bladder and bone cancer here with diffuse upper abdominal pain, nausea , vomiting which started approximately 1-2 hours prior to arrival. Patient reports recent admission at the end of December and early January for similar issues with nausea and vomiting, hypokalemia, generalized weakness, dehydration and acute on chronic kidney injury. Patient did have chemotherapy on November 07 with Mitocyn and then 5-FU. 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 His history is complicated for diabetes, prior CABG, radical prostatectomy, appendectomy, cholecystectomy and inguinal hernia repairs. Patient also reports that he started with diarrhea today. Patient denies headache, blurred vision, chest pain, shortness of breath, hematuria, burning with urination, fevers or chills. REVIEW OF SYSTEMS: Constitutional: No fever, no chills. Eyes: No discharge. ENT: No sore throat. Cardiovascular: No chest pain, no palpitations. Respiratory: No cough, no shortness of breath. Gastrointestinal: + diffuse rapidly recurrent upper abdominal pain, + nausea and vomiting, + diarrhea Genitourinary: No hematuria. Musculoskeletal: No back pain. Skin: No rashes. Neurological: No headache. Allergies: Coded Allergies: meperidine (Verified Allergy, Severe, 01/22/18) morphine (Verified Allergy, Severe, 01/22/18) Home Meds Active Scripts Apixaban (ELIQUIS) 5 Mg Tablet, 1 TAB PO BID for 90 Days, #90 TAB finish one week of lovenox shots and then start eliquis for tx of dvt Prov:KONRAD HAMMONDS MD 01/19/18 Enoxaparin Sodium (LOVENOX) 100 Mg/1 Ml Disp.syrin, 100 MG SQ DAILY, #90 SYR Prov:GISSELL ANDERSEN [facility] 01/09/18 Reported Medications Ondansetron Hcl (ONDANSETRON HCL) 4 Mg Tablet, 8 MG PO Q8H Y for NAUSEA, TAB 01/19/18 Hum Insulin Nph/Reg Insulin Hm (NOVOLIN 70-30 100 UNIT/ML VIAL) 100 Unit/1 Ml Vial, 20-30 UNIT SQ BID, VIAL 01/19/18 Aspirin (ASPIR 81) 81 Mg Tablet.dr, 1 TAB PO QDAY, TAB 01/19/18 Discontinued Reported Medications Atorvastatin Calcium (ATORVASTATIN CALCIUM) 80 Mg Tablet, 0.5 TAB PO HS, TAB 01/19/18 Atorvastatin Calcium (LIPITOR) 40 Mg Tablet, 1 TAB PO QHS, TAB 11/02/17 Metoprolol Tartrate (METOPROLOL TARTRATE) 25 Mg Tablet, 0.5 TAB PO BID 11/02/17 Hx Smoking: Yes (20 YRS) Smoking Status: Former Smoker Hx Substance Use Disorder: No Hx Alcohol Use: Yes Constitutional Vital Sign - Last 24 Hours 01/22/18 01/22/18 01/22/18 01/22/18 14:43 14:44 14:55 15:00 Temp 97.8 Pulse 92 95 Resp 18 B/P (MAP) 122/85 122/85 (97) 153/69 (97) Pulse Ox 100 100 O2 Delivery Room Air 01/22/18 01/22/18 01/22/18 01/22/18 15:05 15:20 15:30 15:35 Pulse 88 83 90 B/P (MAP) 151/56 (87) Pulse Ox 100 87 92 01/22/18 01/22/18 01/22/18 01/22/18 16:00 16:30 17:00 17:05 Pulse 94 B/P (MAP) 148/65 (92) 129/56 (80) 127/72 (90) Pulse Ox 92 Intake and Output 01/22/18 01/22/18 01/23/18 15:00 23:00 07:00 Intake Total 1000 ml Balance 1000 ml Physical Exam General Appearance: The patient is alert, has no immediate need for airway protection and no signs of toxicity. Significant distress secondary to pain, nausea and vomiting Eyes: Pupils equal and round no pallor or injection. ENT, Mouth: Mucous membranes are moist. Respiratory: There are no retractions, lungs are clear to auscultation. Cardiovascular: Regular rate and rhythm. Gastrointestinal: Abdomen is diffusely tender in the upper abdomen b/l, + rebound and guarding without distension or rigidity Neurological: No new focal neurological deficits, moving all extremities spontaneously Skin: Warm and dry, no rashes. Musculoskeletal: Neck is supple non tender. Extremities are nontender, nonswollen and have full range of motion. DIFFERENTIAL DIAGNOSIS: After history and physical exam differential diagnosis was considered for abdominal pain including but not limited to appendicitis, cholecystitis, gastritis and urinary tract infection, metastasis Medical Decision Making Data Points Result Diagram: 01/22/18 1455 01/22/18 1455 Laboratory Hematology Test 01/22/18 14:55 Red Blood Count 3.96 M/uL (4.00-5.60) Mean Corpuscular Volume 94.7 fL (80.0-96.0) Mean Corpuscular Hemoglobin 32.6 pg (26.0-33.0) Mean Corpuscular Hemoglobin Concent 34.4 g/dL (32.0-36.0) Red Cell Distribution Width 20.6 % (11.5-14.5) Mean Platelet Volume 7.2 fL (7.2-11.1) Neutrophils (%) (Auto) 73.1 % (39.4-72.5) Lymphocytes (%) (Auto) 15.6 % (17.6-49.6) Monocytes (%) (Auto) 9.1 % (4.1-12.4) Eosinophils (%) (Auto) 0.7 % (0.4-6.7) Basophils (%) (Auto) 1.5 % (0.3-1.4) Nucleated RBC Relative Count (auto) 0.0 /100WBC Neutrophils # (Auto) 5.1 K/uL (2.0-7.4) Lymphocytes # (Auto) 1.1 K/uL (1.3-3.6) Monocytes # (Auto) 0.6 K/uL (0.3-1.0) Eosinophils # (Auto) 0.0 K/uL (0.0-0.5) Basophils # (Auto) 0.1 K/uL (0.0-0.1) Nucleated RBC Absolute Count (auto) 0.00 K/uL Peripheral Blood Smear No Y/N Prothrombin Time 13.0 seconds (12.0-14.4) Prothromb Time International Ratio 0.99 Activated Partial Thromboplast Time 33 seconds (23-35) Sodium Level 143 mmol/L (137-145) Potassium Level 3.0 mmol/L (3.5-5.0) Chloride Level 104 mmol/L (98-107) Carbon Dioxide Level 23 mmol/L (22-30) Blood Urea Nitrogen 21 mg/dl (9-21) Creatinine 1.50 mg/dl (0.66-1.25) Glomerular Filtration Rate Calc 44.6 Random Glucose 143 mg/dl (75-110) Lactate 5.0 mmol/L (0.7-2.1) Calcium Level 9.7 mg/dl (8.4-10.2) Total Bilirubin 0.5 mg/dl (0.2-1.3) Aspartate Amino Transf (AST/SGOT) 63 U/L (0-35) Alanine Aminotransferase (ALT/SGPT) 57 U/L (0-56) Alkaline Phosphatase 194 U/L (0-126) Troponin I < 0.012 ng/ml C-Reactive Protein 1.0 mg/dl (<1.0) Total Protein 8.2 g/dl (6.3-8.2) Albumin 4.3 g/dl (3.5-5.0) Lipase 92 U/L (23-300) Chemistry Test 01/22/18 14:55 White Blood Count 6.9 k/uL (4.5-11.0) Red Blood Count 3.96 M/uL (4.00-5.60) Hemoglobin 12.9 g/dL (14.0-18.0) Hematocrit 37.5 % (42.0-52.0) Mean Corpuscular Volume 94.7 fL (80.0-96.0) Mean Corpuscular Hemoglobin 32.6 pg (26.0-33.0) Mean Corpuscular Hemoglobin Concent 34.4 g/dL (32.0-36.0) Red Cell Distribution Width 20.6 % (11.5-14.5) Platelet Count 170 K/uL (150-450) Mean Platelet Volume 7.2 fL (7.2-11.1) Neutrophils (%) (Auto) 73.1 % (39.4-72.5) Lymphocytes (%) (Auto) 15.6 % (17.6-49.6) Monocytes (%) (Auto) 9.1 % (4.1-12.4) Eosinophils (%) (Auto) 0.7 % (0.4-6.7) Basophils (%) (Auto) 1.5 % (0.3-1.4) Nucleated RBC Relative Count (auto) 0.0 /100WBC Neutrophils # (Auto) 5.1 K/uL (2.0-7.4) Lymphocytes # (Auto) 1.1 K/uL (1.3-3.6) Monocytes # (Auto) 0.6 K/uL (0.3-1.0) Eosinophils # (Auto) 0.0 K/uL (0.0-0.5) Basophils # (Auto) 0.1 K/uL (0.0-0.1) Nucleated RBC Absolute Count (auto) 0.00 K/uL Peripheral Blood Smear No Y/N Prothrombin Time 13.0 seconds (12.0-14.4) Prothromb Time International Ratio 0.99 Activated Partial Thromboplast Time 33 seconds (23-35) Glomerular Filtration Rate Calc 44.6 Lactate 5.0 mmol/L (0.7-2.1) Calcium Level 9.7 mg/dl (8.4-10.2) Total Bilirubin 0.5 mg/dl (0.2-1.3) Aspartate Amino Transf (AST/SGOT) 63 U/L (0-35) Alanine Aminotransferase (ALT/SGPT) 57 U/L (0-56) Alkaline Phosphatase 194 U/L (0-126) Troponin I < 0.012 ng/ml C-Reactive Protein 1.0 mg/dl (<1.0) Total Protein 8.2 g/dl (6.3-8.2) Albumin 4.3 g/dl (3.5-5.0) Lipase 92 U/L (23-300) Coagulation Test 01/22/18 14:55 Prothrombin Time 13.0 seconds Prothromb Time International Ratio 0.99 Activated Partial Thromboplast Time 33 seconds EKG/Imaging EKG Interpretation 12 lead EKG: Sinus rhythm with PVCs, QTc 469, ventricular rate 87, T-wave inversions present in the anterior lateral leads new when compared to prior study on 01/03/18, no ST segment depressions or elevations- patient denies current chest pain or shortness of breath Rhythm: Sinus rhythm with PVCs [place]: Left axis deviation QRS: normal ST segments: normal Imaging Location: [facility] [place] Patient: Deion Kwong : 1935 Visit/Account:[id number] Date of Sevice: 01/22/2018 CT chest abdomen and pelvis without contrast INDICATION: Upper abdominal pain. COMPARISON: CT of abdomen pelvis on 01/03/2018. Technique: Axial CT images are obtained through the chest abdomen and pelvis without administration of IV contrast. Reformatted coronal and sagittal images were reviewed. One of the following dose optimization techniques was utilized in the performance of this exam: Automated exposure control; adjustment of the mA and/ or kV according to the patient's size; or use of an iterative reconstruction technique. Specific details can be referenced in the facility's radiology CT exam operational policy. FINDINGS: CT Chest: Heart is normal size without pericardial effusion. Coronary artery calcifications. Aorta shows atherosclerotic calcific changes without aneurysm. The pulmonary arteries are grossly normal. Right Port-A-Cath is in place tip in [facility] [place]. There is no mediastinal hematoma and there is no pathologic mediastinal adenopathy seen. Lungs show no consolidation, pleural effusion or pneumothorax. There are a few scattered micronodules present in both lungs. Some of these are calcified. The largest in the right is in the superior right lower lobe measuring 3 mm on image #53 of series 3. Largest in the left is pleural-based left lower lobe measuring 4.5 mm and does have a punctate calcification seen on image 45. The nodules visualized on the previous exam appear stable. No focal interstitial opacities. Airways are clear. Bony structures show no acute fractures or aggressive bony lesions. Degenerative changes spine and shoulders. Chest wall shows no enlarged axillary lymph nodes or masses. CT Abdomen and Pelvis: Evaluation of the solid organs of the abdomen is limited without IV contrast. The liver shows no focal normality. Status post cholecystectomy. The biliary system is unremarkable. The pancreas shows no focal normality. The spleen shows no focal abnormality. The adrenal glands are within normal limits. Percutaneous nephrostomy tube seen in the left kidney without residual hydronephrosis. The left kidney does show a stable 4 cm cyst in the superior pole. No callus cases are seen in left kidney. The right kidney does show a 2 mm calcification in the inferior collecting system without hydronephrosis, stable. Left right kidney also shows a stable 1.3 cm cyst. Mild atherosclerotic calcifications seen throughout a nonaneurysmal abdominal aorta and branches. Fluid-filled loops of large and small bowel without obstruction. The sigmoid colon does show several diverticula without pericolonic inflammation. The colon shows no other focal normality. Small bowel shows no focal abnormality. Stomach shows a large hiatal hernia without other focal abnormality which is stable. No free air, free fluid, fluid collections or areas of inflammation. Pelvic structures show a 9 mm stone in the urinary bladder. The urinary bladder does show wall thickening however is decompressed. The remaining pelvic structures visualized within normal limits. No evidence of pathologic mesenteric adenopathy. The right inferior ramus does show mixed sclerotic and lucencies with possible linear lucency suggestive a fracture. This is similar to the previous examination is slightly more prominent than the exam done September 2017. No other indication of aggressive bony lesions or acute bony abnormality. Degenerative changes seen in the spine. 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 This measures approximately 7 mm and unchanged. IMPRESSION: 1. The chest shows no acute cardiopulmonary disease. Multiple subcentimeter pulmonary nodules are present. Some of these are stable and some are not pre iously visualized. Some do show calcifications. These are most likely postinflammatory but are nonspecific. Consideration to follow-up per Fleischner guidelines described below.2. The abdomen pelvis show no acute abnormality. 3. Percutaneous left nephrostomy tube without residual hydronephrosis or stone. There is a 9 mm stone seen in the urinary bladder. 4. Stable nonobstructing right renal stone. Stable renal cysts. 5. The right inferior rami does show mixed chronic lucency appearance with a question of a fracture. This has a similar appearance to the previous exam however is slightly more prominent than in September 2017. This could be secondary to a poorly healing fracture or a metastatic lesion if the patient does have a known cancer. 6. Other chronic stable findings as above. FLEISCHNER SOCIETY FOLLOW-UP GUIDELINES FOR NEWLY DETECTED INCIDENTAL NODULES IN PERSONS 35 YEARS OF AGE OR OLDER. *THESE RECOMMENDATIONS DO NOT APPLY TO LUNG CANCER SCREENING, PATIENTS WITH IMMUNOSUPPRESSION , OR PATIENTS WITH KNOWN PRIMARY MALIGNANCY. MULTIPLE SOLID NODULES If largest nodule size is less than 6 mm: Low risk patient - no follow up needed High risk patient - Optional CT at 12 months. If largest nodule size is 6-8 mm: Low risk patient - follow up CT at 3-6 months, then consider CT at 18-24 months if no change. High risk patient - follow up CT at 3-6 months, then CT at 18-24 months if no change. If largest nodule size is greater than 8 mm: Low risk patient - follow up CT at 3-6 months, then consider CT at 18-24 months High risk patient - follow up CT at 3-6 months, then at 18-24 months LOW RISK PATIENT: Minimal or absent history of tobacco use and of other known risk factors. HIGH RISK PATIENT: Tobacco use, family history of lung cancer, upper pulmonary lobe location of nodule, presence of emphysema, pulmonary fibrosis, older age. Christopher H, Eduardo DP, Tylero JM, et al. Guidelines for Management of Incidental Pulmonary Nodules Detected on CT Images: From the Fleischner Society 2017. Radiology. 2. No acute intraabdominal abnormality seen. 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 Patient also reports having history of prior abdominal surgeries including inguinal hernia repairs, status post prostatectomy. Patient also has a history significant for diabetes, hypertension, hyperlipidemia, 4 prior stents with CABG. Patient denies current chest pain or shortness breath, fevers or chills and denies urinary symptoms however he was noted to have T-wave inversions in the anterior lateral leads and his EKG which is new compared to his last EKG on 01/03. Patient also reports a recent history of lower extremity DVT and is currently being treated with Elaquis. Patient denies hematuria, dark stools or bright red blood per rectum. Patient's [employer] was accessed. Patient didn't have recent chemotherapy in November with Mitocyn and 5- FU. Fluids, Dilaudid, Zofran were ordered for symptom management. Lactate was noted to be at 5. CT of the abdomen and pelvis showed no acute intra-abdominal pathology. I discussed the patient with Dr. Perez who accepted the patient to the hospitalist service for further optimization. Patient was updated regarding evaluation and plan. Re-evaluation 01/22/2018 5:32:49 pm Patient had significant improvement of symptoms at time of reevaluation Decision to Disposition Date: Jan 22, 2018 Decision to Disposition Time: 17:30 Depart Departure Latest Vital Signs Vital Signs Date Time Temp Pulse Resp B/P (MAP) Pulse Ox O2 Delivery O2 Flow Rate FiO2 01/22/18 17:05 94 92 01/22/18 17:00 127/72 (90) 01/22/18 14:43 97.8 18 Room Air Impression: Primary Impression: Dehydration Additional Impressions: Failure to thrive Nausea & vomiting Condition: Improved Disposition: Admitted from ER Problem Qualifiers JADEN SIMS DO Jan 22, 2018 14:45
[2018-01-22] MEDS ORDERED: ONDANSETRON 4 MG/2 ML VIAL IVP ONE (14:55)
[2018-01-22] MEDS ORDERED: HYDROMORPHONE HCL 1 MG/ML SYRINGE IVP ONE (14:55)
[2018-01-22] MEDS ORDERED: NS(*) 0.9% 1000 ML BAG 1,000 ML IV ONE (14:55)
[2018-01-22 15:10] LABS: PLATELET COUNT, AUTOMATED 170 K/uL (150-450)
[2018-01-22 15:12] LABS: INR 0.99
[2018-01-22] MEDS ORDERED: IOPAMIDOL 76% 75 ML INFUS BTL 0 ML ONE (15:16)
[2018-01-22] MEDS ORDERED: KCL (*) 20 MEQ/100 ML PREMIX 100 ML IV ONE (15:45)
--- NOTE | 2018-01-22 16:35 | RADIOLOGY IMAGING REPORT ---
FACILITY: [facility] PATIENT NAME: Deion Kwong : 1935 MR: [id number] V: [id number] EXAM DATE: ORDERING PHYSICIAN: JADEN SIMS TECHNOLOGIST: Location: [facility] Patient: Deion Kwong : 1935 Visit/Account:[id number] Date of Sevice: 01/22/2018 CT chest abdomen and pelvis without contrast INDICATION: Upper abdominal pain. COMPARISON: CT of abdomen pelvis on 01/03/2018. Technique: Axial CT images are obtained through the chest abdomen and pelvis without administration o f IV contrast. Reformatted coronal and sagittal images were reviewed. One of the following dose optimization techniques was utilized in the performance of this exam: Autom ated exposure control; adjustment of the mA and/or kV according to the patient's size; or use of an i terative reconstruction technique. Specific details can be referenced in the facility's radiology C T exam operational policy. FINDINGS: CT Chest: Heart is normal size without pericardial effusion. Coronary artery calcifications. Aorta shows athero sclerotic calcific changes without aneurysm. The pulmonary arteries are grossly normal. Right Port-A- Cath is in place tip in S[facility]. There is no mediastinal hematoma and there is no pathologic mediastinal adenopathy seen. Lungs show no consolidation, pleural effusion or pneumothorax. There are a few scattered micronodules present in both lungs. Some of these are calcified. The largest in the right is in the superior righ t lower lobe measuring 3 mm on image #53 of series 3. Largest in the left is pleural-based left lower lobe measuring 4.5 mm and does have a punctate calcification seen on image 45. The nodules visualize d on the previous exam appear stable. No focal interstitial opacities. Airways are clear. Bony structures show no acute fractures or aggressive bony lesions. Degenerative changes spine and sh [place]. Chest wall shows no enlarged axillary lymph nodes or masses. CT Abdomen and Pelvis: Evaluation of the solid organs of the abdomen is limited without IV contrast. The liver shows no focal normality. Status post cholecystectomy. The biliary system is unremarkable. The pancreas shows no focal normality. The spleen shows no focal abnormality. The adrenal glands are within normal limits. Percutaneous nephrostomy tube seen in the left kidney without residual hydronep hrosis. The left kidney does show a stable 4 cm cyst in the superior pole. No callus cases are seen i n left kidney. The right kidney does show a 2 mm calcification in the inferior collecting system with out hydronephrosis, stable. Left right kidney also shows a stable 1.3 cm cyst. Mild atherosclerotic calcifications seen throughout a nonaneurysmal abdominal aorta and branches. Fluid-filled loops of large and small bowel without obstruction. The sigmoid colon does show several diverticula without pericolonic inflammation. The colon shows no other focal normality. Small bowel s hows no focal abnormality. Stomach shows a large hiatal hernia without other focal abnormality which is stable. No free air, free fluid, fluid collections or areas of inflammation. Pelvic structures show a [address] one in the urinary bladder. The urinary bladder does show wall thickening however is decompressed. Th e remaining pelvic structures visualized within normal limits. No evidence of pathologic mesenteric adenopathy. The right inferior ramus does show mixed sclerotic and lucencies with possible linear lucency suggest kenrick a fracture. This is similar to the previous examination is slightly more prominent than the exam done September 2017. No other indication of aggressive bony lesions or acute bony abnormality. Degenerati ve changes seen in the spine. There is stable anterior spondylolisthesis of L5 over S1 due to bilater al pars defects. This measures approximately 7 mm and unchanged. IMPRESSION: 1. The chest shows no acute cardiopulmonary disease. Multiple subcentimeter pulmonary nodules are pre sent. Some of these are stable and some are not pre iously visualized. Some do show calcifications. T hese are most likely postinflammatory but are nonspecific. Consideration to follow-up per Fleischner guidelines described below.2. The abdomen pelvis show no acute abnormality. 3. Percutaneous left nephrostomy tube without residual hydronephrosis or stone. There is a 9 mm stone seen in the urinary bladder. 4. Stable nonobstructing right renal stone. Stable renal cysts. 5. The right inferior rami does show mixed chronic lucency appearance with a question of a fracture. This has a similar appearance to the previous exam however is slightly more prominent than in September 05 018. This could be secondary to a poorly healing fracture or a metastatic lesion if the patient does have a known cancer. 6. Other chronic stable findings as above. FLEISCHNER SOCIETY FOLLOW-UP GUIDELINES FOR NEWLY DETECTED INCIDENTAL NODULES IN PERSONS 35 YEARS OF AGE OR OLDER. *THESE RECOMMENDATIONS DO NOT APPLY TO LUNG CANCER SCREENING, PATIENTS WITH IMMUNOSUPPRESSION , OR PA TIENTS WITH KNOWN PRIMARY MALIGNANCY. MULTIPLE SOLID NODULES If largest nodule size is less than 6 mm: Low risk patient - no follow up needed High risk patient - Optional CT at 12 months. If largest nodule size is 6-8 mm: Low risk patient - follow up CT at 3-6 months, then consider CT at 18-24 months if no change. High risk patient - follow up CT at 3-6 months, then CT at 18-24 months if no change. If largest nodule size is greater than 8 mm: Low risk patient - follow up CT at 3-6 months, then consider CT at 18-24 months High risk patient - follow up CT at 3-6 months, then at 18-24 months LOW RISK PATIENT: Minimal or absent history of tobacco use and of other known risk factors. HIGH RISK PATIENT: Tobacco use, family history of lung cancer, upper pulmonary lobe location of nodul e, presence of emphysema, pulmonary fibrosis, older age. Christopher H, Eduardo DP, Kane JM, et al. Guidelines for Management of Incidental Pulmonary Nodules Dete cted on CT Images: From the Fleischner Society 2017. Radiology. 2. No acute intraabdominal abnormality seen. Report Dictated By: Canelo White at 01/22/2018 4:12 PM Report E-Signed By: Canelo White at 01/22/2018 4:31 PM WSN:[id number]
[2018-01-22] MEDS ORDERED: METOCLOPRAMIDE 10 MG/2 ML SDV IVP ONE (17:15)
--- NOTE | 2018-01-22 17:50 | EKG ---
[place] [facility] [place]: SANDRA CORREA : [id number] MR: [id number] V: [id number] EXAM DATE: ORDERING PHYSICIAN: JADEN SIMS TECHNOLOGIST: RAMESH Meade Reason : Blood Pressure : / mmHG Vent. Rate : 087 BPM Atrial Rate : 087 BPM P-R Int : 150 ms QRS Dur : 088 ms QT Int : 390 ms P-R-T Axes : 038 -55 040 degrees QTc Int : 469 ms Sinus rhythm with occasional premature ventricular complexes Left axis deviation T wave abnormality, consider anterolateral ischemia Prolonged QT Abnormal ECG Confirmed by ANNA HERNANDEZ ([id number] on 01/23/2018 6:04:49 AM Referred By: LEVI Confirmed By:ANNA HERNANDEZ
[2018-01-22] MEDS ORDERED: METO25TA93 PO (18:04)
[2018-01-22 18:05] VITALS: BP 101/53
[2018-01-22] MEDS ORDERED: PROMETHAZINE 25 MG/ML 1 ML AMP IVP PRN (18:50)
[2018-01-22] MEDS ORDERED: INSULIN HUM LISPRO 100 UN/ML 3 ML VIAL SUBQ PRN (19:00)
--- NOTE | 2018-01-22 19:01 | History & Physical ---
History of Present Illness Chief Complaint Nausea and vomiting History of Present Illness 82yo male with extensive PMHx including recent DVT (on Lovenox), CAD, cerebrovascular disease, CVA, prostate cancer, transitional cell carcinoma s/p nephrostomy placement. He has had recurrent episodes of N/V associated with diarrhea and low abdominal pain. He states he had done very well for upwards of 10-12 days and had gained 4# prior to this episode. He reports onset of nausea with vomiting approximately 2 hours after breakfast this AM. Following several instances of vomiting he developed low anterior abdominal pain that was followed by a few diarrheal stools. He denies any hematemesis, hematochezia, melena. He states he had some "clammy" and chilled sensations while vomiting. He was evaluated in the ER and found to have normal WBC count, hypokalemia, elevated lactate, slightly elevated AST/ALT/Alk phos. CT scan of chest, abdomen and pelvis showed several chronic changes which appear stable. He was recommended for admission. History Problems: (1) DVT (deep venous thrombosis) Status: Acute (2) CVA (cerebral vascular accident) Status: Resolved (3) CAD (coronary artery disease) Status: Chronic (4) Anemia Status: Chronic (5) CKD (chronic kidney disease) stage 4, GFR 15-29 ml/min Status: Chronic (6) T2DM (type 2 diabetes mellitus) Status: Chronic (7) Prostate cancer Status: Chronic (8) Transitional cell bladder cancer Status: Chronic (9) History of appendectomy Status: Resolved (10) History of prostatectomy Status: Resolved (11) History of tonsillectomy Status: Resolved (12) History of bilateral inguinal hernia repair Status: Resolved (13) Hx of CABG Status: Resolved (14) History of exploratory laparotomy Status: Resolved (15) History of carotid endarterectomy Status: Resolved (16) History of cholecystectomy Status: Resolved Home Meds Active Scripts Enoxaparin Sodium (LOVENOX) 100 Mg/1 Ml Disp.syrin, 100 MG SQ DAILY, #90 SYR Prov:GISSELL ANDERSEN [facility] 01/09/18 Reported Medications Metoprolol Tartrate (METOPROLOL TARTRATE) 25 Mg Tablet, 12.5 MG PO BID, TAB 01/22/18 Ondansetron Hcl (ONDANSETRON HCL) 4 Mg Tablet, 8 MG PO Q8H Y for NAUSEA, TAB 01/19/18 Hum Insulin Nph/Reg Insulin Hm (NOVOLIN 70-30 100 UNIT/ML VIAL) 100 Unit/1 Ml Vial, 20-30 UNIT SQ BID, VIAL 01/19/18 Discontinued Reported Medications Aspirin (ASPIR 81) 81 Mg Tablet.dr, 1 TAB PO QDAY, TAB 01/19/18 Atorvastatin Calcium (ATORVASTATIN CALCIUM) 80 Mg Tablet, 0.5 TAB PO HS, TAB 01/19/18 Atorvastatin Calcium (LIPITOR) 40 Mg Tablet, 1 TAB PO QHS, TAB 11/02/17 Metoprolol Tartrate (METOPROLOL TARTRATE) 25 Mg Tablet, 0.5 TAB PO BID 11/02/17 Discontinued Scripts Apixaban (ELIQUIS) 5 Mg Tablet, 1 TAB PO BID for 90 Days, #90 TAB finish one week of lovenox shots and then start eliquis for tx of dvt Prov:KONRAD HAMMONDS MD 01/19/18 Allergies: Coded Allergies: meperidine (Verified Allergy, Severe, 01/22/18) morphine (Verified Allergy, Severe, 01/22/18) Patient History: FH: arthritis BROTHER OR SISTER FH: diabetes mellitus MOTHER, , Age:86 FH: pancreatic cancer FATHER, , Age:61 BROTHER OR SISTER Hx Smoking: Yes (20 YRS) Smoking Status: Former Smoker Caffeine Intake: Soda Caffeine/Cups Per Day: 1 CUP Hx Alcohol Use: Yes Hx Substance Use Disorder: No Review of Systems Constitutional: Chills, No Fever Neurological: Weakness, No Syncope Eyes: No Vision Change, No Loss of Vision ENT: No Hearing Loss Cardiovascular: No Chest Pain, No Palpitations Respiratory: No Shortness of Breath Gastrointestinal: Nausea, Vomiting, Diarrhea, No Hematemesis, No Hematochezia, No Melena, Abdominal Pain Genitourinary: No Dysuria, No Hematuria Exam Vital Signs Vital Signs Date Time Temp Pulse Resp B/P (MAP) Pulse Ox O2 Delivery O2 Flow Rate FiO2 01/22/18 18:05 98.4 89 12 101/53 (69) 97 Room Air General Appearance: Alert, Awake Neuro: No Gross deficits Eyes: PERRLA ENT: Oropharynx Clear Cardiovascular: Regular Rate and Rhythm Respiratory: Clear to Auscultation Chest: No Tenderness, Other (implanted recorder over lower left anterior chest) GI: Other (soft/BS present/nontender at present/multiple healed surgical scars/ multiple ecchymoses related to Lovenox) : No CVA Tenderness, Other (left nephrostomy in place) Extremities: Warm Integumentary: Generalized Fragile Skin Psych: Alert & Oriented X3 Medical Decision Making Data Points Result Diagram: 01/22/18 1455 01/22/18 1455 Item Value Date Time Lipase 92 U/L 01/22/18 1455 Albumin 4.3 g/dl 01/22/18 1455 Total Protein 8.2 g/dl 01/22/18 1455 C-Reactive Protein 1.0 mg/dl H 01/22/18 1455 Alkaline Phosphatase 194 U/L H 01/22/18 1455 Alanine Aminotransferase (ALT/SGPT) 57 U/L H 01/22/18 1455 Aspartate Amino Transf (AST/SGOT) 63 U/L H 01/22/18 1455 Total Bilirubin 0.5 mg/dl 01/22/18 145 Calcium Level 9.7 mg/dl 01/22/18 145 Lactate 5.0 mmol/L *H 01/22/18 145 Troponin I < 0.012 ng/ml 01/22/18 145 Activated Partial Thromboplast Time 33 seconds 01/22/18 1455 Prothromb Time International Ratio 0.99 01/22/18 145 Prothrombin Time 13.0 seconds 01/22/18 1455 Assessment and Plan Problems: (1) Nausea & vomiting Status: Acute Assessment & Plan: Unsure of etiology. Question if related to his previous chemotherapy/radiation regimen vs. acute GE vs. ischemic gut (robin with elevated lactate) vs. other cause. Will admit for further evaluation and treatment. Will re-check lactate. Will check serial troponin as well. Will give gentle IV fluids and anti-emetics as needed. Watch closely and modify therapy as needed. (2) Dehydration Status: Acute Assessment & Plan: Will give gentle IV fluids. (3) T2DM (type 2 diabetes mellitus) Status: Chronic Assessment & Plan: Monitor glucoses and use SSI as needed. Will resume ADA diet and restart his Humulin 70/30 when eating better. (4) Transitional cell bladder cancer Status: Chronic Assessment & Plan: He is followed by Dr. Perry Espinal in the [facility]. (5) Prostate cancer Status: Chronic (6) CKD (chronic kidney disease) stage 4, GFR 15-29 ml/min Status: Chronic Assessment & Plan: His creatinine is fairly close to his baseline. Will give gentle IV fluids and watch labs. (7) DVT (deep venous thrombosis) Status: Acute Assessment & Plan: Will continue his Lovenox. Apparently, he has a Rx for Eliquis pending at the [facility], but has not received it. (8) Hypokalemia Status: Acute Assessment & Plan: Will give K+ with IV fluids. Watch labs. (9) HTN (hypertension) Status: Chronic Assessment & Plan: Continue metoprolol. Monitor BPs. Modify regimen if needed. Copies to: KONRAD HAMMONDS MD Venous Thromboembolism Antithrombotics Is Pt On Any Antithrombotics?: Yes Exam Sepsis Risk: No Definite Risk ANNA HERNANDEZ MD Jan 22, 2018 19:01
[2018-01-22] MEDS: KCL/NS* 20 MEQ/1000 ML PREMIX 1,000 ML IV PRN (19:29)
[2018-01-22] MEDS: ENOXAPARIN 100 MG/ML SYR SC SCH (19:30)
[2018-01-22 20:21] VITALS: BP 75/48
[2018-01-22 20:22] VITALS: BP 90/42
[2018-01-22] MEDS: METOPROLOL TART 50 MG TAB PO SCH (20:25)
[2018-01-22 21:00] VITALS: BP 100/47
[2018-01-22 22:00] VITALS: BP 106/44
[2018-01-22 23:03] VITALS: BP 99/53
[2018-01-23] VITALS: BP 130/58
[2018-01-23 00:03] VITALS: BP 130/58
[2018-01-23 01:00] VITALS: BP 123/58
[2018-01-23 02:00] VITALS: BP 155/66
[2018-01-23] MEDS: ONDANSETRON 4 MG/2 ML VIAL IVP PRN ×2 (02:15→17:00)
[2018-01-23] MEDS ORDERED: HYDROmorphone HCL 2 MG/ML SDV IVP ONE (05:20)
[2018-01-23 05:34] LABS: PLATELET COUNT, AUTOMATED 106 K/uL (150-450)
[2018-01-23] MEDS: KCL/NS* 20 MEQ/1000 ML PREMIX 1,000 ML IV PRN (05:41)
[2018-01-23 05:46] VITALS: BP 178/99
[2018-01-23] MEDS ORDERED: cefTRIAXone 1 GM VIAL IVP SCH (06:00)
[2018-01-23] MEDS ORDERED: HYDROmorphone HCL 2 MG/ML SDV IVP PRN (06:00)
[2018-01-23 07:25] VITALS: BP 174/92
[2018-01-23] MEDS ORDERED: MAGNESIUM SUL/D5W* 1 GM/100 ML 100 ML IVPB ONE (08:45)
[2018-01-23] MEDS: METOPROLOL TART 50 MG TAB PO SCH (09:23)
[2018-01-23] MEDS: ENOXAPARIN 100 MG/ML SYR SC SCH (09:23)
[2018-01-23 10:23] VITALS: Ht 167.6 cm; Wt 65.8 kg
--- NOTE | 2018-01-23 13:57 | Hospitalist Depart ---
Discharge Summary Reason for Hosp/Final Diag: (1) Nausea & vomiting Status: Acute Hospital Course & Plan: Unsure of etiology. Believed related to radiation injury from therapy vs. acute GE vs. ischemic gut (robin with elevated lactate) vs. other cause. Lactate rapidly resolved. Responded well to IV fluids and antiemetics, reevaluation of outpt regimen would be beneficial. (2) Dehydration Status: Acute Hospital Course & Plan: Resolved with IV fluids. (3) T2DM (type 2 diabetes mellitus) Status: Chronic Hospital Course & Plan: Resume ADA diet and restart his Humulin 70/30 when eating better. (4) Transitional cell bladder cancer Status: Chronic Hospital Course & Plan: He is followed by Dr. Perry Espinal in the [facility]. While inpatient reports he does not want to pursue further treatment and would like to be comfortable. Consulted CM from cancer center to discuss. (5) Prostate cancer Status: Chronic Hospital Course & Plan: Stable. (6) CKD (chronic kidney disease) stage 4, GFR 15-29 ml/min Status: Chronic Hospital Course & Plan: Resolved with IV fluids. (7) DVT (deep venous thrombosis) Status: Acute Hospital Course & Plan: Will continue his Lovenox. Apparently, [facility], but [facility] not [facility]. (8) Hypokalemia Status: Acute Hospital Course & Plan: Given K+ with IV fluids. Resolved . (9) HTN (hypertension) Status: Chronic Hospital Course & Plan: Continue metoprolol. Monitor BPs. Departure Weight (Pounds): 145 Weight (Ounces): 8.0 Result Diagram: 01/23/1851101/23/18511 Condition: Improved Discharge: Home Discharge Code Status: DNR, DNI Discharge Instructions Home Meds Active Scripts Enoxaparin Sodium (LOVENOX) 100 Mg/1 Ml Disp.syrin, 100 MG SQ DAILY, #90 SYR Prov:GISSELL ANDERSEN [facility] 01/09/18 Reported Medications Metoprolol Tartrate (METOPROLOL TARTRATE) 25 Mg Tablet, 12.5 MG PO BID, TAB 01/22/18 Ondansetron Hcl (ONDANSETRON HCL) 4 Mg Tablet, 8 MG PO Q8H Y for NAUSEA, TAB 01/19/18 Hum Insulin Nph/Reg Insulin Hm (NOVOLIN 70-30 100 UNIT/ML VIAL) 100 Unit/1 Ml Vial, 20-30 UNIT SQ BID, VIAL 01/19/18 Discontinued Reported Medications Aspirin (ASPIR 81) 81 Mg Tablet.dr, 1 TAB PO QDAY, TAB 01/19/18 Atorvastatin Calcium (ATORVASTATIN CALCIUM) 80 Mg Tablet, 0.5 TAB PO HS, TAB 01/19/18 Atorvastatin Calcium (LIPITOR) 40 Mg Tablet, 1 TAB PO QHS, TAB 11/02/17 Metoprolol Tartrate (METOPROLOL TARTRATE) 25 Mg Tablet, 0.5 TAB PO BID 11/02/17 Discontinued Scripts Apixaban (ELIQUIS) 5 Mg Tablet, 1 TAB PO BID for 90 Days, #90 TAB finish one week of lovenox shots and then start eliquis for tx of dvt Prov:KONRAD HAMMONDS MD 01/19/18 Diet: Regular Activity: As Tolerated Special Instructions: Copies to: KONRAD HAMMONDS MD Venous Thromboembolism Antithrombotics Is Pt On Any Antithrombotics?: Yes VERONICA GIBBONS DO Jan 23, 2018 13:56
[2018-01-23] MEDS ORDERED: HEPARIN FLSH (PORT) 500 UN/5ML ONE (14:29)
[2018-01-24] MEDS ORDERED: cefTRIAXone 1 GM VIAL IVP SCH (06:00)
== END 2018-01-23 13:48 | disposition home or self-care (01) ==
LOC: ER 14:50 → MED 17:30 → INTOOBSV 17:30
PROVIDERS: ADMIT Internal Medicine; ATTEND Internal Medicine
DX: R62.7 Adult failure to thrive (principal); E86.0 Dehydration; R11.2 Nausea with vomiting, unspecified; E11.22 Type 2 diabetes mellitus with diabetic chronic kidney disease; I12.9 Hypertensive chronic kidney disease with stage 1 through stage 4 chronic kidney disease, or unspecified chronic kidney disease; N18.4 Chronic kidney disease, stage 4 (severe); C67.9 Malignant neoplasm of bladder, unspecified; C61 Malignant neoplasm of prostate; I82.409 Acute embolism and thrombosis of unspecified deep veins of unspecified lower extremity; E87.6 Hypokalemia
CPT/HCPCS: 36415; 36416; 71250; 74176; 81001; 82948; 83605; 83690; 83735; 84484; 85025; 85610; 85730; 86140; 93005; 96361; 96365; 96372; 96375; 99284; A9270; G0378; J0696; J1170; J1642; J1650; J2405; J2765; J3475; J3480; J7030; 82040; 82247; 82310; 82374; 82435; 82565; 82947; 84075; 84132; 84155; 84295; 84450; 84460; 84520; Q9967

== ENCOUNTER → 2018-01-22 | Outpatient (CLI) | payer MEDICARE, OTHER ==
[~2018-01-22] MED LIST changes: -ALTEPLASE RECOMB 2 MG VIAL IVP PRN; -DEXTROSE 5%(*) 100 ML BAG 100 ML IVPB PRN; -DICYCLOMINE HCL 10 MG CAP PO ONE; -FLUOROURACIL IV ONE; -INS HUM LISPRO 100U/ML (ER ONLY) 10 ML VIAL SUBQ PRN; -MITOMYCIN 20 MG IV ONE; -NS 0.9% IV ONE; -NS(*) 0.9% 100 ML BAG 100 ML IVPB PRN; -NS(*) 0.9% 1000 ML BAG 1,000 ML IV ONE; -NS(*) 0.9% 1000 ML BAG 1,000 ML IV PRN; -ONDANSETRON 4 MG/2 ML VIAL IVP ONE; -WATER FOR INJ,STERILE 20 ML IVP PRN; -[UNRECOGNIZED DRUG - OTHER] IV ONE
[2018-01-23 10:23] VITALS: BMI 23.4
== END ==
LOC: AMB 14:16
PROVIDERS: ATTEND Nurse Practitioner
DX: R53.1 Weakness (principal); R11.2 Nausea with vomiting, unspecified
CPT/HCPCS: A0425; A0427

== ENCOUNTER 2018-01-27 11:04 | Inpatient (IN) | payer MEDICARE, OTHER ==
[~2018-01-27] VITALS: Ht 167.6 cm; Wt 71.9 kg
--- NOTE | 2018-01-27 11:15 | ER Report ---
History and Physical Time Seen By MD: 11:12 HPI/ROS CHIEF COMPLAINT: Nausea, vomiting and diarrhea HISTORY OF PRESENT ILLNESS: This is an 82-year-old male who presents to the emergency department from the cancer center for nausea, vomiting and diarrhea. Patient is end-stage bladder cancer. Has received radiation, most recently 3 weeks ago, patient states that he's had diarrhea since his radiation treatment. He did however today developed some nausea and vomiting with abdominal pain. Patient was at the cancer center today for a Lupron injection however the patient has elected no more treatment. This patient was having severe nausea and vomiting with diarrhea labs studies were obtained and since college patient was sent to the ER for further evaluation. The patient is willing to come into the hospital for management of his nausea, vomiting and diarrhea as well as his pain and weakness. Patient also states that he has been incredibly weak over the last several days more so today with a recent symptoms. Patient denies fevers, no sore throat, no chest pain or shortness of breath. The patient also states he is willing to speak with hospitalist. REVIEW OF SYSTEMS: Constitutional: No fever, no chills. Eyes: No discharge. ENT: No sore throat. Cardiovascular: No chest pain, no palpitations. Respiratory: No cough, no shortness of breath. Gastrointestinal: As above. Genitourinary: As above. Musculoskeletal: No back pain. Skin: No rashes. Neurological: No headache. Allergies: Coded Allergies: meperidine (Verified Allergy, Severe, 01/22/18) morphine (Verified Allergy, Severe, 01/22/18) Home Meds Active Scripts Enoxaparin Sodium (LOVENOX) 100 Mg/1 Ml Disp.syrin, 100 MG SQ DAILY, #90 SYR Prov:GISSELL ANDERSEN [facility] 01/09/18 Reported Medications Ondansetron (ZOFRAN ODT) 4 Mg Tab.rapdis, 1 TAB PO Q12H 01/27/18 Metoprolol Tartrate (METOPROLOL TARTRATE) 25 Mg Tablet, 12.5 MG PO BID, TAB 01/22/18 Hum Insulin Nph/Reg Insulin Hm (NOVOLIN 70-30 100 UNIT/ML VIAL) 100 Unit/1 Ml Vial, 20-30 UNIT SQ BID, VIAL pt states sliding scale BG >165 give 30 units 01/19/18 Discontinued Reported Medications Ondansetron Hcl (ONDANSETRON HCL) 4 Mg Tablet, 8 MG PO Q8H PRN for NAUSEA, TAB 01/19/18 Aspirin (ASPIR 81) 81 Mg Tablet.dr, 1 TAB PO QDAY, TAB 01/19/18 Discontinued Scripts Apixaban (ELIQUIS) 5 Mg Tablet, 1 TAB PO BID for 90 Days, #90 TAB finish one week of lovenox shots and then start eliquis for tx of dvt Prov:KONRAD HAMMONDS MD 01/19/18 Past Medical/Surgical History The patient has a past medical and surgical history of CABG with 4 stents, an aayush, hypertension, hypercholesterolemia, end-stage bladder cancer, with metastasis, inguinal hernia, type II diabetes, uses insulin, hard of hearing, diabetic retinopathy, arthritis, prostate cancer with radiation, prostatectomy, shoulder repair, tonsillectomy. Reviewed Nurses Notes: Yes Hx Smoking: Yes (20 YRS) Smoking Status: Former Smoker Hx Substance Use Disorder: No Hx Alcohol Use: Yes Constitutional Vital Sign - Last 24 Hours 01/27/18 01/27/18 01/27/18 01/27/18 11:12 11:14 11:18 11:30 Temp 97.5 Pulse 118 Resp 18 B/P (MAP) 121/54 (76) 121/54 121/65 (83) 145/65 (91) Pulse Ox 91 O2 Delivery Room Air 01/27/18 01/27/18 01/27/18 01/27/18 11:34 12:00 12:04 12:30 Pulse 102 B/P (MAP) 112/52 (72) 114/56 (75) Pulse Ox 86 96 01/27/18 12:34 Pulse 99 Pulse Ox 97 Physical Exam General Appearance: The patient is alert, has no immediate need for airway protection and no signs of toxicity, pale. Eyes: Pupils equal and round no pallor or injection. ENT, Mouth: Mucous membranes are moist. Respiratory: There are no retractions, lungs are clear to auscultation. Cardiovascular: Regular rate and rhythm. Gastrointestinal: Abdomen is soft and non tender, no masses, bowel sounds normal. Neurological: Alert and oriented 4. Moving all external days. Following all commands. No focal neuro deficits. Skin: Warm and dry, no rashes. Musculoskeletal: Neck is supple non tender. Extremities are nontender, nonswollen and have full range of motion. DIFFERENTIAL DIAGNOSIS: After history and physical exam differential diagnosis was considered for radiation reaction, chemotherapeutic agent reaction, gastroenteritis. Medical Decision Making ED Course/Re-evaluation Clinical Indication for ER IV: Hydration, IV Access ED Course The patient was admitted to room. History and physical were obtained. Differential diagnoses were considered. An IV was started prior to admission to the ER, patient was also given an S with 20 K prior to the emergency department. Patient was also given 4 mg Zofran 60 mg Solu-Medrol, Ativan and Dilaudid prior to arrival as well. Patient arrives with minimal pain at this time, he does st ill have intermittent nausea no vomiting. Patient was given 12.5 mg IV Phenergan. Patient declined Lomotil at this time as he does not feel is warranted. I did talk to the patient about his wishes at this time, he would like to be admitted to the hospital if possible for pain control as well as management of his acute nausea and vomiting and diarrhea. Patient states he is willing to talk to hospice at this time. I did speak with Dr. Samara Perez as noted below, she is accepted the patient into the hospital services. Patient will be admitted to the medical unit for pain control as well as management of his acute nausea and vomiting. They will also try to set him up with hospice at this time. The patient is in agreement with this plan of care. Patient is been resting comfortably in the emergency department no other interventions required at this time. Lab studies obtained in the cancer center Showing hemoglobin 11.1, hematocrit 32.1, creatinine 1.4 alkaline phosphatase 155 up from 114. 01/27/2018 12:04:23 pm I did speak with Dr. Samara Perez regarding the patient's case, she has accepted the patient in the hospital services for [place], vomiting, diarrhea and pain control. Decision to Disposition Date: Jan 27, 2018 Decision to Disposition Time: 12:00 Depart Departure Latest Vital Signs Vital Signs Date Time Temp Pulse Resp B/P (MAP) Pulse Ox O2 Delivery O2 Flow Rate FiO2 01/27/18 12:34 99 97 01/27/18 12:30 114/56 (75) 01/27/18 11:14 97.5 18 Room Air Impression: Primary Impression: Transitional cell bladder cancer Additional Impressions: Nausea & vomiting Diarrhea Condition: Improved Disposition: Admitted from ER Problem Qualifiers Additional Impressions: Nausea & vomiting Vomiting type: unspecified Vomiting Intractability: non-intractable Qualified Codes: R11.2 - Nausea with vomiting, unspecified Diarrhea Diarrhea type: unspecified type Qualified Codes: R19.7 - Diarrhea, unspecified [facility]- Jan 27, 2018 11:15
[2018-01-27] MEDS ORDERED: DIPHENOX/ATROPINE 2.5-0.025MG PO ONE (11:30)
[2018-01-27] MEDS ORDERED: PROMETHAZINE 25 MG/ML 1 ML AMP IVP ONE (11:30)
[2018-01-27 15:04] VITALS: BP 128/85
[2018-01-27] MEDS ORDERED: ENOXAPARIN 100 MG/ML SYR SC ONE (15:05)
[2018-01-27] MEDS ORDERED: DIPHENOX/ATROPINE 2.5-0.025MG PO PRN (15:05)
[2018-01-27] MEDS ORDERED: ONDA4TAB PO (15:26)
--- NOTE | 2018-01-27 15:47 | History & Physical ---
History of Present Illness Chief Complaint Nausea, vomiting, diarrhea. History of Present Illness 82yo male with extensive PMHx including recent DVT (on Lovenox), CAD, cerebrovascular disease, CVA, prostate cancer, transitional cell carcinoma s/p nephrostomy placement. He has had recurrent episodes of N/V associated with diarrhea and low abdominal pain. He states he has done very well for periods of time and then his symptoms recur. He reports onset of nausea with vomiting while getting an infusion at the [facility]. Zofran was given as well as Solu- medrol 60mg (while at the [facility]). He was evaluated in the ER and found to have normal WBC count, low normal potassium, slightly elevated AST/ALT/Alk phos. CT scan of chest, abdomen and pelvis was not repeated this time, but last visit several days ago it showed several chronic changes which appeared stable. He was recommended for admission. Per his provider at the [facility], the patient recently had a PET scan which showed progression of his disease. History Problems: (1) Transitional cell bladder cancer Status: Chronic (2) Prostate cancer Status: Chronic (3) T2DM (type 2 diabetes mellitus) Status: Chronic (4) CKD (chronic kidney disease) stage 4, GFR 15-29 ml/min Status: Chronic (5) HTN (hypertension) Status: Chronic (6) TIA (transient ischemic attack) Status: Resolved (7) CVA (cerebral vascular accident) Status: Resolved (8) CAD (coronary artery disease) Status: Chronic (9) DVT (deep venous thrombosis) Status: Chronic (10) Failure to thrive Status: Acute Home Meds Active Scripts Enoxaparin Sodium (LOVENOX) 100 Mg/1 Ml Disp.syrin, 100 MG SQ DAILY, #90 SYR Prov: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 01/09/18 Reported Medications Metoprolol Tartrate (METOPROLOL TARTRATE) 25 Mg Tablet, 12.5 MG PO BID, TAB 01/22/18 Ondansetron Hcl (ONDANSETRON HCL) 4 Mg Tablet, 8 MG PO Q8H PRN for NAUSEA, TAB 01/19/18 Hum Insulin Nph/Reg Insulin Hm (NOVOLIN 70-30 100 UNIT/ML VIAL) 100 Unit/1 Ml Vial, 20-30 UNIT SQ BID, VIAL 01/19/18 Discontinued Reported Medications Aspirin (ASPIR 81) 81 Mg Tablet.dr, 1 TAB PO QDAY, TAB 01/19/18 Discontinued Scripts Apixaban (ELIQUIS) 5 Mg Tablet, 1 TAB PO BID for 90 Days, #90 TAB finish one week of lovenox shots and then start eliquis for tx of dvt Prov:KONRAD HAMMONDS MD 01/19/18 Allergies: Coded Allergies: meperidine (Verified Allergy, Severe, 01/22/18) morphine (Verified Allergy, Severe, 01/22/18) Patient History: FH: arthritis BROTHER OR SISTER FH: diabetes mellitus MOTHER, , Age:86 FH: pancreatic cancer FATHER, , Age:61 BROTHER OR SISTER Other Social/Family Hx The patient lives at home with his currently. They are in the process of transitioning into assisted living at [facility]. Hx Smoking: Yes (20 YRS) Smoking Status: Former Smoker Caffeine Intake: Soda Caffeine/Cups Per Day: 1 CUP Hx Alcohol Use: Yes Hx Substance Use Disorder: No History of IV Drug Use: No Review of Systems All Systems Reviewed/Normal: Yes, Except as Noted Constitutional: Weight Loss Neurological: Weakness Gastrointestinal: Nausea, Vomiting, Diarrhea Genitourinary: Other (Nephrostomy tube.) Musculoskeletal: Other (Left lower leg swelling, improving on Lovenox.) Exam Vital Signs Vital Signs Date Time Temp Pulse Resp B/P (MAP) Pulse Ox O2 Delivery O2 Flow Rate FiO2 01/27/18 14:40 89 96 01/27/18 14:30 129/71 (90) 01/27/18 11:14 97.5 18 Room Air General Appearance: Other (Sleepy after Phenergan but easily arousable and answers questions appropriately.) Eyes: PERRLA Cardiovascular: Other (L leg wtih edema below the knee.) Respiratory: Clear to Auscultation GI: Abd Soft and Non-Tender, Other (Bruising from Lovenox injections.) Lymph: Cervical Nodes Benign Extremities: Warm, Perfused Psych: Appropriate Mood & Affect Medical Decision Making Data Points Item Value Date Time Sodium Level 142 mmol/L 01/27/18 0930 Potassium Level 3.5 mmol/L 01/27/18 0930 Chloride Level 105 mmol/L 01/27/18 0930 Carbon Dioxide Level 24 mmol/L 01/27/18 0930 Blood Urea Nitrogen 14 mg/dl 01/27/18 0930 Creatinine 1.40 mg/dl H 01/27/18929 Glomerular Filtration Rate Calc 48.3 01/27/18929 Random Glucose 116 mg/dl H 01/27/18929 White Blood Count 5.5 k/uL 01/27/18929 Red Blood Count 3.36 M/uL L 01/27/18929 Hemoglobin 11.1 g/dL L 01/27/18929 Hematocrit 32.1 % L 01/27/18929 Mean Corpuscular Volume 95.7 fL 01/27/18929 Mean Corpuscular Hemoglobin 33.0 pg 01/27/18929 Mean Corpuscular Hemoglobin Concent 34.5 g/dL 01/27/18929 Red Cell Distribution Width 19.3 % H 01/27/18929 Platelet Count 138 K/uL L 01/27/18929 Item Value Date Time Calcium Level 8.8 mg/dl 01/27/18929 Magnesium Level 1.7 mg/dl 01/27/18929 Total Bilirubin 0.4 mg/dl 01/27/18929 Aspartate Amino Transf (AST/SGOT) 43 U/L H 01/27/18929 Alanine Aminotransferase (ALT/SGPT) 50 U/L 01/27/18929 Alkaline Phosphatase 155 U/L H 01/27/18929 Total Protein 7.1 g/dl 01/27/18929 Albumin 3.7 g/dl 01/27/18929 Pre-Admit Course Medical Record Review: Yes Assessment and Plan Problems: (1) Intractable vomiting with nausea Status: Acute Assessment & Plan: Recurrent. Will admit, hydrate and treat with antiemetics. (2) Diarrhea Status: Acute Assessment & Plan: Solu-medrol [facility] given in [facility]. Anti-diarrheal given in ER. Repeat C diff and stool culture ordered. Will monitor. (3) Transitional cell bladder cancer Status: Chronic Assessment & Plan: The patient has finished chemo and radiation. Was considering immunotherapy. Recent PET scan shows progression of disease. (4) Prostate cancer Status: Chronic Assessment & Plan: Had been on Lupron and Casodex. Refused Lupron injection today at the Cancer Center. (5) T2DM (type 2 diabetes mellitus) Status: Chronic Assessment & Plan: Will place on SSI and monitor glucoses. He uses 70/30 insulin at home. (6) CKD (chronic kidney disease) stage 4, GFR 15-29 ml/min Status: Chronic Assessment & Plan: Creatinine stable at 1.4. (7) HTN (hypertension) Status: Chronic Assessment & Plan: On metoprolol 12.5mg bid. Will hold for now. (8) CAD (coronary artery disease) Status: Chronic Assessment & Plan: ASA stopped as he is on Lovenox for DVT. (9) DVT (deep venous thrombosis) Status: Chronic Assessment & Plan: Currently on 100mg daily SC. Time Spent on Plan of Care: < 30 min Venous Thromboembolism Antithrombotics Is Pt On Any Antithrombotics?: Yes (Current DVT) Exam Sepsis Risk: No Definite Risk Problem Qualifiers (1) Diarrhea: Diarrhea type: unspecified type Qualified Codes: R19.7 - Diarrhea, unspecified MARCELO HERNANDEZ MD Jan 27, 2018 15:47
[2018-01-27] MEDS: KCL/NS* 20 MEQ/1000 ML PREMIX 1,000 ML IV SCH (16:09)
--- NOTE | 2018-01-27 18:03 | Miscellaneous Provider Note ---
Miscellaneous Provider Note Note I talked with Dr. Espinal and LYNNETTE Weiss at the Cancer Center. The patient's most recent PET scan shows some progression of his disease. I also discussed prognosis with Dr. Espinal and he felt that the patient's survival could be measured in weeks. I talked with the patient and his sons and relayed this information. They would like to talk with Hospice. The patient would like treatment focus to be on quality of life at this point with comfort as the goal. He is agreeable to continue hydration to see if he could feel better and go home. SW/Hospice consults placed. MARCELO HERNANDEZ MD Jan 27, 2018 18:03
[2018-01-27 19:40] VITALS: BP 176/90
[2018-01-27] MEDS: ONDANSETRON 4 MG/2 ML VIAL IVP PRN (19:48)
[2018-01-27] MEDS: PROMETHAZINE 25 MG/ML 1 ML AMP IVP PRN (20:26)
[2018-01-27 20:43] VITALS: BP 163/91
[2018-01-27] MEDS: ACETAMINOPHEN 325 MG TAB PO PRN (21:17)
[2018-01-27] MEDS: diphenhydrAMINE 25 MG CAP PO PRN (21:17)
[2018-01-27] MEDS: METOPROLOL TART 50 MG TAB PO SCH (21:17)
[2018-01-27] MEDS: INSULIN HUM LISPRO 100 UN/ML 3 ML VIAL SUBQ PRN (21:19)
[2018-01-28] MEDS: KCL/NS* 20 MEQ/1000 ML PREMIX 1,000 ML IV SCH ×3 (00:14→18:26)
[2018-01-28 02:15] VITALS: BP 150/75
[2018-01-28 08:21] VITALS: BP 129/66
[2018-01-28] MEDS: METOPROLOL TART 50 MG TAB PO SCH ×2 (08:28→20:59)
--- NOTE | 2018-01-28 10:33 | Hospitalist Progress Note ---
Subjective Progress Notes Subjective This patient was admitted for nausea, vomiting, and diarrhea. He had no acute events overnight. Patient Complains of: Cardiovascular: No: Chest Pain Respiratory: No: Shortness of Breath Physical Exam Vital Signs Date Time Temp Pulse Resp B/P (MAP) Pulse Ox O2 Delivery O2 Flow Rate FiO2 01/28/18 09:23 99 CPAP 1.0 01/28/18 08:21 97.6 62 16 129/66 (87) Intake and Output 01/28/18 07:00 Intake Total 2833 ml Output Total 400 ml Balance 2433 ml Intake Oral 1108 ml IV Total 1725 ml Output Urine Total 150 ml Stool Total 250 ml # Voids 2 # Bowel Movements 4 # Emeses 1 Cardiovascular: Regular Rate and Rhythm Respiratory: Clear to Auscultation Item Value Date Time Clostridium Difficile Toxin A & B Negative 01/27/181949 Clostridium difficile Antigen Negative 01/27/181949 Item Value Date Time Gram Stain - Final Resulted 01/27/181949 Stool Assessment and Plan Problems: (1) Intractable vomiting with nausea Status: Acute Assessment & Plan: His symptoms are controlled with antiemetics. (2) Diarrhea Status: Acute Assessment & Plan: Testing for C. difficile is negative. A stool culture is pending. He is receiving Lomotil. (3) Transitional cell bladder cancer Status: Chronic Assessment & Plan: His disease has progressed despite chemo and radiation therapy. He has elected to transition towards hospice at [facility]. (4) Prostate cancer Status: Chronic Assessment & Plan: He has been receiving therapy as above. (5) T2DM (type 2 diabetes mellitus) Status: Chronic Assessment & Plan: He is on 70/30 insulin at home, buy is only receiving sliding scale level #2 here. (6) CKD (chronic kidney disease) stage 4, GFR 15-29 ml/min Status: Chronic Assessment & Plan: Creatinine stable at 1.4. (7) HTN (hypertension) Status: Chronic Assessment & Plan: He is on chronic treatment with metoprolol. (8) DVT (deep venous thrombosis) Status: Chronic Assessment & Plan: He is on chronic treatment with Lovenox. Exam Sepsis Risk: No Definite Risk Problem Qualifiers (1) Diarrhea: Diarrhea type: unspecified type Qualified Codes: R19.7 - Diarrhea, unspecified CANDY GREGORIO DO Jan 28, 2018 10:33
[2018-01-28 11:43] VITALS: Ht 167.6 cm; Wt 71.9 kg
[2018-01-28 11:52] VITALS: BP 132/62
[2018-01-28] MEDS: ENOXAPARIN 100 MG/ML SYR SC SCH (12:38)
[2018-01-28 15:30] VITALS: BP 168/80
[2018-01-28 19:23] VITALS: BP 163/74
[2018-01-28] MEDS: PROMETHAZINE 25 MG/ML 1 ML AMP IVP PRN (20:31)
[2018-01-28] MEDS: ONDANSETRON 4 MG/2 ML VIAL IVP PRN (22:20)
[2018-01-28] MEDS: diphenhydrAMINE 25 MG CAP PO PRN (23:18)
[2018-01-28] MEDS: ACETAMINOPHEN 325 MG TAB PO PRN (23:19)
[2018-01-28 23:20] VITALS: BP 170/82
[2018-01-29] MEDS: KCL/NS* 20 MEQ/1000 ML PREMIX 1,000 ML IV SCH (02:33)
[2018-01-29 02:57] VITALS: BP 178/88
[2018-01-29 06:50] VITALS: BP 165/93
[2018-01-29] MEDS: METOPROLOL TART 50 MG TAB PO SCH ×2 (09:07→21:22)
[2018-01-29 11:44] VITALS: BP 142/79
[2018-01-29] MEDS: INSULIN HUM LISPRO 100 UN/ML 3 ML VIAL SUBQ PRN (11:59)
--- NOTE | 2018-01-29 12:55 | Hospitalist Progress Note ---
Subjective Progress Notes Subjective Nausea with a small amount of vomitus last night. No problems since then and wants to try more substantial food. He did have a loose BM this morning, but overall much less diarrhea. Physical Exam Vital Signs Date Time Temp Pulse Resp B/P (MAP) Pulse Ox O2 Delivery O2 Flow Rate FiO2 01/29/18 11:44 98.5 78 16 142/79 (100) 94 Room Air 01/29/18 07:50 1.5 Intake and Output 01/29/18 07:00 Intake Total 4090 ml Output Total 1600 ml Balance 2490 ml Intake Oral 1110 ml IV Total 2980 ml Output Urine Total 1600 ml # Voids 4 # Bowel Movements 4 General Appearance: Alert, Awake, No Acute Distress Assessment and Plan Problems: (1) Intractable vomiting with nausea Status: Acute Assessment & Plan: His symptoms much improved with antiemetics and hydration. Will advance his diet and saline lock. However, this is a cyclical problem and only IV Phenergan/Zofran seems to help. Upon discharge, the family would like the patient to be able to have those available IV. (2) Diarrhea Status: Acute Assessment & Plan: Much improved, but did have a loose stool this morning. Testing for C. difficile is negative. A stool culture is growing normal enteric coliforms. He is receiving Lomotil, prn. (3) Transitional cell bladder cancer Status: Chronic Assessment & Plan: His disease has progressed despite chemo and radiation therapy. He has elected to transition towards hospice at [facility]. The family and patient are concerned about going home before going to [facility] where he wouldn't be able to get IV antiemetics. Will discuss with Social Work tomorrow. (4) T2DM (type 2 diabetes mellitus) Status: Chronic Assessment & Plan: He is on 70/30 insulin at home, but is only receiving sliding scale level #2 here. Glucose has been 114-189 in the last 24 hours. (5) CKD (chronic kidney disease) stage 4, GFR 15-29 ml/min Status: Chronic Assessment & Plan: Creatinine stable at 1.4, but not following daily. (6) HTN (hypertension) Status: Chronic Assessment & Plan: He is on chronic treatment with metoprolol. (7) DVT (deep venous thrombosis) Status: Chronic Assessment & Plan: He is on chronic treatment with Lovenox. Exam Sepsis Risk: No Definite Risk Problem Qualifiers (1) Diarrhea: Diarrhea type: unspecified type Qualified Codes: R19.7 - Diarrhea, unspeci ELIUD Aguilar MD Jan 29, 2018 12:55
[2018-01-29] MEDS: ENOXAPARIN 100 MG/ML SYR SC SCH (13:02)
[2018-01-29] MEDS: PROMETHAZINE 25 MG/ML 1 ML AMP IVP PRN (17:27)
[2018-01-29 19:22] VITALS: BP 185/94
[2018-01-29] MEDS: diphenhydrAMINE 25 MG CAP PO PRN (21:21)
[2018-01-29] MEDS: ACETAMINOPHEN 325 MG TAB PO PRN (21:22)
[2018-01-29] MEDS: KCL/NS* 20 MEQ/1000 ML PREMIX 1,000 ML IV PRN (23:19)
[2018-01-30 05:47] VITALS: BP 161/85
[2018-01-30] MEDS: KCL/NS* 20 MEQ/1000 ML PREMIX 1,000 ML IV PRN ×2 (08:01→23:38)
[2018-01-30] MEDS: METOPROLOL TART 50 MG TAB PO SCH ×2 (08:01→21:10)
[2018-01-30 08:05] VITALS: BP 148/71
--- NOTE | 2018-01-30 13:38 | Hospitalist Progress Note ---
Subjective Progress Notes Subjective 82M admitted with N/V 2/2 sequelae from radiation and malignancy. SVETLANA overnight, doing better. Patient Complains of: Gastrointestinal: Nausea; No Vomiting Physical Exam Vital Signs Date Time Temp Pulse Resp B/P (MAP) Pulse Ox O2 Delivery O2 Flow Rate FiO2 01/30/18 09:29 93 Room Air 01/30/18 08:05 98.5 78 18 148/71 (96) 01/30/18 05:47 1.5 Intake and Output 01/30/18 07:00 Intake Total 2231 ml Output Total 1075 ml Balance 1156 ml Intake Oral 1240 ml IV Total 991 ml Output Urine Total 1075 ml # Voids 3 # Bowel Movements 1 General Appearance: Alert, Awake, No Acute Distress Neuro: No Gross deficits Eyes: PERRLA ENT: Normal Neck: No Masses Cardiovascular: Normal Rhythm & Peripheral Pulses Respiratory: No Respiratory Distress GI: Soft and Non-Tender Musculoskeletal: No Weakness/Pain Integumentary: Skin Intact without Lesion / Mass Psych: Alert & Oriented X3, Appropriate Mood & Affect Assessment and Plan Problems: (1) Intractable vomiting with nausea Status: Acute Assessment & Plan: His symptoms much improved with antiemetics and hydration. Will advance his diet and saline lock. However, this is a cyclical problem and only IV Phenergan/Zofran seems to help. Upon discharge, the family would like the patient to be able to have those available IV. May also try Sancuso patch as outpatient, would not need to remember to take Zofran in this situation. (2) Diarrhea Status: Acute Assessment & Plan: Much improved, but did have a loose stool this morning. Testing for C. difficile is negative. A stool culture is growing normal enteric coliforms. He is receiving Lomotil, prn. (3) Transitional cell bladder cancer Status: Chronic Assessment & Plan: His disease has progressed despite chemo and radiation therapy. [facility] The family and patient are concerned about going home before going to [facility] where he wouldn't be able to get IV antiemetics. Hospice to meet with family today, there is some misunderstanding on when hospice should be involved from family and since doing fair ambulating they do not see need. Will continue education. (4) T2DM (type 2 diabetes mellitus) Status: Chronic Assessment & Plan: He is on 70/30 insulin at home, but is only receiving sliding scale level #2 here. Glucose has been 114-189 in the last 24 hours. (5) CKD (chronic kidney disease) stage 4, GFR 15-29 ml/min Status: Chronic Assessment & Plan: Creatinine stable at 1.4, but not following daily. (6) HTN (hypertension) Status: Chronic Assessment & Plan: He is on chronic treatment with metoprolol. (7) DVT (deep venous thrombosis) Status: Chronic Assessment & Plan: He is on chronic treatment with Lovenox. Exam Sepsis Risk: No Definite Risk Problem Qualifiers (1) Diarrhea: Diarrhea type: unspecified type Qualified Codes: R19.7 - Diarrhea, unspecified VERONICA GIBBONS DO Jan 30, 2018 13:38
[2018-01-30] MEDS: ENOXAPARIN 100 MG/ML SYR SC SCH (14:22)
[2018-01-30] MEDS ORDERED: ONDA4VIA IVP (16:04)
[2018-01-30] MEDS: ONDANSETRON 4 MG/2 ML VIAL IVP PRN (16:13)
[2018-01-30 21:11] VITALS: BP 145/72
[2018-01-30] MEDS: ACETAMINOPHEN 325 MG TAB PO PRN (21:16)
[2018-01-30] MEDS: diphenhydrAMINE 25 MG CAP PO PRN (21:16)
[2018-01-31 03:41] VITALS: BP 129/67
[2018-01-31 07:50] VITALS: BP 129/67
[2018-01-31] MEDS: METOPROLOL TART 50 MG TAB PO SCH (09:04)
[2018-01-31] MEDS: KCL/NS* 20 MEQ/1000 ML PREMIX 1,000 ML IV PRN (09:05)
[2018-01-31] MEDS ORDERED: METO-253 PO (09:57)
--- NOTE | 2018-01-31 10:03 | Hospitalist Depart ---
Discharge Summary Reason for Hosp/Final Diag: (1) Intractable vomiting with nausea Status: Acute Hospital Course & Plan: His symptoms are much improved with antiemetics and hyd ration. He seems to only do well with the IV medications. We have made arrangements for him to continue IV Zofran at home. Home health will bee assisting the family with this. (2) Diarrhea Status: Acute Hospital Course & Plan: This has resolved with Lomotil. 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 He is transitioning to assisted living with [facility]. (4) T2DM (type 2 diabetes mellitus) Status: Chronic Hospital Course & Plan: He is on 70/30 insulin. (5) CKD (chronic kidney disease) stage 4, GFR 15-29 ml/min Status: Chronic (6) HTN (hypertension) Status: Chronic Hospital Course & Plan: He is on chronic treatment with metoprolol, which was increased during this admission. (7) DVT (deep venous thrombosis) Status: Chronic Hospital Course & Plan: He is on chronic treatment with Lovenox. Departure Latest Vital Signs Vital Signs 01/31/18 01/31/18 07:50 07:58 Temp 97.8 Pulse 65 Resp 20 B/P (MAP) 129/67 (87) Pulse Ox 98 O2 Delivery CPAP O2 Flow Rate 1.5 Weight (Pounds): 158 Weight (Ounces): 8.0 Condition: Improved Discharge: Home, Home Health Home Health RN Follow Up For: Nursing Assessment Discharge Instructions Home Meds Active Scripts Metoprolol Tartrate (METOPROLOL TARTRATE) 50 Mg Tab, 25 MG PO BID, #60 TAB Prov:CANDY GREGORIO DO 01/31/18 Ondansetron Hcl/Pf (ONDANSETRON HCL 4 MG/2 ML VIAL) 4 Mg/2 Ml Vial, 4 MG IVP Q8H PRN for NAUSEA for 14 Days, #56 VIAL Prov:VERONICA GIBBONS DO 01/30/18 Enoxaparin Sodium (LOVENOX) 100 Mg/1 Ml Disp.syrin, 100 MG SQ DAILY, #90 SYR Prov:GISSELL ANDERSEN CONCERT PIANIST 01/09/18 Reported Medications Hum Insulin Nph/Reg Insulin Hm (NOVOLIN 70-30 100 UNIT/ML VIAL) 100 Unit/1 Ml Vial, 20-30 UNIT SQ BID, VIAL pt states sliding scale BG >165 give 30 units 01/19/18 Discontinued Reported Medications Ondansetron (ZOFRAN ODT) 4 Mg Tab.rapdis, 1 TAB PO Q12H 01/27/18 Metoprolol Tartrate (METOPROLOL TARTRATE) 25 Mg Tablet, 12.5 MG PO BID, TAB 01/22/18 Ondansetron Hcl (ONDANSETRON HCL) 4 Mg Tablet, 8 MG PO Q8H PRN for NAUSEA, TAB 01/19/18 Diet: Regular Activity: As Tolerated Copies to: KONRAD HAMMONDS MD ; Venous Thromboembolism Antithrombotics Is Pt On Any Antithrombotics?: Yes (Current DVT) Gkcr-as-Qpad Certification Face to Face Home Health Certification Institutional Provider conducted the [id number] encounter. Electronic Undersigning Physician Certifies Home Health. I certify that the patient has been under my care and that I had a [id number] encounter that meets the physician phrr-sa-embf encounter requirements with this patient. This patient is home-bound due to safety issues and continues to require assistance with ADL's. I certify that based on my findings, that Nursing, Aides and the following Home Health services are medically necessary: Medical Necessity: Nursing Date Face to Face Conducted: Jan 31, 2018 Problem Qualifiers (1) Diarrhea: Diarrhea type: unspecified type Qualified Codes: R19.7 - Diarrhea, unspecified CANDY GREGORIO DO Jan 31, 2018 10:03
[2018-01-31] MEDS ORDERED: HYPROMELLOSE 0.4% LUB 15ML BTL OU PRN (12:15)
[2018-01-31] MEDS: ENOXAPARIN 100 MG/ML SYR SC SCH (12:49)
[2018-01-31] MEDS: ONDANSETRON 4 MG/2 ML VIAL IVP PRN (16:18)
== END 2018-01-31 16:55 | disposition home health service (06) | DRG 948 ==
LOC: ER 11:09 → MED 12:49 → UNDOADMIN 12:49
PROVIDERS: ADMIT Internal Medicine; ATTEND Internal Medicine
PROC: 5A09357 Assistance with Respiratory Ventilation, Less than 24 Consecutive Hours, Continuous Positive Airway Pressure (ICD-10-PCS; principal; 2018-01-28)
DX: G89.3 Neoplasm related pain (acute) (chronic) (principal); N18.4 Chronic kidney disease, stage 4 (severe); C79.11 Secondary malignant neoplasm of bladder; C61 Malignant neoplasm of prostate; I12.9 Hypertensive chronic kidney disease with stage 1 through stage 4 chronic kidney disease, or unspecified chronic kidney disease; E11.22 Type 2 diabetes mellitus with diabetic chronic kidney disease; R11.2 Nausea with vomiting, unspecified; I67.9 Cerebrovascular disease, unspecified; R19.7 Diarrhea, unspecified; I25.10 Atherosclerotic heart disease of native coronary artery without angina pectoris; E78.00 Pure hypercholesterolemia, unspecified; E11.319 Type 2 diabetes mellitus with unspecified diabetic retinopathy without macular edema; R62.7 Adult failure to thrive; Z51.5 Encounter for palliative care; Z90.49 Acquired absence of other specified parts of digestive tract; Z88.5 Allergy status to narcotic agent; Z88.8 Allergy status to other drugs, medicaments and biological substances; Z86.718 Personal history of other venous thrombosis and embolism; Z79.01 Long term (current) use of anticoagulants; Z86.73 Personal history of transient ischemic attack (TIA), and cerebral infarction without residual deficits; Z87.891 Personal history of nicotine dependence; Z79.4 Long term (current) use of insulin; Z95.1 Presence of aortocoronary bypass graft; Z92.21 Personal history of antineoplastic chemotherapy; Z92.3 Personal history of irradiation
CPT/HCPCS: 36416; 82948; 87045; 87205; 87324; 87449; 96374; 99284; J1650; J2405; J2550; J3480; Q0163

== ENCOUNTER 2018-02-03 11:55 | Emergency (ER) | payer MEDICARE, OTHER ==
[2018-01-28 11:43] VITALS: Wt 63.0 kg
[~2018-02-03 11:55] MED LIST changes: +METO-253 PO; +ONDA4VIA IVP
--- NOTE | 2018-02-03 12:16 | ER Report ---
History and Physical Time Seen By MD: 12:11 Hx. of Stated Complaint: VOMITING STARTED TODAY, 2 MG ZOFRAN GIVEN AT HOME WITHOUT RELIEF HPI/ROS CHIEF COMPLAINT: Nausea and vomiting HISTORY OF PRESENT ILLNESS: This is an 82-year-old male who presents to the emergency department for nausea, vomiting. A history of end-stage bladder cancer, received radiation several weeks ago, finished chemo a couple of moths ago. He was admitted to the hospital for nausea, vomiting and diarrhea January 27. This morning the patient had a sudden onset of nausea and vomiting, no diarrhea. He was given "2 mg" of Zofran, orally at home per family. Patient continues to have severe nausea and vomiting. Patient is obviously uncomfortable and fatigued appearing. His port is currently accessed. Denies fevers, chill and diarrhea. The patient did miss his appointment at 1pm today with Dr. Somers, he was however able to come and visit with the patient in the ED. REVIEW OF SYSTEMS: Constitutional: No fever, no chills. Eyes: No discharge. ENT: No sore throat. Cardiovascular: No chest pain, no palpitations. Respiratory: No cough, no shortness of breath. Gastrointestinal: As above. Genitourinary: No hematuria. Musculoskeletal: No back pain. Skin: No rashes. Neurological: No headache. Allergies: Coded Allergies: meperidine (Verified Allergy, Severe, 02/03/18) morphine (Verified Allergy, Severe, 02/03/18) Home Meds Active Scripts Scopolamine (Scopolamine) 1 Mg/3 Day Patch.td.3, 1 PATCH.72H TOP PRN, #6 PATCH.72H 0 Refills Prov:JEAN GEE- 02/03/18 Promethazine HCl (Phenergan) 25 Mg Supp.rect, 1 SUPP.RECT RC Q6H PRN for prn, #8 SUPP.RECT 0 Refills Prov:JEAN GEEP-BC 02/03/18 Metoprolol Tartrate (METOPROLOL TARTRATE) 50 Mg Tab, 25 MG PO BID, #60 TAB Prov:CANDY GREGORIO DO 01/31/18 Ondansetron Hcl/Pf (ONDANSETRON HCL 4 MG/2 ML VIAL) 4 Mg/2 Ml Vial, 4 MG IVP Q8H PRN for NAUSEA for 14 Days, #56 VIAL Prov:VERONICA GIBBONS DO 01/30/18 Enoxaparin Sodium (LOVENOX) 100 Mg/1 Ml Disp.syrin, 100 MG SQ DAILY, #90 SYR Prov:GISSELL ANDERSEN AUTO CLAIMS ADJUSTER 01/09/18 Reported Medications Hum Insulin Nph/Reg Insulin Hm (NOVOLIN 70-30 100 UNIT/ML VIAL) 100 Unit/1 Ml Vial, 20-30 UNIT SQ BID, VIAL pt states sliding scale BG >165 give 30 units 01/19/18 Discontinued Reported Medications Ondansetron (ZOFRAN ODT) 4 Mg Tab.rapdis, 1 TAB PO Q12H 01/27/18 Metoprolol Tartrate (METOPROLOL TARTRATE) 25 Mg Tablet, 12.5 MG PO BID, TAB 01/22/18 Ondansetron Hcl (ONDANSETRON HCL) 4 Mg Tablet, 8 MG PO Q8H PRN for NAUSEA, TAB 01/19/18 Past Medical/Surgical History The patient has a past medical and surgical history of type II diabetes, diabetic retinopathy, diabetic neuropathy, prostate cancer, hypertension, CAD, stents placed, TIA, CVA, carotid endarterectomy, chronic kidney disease, DVT. Reviewed Nurses Notes: Yes Hx Smoking: Yes (20 YRS) Smoking Status: Former Smoker Hx Substance Use Disorder: No Hx Alcohol Use: Yes Constitutional Vital Sign - Last 24 Hours 02/03/18 02/03/18 02/03/18 02/03/18 11:59 12:01 12:15 12:30 Temp 97.7 Pulse 110 98 84 Resp 20 13 7 B/P (MAP) 148/72 148/72 (97) Pulse Ox 100 98 97 O2 Delivery Room Air 02/03/18 02/03/18 02/03/18 02/03/18 12:45 13:00 13:15 13:35 Pulse 103 100 107 Resp 14 17 11 B/P (MAP) 153/69 (97) Pulse Ox 95 96 91 02/03/18 02/03/18 02/03/18 02/03/18 13:45 14:00 14:15 14:30 Pulse 103 102 72 103 Resp 4 12 39 14 B/P (MAP) 111/52 (71) 93/50 (64) Pulse Ox 89 88 93 92 8/3102/03/18 02/03/18 02/03/18 14:45 15:00 15:15 15:30 Pulse 100 99 99 97 Resp 9 27 43 21 B/P (MAP) 91/45 (60) 82/48 (59) Pulse Ox 89 92 93 89 02/03/18 02/03/18 02/03/18 02/03/18 15:45 16:00 16:15 16:30 Pulse 98 97 97 100 Resp 27 11 20 17 B/P (MAP) 104/59 (74) 105/56 (72) Pulse Ox 90 94 92 95 02/03/18 02/03/18 02/03/18 02/03/18 16:45 17:00 17:15 17:30 Pulse 94 97 94 90 Resp 16 25 17 16 B/P (MAP) 79/58 (65) 115/66 (82) Pulse Ox 94 95 95 93 02/03/18 02/03/18 02/03/18 02/03/18 17:45 18:46 19:00 19:15 Pulse 95 91 91 Resp 18 13 13 B/P (MAP) 134/70 (91) 115/64 (81) Pulse Ox 95 96 96 02/03/18 19:30 Pulse 89 Resp 13 B/P (MAP) 130/72 (91) Pulse Ox 96 Physical Exam General Appearance: The patient is alert, has no immediate need for airway protection and no signs of toxicity, very tired appearing. Eyes: Pupils equal and round no pallor or injection. ENT, Mouth: Mucous membranes are dry. Respiratory: There are no retractions, lungs are clear to auscultation. Cardiovascular: Regular rate and rhythm, no murmurs, clicks or rubs. Gastrointestinal: Abdomen is soft, generalized tenderness to percussion and light palpation, no masses, pulsations. Bowel sounds normal, no abdominal bruits. Neurological: Alert and oriented 4. Moving all extremities. Following all commands. No focal neuro deficits. Cranial nerves II through XII intact. GCS 15. Skin: Warm and dry, no rashes. Musculoskeletal: Neck is supple non tender. Extremities are nontender, nonswollen and have full range of motion. DIFFERENTIAL DIAGNOSIS: After history and physical exam differential diagnosis was considered for abdominal pain including but not limited to appendicitis, cholecystitis, gastritis and urinary tract infection. nausea and vomiting including but not limited to gastroenteritis, gastritis, appendicitis, and medication side effect. Medical Decision Making Data Points Result Diagram: 02/03/18 1235 02/03/18 1235 Laboratory Hematology Test 02/03/18 12:35 Red Blood Count 3.82 M/uL (4.00-5.60) Mean Corpuscular Volume 97.7 fL (80.0-96.0) Mean Corpuscular Hemoglobin 32.9 pg (26.0-33.0) Mean Corpuscular Hemoglobin Concent 33.7 g/dL (32.0-36.0) Red Cell Distribution Width 19.1 % (11.5-14.5) Mean Platelet Volume 7.6 fL (7.2-11.1) Neutrophils (%) (Auto) 74.8 % (39.4-72.5) Lymphocytes (%) (Auto) 19.7 % (17.6-49.6) Monocytes (%) (Auto) 4.8 % (4.1-12.4) Eosinophils (%) (Auto) 0.3 % (0.4-6.7) Basophils (%) (Auto) 0.4 % (0.3-1.4) Nucleated RBC Relative Count (auto) 0.0 /100WBC Neutrophils # (Auto) 8.8 K/uL (2.0-7.4) Lymphocytes # (Auto) 2.3 K/uL (1.3-3.6) Monocytes # (Auto) 0.6 K/uL (0.3-1.0) Eosinophils # (Auto) 0.0 K/uL (0.0-0.5) Basophils # (Auto) 0.0 K/uL (0.0-0.1) Nucleated RBC Absolute Count (auto) 0.00 K/uL Peripheral Blood Smear No Y/N Sodium Level 138 mmol/L (137-145) Potassium Level 3.4 mmol/L (3.5-5.0) Chloride Level 102 mmol/L (98-107) Carbon Dioxide Level 23 mmol/L (22-30) Blood Urea Nitrogen 14 mg/dl (9-21) Creatinine 1.70 mg/dl (0.66-1.25) Glomerular Filtration Rate Calc 38.6 Random Glucose 143 mg/dl (75-110) Calcium Level 9.3 mg/dl (8.4-10.2) Total Bilirubin 0.6 mg/dl (0.2-1.3) Aspartate Amino Transf (AST/SGOT) 47 U/L (0-35) Alanine Aminotransferase (ALT/SGPT) 53 U/L (0-56) Alkaline Phosphatase 173 U/L (0-126) Total Protein 7.7 g/dl (6.3-8.2) Albumin 4.1 g/dl (3.5-5.0) Chemistry Test 02/03/18 12:35 White Blood Count 11.8 k/uL (4.5-11.0) Red Blood Count 3.82 M/uL (4.00-5.60) Hemoglobin 12.6 g/dL (14.0-18.0) Hematocrit 37.3 % (42.0-52.0) Mean Corpuscular Volume 97.7 fL (80.0-96.0) Mean Corpuscular Hemoglobin 32.9 pg (26.0-33.0) Mean Corpuscular Hemoglobin Concent 33.7 g/dL (32.0-36.0) Red Cell Distribution Width 19.1 % (11.5-14.5) Platelet Count 158 K/uL (150-450) Mean Platelet Volume 7.6 fL (7.2-11.1) Neutrophils (%) (Auto) 74.8 % (39.4-72.5) Lymphocytes (%) (Auto) 19.7 % (17.6-49.6) Monocytes (%) (Auto) 4.8 % (4.1-12.4) Eosinophils (%) (Auto) 0.3 % (0.4-6.7) Basophils (%) (Auto) 0.4 % (0.3-1.4) Nucleated RBC Relative Count (auto) 0.0 /100WBC Neutrophils # (Auto) 8.8 K/uL (2.0-7.4) Lymphocytes # (Auto) 2.3 K/uL (1.3-3.6) Monocytes # (Auto) 0.6 K/uL (0.3-1.0) Eosinophils # (Auto) 0.0 K/uL (0.0-0.5) Basophils # (Auto) 0.0 K/uL (0.0-0.1) Nucleated RBC Absolute Count (auto) 0.00 K/uL Peripheral Blood Smear No Y/N Glomerular Filtration Rate Calc 38.6 Calcium Level 9.3 mg/dl (8.4-10.2) Total Bilirubin 0.6 mg/dl (0.2-1.3) Aspartate Amino Transf (AST/SGOT) 47 U/L (0-35) Alanine Aminotransferase (ALT/SGPT) 53 U/L (0-56) Alkaline Phosphatase 173 U/L (0-126) Total Protein 7.7 g/dl (6.3-8.2) Albumin 4.1 g/dl (3.5-5.0) EKG/Imaging Imaging EXAMINATION: Brain MRI without IV contrast HISTORY: Evaluate for metastasis. COMPARISON: Head CT from 08/16/2017. TECHNIQUE: Multi-planar, multi-sequence brain MRI was performed without IV contrast administration. FINDINGS: Brain and other intracranial structures: Ventricles and sulci are normal in size for patient's age. A few tiny T2 hyperintense foci in the left frontoparietal white matter. Unchanged 7 mm cystic focus between the right caudate head and right thalamus. No midline shift, mass, hemorrhage, or acute infarct. Calvarium / scalp: Negative. Skull base: Negative. Visualized sinuses / orbits: The lenses have been extracted or replaced. IMPRESSION: No acute intracranial abnormality or evidence of metastatic disease to the brain. Minimal nonspecific white matter changes Small benign-appearing cyst between the right caudate head and right thalamus is unchanged. Report Dictated By: Mayank Carroll MD at 02/03/2018 7:25 PM Report E-Signed By: Mayank Carroll MD at 02/03/2018 7:33 PM WSN:[id number] ED Course/Re-evaluation Clinical Indication for ER IV: Hydration, IV Access ED Course The patient was admitted to room. A history and physical obtained. Differential diagnoses were considered. The patient our he had his port accessed, patient was given 8 mg IV Zofran, a 500 mL normal saline bolus. Patient had relief of his nausea and vomiting for a short period, patient was given 12.5 mg IV Phenergan, patient had significant relief with the Phenergan. Dr. Hampton was able to stop by, spoke with the family, I spoke with Dr. Hampton briefly, we discussed an MRI of the brain looking for metastasis. The MRI of the brain was negative for any acute intracranial abnormalities, no metastasis identified. I reviewed this with the family and the patient. He remains comfortable, he does have some mild nausea returning, I did give 1 additional dose of 12.5 mg IV Phenergan. The port was flushed. The patient was discharged home with the family. Patient was also sent home with a prescription for Phenergan suppositories and scopolamine patches. They had no other questions or concerns at this time discharged home. 02/03/2018 2:51:33 pm in to assess patient, he is resting comfortably, no nausea or vomiting at this time. Family is not present at the bedside at this time. 02/03/2018 4:03:00 pm I did speak with Dr. Lindsay regarding patient, I suggested sending the patient home if he is agreeable with this Dr. Hampton felt this was okay he would however like us to complete the MRI there is metasta sis then they would need to respond accordingly. 02/03/2018 4:09:54 pm the patient remains resting comfortably, no nausea or vomiting. 02/03/2018 8:18:48 pm the brain MRI is negative for any acute intra-cranial abnormalities, no metastasis identified. I reviewed this with the patient and his family were at the bedside, the patient remains nausea and vomiting free at this time he will be sent home, I did send him home with scopolamine patches as well as Phenergan suppositories. The patient had no other questions or concerns. Neither did the family. Decision to Disposition Date: Feb 03, 2018 Decision to Disposition Time: 20:14 Depart Departure Latest Vital Signs Vital Signs Date Time Temp Pulse Resp B/P (MAP) Pulse Ox O2 Delivery O2 Flow Rate FiO2 02/03/18 19:30 89 13 130/72 (91) 96 02/03/18 11:59 97.7 Room Air Impression: Primary Impression: Nausea & vomiting Additional Impression: Transitional cell bladder cancer Condition: Improved Disposition: HOME OR SELF-CARE Referrals: KONRAD HAMMONDS MD (PCP) New Scripts Scopolamine (Scopolamine) 1 Mg/3 Day Patch.td.3 1 PATCH.72H TOP PRN, #6 PATCH.72H 0 Refills Prov: JEAN GEE AUTO CLAIMS ADJUSTER-BC 02/03/18 Promethazine HCl (Phenergan) 25 Mg Supp.rect 1 SUPP.RECT RC Q6H PRN for prn, #8 SUPP.RECT 0 Refills Prov: TANIRADHAJEAN FITZGERALD 02/03/18 Patient Instructions: Acute Nausea and Vomiting (ED) Additional Instructions: We gave you one dose of Phenergan through the IV rider to discharge, hopefully this will be enough to get you through tonight. Try taking the Zofran 1st if the nausea and vomiting returns. If the Zofran does not work then tried the Phenergan suppository. If the Phenergan suppository does not work then I would try the scopolamine patch. If the Zofran is not working and he wanted avoid the Phenergan you can certainly try the scopolamine patch instead, the patch is to be removed every 72 hours. I would recommend trying a clear liquid diet for the next 24 hours, then progress into a bland diet for 24 hours and then into a regular diet. Return to the emergency department for any other concerns or worsening symptoms. Problem Qualifiers Primary Impression: Nausea & vomiting Vomiting type: unspecified Vomiting Intractability: intractable Qualified Codes: R11.2 - Nausea with vomiting, unspecified JEAN GEE Feb 03, 2018 12:16
[2018-02-03] MEDS ORDERED: NS(*) 0.9% 500 ML BAG 500 ML IV ONE (12:20)
[2018-02-03] MEDS ORDERED: ONDANSETRON 4 MG/2 ML VIAL IVP ONE (12:20)
[2018-02-03 12:51] LABS: PLATELET COUNT, AUTOMATED 158 K/uL (150-450)
[2018-02-03] MEDS ORDERED: PROMETHAZINE 25 MG/ML 1 ML AMP IVP ONE ×2 (13:10→20:15)
[2018-02-03] MEDS ORDERED: PROM25SU8 RC (16:12)
[2018-02-03] MEDS ORDERED: SCOP1PAT16 TOP (16:12)
--- NOTE | 2018-02-03 19:36 | RADIOLOGY IMAGING REPORT ---
FACILITY: [facility] - [place], [place] PATIENT NAME: Deion Kwong : 1935 MR: [id number] V: [id number] EXAM DATE: ORDERING PHYSICIAN: JEAN GEE TECHNOLOGIST: Location: [facility] - [place] Patient: Deion Kwong : 1935 Visit/Account:[id number] Date of Sevice: 02/03/2018 EXAMINATION: Brain MRI without IV contrast HISTORY: Evaluate for metastasis. COMPARISON: Head CT from 08/16/2017. TECHNIQUE: Multi-planar, multi-sequence brain MRI was performed without IV contrast administration. FINDINGS: Brain and other intracranial structures: Ventricles and sulci are normal in size for patient's age. A few tiny T2 hyperintense foci in the left frontoparietal white matter. Unchanged 7 mm cystic focus between the right caudate head and right thalamus. No midline shift, mass, hemorrhage, or acute infarct. Calvarium / scalp: Negative. Skull base: Negative. Visualized sinuses / orbits: The lenses have been extracted or replaced. IMPRESSION: No acute intracranial abnormality or evidence of metastatic disease to the brain. Minimal nonspecific white matter changes Small benign-appearing cyst between the right caudate head and right thalamus is unchanged. Report Dictated By: Mayank Carroll MD at 02/03/2018 7:25 PM Report E-Signed By: Mayank Carroll MD at 02/03/2018 7:33 PM [id number]
[2018-02-03 20:30] VITALS: BP 126/69
== END 2018-02-03 21:02 | disposition home or self-care (01) ==
LOC: ER 12:11
DX: R11.2 Nausea with vomiting, unspecified (principal); C67.9 Malignant neoplasm of bladder, unspecified; Z92.3 Personal history of irradiation
CPT/HCPCS: 70551; 85025; 96361; 96374; 96375; 96376; 99284; J2405; J2550; J7040; 82040; 82247; 82310; 82374; 82435; 82565; 82947; 84075; 84132; 84155; 84295; 84450; 84460; 84520

== ENCOUNTER 2018-03-01 01:29 | Day surgery (SDC) | payer MEDICARE, OTHER ==
[2018-01-28 11:43] VITALS: Ht 167.6 cm; Wt 66.2 kg
[2018-03-01] VITALS (9 sets, daily range): BP systolic 96–123; BP diastolic 48–69
[~2018-03-01] VITALS: Ht 167.6 cm; Wt 66.2 kg
[~2018-03-01 01:29] MED LIST changes: +GING550C2 PO; -LOSA25TA50 PO; +LOSA25TA52 PO; -ONDA4VIA IVP; +ONDA4VIA3 IVP; +PROM25SU8 RC; +SCOP1PAT16 TOP; +SODI500I12 IV
[2018-03-01] MEDS ORDERED: NORMOSOL R SOLN(*) 1000 ML BAG 1,000 ML IV PRN (07:10)
[2018-03-01] MEDS ORDERED: LIDOCAINE/SOD BICARB 8.4% SYR ID ONE (07:10)
--- NOTE | 2018-03-01 07:15 | EKG ---
FACILITY: [facility] PATIENT NAME: SANDRA CORREA : [id number] MR: [id number] V: [id number] EXAM DATE: ORDERING PHYSICIAN: CANDY FRANKEL TECHNOLOGIST: DARCY Test Reason : PREOP-EGD Blood Pressure : / mmHG Vent. Rate : 064 BPM Atrial Rate : 064 BPM P-R Int : 176 ms QRS Dur : 086 ms QT Int : 448 ms P-R-T Axes : 046 -39 018 degrees QTc Int : 462 ms Normal sinus rhythm Left axis deviation Abnormal ECG When compared with ECG of 22-JAN-2018 15:02, premature ventricular complexes are no longer present T wave inversion no longer evident in Anterolateral leads Confirmed by CANDY GREGORIO ([id number]) on 03/01/2018 2:12:43 PM Referred By: ELLIOTT Confirmed By:CANDY GREGORIO
[2018-03-01] MEDS ORDERED: HEPARIN FLSH (PORT) 500 UN/5ML IVP ONE (07:25)
[2018-03-01 07:48] LABS: INR 1.06
--- NOTE | 2018-03-01 08:43 | Short(Outpt) Discharge Summary ---
Discharge Summary Reason for Hosp/Final Diag: (1) Intractable vomiting with nausea Status: Acute Hospital Course & Plan: EGD completed without problems. Departure Discharge to: Home, Self Care Discharge Instructions Home Meds Active Scripts Promethazine HCl (Phenergan) 25 Mg Supp.rect, 1 SUPP.RECT RC Q6H PRN for prn for 30 Days, #30 SUPP.RECT 4 Refills Prov:KONRAD HAMMONDS MD 02/14/18 Metoprolol Tartrate (METOPROLOL TARTRATE) 25 Mg Tablet, 0.5 TAB PO BID for 90 Days, #45 TAB Prov:KONRAD HAMMONDS MD 02/09/18 Ondansetron Hcl/Pf (ONDANSETRON HCL 4 MG/2 ML VIAL) 4 Mg/2 Ml Vial, 4 MG IVP Q8H PRN for NAUSEA for 14 Days, #56 VIAL Prov:JUAN HENAOVERONICA 01/30/18 Reported Medications Sodium Chloride 3 % (SODIUM CHLORIDE) 500 Ml Iv.soln, 1000 ML IV 3XW 1,000ml NS 3xW 02/09/18 Lorena Root (Lorena Root) 550 Mg Capsule, 1 CAP PO BID 02/09/18 Apixaban (ELIQUIS) 5 Mg Tablet, 1 TAB PO BID 02/09/18 Hum Insulin Nph/Reg Insulin Hm (NOVOLIN 70-30 100 UNIT/ML VIAL) 100 Unit/1 Ml Vial, 20 UNIT SQ BID, VIAL 01/19/18 Diet: Regular Activity: As Tolerated Special Instructions: Your upper endoscopy was completed without any problems. I didn't find anything of any great concern in your esophagus, stomach, or duodenum (first portion of your small intestine). You do have a small hiatal hernia which is not a cause for symptoms, these occur in about 40% of people and we don't generally recommend surgical repair unless it is causing a problem. There was mild inflammation in your duodenal bulb (the part of your small intestine that is right outside your stomach) but this isn't uncommon either as the stomach acid can cause irritation as it leaves your stomach. If you have abdominal pain or your nausea/vomiting worsens, I recommend starting ranitidine twice each day but as long as your nausea/vomiting is improving, I wouldn't recommend starting any medication as there would really be no benefit. You can restart Eliquis immediately as I didn't perform any biopsies. Problem Qualifiers (1) Intractable vomiting with nausea: Vomiting type: cyclical vomiting Qualified Codes: G43.A1 - Cyclical vomiting, intractable CANDY GALLAGHER MD Mar 01, 2018 08:43
== END 2018-03-01 10:06 | disposition home or self-care (01) ==
LOC: OR 01:29
PROVIDERS: ATTEND Surgery
DX: K22.2 Esophageal obstruction (principal); K44.9 Diaphragmatic hernia without obstruction or gangrene; K29.80 Duodenitis without bleeding; I10 Essential (primary) hypertension; E11.9 Type 2 diabetes mellitus without complications
CPT/HCPCS: 36416; 43235; 82948; 85610; 93005; J1642

== ENCOUNTER 2018-03-03 09:36 | Outpatient (RCR) | payer MEDICARE, OTHER ==
[2018-01-20 15:23] VITALS: BP 107/55
[2018-01-20] MEDS: NS(*) 0.9% 500 ML BAG 500 ML IV PRN ×2 (15:45→16:20)
[2018-01-20 16:46] VITALS: BP 121/60
[2018-01-20] MEDS: HEPARIN FLSH (PORT) 500 UN/5ML IVP PRN (17:00)
[2018-01-25] MEDS: NS(*) 0.9% 1000 ML BAG 1,000 ML IV PRN (09:15)
[2018-01-25] MEDS: HEPARIN FLSH (PORT) 500 UN/5ML IVP PRN (09:17)
[2018-01-25 09:20] VITALS: BP 110/83
[2018-01-27] MEDS: NS(*) 0.9% 1000 ML BAG 1,000 ML IV PRN (09:37)
[2018-01-27] MEDS: HEPARIN FLSH (PORT) 500 UN/5ML IVP PRN (09:38)
[2018-01-27 09:58] LABS: PLATELET COUNT, AUTOMATED 138 K/uL (150-450)
[2018-01-27 12:03] VITALS: BP 146/68
--- NOTE | 2018-01-27 14:24 | Oncology Note ---
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 [employer] 01/09/18 Reported Medications Metoprolol Tartrate (METOPROLOL TARTRATE) 25 Mg Tablet, 12.5 MG PO BID, TAB 01/22/18 Ondansetron Hcl (ONDANSETRON HCL) 4 Mg Tablet, 8 MG PO Q8H PRN for NAUSEA, TAB 01/19/18 Hum Insulin Nph/Reg Insulin Hm (NOVOLIN 70-30 100 UNIT/ML VIAL) 100 Unit/1 Ml Vial, 20-30 UNIT SQ BID, VIAL 01/19/18 Discontinued Reported Medications Aspirin (ASPIR 81) 81 Mg Tablet.dr, 1 TAB PO QDAY, TAB 01/19/18 Discontinued Scripts Apixaban (ELIQUIS) 5 Mg Tablet, 1 TAB PO BID for 90 Days, #90 TAB finish one week of lovenox shots and then start eliquis for tx of dvt Prov:KONRAD HAMMONDS MD 01/19/18 History of Present Illness Evaluation Evaluation Date: January 26, 2018 Evaluation Time: 09:00 Accompanied by Accompanied by: Last seen by Aminta Espinal 01/13/18 Chief Complaint Nausea, vomiting, diarrhea Oncology History Oncology History In early 2017 patient was noted to have an elevated PSA in the range of 18 and he started on Lupron and Casodex therapy, and his PSA was brought under control. - Patient had recent carotid endarterectomy in [place], September 2017, and during his hospitalization patient was found to have obstructed left ureter and hydronephrosis, so the patient was referred to Dr. Gandhi in [place] for further evaluation and management. - He had a CT abdomen and pelvis done on September 28, 2017 which showed status post prostatectomy. There may be some residual soft tissue present which is causing mild compression to the urinary bladder versus an intramedullary bladder abnormality with mild left hydronephrosis. - He had cystoscopy with bladder and urethral biopsies done on September 26, 2017 under the direction of Dr. 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 - Patient underwent left-sided percutaneous nephrostomy tube placement on September 27, 2017. His creatinine dropped after that. - He was evaluated by Dr. You, who requested a PET/CT scan which was done on October 14, 2017, which showed asymmetric thickening of the left posterolateral wall of the urinary bladder, likely correlates with the patient's nonbladder cancer. There was subcentimeter left pelvic side wall lymph node with no prominent uptake. There was also hypermetabolic lytic lesion in the inferior right pubic bone, and a second lytic lesion in the lower sacrum to the left of the midline with mild uptake concerning for bony metastasis. - Patient is scheduled for CT-guided biopsy of one of the bone lesions in [place]. 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 - The patient started chemotherapy and radiosensitizer with radiation therapy with mitomycin and 5-FU on November 07, 2017 Treatment Treatment treated with XRT radiation therapy, completed mitomycin and 5-FU as of 12/05/2017 HPI HPI Mr. Elenita Albarran is an 82 year old male who has Metastatic urothelial carcinoma high grade Dx 10/[address]-guided biopsy . Patient is seen at infusion bathroom with intractable nausea, vomiting, diarrhea(x10 bms/daily), and abdominal pain. beside stable vital signs patient looks very ill, fatigue, weak. He has been in and out of the hospital several times this month for same symptoms. He is hemodynamically stable, with a BP of 146/68-92. Patient is afebrile, no cardiac type chest pain, no dizziness, or headache, recently stopped radiation therapy, completed mitomycin and 5-FU as of 12/05/2017. Patient is s/p left- sided percutaneous nephrostomy tube placement on September 27, 2017. His creatinine dropped after that. Patient had recent carotid endarterectomy in [place], September 2017. 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 ROS. unremarkable except as for HPI. Living Conditions Has sons support. Vital Signs Vital Signs Temperature: 97.6 Pulse: 92 BP Systolic: 146 BP Diastolic: 68 Respiratory Rate: 16 O2 SAT: 93% RA O2 Delivery: Height (feet) Height (inches) Weight lb: 65Kg. Weight oz: Weight Kg (Ayan): Pain: 8 (0-10 scale) ECOG-3 Physical Exam General: ill looking, (In no acute distress) HEENT: HEAD:Atraumatic Neck: Supple Lungs: Clear to Auscultation, Percussion Bilaterally Heart: Regular Rate and Rhythm GI: diarrhea, nausea vomiting Extremities: No Cyanosis, No Clubbing, No Edema, Other (Left ankle edema +2) Lymphatics: No Peripheral Lymphadenopathy, No Other Psychiatric: Mood appears normal, Other Skin: No Skin Rashes, No Bruising, No Purpura, Breast No Masses, No Nipple Discharge No Skin Changes, No Other Assessment and Plan Mr. Elenita Albarran is an 82 year old male who has Metastatic urothelial carcinoma high grade Dx 10/[address]-guided biopsy . Patient is seen and examined at the infusion bathroom with intractable nausea, vomiting, diarrhea, and abdominal pain. Besides stable vital signs patient looks very ill, fatigue, weak. He has been in and out of the hospital several times this month for same symptoms. He is hemodynamically stable, with a BP of 146/68-92. Patient is afebrile, no cardiac type chest pain, no dizziness, or headache, recently stopped radiation therapy, completed mitomycin and 5-FU as of 12/05/2017. Recently treated for UTI. c-diff ( presumed); DVT to left leg. DIAGNOSTIC DATA REVIEWED PER [employer]. recent PET scan shows progression of disease. We will initiate the following stabilization measures, and patient to be transferred to ER Immediately for further work up and observation as clinically indicated. HEME: 1 .Metastatic urothelial carcinoma high grade Dx 10/2017 s/p chemo & radiation therapy ,12/2017 . Patient and family decided to stop further treatment. - Anticipating Neutropenia/Leukopenia. blood products replacement as clinically indicated. 2. GI: Intractable nausea, vomiting diarrhea. 3. ID. nephrostomy tube site in place patient continues to urinate naturally .s/p UTI on patient has been empirically treated for c-diff, in the past, Recommend sending stool specimen for c-diff, and urine sample from nephro tube 4. FEN: Chronic kidney disease stage 4. baseline creatine s/p nephro tube placement in the 1.5-1.80. continue to Renally adjust patient medications. -Supportive measures: - CBC, CMP, Mag. -Replete lytes as clinically indicated Hydrate 1NS=20of K+ at 200ml/hr. - Zofran 4-8mg IV x1 q4-6 hours -Solumedrol 60mg IV x1 now, may repeat Q 4 hours -Scopolamine patch 1.5mg apply to back of ear Q72 hours -Dilaudid 1mg Iv x1 now. for pain level 8 (0-10 scale). - Stool specimen for c-diff - send UA from nephro tube -Transfuse if Platelet </=10K or as clinically indicated - Transfuse PRBC if Hgb </=7.0 -Discuss code status, and Comfort measures with patient and family. -provide antidiarrheal as clinically indicated. CHRONIC 1. Type 2 diabetes. HX of Diabetic retinopathy Denies diabetic neuropathy. on Humalog 70/30 ( Reported).per patient and son his BG in the A.m is in the 97s range for which he typically gets 20units of insulin SC. Followed by BG in the P.M is in the 165-200 for which he injects 25 units of insulin SC. 2. History of prostate cancer. on Lupron and casodex, 3. Hypertension. on Metoprolol 25mg PO BID. 4. Coronary artery disease status post four stent placement. 5. 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 6. Chronic kidney disease stage 4. 7. DVT to left leg TIME SPENT: 30 minutes 25> minutes includes but not limited to discussion, counselling and co-ordination~ of care. Discussion with other health care providers, record review, review of lab work, diagnostic tests. Plan discussed extensively with patient. All the questions answered today. Thank you for the opportunity to be involved in the care of Deion Kwong Level: sick visit 4 ECORIGO MARTINEZ, ONC Jan 27, 2018 14:24
[2018-01-28 11:43] VITALS: BMI 25.5
[2018-02-01] MEDS: NS(*) 0.9% 1000 ML BAG 1,000 ML IV PRN (15:30)
[2018-02-01 15:43] VITALS: BP 104/68
[2018-02-08 09:54] VITALS: BP 93/44
[2018-02-08] MEDS: HEPARIN FLSH (PORT) 500 UN/5ML IVP PRN (09:54)
[2018-02-08] MEDS: NS(*) 0.9% 1000 ML BAG 1,000 ML IV PRN (09:54)
[2018-02-08] MEDS: LIDOCAINE/SOD BICARB 8.4% SYR ID PRN (09:54)
[2018-02-10 09:56] VITALS: BP 98/47
[2018-02-10] MEDS: NS(*) 0.9% 1000 ML BAG 1,000 ML IV PRN (09:56)
[2018-02-10] MEDS: HEPARIN FLSH (PORT) 500 UN/5ML IVP PRN (11:20)
[2018-02-10 11:27] VITALS: BP 103/67
[2018-02-13 10:15] VITALS: BP 92/40
[2018-02-13] MEDS: NS(*) 0.9% 1000 ML BAG 1,000 ML IV PRN (10:20)
[2018-02-13] MEDS: HEPARIN FLSH (PORT) 500 UN/5ML IVP PRN (11:54)
[2018-02-13 11:55] VITALS: BP 105/61
[2018-02-15] MEDS: LIDOCAINE/SOD BICARB 8.4% SYR ID PRN (09:56)
[2018-02-15] MEDS: HEPARIN FLSH (PORT) 500 UN/5ML IVP PRN (09:56)
[2018-02-15 09:57] VITALS: BP 97/43
[2018-02-15] MEDS: NS(*) 0.9% 1000 ML BAG 1,000 ML IV PRN (09:57)
[2018-02-15 11:31] VITALS: BP 92/43
[2018-02-17] MEDS: NS(*) 0.9% 1000 ML BAG 1,000 ML IV PRN (09:52)
[2018-02-17 09:54] VITALS: BP 99/48
[2018-02-17] MEDS: HEPARIN FLSH (PORT) 500 UN/5ML IVP PRN (11:06)
[2018-02-20] MEDS: NS(*) 0.9% 1000 ML BAG 1,000 ML IV PRN (10:15)
[2018-02-20 10:18] VITALS: BP 92/41
[2018-02-20 11:41] VITALS: BP 128/67
[2018-02-20] MEDS: HEPARIN FLSH (PORT) 500 UN/5ML IVP PRN (11:42)
[2018-02-22 09:58] VITALS: BP 103/42
[2018-02-22] MEDS: NS(*) 0.9% 1000 ML BAG 1,000 ML IV PRN (10:02)
[2018-02-22] MEDS: HEPARIN FLSH (PORT) 500 UN/5ML IVP PRN (11:26)
[2018-02-24] MEDS: NS(*) 0.9% 1000 ML BAG 1,000 ML IV PRN (09:58)
[2018-02-24 09:59] VITALS: BP 93/59
[2018-02-27] MEDS: NS(*) 0.9% 1000 ML BAG 1,000 ML IV PRN (10:00)
[2018-02-27 17:00] VITALS: BP 109/68
[~2018-03-03 09:36] MED LIST changes: +ALTEPLASE RECOMB 2 MG VIAL IVP PRN; +DEXTROSE 5%(*) 100 ML BAG 100 ML IVPB PRN; -HYDR-4309 PO; +HYDR-653 PO; +HYDROMORPHONE HCL 1 MG/ML SYRINGE IVP ONE; +HYDROmorphone* 1 MG/ML 1 MG/ML ML IVP ONE; +KCL/NS* 20 MEQ/1000 ML PREMIX 1,000 ML IV ONE; +LEUPROLIDE ACET 22.5 MG KIT SUBQ ONE; +LORazepam 2 MG/ML VIAL IVP ONE; +METOCLOPRAMIDE 10 MG/2 ML SDV IVP ONE; +NS(*) 0.9% 100 ML BAG 100 ML IVPB PRN; +ONDANSETRON 4 MG/2 ML VIAL IVP ONE; +ONDANSETRON 4 MG/2 ML VIAL ONE; +SCOPOLAMINE 1.5 MG PATCH TD ONE; +WATER FOR INJ,STERILE 20 ML IVP PRN; +methylPREDNIS SUCC 125 MG/2ML IVP PRN
[2018-03-03 09:45] VITALS: BP 113/67
[2018-03-03] MEDS: NS(*) 0.9% 1000 ML BAG 1,000 ML IV PRN (09:45)
[2018-03-03] MEDS: HEPARIN FLSH (PORT) 500 UN/5ML IVP PRN (11:20)
[2018-03-28] MEDS ORDERED: NITR0.4T3 SL (15:58)
[2018-03-28] MEDS ORDERED: HYDR-2966 PO (15:58)
[2018-03-28] MEDS ORDERED: APIX2.5T PO (15:58)
== END 2018-04-05 09:06 | disposition home or self-care (01) ==
LOC: SPU 09:36
PROVIDERS: ATTEND Internal Medicine Hematology
DX: Z51.11 Encounter for antineoplastic chemotherapy (principal); C67.9 Malignant neoplasm of bladder, unspecified; N18.4 Chronic kidney disease, stage 4 (severe); Z85.46 Personal history of malignant neoplasm of prostate; Z86.73 Personal history of transient ischemic attack (TIA), and cerebral infarction without residual deficits; E11.9 Type 2 diabetes mellitus without complications; Z87.891 Personal history of nicotine dependence; R53.1 Weakness; R53.83 Other fatigue; M89.9 Disorder of bone, unspecified; K44.9 Diaphragmatic hernia without obstruction or gangrene; R91.8 Other nonspecific abnormal finding of lung field; Z93.6 Other artificial openings of urinary tract status
CPT/HCPCS: 36591; 83735; 85025; 96360; 96361; 96365; 96372; 96374; A9270; J1170; J1642; J2060; J2405; J2930; J3480; J7030; J7040; 82040; 82247; 82310; 82374; 82435; 82565; 82947; 84075; 84132; 84155; 84295; 84450; 84460; 84520

== ENCOUNTER 2018-03-14 15:59 | Outpatient (RCR) | payer MEDICARE, OTHER ==
[2017-11-11 09:19] VITALS: BP 149/72
[2018-01-28 11:43] VITALS: BMI 25.5
[~2018-03-14 15:59] MED LIST changes: -ALTEPLASE RECOMB 2 MG VIAL IVP PRN; -DEXTROSE 5%(*) 100 ML BAG 100 ML IVPB PRN; -HYDROMORPHONE HCL 1 MG/ML SYRINGE IVP ONE; -HYDROmorphone* 1 MG/ML 1 MG/ML ML IVP ONE; -KCL/NS* 20 MEQ/1000 ML PREMIX 1,000 ML IV ONE; -LEUPROLIDE ACET 22.5 MG KIT SUBQ ONE; -LORazepam 2 MG/ML VIAL IVP ONE; -LOSA25TA52 PO; +LOSA25TA57 PO; -METOCLOPRAMIDE 10 MG/2 ML SDV IVP ONE; -NS(*) 0.9% 100 ML BAG 100 ML IVPB PRN; -ONDANSETRON 4 MG/2 ML VIAL IVP ONE; -ONDANSETRON 4 MG/2 ML VIAL ONE; -SCOPOLAMINE 1.5 MG PATCH TD ONE; -WATER FOR INJ,STERILE 20 ML IVP PRN; -methylPREDNIS SUCC 125 MG/2ML IVP PRN
--- NOTE | 2018-03-15 23:06 | ONCOLOGY FOLLOW UP NOTE ---
EVENT DATE: March 14, 2018 CHIEF COMPLAINT/REASON FOR VISIT Patient is here to discuss his recent PET/CT scan. 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 Oligometastatic disease isolated to the right inferior pubic ramus with a smaller lesion in the sacrum. ONCOLOGY HISTORY 1. Diagnosis of transitional cell carcinoma of the bladder September 18, 2017. Invasion of smooth muscle wall. Grade 3. Patient underwent left-sided percutaneous nephrostomy tube placement September 27, 2017. 2. Patient was noted to have tracer uptake in the right inferior pubic ramus bone on PET/CT scan dated October 14, 2017. Volume measured 3.7 x 1.3 cm with an SUV peak of 8.6. There was a second small focus in the lower left sacrum with an SUV of 2.4. No signs of distant metastatic disease otherwise. 3. 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 4. Treatment: Patient received sensitizing 5FU along with full-dose external beam radiation therapy to the bladder as well as the isolated bone metastasis. 5. Additional PET/CT imaging on January 20, 2018, reveals the urinary bladder mass to have resolved compared to the prior study dated September 21, 2017. The right inferior pubic ramus bone appears to be normalizing with an SUV down to 4.1. No activity noted in the sacrum. No evidence of distant metastatic disease. INTERVAL HISTORY Mr. Kwong was seen with his son today for a followup appointment. Dr. You has left our facility in the Radiation Department [place], so I will take over his care from a radiation oncology standpoint. He is being closely followed by Dr. Powers, and he also has urologists both in [place] and in [place]. His serging machine operator is Dr. Macedo in [place]. The patient is doing exceptionally well. Just before the radiation therapy completed, his pain abated. He has not had any return of pain in the bone at this time. Denies any difficulty with any bowels. No further episodes of nausea or vomiting. He did have an endoscopy on March 02, 2018, and was told that was normal. The patient had a PET/CT scan recently in [place] with excellent therapeutic response as listed above. The bladder mass appeared to radiographically resolve, and there also was significant improvement in the bone lesions with 50% reduction in SUV activity. I would expect normally the bone to try to normalize over the time course of a year. Patient states he is going down to [place] tomorrow to have cystoscopy and possibly stent removal. He is able to make urine at night and gets up three to five times. His left stent is also working well, and he has a left-sided leg bag in place. He denies any hematuria. Appetite has been excellent. Medications updated for the Oncology record. Patient had recent lab work on February 03, 2018, which revealed a mildly elevated alkaline phosphatase as expected at this time of 173. LFTs were essentially normal. BUN is 14, creatinine 1.7. White count 11.8, hemoglobin 12.6, platelets 158. PAST MEDICAL HISTORY 1. Type 2 diabetes. 2. History of prostate cancer. 3. Hypertension. 4. Coronary artery disease status post four stent placement. 5. 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 6. Chronic kidney disease stage 4. PAST SURGICAL HISTORY 1. Carotid endarterectomy September 06, 2017. 2. Tonsillectomy. 3. Hemorrhoidectomy. 4. Prostatectomy. 5. Bilateral inguinal hernia repair. 6. Exploratory laparotomy. 7. Bilateral rotator cuff repair. 8. Deviated septum surgery. 9. Cholecystectomy. 10. Status post percutaneous nephrostomy tube placement. FAMILY HISTORY Father with pancreatic cancer. Paternal uncle had prostate cancer. Brother had both prostate and pancreatic cancer. SOCIAL HISTORY Patient is with two children. 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 He quit smoking 44 years ago after half a pack a day for 15 years. He chewed tobacco for about seven years. He denies any abuse of alcohol or illicit drugs. CURRENT MEDICATIONS 1. Plavix 75 mg daily. 2. Metoprolol 25 mg twice daily. 3. Aspirin 81 mg daily. 4. Lupron 7.5 mg as directed. 5. Casodex 50 mg daily. 6. Atorvastatin 40 mg at bedtime. 7. Humalog insulin as directed. ALLERGIES 1. DEMEROL which causes his heart to stop. 2. MORPHINE which causes skin rash. REVIEW OF SYSTEMS Essentially negative at this time. PHYSICAL EXAMINATION GENERAL: Pleasant 83-year-old gentleman, thin build. VITAL SIGNS: DPS 100, BP 129/66, pulse 82, respirations 16, O2 sat 95% on room air. Weight 151. LUNGS: Clear bilaterally. LYMPHATICS: No lymphadenopathy. ABDOMEN: Soft. No gross organomegaly, mass, or tenderness. EXTREMITIES: No edema or cyanosis. NEUROLOGIC: Intact. IMPRESSION Mr. Kwong has done exceptionally well to date in my opinion with very good radiographic response. He also clinically is doing well at this time. PLAN The patient will have a followup cystoscopy to monitor therapeutic response and see if his stent can be removed. I believe they would like to hold on the biologic therapy at this time unless there is a strong indication to do so. I asked them to discuss that further with Dr. Powers. I would request a followup PET/CT scan in three months and followup blood work as well at that time. I will be happy to see him sooner if he is having any new bone pain or problems. Clinical visit was completed during the a.m., a 40-minute reassessment this afternoon. Unfortunately, I had difficulty opening the image set from [place]; however, reports were carefully reviewed with the patient and his son who are fully aware of the results. FRANKIE
[2018-03-28] MEDS ORDERED: APIX2.5T PO (15:58)
[2018-03-28] MEDS ORDERED: HYDR-2966 PO (15:58)
[2018-03-28] MEDS ORDERED: NITR0.4T3 SL (15:58)
[2018-04-25] MEDS ORDERED: HYDR-2966 PO (13:18)
[2018-04-25] MEDS ORDERED: NITR0.4T3 SL (13:18)
[2018-04-25] MEDS ORDERED: APIX2.5T PO (13:18)
[2018-04-25] MEDS ORDERED: PROM25SU8 RC (13:18)
[2018-04-25] MEDS ORDERED: METO25TA93 PO (13:18)
== END 2018-06-11 ==
LOC: RAON 15:59
PROVIDERS: ATTEND Radiology Radiation Oncology
DX: C67.9 Malignant neoplasm of bladder, unspecified (principal)
CPT/HCPCS: 99211

== ENCOUNTER 2018-03-27 21:14 | Emergency (ER) | payer MEDICARE, OTHER ==
[2018-01-28 11:43] VITALS: Wt 61.2 kg
[~2018-03-27 21:14] MED LIST changes: +LOSA25TA52 PO; -LOSA25TA57 PO
--- NOTE | 2018-03-27 21:17 | ER Report ---
History and Physical Time Seen By MD: 21:17 HPI/ROS CHIEF COMPLAINT: Elevated blood pressure, chest tightness HISTORY OF PRESENT ILLNESS: 83-year-old brought from [facility] with elevated blood pressure. Patient reports that Dr. Hammonds removed a bunch of his blood pressure medicines. He thinks his blood pressures been running a little bit high. He's had 4 episodes of high blood pressure over the last month. He had tonight. He has a little bit of chest tightness which concerned the staff at [facility]. Patient was sent over because a blood pressure of 200/105. See paperwork included in her chart from [facility]. Patient denies URI cough sore throat fever or chills. Patient denies nausea or vomiting. He denies change in bowel habits. He denies dysuria. REVIEW OF SYSTEMS: Respiratory: No cough, no dyspnea. Cardiovascular: As above Gastrointestinal: No vomiting, no abdominal pain. Musculoskeletal: No back pain. Allergies: Coded Allergies: meperidine (Verified Allergy, Severe, 03/27/18) morphine (Verified Allergy, Severe, 03/27/18) Home Meds Active Scripts Promethazine HCl (Phenergan) 25 Mg Supp.rect, 1 SUPP.RECT RC Q6H PRN for prn for 30 Days, #30 SUPP.RECT 4 Refills Prov:KONRAD HAMMONDS MD 02/14/18 Metoprolol Tartrate (METOPROLOL TARTRATE) 25 Mg Tablet, 0.5 TAB PO BID for 90 Days, #45 TAB Prov:KONRAD HAMMONDS MD 02/09/18 Reported Medications Apixaban (ELIQUIS) 5 Mg Tablet, 1 TAB PO BID 02/09/18 Hum Insulin Nph/Reg Insulin Hm (NOVOLIN 70-30 100 UNIT/ML VIAL) 100 Unit/1 Ml Vial, 20 UNIT SQ BID, VIAL 01/19/18 Discontinued Reported Medications Sodium Chloride 3 % (SODIUM CHLORIDE) 500 Ml Iv.soln, 1000 ML IV 3XW 1,000ml NS 3xW 02/09/18 Lorena Root (Lorena Root) 550 Mg Capsule, 1 CAP PO BID 02/09/18 Discontinued Scripts Ondansetron Hcl/Pf (ONDANSETRON HCL 4 MG/2 ML VIAL) 4 Mg/2 Ml Vial, 4 MG IVP Q8H PRN for NAUSEA for 14 Days, #56 VIAL Prov:VERONICA GIBBONS DO 01/30/18 Past Medical/Surgical History Past, Family, & Social History Past Medical History Reviewed: Yes Neurologic: Reports hx of: stroke Cardiovascular: Reports hx of: coronary artery disease DVT hyperlipidemia hypertension Respiratory: Reports hx of: sleep apnea (Uses Cpap) Gastrointestinal: Reports hx of: GERD Endocrine: Reports hx of: diabetes type 2 Hematology/oncology: Reports hx of: prostate cancer, other cancer history (Prostate, bladder and bone cancer) HEENT: Reports hx of: tonsillectomy Gastrointestinal: Reports hx of: appendectomy cholecystectomy hernia repair Genitourinary: Reports hx of: vasectomy Musculoskeletal: Reports hx of: other musculosk surgery (Rotator cuff on both shoulders) Integumentary: Reports hx of: skin cancer removal (neck) Reviewed Nurses Notes: Yes Old Medical Records Reviewed: Yes Hx Smoking: Yes (20 YRS) Smoking Status: Former Smoker Hx Substance Use Disorder: No Hx Alcohol Use: Yes Constitutional Vital Sign - Last 24 Hours 03/27/18 03/27/18 03/27/18 03/27/18 21:18 21:19 21:30 22:09 Temp 98.2 Pulse 107 Resp 20 B/P (MAP) 167/98 167/98 (121) 162/89 (113) 171/94 (119) Pulse Ox 91 O2 Delivery Room Air 03/27/18 03/27/18 03/27/18 03/27/18 22:14 22:19 22:30 22:34 Pulse 84 89 90 Resp 10 16 12 B/P (MAP) 158/88 (111) Pulse Ox 93 92 93 Physical Exam General Appearance: The patient is alert, has no immediate need for airway protection and no current signs of toxicity. Vital signs stable, EP elevated. Afebrile, pulse ox normal HEENT: Pupils equal and round no injection. TMs normal, oropharynx without redness or exudate, mucous. Membranes are moist Respiratory: Chest is non tender, lungs are clear to auscultation. Cardiac: regular rate and rhythm Gastrointestinal: Abdomen is soft and non tender, no masses, bowel sounds normal. Musculoskeletal: Neck: Neck is supple and non tender. Extremities have full range of motion and are non tender. Skin: No rashes or lesions. DIFFERENTIAL DIAGNOSIS: After history and physical exam differential diagnosis was considered for chest pain including but not limited to myocardial ischemia, pericarditis pulmonary embolus, chest wall pain, pleural inflammation and pulmonary infectious causes. Medical Decision Making Data Points Result Diagram: 03/27/18215703/27/182157 Laboratory Hematology Test 03/27/18 21:58 Red Blood Count 3.20 M/uL (4.00-5.60) Mean Corpuscular Volume 95.0 fL (80.0-96.0) Mean Corpuscular Hemoglobin 33.0 pg (26.0-33.0) Mean Corpuscular Hemoglobin Concent 34.8 g/dL (32.0-36.0) Red Cell Distribution Width 13.6 % (11.5-14.5) Mean Platelet Volume 6.9 fL (7.2-11.1) Neutrophils (%) (Auto) 57.8 % (39.4-72.5) Lymphocytes (%) (Auto) 21.3 % (17.6-49.6) Monocytes (%) (Auto) 12.8 % (4.1-12.4) Eosinophils (%) (Auto) 7.4 % (0.4-6.7) Basophils (%) (Auto) 0.7 % (0.3-1.4) Nucleated RBC Relative Count (auto) 0.0 /100WBC Neutrophils # (Auto) 2.2 K/uL (2.0-7.4) Lymphocytes # (Auto) 0.8 K/uL (1.3-3.6) Monocytes # (Auto) 0.5 K/uL (0.3-1.0) Eosinophils # (Auto) 0.3 K/uL (0.0-0.5) Basophils # (Auto) 0.0 K/uL (0.0-0.1) Nucleated RBC Absolute Count (auto) 0.00 K/uL Urine Color Straw Urine Clarity Clear Urine pH 7.0 pH (4.8-9.5) Urine Specific [place] 1.009 Urine Protein Negative mg/dL (NEGATIVE) Urine Glucose (UA) Negative mg/dL (NEGATIVE) Urine Ketones Negative mg/dL (NEGATIVE) Urine Blood Negative (NEGATIVE) Urine Nitrite Negative (NEGATIVE) Urine Bilirubin Negative (NEGATIVE) Urine Urobilinogen Negative mg/dL (0.2-1.9) Urine Leukocyte Esterase Negative (NEGATIVE) Urine RBC 1 /HPF (0-2/HPF) Urine WBC 5 /HPF (0-5/HPF) Urine Squamous Epithelial Cells Few /LPF (NONE-FEW) Urine Bacteria Negative /HPF (NONE-FEW) Urine Mucus None /HPF (NONE-FEW) Sodium Level 137 mmol/L (137-145) Potassium Level 4.2 mmol/L (3.5-5.0) Chloride Level 101 mmol/L (98-107) Carbon Dioxide Level 31 mmol/L (22-30) Blood Urea Nitrogen 25 mg/dl (9-21) Creatinine 1.80 mg/dl (0.66-1.25) Glomerular Filtration Rate Calc 36.0 Random Glucose 155 mg/dl (75-110) Lactate 0.8 mmol/L (0.7-2.1) Calcium Level 8.9 mg/dl (8.4-10.2) Total Bilirubin 0.2 mg/dl (0.2-1.3) Aspartate Amino Transf (AST/SGOT) 20 U/L (0-35) Alanine Aminotransferase (ALT/SGPT) 24 U/L (0-56) Alkaline Phosphatase 152 U/L (0-126) Troponin I < 0.012 ng/ml B-Type Natriuretic Peptide 49 pg/ml (0-100) Total Protein 7.0 g/dl (6.3-8.2) Albumin 3.5 g/dl (3.5-5.0) Chemistry Test 03/27/18 21:58 White Blood Count 3.8 k/uL (4.5-11.0) Red Blood Count 3.20 M/uL (4.00-5.60) Hemoglobin 10.6 g/dL (14.0-18.0) Hematocrit 30.4 % (42.0-52.0) Mean Corpuscular Volume 95.0 fL (80.0-96.0) Mean Corpuscular Hemoglobin 33.0 pg (26.0-33.0) Mean Corpuscular Hemoglobin Concent 34.8 g/dL (32.0-36.0) Red Cell Distribution Width 13.6 % (11.5-14.5) Platelet Count 107 K/uL (150-450) Mean Platelet Volume 6.9 fL (7.2-11.1) Neutrophils (%) (Auto) 57.8 % (39.4-72.5) Lymphocytes (%) (Auto) 21.3 % (17.6-49.6) Monocytes (%) (Auto) 12.8 % (4.1-12.4) Eosinophils (%) (Auto) 7.4 % (0.4-6.7) Basophils (%) (Auto) 0.7 % (0.3-1.4) Nucleated RBC Relative Count (auto) 0.0 /100WBC Neutrophils # (Auto) 2.2 K/uL (2.0-7.4) Lymphocytes # (Auto) 0.8 K/uL (1.3-3.6) Monocytes # (Auto) 0.5 K/uL (0.3-1.0) Eosinophils # (Auto) 0.3 K/uL (0.0-0.5) Basophils # (Auto) 0.0 K/uL (0.0-0.1) Nucleated RBC Absolute Count (auto) 0.00 K/uL Urine Color Straw Urine Clarity Clear Urine pH 7.0 pH (4.8-9.5) Urine Specific [place] 1.009 Urine Protein Negative mg/dL (NEGATIVE) Urine Glucose (UA) Negative mg/dL (NEGATIVE) Urine Ketones Negative mg/dL (NEGATIVE) Urine Blood Negative (NEGATIVE) Urine Nitrite Negative (NEGATIVE) Urine Bilirubin Negative (NEGATIVE) Urine Urobilinogen Negative mg/dL (0.2-1.9) Urine Leukocyte Esterase Negative (NEGATIVE) Urine RBC 1 /HPF (0-2/HPF) Urine WBC 5 /HPF (0-5/HPF) Urine Squamous Epithelial Cells Few /LPF (NONE-FEW) Urine Bacteria Negative /HPF (NONE-FEW) Urine Mucus None /HPF (NONE-FEW) Glomerular Filtration Rate Calc 36.0 Lactate 0.8 mmol/L (0.7-2.1) Calcium Level 8.9 mg/dl (8.4-10.2) Total Bilirubin 0.2 mg/dl (0.2-1.3) Aspartate Amino Transf (AST/SGOT) 20 U/L (0-35) Alanine Aminotransferase (ALT/SGPT) 24 U/L (0-56) Alkaline Phosphatase 152 U/L (0-126) Troponin I < 0.012 ng/ml B-Type Natriuretic Peptide 49 pg/ml (0-100) Total Protein 7.0 g/dl (6.3-8.2) Albumin 3.5 g/dl (3.5-5.0) Urinalysis Test 03/27/18 21:58 Urine Color Straw Urine Clarity Clear Urine pH 7.0 pH (4.8-9.5) Urine Specific [place] 1.009 Urine Protein Negative mg/dL (NEGATIVE) Urine Glucose (UA) Negative mg/dL (NEGATIVE) Urine Ketones Negative mg/dL (NEGATIVE) Urine Blood Negative (NEGATIVE) Urine Nitrite Negative (NEGATIVE) Urine Bilirubin Negative (NEGATIVE) Urine Urobilinogen Negative mg/dL (0.2-1.9) Urine Leukocyte Esterase Negative (NEGATIVE) Urine RBC 1 /HPF (0-2/HPF) Urine WBC 5 /HPF (0-5/HPF) Urine Squamous Epithelial Cells Few /LPF (NONE-FEW) Urine Bacteria Negative /HPF (NONE-FEW) Urine Mucus None /HPF (NONE-FEW) EKG/Imaging EKG Interpretation 12 lead EK Rhythm: normal sinus rhythm [place]: Left axis deviation QRS: normal ST segments: normal, appears in the previous EKG dated 03/01/18, no significant change Imaging X-ray: Two-view chest x-ray was obtained. I viewed the images myself on the PACS system. My interpretation of the images is: Infiltrate, no effusion, intact port, comparison to previous chest x-ray dated 01/04/80, no significant change. The radiologist interpretation had no clinically significant variation from this interpretation. ED Course/Re-evaluation Clinical Indication for ER IV: IV Access ED Course Patient was admitted to an examination room. H&P was done. The differential diagnoses was considered. On clinical examination. Patient has no findings. He's complaining of fatigue. His blood pressure has come down already without treatment. Patient's EKG is unchanged. Troponin returns unremarkable. Patient slept her studies are unremarkable except for some mild dehydration. Patient's blood pressure. After observation for an hour is down very low and unremarkable. Patient to return to the halfway. He is advised to follow- up with Dr. Hammonds this week for his blood pressure rechecked. Decision to Disposition Date: Mar 27, 2018 Decision to Disposition Time: 22:41 Depart Departure Latest Vital Signs Vital Signs Date Time Temp Pulse Resp B/P (MAP) Pulse Ox O2 Delivery O2 Flow Rate FiO2 03/27/18 22:34 90 12 93 03/27/18 22:30 158/88 (111) 03/27/18 21:18 98.2 Room Air Impression: Primary Impression: Elevated blood pressure reading Additional Impressions: Fatigue Mild dehydration Anemia Condition: Improved Disposition: HOME OR SELF-CARE Referrals: KONRAD HAMMONDS MD (PCP) Patient Instructions: Dehydration (ED), Hypertension (ED) Additional Instructions: Increase fluid intake All up with Dr. Hammonds as planned Problem Qualifiers Additional Impressions: Fatigue Fatigue type: unspecified Qualified Codes: R53.83 - Other fatigue Anemia Anemia type: unspecified type Qualified Codes: D64.9 - Anemia, unspecified JORGE L MENDOZA DO Mar 27, 2018 21:17
--- NOTE | 2018-03-27 21:39 | EKG ---
FACILITY: [facility] [place] PATIENT NAME: SANDRA CORREA : [id number] MR: [id number] V: [id number] EXAM DATE: ORDERING PHYSICIAN: JORGE L MENDOZA TECHNOLOGIST: JORI Meade Reason : CARDIAC Blood Pressure : / mmHG Vent. Rate : 100 BPM Atrial Rate : 100 BPM P-R Int : 174 ms QRS Dur : 082 ms QT Int : 350 ms P-R-T Axes : 042 -46 042 degrees QTc Int : 451 ms Normal sinus rhythm Left axis deviation R wave progression is consistent with an old ant/sep ME vs lead placement When compared with ECG of 01-MAR-2018 07:05, Vent. rate has increased BY 36 BPM Confirmed by ELIUD ORTIZ ([id number]) on 03/28/2018 6:49:31 AM Referred By: Confirmed By:ELIUD ORTIZ
[2018-03-27 22:11] LABS: PLATELET COUNT, AUTOMATED 107 K/uL (150-450)
--- NOTE | 2018-03-27 22:26 | RADIOLOGY IMAGING REPORT ---
FACILITY: [facility] PATIENT NAME: Deion Kwong : 1935 MR: [id number] V: [id number] EXAM DATE: ORDERING PHYSICIAN: JORGE L MENDOZA TECHNOLOGIST: Location: [facility] Patient: Deion Kwong : 1935 Visit/Account:[id number] Date of Sevice: 03/27/2018 EXAMINATION: Chest 2 Views HISTORY: Chest pain. COMPARISON: 01/03/2018. FINDINGS: Stable mild chronic elevation of the right hemidiaphragm. The lungs are clear. No focal consolidation or pleural effusion. No pneumothorax. Normal cardiomediastinal silhouette, with normal heart size and pulmonary vascularity. Right IJ centr al venous port, with tip at the cavoatrial junction. A small electronic device projects along the sof t tissues of the anterior chest wall, likely a small implantable loop recorder. No acute osseous findings. Multilevel degenerative changes throughout the spine. IMPRESSION: No evidence of acute cardiopulmonary disease. Stable exam. Report Dictated By: Roderick Garcia MD at 03/27/2018 10:20 PM Report E-Signed By: Roderick Garcia MD at 03/27/2018 10:22 PM WSN:[id number]
[2018-03-27 22:30] VITALS: BP 158/88
[2018-03-27] MEDS ORDERED: HEPARIN FLSH (PORT) 500 UN/5ML ONE (22:52)
[2018-03-27] MEDS ORDERED: HEPARIN FLSH (PORT) 500 UN/5ML IVP ONE (22:55)
[2018-03-28] MEDS ORDERED: HYDR-2966 PO (15:58)
[2018-03-28] MEDS ORDERED: NITR0.4T3 SL (15:58)
[2018-03-28] MEDS ORDERED: APIX2.5T PO (15:58)
== END 2018-03-27 23:00 | disposition home or self-care (01) ==
LOC: ER 21:39
DX: I10 Essential (primary) hypertension (principal); R53.83 Other fatigue; E86.0 Dehydration; D64.9 Anemia, unspecified
CPT/HCPCS: 71046; 81001; 83605; 83880; 84484; 85025; 93005; 99284; J1642; 82040; 82247; 82310; 82374; 82435; 82565; 82947; 84075; 84132; 84155; 84295; 84450; 84460; 84520

== ENCOUNTER → 2018-03-28 | Outpatient (CLI) | payer MEDICARE, OTHER ==
[2018-01-28 11:43] VITALS: BMI 25.5
[~2018-03-28] MED LIST changes: +APIX2.5T PO; +HYDR-2966 PO; +NITR0.4T3 SL
== END ==
LOC: ZZSPRING 01:18
PROVIDERS: ATTEND Family Medicine
DX: N18.9 Chronic kidney disease, unspecified (principal)

== ENCOUNTER → 2018-05-18 | Outpatient (CLI) | payer MEDICARE, OTHER ==
[2018-01-28 11:43] VITALS: BMI 25.5
[~2018-05-18] MED LIST changes: -LOSA25TA52 PO; +LOSA25TA57 PO
--- NOTE | 2018-05-18 12:55 | RADIOLOGY IMAGING REPORT ---
FACILITY: [facility] PATIENT NAME: Deion Kwong : 1935 MR: [id number] V: [id number] EXAM DATE: ORDERING PHYSICIAN: YEIMY LEWIS TECHNOLOGIST: Location: [facility] [place] Patient: Deion Kwong : 1935 Visit/Account:[id number] Date of Sevice: 05/18/2018 KIDNEYS EXAMINATION: Renal ultrasound. History: Bladder cancer, left nephrostomy COMPARISON STUDIES: CT chest abdomen pelvis January 22, 2018 FINDINGS: Kidneys: Right kidney- 9.7 x 4.9 x 4.7 cm Left kidney- 8.2 x 3.9 x 4.4 cm Uniform and symmetric blood flow in each kidney by Doppler ultrasound. Hydronephrosis: none There is a 1.7 cm cyst lower pole of the right kidney there is a 4.5 cm cyst upper pole of the left k idney in addition to a 6 mm cyst medial upper pole the left kidney Bladder: Prevoid volume 136 mL. Post void residual 8 mL Abdominal aorta and IVC: Aorta and IVC are patent by Doppler ultrasound. IMPRESSION: Bilateral renal cysts, no evidence of hydronephrosis. Report Dictated By: Sarita Virgen MD at 05/18/2018 12:40 PM Report E-Signed By: Sarita Virgen MD at 05/18/2018 12:50 PM WSN:[id number]
== END ==
LOC: US 01:13
PROVIDERS: ATTEND Urology
DX: N28.1 Cyst of kidney, acquired (principal); N13.30 Unspecified hydronephrosis
CPT/HCPCS: 76705

== ENCOUNTER 2018-06-16 07:06 | Outpatient (RCR) | payer MEDICARE, OTHER, MEDICAID ==
[2017-11-11 09:19] VITALS: BP 149/72
[2018-01-28 11:43] VITALS: BMI 25.5
--- NOTE | 2018-06-17 09:04 | CONSULTATION ---
CHIEF COMPLAINT Review of his recent PET/CT scan and discussion of treatment options for his metastatic transitional cell carcinoma of the bladder. ONCOLOGY HISTORY 1. Diagnosis of transitional cell carcinoma of the bladder September 18, 2017, grade 3. The patient underwent left-sided percutaneous nephrostomy tube placement September,. 2. PET/CT scan diagnosed from Oct, 2017 reveals a hypermetabolic bone metastasis. 3. The patient underwent biopsy of an inferior pubic ramus bone in Oct, 2017, confirming urothelial carcinoma at that location. 4. The patient received radio sensitizing 5FU along with full-dose external beam radiotherapy to the bladder as well as the isolated bone metastasis completing in December,. 5. PET/CT scan from June, shows progression of bilateral pulmonary metastasis. INTERVAL HISTORY The patient was seen today for follow up. The patient on presentation today states that he is in his usual state of health. He has ongoing diarrhea and does take Imodium occasionally for this. The patient reports a strong urinary stream and specifically denies any urinary complaints. He has no hematuria or condense. The patient denies any sites of bone pain and specifically denies any pain in his sacrum. The patient underwent a PET/CT scan which shows interval progression of bilateral pulmonary metastasis with at least a dozen lesions, the largest measuring 1.8 cm in size. There is also a new sacral lesion. PAST MEDICAL HISTORY 1. Type 2 diabetes. 2. History of prostate cancer. 3. Hypertension. 4. Coronary artery disease. 5. 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 6. Chronic kidney disease, stage 4. FAMILY HISTORY No new data. SOCIAL HISTORY No new data. CURRENT MEDICATIONS 1. Plavix. 2. Metoprolol. 3. Aspirin. 4. Lupron. 5. Casodex. 6. Atorvastatin. 7. Humalog insulin. ALLERGIES DEMEROL MORPHINE REVIEW OF SYSTEMS A 14-point review of systems is reviewed, signed, and documented in the electronic medical record. PHYSICAL EXAM CONSTITUTIONAL/GENERAL APPEARANCE: Patient is sitting comfortably in the chair. No acute distress. HEENT: Pupils are equal, round, and reactive to light and accommodation. Extraocular movements are intact. There are no lesions in the oropharynx. LUNGS: Clear to auscultation and percussion bilaterally. CARDIOVASCULAR: Regular rate and rhythm. Normal S1, S2. No murmurs, rubs, or gallops. ABDOMEN: Soft, nontender, with active bowel sounds. No hepatosplenomegaly. EXTREMITIES: No edema, clubbing, or cyanosis. MUSCULOSKELETAL: The patient has no tenderness over his bilateral SI-joints or towards his coccyx. NEURO: The patient is alert and oriented times 3. Gait is normal. PERFORMANCE STATUS: 90%. IMPRESSION Transitional cell carcinoma of the bladder, metastatic to the bone and now with progressive pulmonary metastasis. The patient has no significant pain at this time and no palliative radiotherapy needs. PLAN The patient will follow up with Dr. Powers next week to discuss immunotherapy with dicentric. The patient will follow up with radiation oncology in 3 months. MTDD
[2018-07-06] MEDS ORDERED: MAG-66 PO (11:28)
[2018-07-06] MEDS ORDERED: GUAI237L21 PO (11:28)
[2018-07-06] MEDS ORDERED: ACET-1966 PO (11:28)
[2018-07-06] MEDS ORDERED: Immodium PO (11:28)
[2018-07-06] MEDS ORDERED: ASPI-757 PO (11:28)
[2018-07-06] MEDS ORDERED: ONDA4TAB97 PO (12:25)
[2018-07-12] MEDS ORDERED: PROM25SU8 RC (11:41)
[2018-07-20] MEDS ORDERED: DIPH-740 PO (10:04)
[2018-07-20] MEDS ORDERED: TRIA15CR40 TP (10:04)
[2018-07-20] MEDS ORDERED: CETI-176 PO (10:04)
== END 2018-07-24 11:50 | disposition home or self-care (01) ==
LOC: RAON 07:06
PROVIDERS: ATTEND Radiology Radiation Oncology
DX: Z02.9 Encounter for administrative examinations, unspecified (principal)

== ENCOUNTER 2018-07-06 10:11 | Emergency (ER) | payer MEDICARE, OTHER, MEDICAID ==
[2018-01-28 11:43] VITALS: Wt 69.9 kg
--- NOTE | 2018-07-06 10:15 | ER Report ---
History and Physical Time Seen By MD: 10:14 HPI/ROS CHIEF COMPLAINT: Nausea, vomiting, diarrhea, fever HISTORY OF PRESENT ILLNESS: Patient is an 83-year-old male who is a resident of [facility] nursing [facility] who reports approximately 24 hours of nausea vomiting and diarrhea. Nursing staff reports a temperature prior to transport 99.7 they also reported that they took a temperature last evening and it was reported to be 101 although the patient denies this. Patient reports some bilateral lower quadrant abdominal pain. He has had 3 episodes of vomiting since approximately 2:30 AM last evening. No new changes in medications. He denies any chest pain or shortness of breath. Denies headache. REVIEW OF SYSTEMS: Constitutional: Objective fever, no chills Eyes: No discharge. ENT: No sore throat. Cardiovascular: No chest pain, no palpitations. Respiratory: No cough, no shortness of breath. Gastrointestinal: Mild bilateral lower quadrant abdominal pain, nausea with vomiting Genitourinary: No hematuria. Musculoskeletal: No back pain. Skin: No rashes. Neurological: No headache. Allergies: Coded Allergies: meperidine (Verified Allergy, Severe, 07/06/18) morphine (Verified Allergy, Severe, 07/06/18) Home Meds Active Scripts Ondansetron Hcl (ZOFRAN) 4 Mg Tablet, 4 MG PO Q8H for Nausea, #15 TAB 0 Refills Prov:GRECIA ALVAREZ MD 07/06/18 Hydrochlorothiazide (HYDROCHLOROTHIAZIDE) 25 Mg Tablet, 1 TAB PO QDAY PRN for HYPERTENSION for 30 Days, #30 TAB Keeps in room-Self administers Prov:KONRAD HAMMONDS MD 04/25/18 Nitroglycerin (NITROGLYCERIN) 0.4 Mg Tab.subl, 0.4 MG SL Q5MIN for 30 Days, #10 TAB Keeps in room-Self administers Prov:KONRAD HAMMONDS MD 04/25/18 Apixaban (ELIQUIS) 2.5 Mg Tablet, 2.5 MG PO BID for 90 Days, #180 TAB Prov:KONRAD HAMMONDS MD 04/25/18 Promethazine HCl (Phenergan) 25 Mg Supp.rect, 1 SUPP.RECT RC Q6H PRN for prn for 30 Days, #30 SUPP.RECT 4 Refills Keeps in room- Self administers Prov:KONRAD HAMMONDS MD 04/25/18 Metoprolol Tartrate (METOPROLOL TARTRATE) 25 Mg Tablet, 1 TAB PO BID for 90 Days, TAB Prov:KONRAD HAMMONDS MD 04/25/18 Reported Medications Guaifenesin/Dextromethorphan (Robitussin Cough-Chest Dm Liq) 100 Mg-5 Mg/5 Ml Liquid, 5 ML PO Q4-6H PRN for cough 07/06/18 Mag Hydrox/Al Hydrox/Simeth (MAALOX MAXIMUM STRENGTH SUSP) 355 Ml Oral.susp, 15 ML PO Q4 for Gastric distress 07/06/18 [Immodium] No Conflict Check, 2 MG PO PRN PRN for DIARRHEA 07/06/18 Aspirin (ASPIRIN) 325 Mg Tablet, 325 MG PO for Chest pain, TAB 07/06/18 Acetaminophen (TYLENOL) 325 Mg Tablet, 325 MG PO PRN for PAIN/TEMP OVER 100.4, TAB 07/06/18 Hum Insulin Nph/Reg Insulin Hm (NOVOLIN 70-30 100 UNIT/ML VIAL) 100 Unit/1 Ml Vial, 20 UNIT SQ BID, VIAL Self administers 01/19/18 Past Medical/Surgical History Past medical history for diabetes, H. pylori, hypokalemia, dehydration, coronary artery disease, chronic kidney disease, stage IV history of prostate cancer and transitional cell cancer of the bladder. History of DVT. Patient resuscitation status is DNR/DNI Hx Smoking: Yes (20 YRS) Smoking Status: Former Smoker Hx Substance Use Disorder: No Hx Alcohol Use: Yes Constitutional Vital Sign - Last 24 Hours 07/06/18 07/06/18 07/06/18 07/06/18 10:16 10:19 10:30 10:45 Temp 98.5 Pulse 111 Resp 16 B/P (MAP) 105/59 (74) 105/59 99/64 (76) 72/49 (57) Pulse Ox 90 O2 Delivery Room Air 07/06/18 07/06/18 07/06/18 07/06/18 10:51 11:00 11:15 11:30 B/P (MAP) 121/75 (90) 107/64 (78) 144/73 (96) 138/80 (99) 07/06/18 07/06/18 07/06/18 11:41 11:45 12:00 Pulse 99 B/P (MAP) 125/70 (88) 144/84 (104) Pulse Ox 94 O2 Delivery Nasal Cannula O2 Flow Rate 2 Intake and Output 07/06/18 07/06/18 07/07/18 15:00 23:00 07:00 Intake Total 1000 ml Balance 1000 ml Physical Exam General/Constitutional: Patient is awake, alert, nontoxic and in no acute resp iratory distress. Head: Normocephalic and atraumatic. Eyes: Conjunctival clear, Pupils are equal and reactive to light. Sclera are clear and anicteric. Ears:External canals are clear. Tympanic membranes are clear with normal landmarks and light reflex. Nares: No rhinorrhea or bleeding. Turbinates are pink and moist. Oropharyngeal: Mucous membranes are moist. There is no pharyngeal erythema or exudate. There are no palatal petechiae. Uvula is midline and symmetrical. Neck: Supple, no adenopathy. Cardiovascular: Heart is slightly tachycardic with regular rate Pulmonary: Lungs are clear to auscultation bilaterally. There are no wheezes, rales, or rhonchi. Chest rise is symmetrical Abdomen: Soft, nontender, no guarding or peritoneal signs. Extremities: No gross deformities, No peripheral cyanosis. Able to move all 4 extremities. Neuro: Alert and oriented X3, Skin: No rashes, skin is warm dry and well perfused. Medical Decision Making Data Points Result Diagram: 07/06/18 1049 07/06/18 1049 Laboratory Hematology Test 07/06/18 10:49 Red Blood Count 3.97 M/uL (4.00-5.60) Mean Corpuscular Volume 95.2 fL (80.0-96.0) Mean Corpuscular Hemoglobin 32.8 pg (26.0-33.0) Mean Corpuscular Hemoglobin Concent 34.5 g/dL (32.0-36.0) Red Cell Distribution Width 14.5 % (11.5-14.5) Mean Platelet Volume 7.1 fL (7.2-11.1) Neutrophils (%) (Auto) 82.6 % (39.4-72.5) Lymphocytes (%) (Auto) 10.0 % (17.6-49.6) Monocytes (%) (Auto) 6.8 % (4.1-12.4) Eosinophils (%) (Auto) 0.4 % (0.4-6.7) Basophils (%) (Auto) 0.2 % (0.3-1.4) Nucleated RBC Relative Count (auto) 0.0 /100WBC Neutrophils # (Auto) 3.3 K/uL (2.0-7.4) Lymphocytes # (Auto) 0.4 K/uL (1.3-3.6) Monocytes # (Auto) 0.3 K/uL (0.3-1.0) Eosinophils # (Auto) 0.0 K/uL (0.0-0.5) Basophils # (Auto) 0.0 K/uL (0.0-0.1) Nucleated RBC Absolute Count (auto) 0.00 K/uL Sodium Level 137 mmol/L (137-145) Potassium Level 5.0 mmol/L (3.5-5.0) Chloride Level 108 mmol/L (98-107) Carbon Dioxide Level 24 mmol/L (22-30) Blood Urea Nitrogen 23 mg/dl (9-21) Creatinine 2.10 mg/dl (0.66-1.25) Glomerular Filtration Rate Calc 30.2 Random Glucose 218 mg/dl (75-110) Calcium Level 9.3 mg/dl (8.4-10.2) Total Bilirubin 0.8 mg/dl (0.2-1.3) Aspartate Amino Transf (AST/SGOT) 25 U/L (0-35) Alanine Aminotransferase (ALT/SGPT) 26 U/L (0-56) Alkaline Phosphatase 140 U/L (0-126) Total Protein 7.7 g/dl (6.3-8.2) Albumin 4.1 g/dl (3.5-5.0) Lipase 109 U/L (23-300) Helicobacter pylori IgG Antibody Negative (NEGATIVE) Chemistry Test 07/06/18 10:49 White Blood Count 4.0 k/uL (4.5-11.0) Red Blood Count 3.97 M/uL (4.00-5.60) Hemoglobin 13.0 g/dL (14.0-18.0) Hematocrit 37.8 % (42.0-52.0) Mean Corpuscular Volume 95.2 fL (80.0-96.0) Mean Corpuscular Hemoglobin 32.8 pg (26.0-33.0) Mean Corpuscular Hemoglobin Concent 34.5 g/dL (32.0-36.0) Red Cell Distribution Width 14.5 % (11.5-14.5) Platelet Count 108 K/uL (150-450) Mean Platelet Volume 7.1 fL (7.2-11.1) Neutrophils (%) (Auto) 82.6 % (39.4-72.5) Lymphocytes (%) (Auto) 10.0 % (17.6-49.6) Monocytes (%) (Auto) 6.8 % (4.1-12.4) Eosinophils (%) (Auto) 0.4 % (0.4-6.7) Basophils (%) (Auto) 0.2 % (0.3-1.4) Nucleated RBC Relative Count (auto) 0.0 /100WBC Neutrophils # (Auto) 3.3 K/uL (2.0-7.4) Lymphocytes # (Auto) 0.4 K/uL (1.3-3.6) Monocytes # (Auto) 0.3 K/uL (0.3-1.0) Eosinophils # (Auto) 0.0 K/uL (0.0-0.5) Basophils # (Auto) 0.0 K/uL (0.0-0.1) Nucleated RBC Absolute Count (auto) 0.00 K/uL Glomerular Filtration Rate Calc 30.2 Calcium Level 9.3 mg/dl (8.4-10.2) Total Bilirubin 0.8 mg/dl (0.2-1.3) Aspartate Amino Transf (AST/SGOT) 25 U/L (0-35) Alanine Aminotransferase (ALT/SGPT) 26 U/L (0-56) Alkaline Phosphatase 140 U/L (0-126) Total Protein 7.7 g/dl (6.3-8.2) Albumin 4.1 g/dl (3.5-5.0) Lipase 109 U/L (23-300) Helicobacter pylori IgG Antibody Negative (NEGATIVE) EKG/Imaging Imaging FACILITY: [facility] [place] PATIENT NAME: Deion Kwong : 1935 MR: [id number] V: [id number] EXAM DATE: ORDERING PHYSICIAN: GRECIA ALVAREZ TECHNOLOGIST: Location: [facility] [place] Patient: Deion Kwong : 1935 Visit/Account:[id number] Date of Sevice: 07/06/2018 EXAMINATION: CT Abdomen and Pelvis Without Contrast 07/06/2018 11:03 AM HISTORY: lower abdominal pain. Patient reports flulike symptoms. TECHNIQUE: Spiral scan was through the abdomen and pelvis without contrast. One of the following dose optimization techniques was utilized in the performance of this exam: Automated exposure control; adjustment of the mA and/or kV according to the patient's size; or use of an iterative reconstruction technique. Specific details can be referenced in the facility's radiology CT exam operational policy. COMPARISON STUDIES: 01/22/2018. PET/CT 06/15/2018 FINDINGS: Liver / biliary: Prior cholecystectomy. No acute finding. Pancreas: There are a few stable benign-appearing calcifications along the top of the pancreatic body and more distally in the tail suggesting previous inflammation. No acute finding. Spleen: negative Adrenal glands: negative Kidneys / retroperitoneum: Stable small nonobstructive lower pole stone on the right. Upper pole cortical cyst on the left measures 3.8 cm it does have minimal benign-appearing calcification or partial septation along the superolateral edge, likely Bosniak 2. Percutaneous nephrostomy on the previous is been removed. No ureteral stone or obstruction on either side. Pelvic structures: negative Bowel / peritoneum / mesenteries: Moderate hiatal hernia. There is fluid within small bowel and also fluid and semisolid fecal material throughout colon to the rectum. No bowel distention or obstructive transition. Diverticulosis of the left side of the colon without acute focal inflammation. Vessels: Atherosclerosis includes coronary disease. Central venous line or port tip visualized in the lower SVC. Musculoskeletal / Body wall: Heterogeneous sclerosis in the inferior pubic ramus is similar to previous with a linear lucency suggesting a needle tract from previous biopsy. Stable scarring in subcutaneous fat in both ventral lower quadrants. Degenerative changes in the spine. Tiny fatty umbilical hernia. 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 Stable scattered bone islands. Lymph node assessment: Left periaortic lymph nodes measure up to 2.1 x 1.6 cm (series 3 image 239), stable to possibly mildly progressed from the PET/CT. Lower chest: Bibasilar pulmonary nodules now measuring up to 1.1 cm on the right lower lobe (series 3 image 33). These are also stable to possibly minimally progressed from measurements on the PET/CT. IMPRESSION: 1. There is fluid in nonobstructed bowel which is nonspecific but may indicate a gastroenteritis pattern. 2. Known metastatic disease is stable to possibly minimally increased comparing with PET CT 06/15/2018. 3. Stable heterogeneous sclerotic density in the inferior right pubic bone with suggestion of previous bone biopsy. I called report to GRECIA ALVAREZ at 07/06/2018 11:51 AM. Report Dictated By: Rafita Rutledge MD at 07/06/2018 11:33 AM Report E-Signed By: Rafita Rutledge MD at 07/06/2018 11:53 AM WSN:[id number] ED Course/Re-evaluation Clinical Indication for ER IV: Hydration, IV Access ED Course 07/06/2018 10:40:51 am plan at this time will be abdominal workup including CBC CMP lipase. We will give IV Zofran and IV fluids. 07/06/2018 11:48:38 am patient feeling improved at this time. Awaiting IV fluid s to finish and results of CT scan Decision to Disposition Date: Jul 06, 2018 Decision to Disposition Time: 12:24 Depart Departure Latest Vital Signs Vital Signs Date Time Temp Pulse Resp B/P (MAP) Pulse Ox O2 Delivery O2 Flow Rate FiO2 07/06/18 12:00 144/84 (104) 07/06/18 11:41 99 94 Nasal Cannula 2 07/06/18 10:19 98.5 16 Impression: Primary Impression: Nausea & vomiting Condition: Improved Disposition: HOME OR SELF-CARE Referrals: KONRDA HAMMONDS MD (PCP) New Scripts Ondansetron Hcl (ZOFRAN) 4 Mg Tablet 4 MG PO Q8H for Nausea, #15 TAB 0 Refills Prov: GRECIA ALVAREZ MD 07/06/18 Patient Instructions: Acute Nausea and Vomiting (ED) Problem Qualifiers Primary Impression: Nausea & vomiting Vomiting type: unspecified Vomiting Intractability: unspecified Qualified Codes: R11.2 - Nausea with vomiting, unspecified GRECIA ALVAREZ MD Jul 06, 2018 10:15
[2018-07-06] MEDS ORDERED: NS(*) 0.9% 1000 ML BAG 1,000 ML IV ONE (10:37)
[2018-07-06] MEDS ORDERED: ONDANSETRON 4 MG/2 ML VIAL IVP ONE (10:40)
[2018-07-06 11:00] LABS: PLATELET COUNT, AUTOMATED 108 K/uL (150-450)
[2018-07-06] MEDS ORDERED: ASPI-757 PO (11:28)
[2018-07-06] MEDS ORDERED: GUAI237L21 PO (11:28)
[2018-07-06] MEDS ORDERED: MAG-66 PO (11:28)
[2018-07-06] MEDS ORDERED: Immodium PO (11:28)
[2018-07-06] MEDS ORDERED: ACET-1966 PO (11:28)
--- NOTE | 2018-07-06 11:58 | RADIOLOGY IMAGING REPORT ---
FACILITY: [facility] PATIENT NAME: Deion Kwong : 1935 MR: [id number] V: [id number] EXAM DATE: ORDERING PHYSICIAN: GRECIA ALVAREZ TECHNOLOGIST: Location: [facility] Patient: Deion Kwong : 1935 Visit/Account:[id number] Date of Sevice: 07/06/2018 EXAMINATION: CT Abdomen and Pelvis Without Contrast 07/06/2018 11:03 AM HISTORY: lower abdominal pain. Patient reports flulike symptoms. TECHNIQUE: Spiral scan was through the abdomen and pelvis without contrast. One of the following dose optimization techniques was utilized in the performance of this exam: Autom ated exposure control; adjustment of the mA and/or kV according to the patient's size; or use of an i terative reconstruction technique. Specific details can be referenced in the facility's radiology C T exam operational policy. COMPARISON STUDIES: 01/22/2018. PET/CT 06/15/2018 FINDINGS: Liver / biliary: Prior cholecystectomy. No acute finding. Pancreas: There are a few stable benign-appearing calcifications along the top of the pancreatic body and more distally in the tail suggesting previous inflammation. No acute finding. Spleen: negative Adrenal glands: negative Kidneys / retroperitoneum: Stable small nonobstructive lower pole stone on the right. Upper pole debora ical cyst on the left measures 3.8 cm it does have minimal benign-appearing calcification or partial septation along the superolateral edge, likely Bosniak 2. Percutaneous nephrostomy on the previous is been removed. No ureteral stone or obstruction on either side. Pelvic structures: negative Bowel / peritoneum / mesenteries: Moderate hiatal hernia. There is fluid within small bowel and also fluid and semisolid fecal material throughout colon to the rectum. No bowel distention or obstructive transition. Diverticulosis of the left side of the colon without acute focal inflammation. Vessels: Atherosclerosis includes coronary disease. Central venous line or port tip visualized in the lower SVC. Musculoskeletal / Body wall: Heterogeneous sclerosis in the inferior pubic ramus is similar to previo us with a linear lucency suggesting a needle tract from previous biopsy. Stable scarring in subcutane ous fat in both ventral lower quadrants. Degenerative changes in the spine. Tiny fatty umbilical juan ia. 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 Chronic bilateral L5 pars defects an d grade 1 anterolisthesis of L5 on S1, unchanged. Stable scattered bone islands. Lymph node assessment: Left periaortic lymph nodes measure up to 2.1 x 1.6 cm (series 3 image 239), s table to possibly mildly progressed from the PET/CT. Lower chest: Bibasilar pulmonary nodules now measuring up to 1.1 cm on the right lower lobe (series 3 image 33). These are also stable to possibly minimally progressed from measurements on the PET/CT. IMPRESSION: 1. There is fluid in nonobstructed bowel which is nonspecific but may indicate a gastroenteritis goran franky. 2. Known metastatic disease is stable to possibly minimally increased comparing with PET CT 06/15/2018 . 3. Stable heterogeneous sclerotic density in the inferior right pubic bone with suggestion of previou s bone biopsy. I called report to GRECIA ALVAREZ at 07/06/2018 11:51 AM. Report Dictated By: Rafita Rutledge MD at 07/06/2018 11:33 AM Report E-Signed By: Rafita Rutledge MD at 07/06/2018 11:53 AM WSN:[id number]
[2018-07-06 12:00] VITALS: BP 144/84
[2018-07-06] MEDS ORDERED: ONDA4TAB97 PO (12:25)
== END 2018-07-06 12:41 | disposition home or self-care (01) ==
LOC: ER 10:14
DX: R11.2 Nausea with vomiting, unspecified (principal)
CPT/HCPCS: 74176; 83690; 85025; 86677; 96361; 96374; 99284; J2405; J7030; 82040; 82247; 82310; 82374; 82435; 82565; 82947; 84075; 84132; 84155; 84295; 84450; 84460; 84520

== ENCOUNTER → 2018-07-13 | Outpatient (CLI) | payer MEDICARE, OTHER, MEDICAID ==
[2018-01-28 11:43] VITALS: BMI 25.5
[~2018-07-13] MED LIST changes: +ASPI-757 PO; +GUAI237L21 PO; +Immodium PO; +MAG-66 PO; +ONDA4TAB97 PO
== END ==
LOC: SPU 08:43
PROVIDERS: ATTEND Family Medicine
DX: R73.9 Hyperglycemia, unspecified (principal)
CPT/HCPCS: 83036

== ENCOUNTER 2018-08-13 09:05 | Observation (INO) | payer MEDICARE, MEDICAID ==
[~2018-08-13] VITALS: Ht 170.2 cm; Wt 72.6 kg
[~2018-08-13 09:05] MED LIST changes: +CETI-176 PO; +DIPH-740 PO; +OXYC5TAB38 PO; +TRIA15CR40 TP
--- NOTE | 2018-08-13 09:15 | ER Report ---
History and Physical Time Seen By MD: 09:15 Hx. of Stated Complaint: patient reports fever of 102.7 last night. has not been feeling well for about 5 days. is on 2nd dose chemo which was given on the . also complains of sore throat HPI/ROS 83-year-old extremely pleasant male with multiple medical problems, but cu rrently battling stage IV metastatic transitional bladder carcinoma. Currently on an oral chemotherapy regimen. He presents to the emergency department from his assisted living facility with 3 days of fever, chills, cough, myalgias, and generalized weakness. He has a history of not drinking by mouth fluids other then hot chocolate. He states "water is for fishing and bathing." He normally ambulates with a walker. Now unable to perform ADLs since recent illness started 3 days ago. No chest pain. No abdominal pain. No n/v/d. No GUALLPA or meningismus. Remainder of the 14 system rev: Yes Allergies: Coded Allergies: meperidine (Verified Allergy, Severe, 07/06/18) morphine (Verified Allergy, Severe, 07/06/18) Home Meds Active Scripts Oxycodone Hcl (OXYCODONE HCL) 5 Mg Tablet, 5 MG PO BID PRN for pain for 30 Days, #60 TAB Prov:KONRAD HAMMONDS MD 08/02/18 Promethazine HCl (Phenergan) 25 Mg Supp.rect, 1 SUPP.RECT RC Q6H PRN for prn for 30 Days, #30 SUPP.RECT 4 Refills Keeps in room- Self administers Prov:KONRAD HAMMONDS MD 07/12/18 Nitroglycerin (NITROGLYCERIN) 0.4 Mg Tab.subl, 0.4 MG SL Q5MIN for 30 Days, #10 TAB Keeps in room-Self administers Prov:KONRAD HAMMONDS MD 04/25/18 Apixaban (ELIQUIS) 2.5 Mg Tablet, 2.5 MG PO BID for 90 Days, #180 TAB Prov:KONRAD HAMMONDS MD 04/25/18 Metoprolol Tartrate (METOPROLOL TARTRATE) 25 Mg Tablet, 1 TAB PO BID for 90 Days, TAB Prov:KONRAD HAMMONDS MD 04/25/18 Reported Medications Triamcinolone Acetonide 0.1% Cr 15 Gm Tube (TRIAMCINOLONE ACETONIDE 0.1% CREAM) 15 Gm Cream..g., 15 GM TP BID, TUBE 07/20/18 Cetirizine Hcl (ZYRTEC) 10 Mg Tablet, 10 MG PO QDAY, TAB 07/20/18 Diphenhydramine Hcl (BENADRYL) 25 Mg Capsule, 25 MG PO 1-2XD, CAPSULE 07/20/18 Acetaminophen (TYLENOL) 325 Mg Tablet, 325 MG PO PRN for PAIN/TEMP OVER 100.4, TAB 07/06/18 Hum Insulin Nph/Reg Insulin Hm (NOVOLIN 70-30 100 UNIT/ML VIAL) 100 Unit/1 Ml Vial, 20 UNIT SQ BID, VIAL Self administers 01/19/18 Reviewed Nurses Notes: Yes Old Medical Records Reviewed: Yes Hx Smoking: Yes (20 YRS) Smoking Status: Former Smoker Hx Substance Use Disorder: No Hx Alcohol Use: Yes Constitutional Vital Sign - Last 24 Hours 08/13/18 08/13/18 08/13/18 08/13/18 09:08 09:09 09:25 09:30 Temp 98.8 Pulse 102 96 Resp 18 B/P (MAP) 114/66 114/66 (82) 104/53 (70) Pulse Ox 85 97 O2 Delivery Room Air 08/13/18 08/13/18 09:45 09:55 Pulse 98 Resp 28 Pulse Ox 96 O2 Flow Rate 2.0 Physical Exam General Appearance: The patient is alert, has no immediate need for airway protection and no current signs of toxicity. Eyes: Pupils equal and round no injection. Respiratory: Chest is non tender, lungs with diffuse rhonchi Cardiac: regular rate and rhythm Gastrointestinal: Abdomen is soft and non tender, no masses, bowel sounds normal. Neck: Neck is supple and non tender. Extremities have full range of motion and are non tender. Skin: No rashes or lesions. DIFFERENTIAL DIAGNOSIS: After history and physical exam differential diagnosis was considered for adult fever including but not limited to viral syndromes including influenza, urinary tract infection, pneumonia and sepsis. Medical Decision Making Data Points Result Diagram: 08/13/1893008/13/18930 Laboratory Hematology Test 08/13/18 09:31 08/13/18 09:35 08/13/18 09:52 08/13/18 11:45 Red Blood Count 3.73 M/uL (4.00-5.60) Mean Corpuscular Volume 95.1 fL (80.0-96.0) Mean Corpuscular Hemoglobin 32.0 pg (26.0-33.0) Mean Corpuscular Hemoglobin Concent 33.7 g/dL (32.0-36.0) Red Cell Distribution Width 13.9 % (11.5-14.5) Mean Platelet Volume 6.6 fL (7.2-11.1) Neutrophils (%) (Auto) 80.1 % (39.4-72.5) Lymphocytes (%) (Auto) 8.4 % (17.6-49.6) Monocytes (%) (Auto) 9.9 % (4.1-12.4) Eosinophils (%) (Auto) 0.7 % (0.4-6.7) Basophils (%) (Auto) 0.9 % (0.3-1.4) Nucleated RBC Relative Count (auto) 0.0 /100WBC Neutrophils # (Auto) 4.7 K/uL (2.0-7.4) Lymphocytes # (Auto) 0.5 K/uL (1.3-3.6) Monocytes # (Auto) 0.6 K/uL (0.3-1.0) Eosinophils # (Auto) 0.0 K/uL (0.0-0.5) Basophils # (Auto) 0.1 K/uL (0.0-0.1) Nucleated RBC Absolute Count (auto) 0.00 K/uL Sodium Level 136 mmol/L (137-145) Potassium Level 4.3 mmol/L (3.5-5.0) Chloride Level 99 mmol/L (98-107) Carbon Dioxide Level 25 mmol/L (22-30) Blood Urea Nitrogen 25 mg/dl (9-21) Creatinine 2.00 mg/dl (0.66-1.25) Glomerular Filtration Rate Calc 31.9 Random Glucose 168 mg/dl (75-110) Calcium Level 9.0 mg/dl (8.4-10.2) Total Bilirubin 0.6 mg/dl (0.2-1.3) Aspartate Amino Transf (AST/SGOT) 48 U/L (0-35) Alanine Aminotransferase (ALT/SGPT) 41 U/L (0-56) Alkaline Phosphatase 154 U/L (0-126) Total Protein 7.6 g/dl (6.3-8.2) Albumin 4.1 g/dl (3.5-5.0) Influenza Virus Type A (PCR) Positive (NEGATIVE) Influenza Virus Type B (PCR) Negative (NEGATIVE) Group A Streptococcus (PCR) Negative (NEGATIVE) Urine Color Yellow Urine Clarity Clear Urine pH 6.0 pH (4.8-9.5) Urine Specific [place] 1.017 Urine Protein 30 mg/dL (NEGATIVE) Urine Glucose (UA) Negative mg/dL (NEGATIVE) Urine Ketones Negative mg/dL (NEGATIVE) Urine Blood Negative (NEGATIVE) Urine Nitrite Negative (NEGATIVE) Urine Bilirubin Negative (NEGATIVE) Urine Urobilinogen Negative mg/dL (0.2-1.9) Urine Leukocyte Esterase Negative (NEGATIVE) Urine RBC 4 /HPF (0-2/HPF) Urine WBC 2 /HPF (0-5/HPF) Urine Squamous Epithelial Cells None /LPF (</=FEW) Urine Bacteria Negative /HPF (NONE-FEW) Urine Mucus None /HPF (NONE-FEW) Chemistry Test 08/13/18 09:31 08/13/18 09:35 08/13/18 09:52 08/13/18 11:45 White Blood Count 5.9 k/uL (4.5-11.0) Red Blood Count 3.73 M/uL (4.00-5.60) Hemoglobin 11.9 g/dL (14.0-18.0) Hematocrit 35.5 % (42.0-52.0) Mean Corpuscular Volume 95.1 fL (80.0-96.0) Mean Corpuscular Hemoglobin 32.0 pg (26.0-33.0) Mean Corpuscular Hemoglobin Concent 33.7 g/dL (32.0-36.0) Red Cell Distribution Width 13.9 % (11.5-14.5) Platelet Count 105 K/uL (150-450) Mean Platelet Volume 6.6 fL (7.2-11.1) Neutrophils (%) (Auto) 80.1 % (39.4-72.5) Lymphocytes (%) (Auto) 8.4 % (17.6-49.6) Monocytes (%) (Auto) 9.9 % (4.1-12.4) Eosinophils (%) (Auto) 0.7 % (0.4-6.7) Basophils (%) (Auto) 0.9 % (0.3-1.4) Nucleated RBC Relative Count (auto) 0.0 /100WBC Neutrophils # (Auto) 4.7 K/uL (2.0-7.4) Lymphocytes # (Auto) 0.5 K/uL (1.3-3.6) Monocytes # (Auto) 0.6 K/uL (0.3-1.0) Eosinophils # (Auto) 0.0 K/uL (0.0-0.5) Basophils # (Auto) 0.1 K/uL (0.0-0.1) Nucleated RBC Absolute Count (auto) 0.00 K/uL Glomerular Filtration Rate Calc 31.9 Calcium Level 9.0 mg/dl (8.4-10.2) Total Bilirubin 0.6 mg/dl (0.2-1.3) Aspartate Amino Transf (AST/SGOT) 48 U/L (0-35) Alanine Aminotransferase (ALT/SGPT) 41 U/L (0-56) Alkaline Phosphatase 154 U/L (0-126) Total Protein 7.6 g/dl (6.3-8.2) Albumin 4.1 g/dl (3.5-5.0) Influenza Virus Type A (PCR) Positive (NEGATIVE) Influenza Virus Type B (PCR) Negative (NEGATIVE) Group A Streptococcus (PCR) Negative (NEGATIVE) Urine Color Yellow Urine Clarity Clear Urine pH 6.0 pH (4.8-9.5) Urine Specific [place] 1.017 Urine Protein 30 mg/dL (NEGATIVE) Urine Glucose (UA) Negative mg/dL (NEGATIVE) Urine Ketones Negative mg/dL (NEGATIVE) Urine Blood Negative (NEGATIVE) Urine Nitrite Negative (NEGATIVE) Urine Bilirubin Negative (NEGATIVE) Urine Urobilinogen Negative mg/dL (0.2-1.9) Urine Leukocyte Esterase Negative (NEGATIVE) Urine RBC 4 /HPF (0-2/HPF) Urine WBC 2 /HPF (0-5/HPF) Urine Squamous Epithelial Cells None /LPF (</=FEW) Urine Bacteria Negative /HPF (NONE-FEW) Urine Mucus None /HPF (NONE-FEW) Urinalysis Test 08/13/18 11:45 Urine Color Yellow Urine Clarity Clear Urine pH 6.0 pH (4.8-9.5) Urine Specific [place] 1.017 Urine Protein 30 mg/dL (NEGATIVE) Urine Glucose (UA) Negative mg/dL (NEGATIVE) Urine Ketones Negative mg/dL (NEGATIVE) Urine Blood Negative (NEGATIVE) Urine Nitrite Negative (NEGATIVE) Urine Bilirubin Negative (NEGATIVE) Urine Urobilinogen Negative mg/dL (0.2-1.9) Urine Leukocyte Esterase Negative (NEGATIVE) Urine RBC 4 /HPF (0-2/HPF) Urine WBC 2 /HPF (0-5/HPF) Urine Squamous Epithelial Cells None /LPF (</=FEW) Urine Bacteria Negative /HPF (NONE-FEW) Urine Mucus None /HPF (NONE-FEW) Microbiology Microbiology Date/Time Source Procedure Growth Status 08/13/18 09:31 Blood Blood Culture - Preliminary NO GROWTH SO FAR, SET LATE. REINCUBATED Resulted ED Course/Re-evaluation ED Course 83-year-old male currently undergoing treatment for stage IV metastatic bladder cancer. Now with influenza and dehydration both causing generalized weakness. Episode of vasovagal syncope while getting PA/lateral CXR which I think was from dehydration. While he is able to ambulate, I think he is still weak and is a fall risk at the assisted living facility. He is already on a prophylactic dose of Tamiflu. I do not think additional Tamiflu will benefit him at this point. I think hospital admission for supportive care to include IV hydration would be beneficial. I have spoken with his primary physician, Dr. Konrad Hammonds. SHe has seen the patient in the ED, and is aware of his admission. Decision to Disposition Date: Aug 13, 2018 Decision to Disposition Time: 12:57 Depart Departure Latest Vital Signs Vital Signs Date Time Temp Pulse Resp B/P (MAP) Pulse Ox O2 Delivery O2 Flow Rate FiO2 08/13/18 09:55 2.0 08/13/18 09:45 98 28 96 08/13/18 09:30 104/53 (70) 08/13/18 09:08 98.8 Room Air Impression: Primary Impression: Influenza Additional Impressions: Generalized weakness Dehydration Condition: Improved Disposition: Admitted from ER Referrals: KONRAD HAMMONDS MD (PCP) Problem Qualifiers EKRRY FONTENOT MD Aug 13, 2018 09:15
[2018-08-13 09:51] LABS: PLATELET COUNT, AUTOMATED 105 K/uL (150-450)
[2018-08-13] MEDS ORDERED: NS(*) 0.9% 1000 ML BAG 1,000 ML IV ONE ×3 (09:55→13:25)
[2018-08-13] MEDS ORDERED: MAGIC MOUTHWASH 90 ML BTL PO ONE (10:35)
--- NOTE | 2018-08-13 11:27 | RADIOLOGY IMAGING REPORT ---
FACILITY: [facility] [place] PATIENT NAME: Deion Kwong : 1935 MR: [id number] V: [id number] EXAM DATE: ORDERING PHYSICIAN: KERRY FONTENOT TECHNOLOGIST: Location: [facility] Patient: Deion Kwong : 1935 Visit/Account:[id number] Date of Sevice: 08/13/2018 Technique: CHEST SINGLE AP HISTORY: fever/sob Comparison studies: Chest radiograph August 03, 2018 FINDINGS: The right chest port is unchanged. No acute airspace consolidation. Left basilar and right midlung scarring and/or atelectasis is noted. Patient has known pulmonary metastases.The cardiac silh ouette is unchanged. IMPRESSION: 1. No acute cardiopulmonary process. 2. Known pulmonary metastases. Report Dictated By: Jacobo Alcantar DO at 08/13/2018 11:21 AM Report E-Signed By: Jacobo Alcantar DO at 08/13/2018 11:22 AM WSN:[id number]
[2018-08-13] MEDS ORDERED: ALBUTEROL/IPRATROPIUM 3 ML NEB NEB ONE (12:55)
[2018-08-13 14:19] VITALS: BP 171/77
[2018-08-13] MEDS ORDERED: NS(*) 0.9% 1000 ML BAG 1,000 ML IV PRN (14:56)
[2018-08-13] MEDS ORDERED: ACETAMINOPHEN 500 MG TAB PO PRN (15:00)
--- NOTE | 2018-08-13 15:05 | History & Physical ---
History of Present Illness Chief Complaint Fever History of Present Illness This patient presented to the emergency room with complaints of fever and decreased oral intake. He has also had generalized malaise over the past 3 days. History Problems: (1) DVT (deep venous thrombosis) Status: Chronic (2) CAD (coronary artery disease) Status: Chronic (3) CVA (cerebral vascular accident) Status: Resolved (4) HTN (hypertension) Status: Chronic (5) CKD (chronic kidney disease) stage 4, GFR 15-29 ml/min Status: Chronic (6) T2DM (type 2 diabetes mellitus) Status: Chronic (7) Prostate cancer Status: Chronic (8) History of cholecystectomy Status: Resolved (9) Nephrostomy status (10) History of appendectomy Status: Resolved (11) History of prostatectomy Status: Resolved (12) History of tonsillectomy Status: Resolved (13) History of bilateral inguinal hernia repair Status: Resolved (14) Hx of CABG Status: Resolved (15) History of exploratory laparotomy Status: Resolved (16) History of carotid endarterectomy Status: Resolved Home Meds Active Scripts Nitroglycerin (NITROGLYCERIN) 0.4 Mg Tab.subl, 0.4 MG SL Q5MIN for 30 Days, #10 TAB Keeps in room-Self administers Prov:KONRAD HAMMONDS MD 04/25/18 Apixaban (ELIQUIS) 2.5 Mg Tablet, 2.5 MG PO BID for 90 Days, #180 TAB Prov:KONRAD HAMMONDS MD 04/25/18 Metoprolol Tartrate (METOPROLOL TARTRATE) 25 Mg Tablet, 1 TAB PO BID for 90 Days, TAB Prov:KONRAD HAMMONDS MD 04/25/18 Reported Medications Diphenhydramine Hcl (BENADRYL) 25 Mg Capsule, 25 MG PO 1-2XD, CAPSULE 07/20/18 Acetaminophen (TYLENOL) 325 Mg Tablet, 325 MG PO PRN for PAIN/TEMP OVER 100.4, TAB 07/06/18 Hum Insulin Nph/Reg Insulin Hm (NOVOLIN 70-30 100 UNIT/ML VIAL) 100 Unit/1 Ml Vial, 20 UNIT SQ BID, VIAL Self administers 01/19/18 Discontinued Reported Medications Triamcinolone Acetonide 0.1% Cr 15 Gm Tube (TRIAMCINOLONE ACETONIDE 0.1% CREAM) 15 Gm Cream..g., 15 GM TP BID, TUBE 07/20/18 Cetirizine Hcl (ZYRTEC) 10 Mg Tablet, 10 MG PO QDAY, TAB 07/20/18 Discontinued Scripts Oxycodone Hcl (OXYCODONE HCL) 5 Mg Tablet, 5 MG PO BID PRN for pain for 30 Days, #60 TAB Prov:KONRAD HAMMONDS MD 08/02/18 Promethazine HCl (Phenergan) 25 Mg Supp.rect, 1 SUPP.RECT RC Q6H PRN for prn for 30 Days, #30 SUPP.RECT 4 Refills Keeps in room- Self administers Prov:KONRAD HAMMONDS MD 07/12/18 Allergies: Coded Allergies: meperidine (Verified Allergy, Severe, 07/06/18) morphine (Verified Allergy, Severe, 07/06/18) Patient History: FH: arthritis BROTHER OR SISTER FH: diabetes mellitus MOTHER, , Age:86 FH: pancreatic cancer FATHER, , Age:61 BROTHER OR SISTER Hx Smoking: Yes (20 YRS) Smoking Status: Former Smoker Caffeine Intake: Soda Caffeine/Cups Per Day: 1 CUP Hx Alcohol Use: Yes Hx Substance Use Disorder: No Review of Systems All Systems Reviewed/Normal: Yes, Except as Noted Constitutional: Fever, Chills Neurological: Weakness Exam Vital Signs Vital Signs Date Time Temp Pulse Resp B/P (MAP) Pulse Ox O2 Delivery O2 Flow Rate FiO2 08/13/18 14:32 96 Nasal Cannula 2.0 08/13/18 14:19 99.0 100 18 171/77 (108) Neuro: No Gross deficits Eyes: PERRLA Cardiovascular: Regular Rate and Rhythm Respiratory: Clear to Auscultation GI: Abd Soft and Non-Tender Extremities: No Edema Medical Decision Making Data Points Result Diagram: 08/13/1893008/13/18930 Assessment and Plan Problems: (1) Influenza Status: Acute Assessment & Plan: He did test positive for influenza A. He has been started on renal dosed Tamiflu. (2) T2DM (type 2 diabetes mellitus) Status: Chronic Assessment & Plan: He is on 70/30 insulin at home. We currently have him on sliding scale level #2. (3) CKD (chronic kidney disease) stage 4, GFR 15-29 ml/min Status: Chronic (4) Transitional cell bladder cancer Status: Chronic Assessment & Plan: He is followed through the cancer center. (5) History of DVT (deep vein thrombosis) Assessment & Plan: He is on chronic treatment with Eliquis. Copies to: KONRAD HAMMONDS MD ; Venous Thromboembolism Antithrombotics Is Pt On Any Antithrombotics?: Yes Exam Sepsis Risk: No Definite Risk CANDY GREGORIO DO Aug 13, 2018 15:05
[2018-08-13] MEDS ORDERED: PEG15DRO5 OP (16:08)
[2018-08-13] MEDS: OSELTAMIVIR PHOS 30 MG CAP PO SCH (16:35)
[2018-08-13] MEDS: INSULIN HUM LISPRO 100 UN/ML 3 ML VIAL SUBQ PRN ×2 (17:15→20:46)
[2018-08-13 19:32] VITALS: BP 144/65
[2018-08-13] MEDS: METOPROLOL TART 50 MG TAB PO SCH (20:34)
[2018-08-13] MEDS: APIXABAN 2.5 MG TABLET PO SCH (20:35)
[2018-08-13] MEDS ORDERED: diphenhydrAMINE 25 MG CAP PO ONE (20:40)
[2018-08-13 23:47] VITALS: BP 109/50
[2018-08-14] VITALS (7 sets, daily range): BP systolic 96–181; BP diastolic 47–97; Ht 170.2 cm; Wt 72.6 kg
[2018-08-14] MEDS ORDERED: OSEL30CA PO (10:14)
[2018-08-14] MEDS ORDERED: LEVA0.6320 IH (10:15)
--- NOTE | 2018-08-14 10:27 | Hospitalist Depart ---
Discharge Summary Reason for Hosp/Final Diag: (1) Influenza Status: Acute Hospital Course & Plan: He did test positive for influenza A. He has been started on renal dosed Tamiflu. He will require 2L oxygen at all times. He will follow up with PCP in one week. (2) T2DM (type 2 diabetes mellitus) Status: Chronic Hospital Course & Plan: He is on 70/30 insulin at home. He was placed on sliding scale level #2 during admission, but will resume his usual dose at home. (3) CKD (chronic kidney disease) stage 4, GFR 15-29 ml/min Status: Chronic (4) Transitional cell bladder cancer Status: Chronic Hospital Course & Plan: He is followed through the cancer center. (5) History of DVT (deep vein thrombosis) Hospital Course & Plan: He is on chronic treatment with Eliquis. Departure Latest Vital Signs Vital Signs 08/14/18 08/14/18 08/14/18 03:20 07:46 07:57 Temp 99.2 Pulse 84 Resp 20 B/P (MAP) 127/66 (86) Pulse Ox 80 O2 Delivery Room Air O2 Flow Rate 2.0 Weight (Pounds): 160 Weight (Ounces): 8.0 Result Diagram: 08/13/1893008/13/18930 Condition: Improved Discharge: Assisted Living Discharge Instructions Home Meds Active Scripts Levalbuterol Hcl (XOPENEX) 0.63 Mg/3 Ml Vial.neb, 0.63 MG IH Q4H PRN for SHORTNESS OF BREATH, #30 VIAL Prov:GISSELL ANDERSEN 08/14/18 Oseltamivir Phosphate (Oseltamivir Phosphate) 30 Mg Capsule, 30 MG PO QDAY, #4 CAPSULE Prov:GISSELL ANDERSEN [employer]IT[employer] 08/14/18 Nitroglycerin (NITROGLYCERIN) 0.4 Mg Tab.subl, 0.4 MG SL Q5MIN for 30 Days, #10 TAB Keeps in room-Self administers Prov:KONRAD HAMMONDS MD 04/25/18 Apixaban (ELIQUIS) 2.5 Mg Tablet, 2.5 MG PO BID for 90 Days, #180 TAB Prov:KONRAD HAMMONDS MD 04/25/18 Metoprolol Tartrate (METOPROLOL TARTRATE) 25 Mg Tablet, 1 TAB PO BID for 90 Days, TAB Prov:KONRAD HAMMONDS MD 04/25/18 Reported Medications Peg 400/Hypromellose/Glycerin (EYE DROP TEARS) 15 Ml Drops, 15 ML OP PRN for DISCOMFORT 08/13/18 Diphenhydramine Hcl (BENADRYL) 25 Mg Capsule, 25 MG PO 1-2XD, CAPSULE 07/20/18 Acetaminophen (TYLENOL) 325 Mg Tablet, 325 MG PO PRN for PAIN/TEMP OVER 100.4, T AB 07/06/18 Hum Insulin Nph/Reg Insulin Hm (NOVOLIN 70-30 100 UNIT/ML VIAL) 100 Unit/1 Ml Vial, 20 UNIT SQ BID, VIAL Self administers 01/19/18 Discontinued Reported Medications Triamcinolone Acetonide 0.1% Cr 15 Gm Tube (TRIAMCINOLONE ACETONIDE 0.1% CREAM) 15 Gm Cream..g., 15 GM TP BID, TUBE 07/20/18 Cetirizine Hcl (ZYRTEC) 10 Mg Tablet, 10 MG PO QDAY, TAB 07/20/18 Discontinued Scripts Oxycodone Hcl (OXYCODONE HCL) 5 Mg Tablet, 5 MG PO BID PRN for pain for 30 Days, #60 TAB Prov:KONRAD HAMMONDS MD 08/02/18 Promethazine HCl (Phenergan) 25 Mg Supp.rect, 1 SUPP.RECT RC Q6H PRN for prn for 30 Days, #30 SUPP.RECT 4 Refills Keeps in room- Self administers Prov:KNORAD HAMMONDS MD 07/12/18 Diet: Regular, Diabetic Activity: As Tolerated Special Instructions: Follow up with Dr. Hammonds within one week. Take Tamiflu as presribed. Wear 2L of oxygen at all times. Use nebulizer machine as needed for shortness of breath. Copies to: KONRAD HAMMONDS MD ; Venous Thromboembolism Antithrombotics Is Pt On Any Antithrombotics?: Yes GISSELL ANDERSEN Aug 14, 2018 10:27
[2018-08-14] MEDS: METOPROLOL TART 50 MG TAB PO SCH ×2 (11:05→20:32)
[2018-08-14] MEDS: OSELTAMIVIR PHOS 30 MG CAP PO SCH (11:06)
[2018-08-14] MEDS: APIXABAN 2.5 MG TABLET PO SCH ×2 (11:06→20:33)
[2018-08-14] MEDS ORDERED: HEPARIN FLSH (PORT) 500 UN/5ML IVP ONE (11:35)
[2018-08-14] MEDS ORDERED: PROMETHAZINE HCL 25 MG TAB PO PRN (13:15)
[2018-08-14] MEDS ORDERED: diphenhydrAMINE 25 MG CAP PO PRN (14:25)
[2018-08-14] MEDS ORDERED: PROMETHAZINE 25 MG/ML 1 ML AMP IVP PRN (14:40)
--- NOTE | 2018-08-14 15:46 | Medical Nutrition Therapy ---
Nutrition Anthropometrics Height (Inches): 67.00 Height (Calculated Centimeters: 170.301539 Weight (Pounds): 160 Weight (Calculated Kilograms): 72.802 BMI: 25.1 Chun Nutrition Score: Very Poor Chun Nutrition Risk Score: 15 Dietary Referral Nutrition Risk Factors: Nutrition Risk Comment: Physical Findings Physical Appearance: Overweight BMI 25-29 Skin Appearance Skin Appearance: Edema Edema Location Modifier: Edema Location: Type of Edema: Degree of Edema: Gastrointestinal Symptoms GI Symtoms: Appetite Changes Tube Present: Bowel Sounds: Recent Bowel Pattern: Stool Characteristics: Nutritional Diagnosis Nutritional Risk Acuity 2: Chronic Renal Failure Nutritional Risk Acuity 3: Fair Appetite, Cancer Past Medical History: Hx of DVT, CABG, HTN, CVM, CAD, anemia, CKD, T2DM, prostate cancer, cell bladder cancer, appendectomy, tonsillectomy, hernia repair, prostatectomy, carotid endarterectomy and cholecystectomy. Nutritional Acuity: 2-Moderate Nutrition Diagnosis: Increased Nutrient Needs Nutrition Etiology: Physiological Causes Nutrition Problem/Etiology/Sym: Increased nutrient needs related to physiological causes as evidenced by CKD stage 4, bladder cancer, decreased hunger and fever. Energy Requirement: 1798 (MSJ, 1.1 TEF, 1.2 AF) Protein Requirement: 72 (1 g A/kg of BW) Fluid Requirement: 1798 (1ml/kcal) Diet Type: Diabetic Nutrition Intervention: Cont diet as ordered Nutrition Monitoring & Eval Nutrition Goals: Eat 50-100% Meal Nutrition Follow-Up: Good Intake Nutrition Monitoring: Pt consuming 50-100% meals (diabetic). RD Patient Assessment Time: [address] Assessment Type: RD Screen Patient Nutrition Acuity: 2-Moderate Follow Up Date: Aug 17, 2018 Nutritional Comment: 08/14: Pt admitted for decreased intake and fever. Dx with influenza, DMT2, CKD stage 4, bladder cancer. Pt has a Hx of DVT, CABG, HTN, CVM, CAD, anemia, CKD, T2DM, prostate cancer, cell bladder cancer, appendectomy, tonsillectomy, hernia repair, prostatectomy, carotid endarterectomy and cholecystectomy. Pt has elevated BUN (25), creatinine (2.00), WBG (108-199), RBG (168), AST (28), and alkaline phosphatase (154). Pt is consuming 50-100% diabetic diet. -EVAN MOSS Aug 14, 2018 10:13
[2018-08-14] MEDS: ACETAMINOPHEN 500 MG TAB PO PRN ×2 (15:51→20:33)
[2018-08-14] MEDS: INSULIN HUM LISPRO 100 UN/ML 3 ML VIAL SUBQ PRN ×2 (17:27→20:39)
[2018-08-14] MEDS: NS(*) 0.9% 1000 ML BAG 1,000 ML IV PRN (17:50)
[2018-08-15] MEDS: NS(*) 0.9% 1000 ML BAG 1,000 ML IV PRN (04:00)
[2018-08-15 04:01] VITALS: BP 123/52
[2018-08-15 06:55] VITALS: BP 124/55
[2018-08-15 07:56] VITALS: BP 123/50
[2018-08-15] MEDS: METOPROLOL TART 50 MG TAB PO SCH ×2 (08:13→09:00)
[2018-08-15] MEDS: APIXABAN 2.5 MG TABLET PO SCH (08:14)
[2018-08-15 08:18] LABS: PLATELET COUNT, AUTOMATED 100 K/uL (150-450)
[2018-08-15] MEDS ORDERED: OSELTAMIVIR PHOS 30 MG CAP PO SCH (09:00)
--- NOTE | 2018-08-15 09:53 | Hospitalist Depart ---
Discharge Summary Reason for Hosp/Final Diag: (1) Influenza Status: Acute Hospital Course & Plan: He did test positive for influenza A. He was started on renal dosed Tamiflu. He will require 2L oxygen at all times. He will follow up with PCP in one week. (2) T2DM (type 2 diabetes mellitus) Status: Chronic Hospital Course & Plan: He is on 70/30 insulin at home. He was placed on sliding scale level #2 during admission, but will resume his usual dose at home. (3) CKD (chronic kidney disease) stage 4, GFR 15-29 ml/min Status: Chronic (4) Transitional cell bladder cancer Status: Chronic Hospital Course & Plan: He is followed through the cancer center. (5) History of DVT (deep vein thrombosis) Hospital Course & Plan: He is on chronic treatment with Eliquis. Departure Latest Vital Signs Vital Signs 08/15/18 08/15/18 06:55 07:56 Temp 98.0 Pulse 69 Resp 20 B/P (MAP) 123/50 (74) Pulse Ox 93 O2 Delivery Nasal Cannula O2 Flow Rate 2.0 Weight (Pounds): 160 Weight (Ounces): 8.0 Result Diagram: 08/15/1880708/15/18807 Condition: Improved Discharge: Assisted Living Discharge Instructions Home Meds Active Scripts Levalbuterol Hcl (XOPENEX) 0.63 Mg/3 Ml Vial.neb, 0.63 MG IH Q4H PRN for SHORT NESS OF BREATH, #30 VIAL Prov:GISSELL ANDERSENP 08/14/18 Oseltamivir Phosphate (Oseltamivir Phosphate) 30 Mg Capsule, 30 MG PO QDAY, #4 CAPSULE Prov:GISSELL ANDERSENP 08/14/18 Nitroglycerin (NITROGLYCERIN) 0.4 Mg Tab.subl, 0.4 MG SL Q5MIN for 30 Days, #10 TAB Keeps in room-Self administers Prov:KONRAD HAMMONDS MD 04/25/18 Apixaban (ELIQUIS) 2.5 Mg Tablet, 2.5 MG PO BID for 90 Days, #180 TAB Prov:KONRAD HAMMONDS MD 04/25/18 Metoprolol Tartrate (METOPROLOL TARTRATE) 25 Mg Tablet, 1 TAB PO BID for 90 Days , TAB Prov:KONRAD HAMMONDS MD 04/25/18 Reported Medications Peg 400/Hypromellose/Glycerin (EYE DROP TEARS) 15 Ml Drops, 15 ML OP PRN for DISCOMFORT 08/13/18 Diphenhydramine Hcl (BENADRYL) 25 Mg Capsule, 25 MG PO 1-2XD, CAPSULE 07/20/18 Acetaminophen (TYLENOL) 325 Mg Tablet, 325 MG PO PRN for PAIN/TEMP OVER 100.4, TAB 07/06/18 Hum Insulin Nph/Reg Insulin Hm (NOVOLIN 70-30 100 UNIT/ML VIAL) 100 Unit/1 Ml Vial, 20 UNIT SQ BID, VIAL Self administers 01/19/18 Discontinued Reported Medications Triamcinolone Acetonide 0.1% Cr 15 Gm Tube (TRIAMCINOLONE ACETONIDE 0.1% CREAM) 15 Gm Cream..g., 15 GM TP BID, TUBE 07/20/18 Cetirizine Hcl (ZYRTEC) 10 Mg Tablet, 10 MG PO QDAY, TAB 07/20/18 Discontinued Scripts Oxycodone Hcl (OXYCODONE HCL) 5 Mg Tablet, 5 MG PO BID PRN for pain for 30 Days, #60 TAB Prov:KONRAD HAMMONDS MD 08/02/18 Promethazine HCl (Phenergan) 25 Mg Supp.rect, 1 SUPP.RECT RC Q6H PRN for prn for 30 Days, #30 SUPP.RECT 4 Refills Keeps in room- Self administers Prov:KONRAD HAMMONDS MD 07/12/18 Diet: Regular, Diabetic Activity: As Tolerated Special Instructions: Follow up with Dr. Hammonds within one week. Take Tamiflu as presribed. Wear 2L of oxygen at all times. Use nebulizer machine as needed for shortness of breath. Use Tylenol every 6 hours as needed for flu. Copies to: KONRAD HAMMONDS MD ; Venous Thromboembolism Antithrombotics Is Pt On Any Antithrombotics?: Yes GISSELL ANDERSEN Aug 15, 2018 09:53
[2018-08-15] MEDS ORDERED: HEPARIN FLSH (PORT) 500 UN/5ML IVP ONE (10:30)
[2018-08-15] MEDS ORDERED: INFLUENZA VIRUS VAC 0.5ML SYR IM ONLY ONE (15:00)
== END 2018-08-15 10:28 | disposition home or self-care (01) ==
LOC: ER 09:25 → UNDOADMOB 13:20 → MED 13:20 → INTOOBSV 13:20 → MED 13:20 → UNDODISIN 08-14 12:15
PROVIDERS: ADMIT Family Medicine; ATTEND Family Medicine
DX: J09.X2 Influenza due to identified novel influenza A virus with other respiratory manifestations (principal); E86.0 Dehydration; R53.1 Weakness; E11.9 Type 2 diabetes mellitus without complications; E11.22 Type 2 diabetes mellitus with diabetic chronic kidney disease; I12.9 Hypertensive chronic kidney disease with stage 1 through stage 4 chronic kidney disease, or unspecified chronic kidney disease; N18.4 Chronic kidney disease, stage 4 (severe); C67.9 Malignant neoplasm of bladder, unspecified; Z86.718 Personal history of other venous thrombosis and embolism; Z79.01 Long term (current) use of anticoagulants
CPT/HCPCS: 36415; 36416; 71045; 81001; 82948; 85025; 87040; 87088; 87502; 87653; 94640; 96360; 96361; 96372; 99284; A9270; G0378; J1642; J1815; J2550; J7030; J7620; Q0163; 82040; 82247; 82310; 82374; 82435; 82565; 82947; 84075; 84132; 84155; 84295; 84450; 84460; 84520

== ENCOUNTER 2018-08-24 09:23 | Outpatient (RCR) | payer MEDICARE, MEDICAID ==
[2018-06-16] MEDS: LIDOCAINE/SOD BICARB 8.4% SYR ID PRN (11:00)
[2018-06-16] MEDS: HEPARIN FLSH (PORT) 500 UN/5ML IVP PRN (11:00)
[2018-06-29 11:57] VITALS: BP 91/53
--- NOTE | 2018-06-29 17:39 | [facility] ONCOLOGY NOTE ---
EVENT DATE: June 29, 2018 DIAGNOSES 1. Stage IV muscle-invasive transitional cell carcinoma, high grade. 2. History of prostate cancer. 3. History of transient ischemic attack, status post carotid endarterectomy September 2017. 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 ONCOLOGY HISTORY Patient is an 83-year-old male who had prior oncologic history of prostate cancer for which he underwent radical prostatectomy approximately 20 years ago. In early 2017, patient was noted to have an elevated PSA in the range of 18. He started on Lupron and Casodex therapy, and his PSA was brought under control. Patient had recent carotid endarterectomy in [place] in September 2017, and during his hospitalization, patient was found to have obstructed left ureter and hydronephrosis, so the patient was referred to Dr. Gandhi in [place] for further evaluation and management. He had a CT abdomen and pelvis done on September 28, 2017, which showed status post prostatectomy. There may be some residual soft tissue present which was causing mild compression to the urinary bladder versus an intramedullary bladder abnormality with mild left hydronephrosis. He had cystoscopy with bladder and urethral biopsies done on September 26, 2017, under the direction of Dr. Gandhi, and the pathology came back positive for high-grade transitional cell carcinoma grade 3 with invasion into the smooth muscle. 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 Patient underwent left-sided percutaneous nephrostomy tube placement on September 27, 2017. His creatinine dropped after that. He has been evaluated by Dr. You, who requested a PET/CT scan which was done on October 14, 2017, which showed asymmetric thickening of the left posterolateral wall of the urinary bladder, likely correlates with the patient's non-bladder cancer. There was a subcentimeter left pelvic sidewall lymph node with no prominent uptake. There was also hypermetabolic lytic lesion in the inferior right pubic bone, and a second lytic lesion in the lower sacrum to the left of the midline with mild uptake concerning for bony metastasis. Patient is scheduled for CT-guided biopsy of one of the bone lesions in [place]. 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 The patient started chemotherapy and radiosensitizer with radiation therapy with mitomycin and 5-FU on November 07, 2017. After chemoradiation, patient did not receive any other treatment until recently. He has progressive fatigue, and the patient had PET/CT scan done on the June which showed interval development of widespread metastatic disease with pulmonary metastases, retroperitoneal shree adenopathy through the abdomen and pelvis, and new lytic bone metastasis in the sacrum. Sclerotic lesion in the right ilial tuberosity demonstrated slight increased sclerosis with several focal discrete areas of lysis, but there is no appreciable increased glucose uptake. HISTORY OF PRESENT ILLNESS Patient is here today for followup of his metastatic bladder cancer after he finished his chemoradiation. Patient is doing fine currently. He is complaining of diarrhea occasionally. He has progressive fatigue lately, but generally speaking, his general condition is stable. PAST MEDICAL HISTORY 1. Type 2 diabetes. 2. History of prostate cancer. 3. Hypertension. 4. Coronary artery disease, status post four stent placement. 5. TIA and CVA, status post carotid endarterectomy. 6. Chronic kidney disease stage 4. PAST SURGICAL HISTORY 1. Carotid endarterectomy September 06, 2017. 2. Tonsillectomy. 3. Hemorrhoidectomy. 4. Prostatectomy. 5. Bilateral inguinal hernia repair. 6. Exploratory laparotomy. 7. Bilateral rotator cuff repair. 8. Deviated septum surgery. 9. Cholecystectomy. 10. Status post percutaneous nephrostomy tube placement. FAMILY HISTORY Father with pancreatic cancer. Paternal uncle had prostate cancer. Brother had both prostate and pancreatic cancer. SOCIAL HISTORY Patient is with two children. 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 He quit smoking 44 years ago after half a pack a day for 15 years. He chewed tobacco for about seven years. He denies any abuse of alcohol or illicit drugs. CURRENT MEDICATIONS 1. Plavix 75 mg daily. 2. Metoprolol 25 mg twice daily. 3. Aspirin 81 mg daily. 4. Lupron 7.5 mg as directed. 5. Casodex 50 mg daily. 6. Atorvastatin 40 mg at bedtime. 7. Humalog insulin as directed. ALLERGIES 1. DEMEROL which causes his heart to stop. 2. MORPHINE which causes skin rash. REVIEW OF SYSTEMS CONSTITUTIONAL: No appetite or weight change. No fever, chills, or sweating. No recent infection. HEENT: Ears: No tinnitus or hearing problem. Nose: No nasal discharge or epistaxis. Throat: No sore throat or mouth ulcers. Eyes: No diplopia or visual changes. RESPIRATORY: No shortness of breath. No cough, expectoration, or hemoptysis. CARDIOVASCULAR: No chest pain, orthopnea, or paroxysmal nocturnal dyspnea (PND). No edema. No palpitations. GASTROINTESTINAL: Patient has occasional diarrhea. No nausea or vomiting. No constipation. No change in bowel movements. No heartburn or swallowing difficulties. No abdominal pain. No jaundice. No hematemesis, melena, or rectal bleeding. GENITOURINARY: No hematuria or dysuria. MUSCULOSKELETAL: No pain in the muscles, joints, or bones. NEUROLOGICAL: No tingling or numbness in the hands or feet. No headaches or convulsions. HEMATOLOGIC/LYMPHATIC: No bleeding or easy bruising. He has weakness, tiredness, and fatigue which are getting worse lately. No enlarged lymph nodes. SKIN: No skin rash or lumps. PSYCHIATRIC: No anxiety or depression. PHYSICAL EXAMINATION GENERAL: Looks stable. Well developed, well nourished, and in no acute distress. VITAL SIGNS: Blood pressure 91/53, pulse 75 per minute, respirations 16 per minute, temperature 97.3, pulse ox 91% on room air. HEENT: Head: Atraumatic. No sinus tenderness to palpation. Eyes: No icterus or conjunctivitis. Mouth and throat: No oral thrush or mucositis. NECK: Supple. No cervical or supraclavicular lymphadenopathy. LUNGS: Clear to auscultation and percussion bilaterally. HEART: Regular rate and rhythm. No gallops, murmurs, clicks, or rubs. ABDOMEN: Soft and lax. No tenderness. No hepatosplenomegaly. No masses. EXTREMITIES: No cyanosis, clubbing, or edema. LYMPHATICS: No peripheral lymphadenopathy. NEUROLOGICAL: Conscious, alert, and oriented times three. No focal motor or sensory deficits. PSYCHIATRIC: Mood and affect appear normal. SKIN: No skin rash, bruise, or purpuric eruption. DIAGNOSTIC DATA PET/CT scan done on the June showed interval development of widespread metastatic disease with pulmonary metastases, retroperitoneal shree adenopathy through the abdomen and pelvis, and a new lytic bone metastasis in the sacrum. The sclerotic lesion in the right ilial tuberosity demonstrates slight increased sclerosis with several focal discrete areas of lysis, but there is no appreciable increased glucose uptake. ASSESSMENT 1. Muscle invasive transitional cell carcinoma of high grade with bone metastasis, status post transurethral resection of the bladder tumor done September 26, 2017, under care of Dr. Gandhi. Patient is not a candidate for radical cystectomy. Bladder preservation therapy was the plan of management given that the patient has obstructive uropathy, and a nephrostomy tube was placed. Patient has a history of chronic kidney disease stage 4, and he is not eligible for cisplatin therapy. For radiosensitization, patient received chemotherapy with 5-FU and mitomycin, started November 07, 2017, and he received two cycles, complicated with severe vomiting, diarrhea, dehydration, and very high blood sugar after the first cycle of chemotherapy. He received radiation therapy. PET scan October 14, 2017, did reveal beside abnormal area in the bladder, two lytic lesions, one in the inferior right pubic bone and the second one in the lower sacrum. CT-guided biopsy of the symphysis pubis lesion on October 25, 2017, came back positive for high-grade transitional cell carcinoma. Given now he has metastatic disease, widespread by his PET scan done on the June, I am planning to treat him with Tecentriq which is a checkpoint inhibitor. I spent a long time with the patient and his son explaining the plan of management and the side effects expected from the treatment, and the patient is agreeable with such a plan. I am planning to bring him next week with CBC, chemistry panel, TSH, free T4, and magnesium to start his treatment with Tecentriq. Treatment will be given every three weeks. I spent a long time with the patient explaining the plan of management and side effects expected from his therapy. 2. Metastatic bone disease. I am planning to treat him with Xgeva. I asked the patient to see his dentist for evaluation and management prior to starting Xgeva because of the possibility of jawbone necrosis if Xgeva is given for a long time. 3. Neuroblastic-related fatigue. I am hoping that treatment with Tecetriq if the patient is responsive, he may have better quality of life. 4. History of prostate cancer. On Lupron and Casodex with PSA controlled. PLAN 1. Tecentriq next week. 2. Patient to return in one week to start his treatment with Tecentriq with CBC, chem panel, TSH, free T4, and magnesium levels. 3. Patient to contact us for any new concerns or complaints. MTDD
[2018-07-13 09:52] VITALS: BP 124/61
[2018-07-13] MEDS: HEPARIN FLSH (PORT) 500 UN/5ML IVP PRN ×2 (09:54→11:35)
[2018-07-13] MEDS: LIDOCAINE/SOD BICARB 8.4% SYR ID PRN (09:54)
[2018-07-13] MEDS: NS(*) 0.9% 500 ML BAG 500 ML IV PRN (09:56)
--- NOTE | 2018-07-13 20:32 | ONCOLOGY CHEMO TEACHING ---
DATE OF EVENT: July 13, 2018 DIAGNOSIS Metastatic bladder cancer. The patient and his son are seen today for chemotherapy teaching. A total of 60 minutes were spent with them, 100% of which was [id number] counseling. HISTORY OF PRESENT ILLNESS Patient is an 83-year-old male who is seen today to initiate treatment with Tecentriq. He completed his previous chemoradiation in January 2018 and feels he has for the most part recovered from this. He does have some fatigue. He has had chronic issues sleeping, but manages this with Tylenol PM. He denies any pain. He is no longer on Lupron and Casodex. ONCOLOGY HISTORY Patient has a history of prostate cancer, status post radical prostatectomy in 1997. In early 2017, he was noted to have an elevated PSA and began treatment with Lupron and Casodex. When undergoing carotid endarterectomy in September 2017, he was noted to have an obstructed left ureter and hydronephrosis. Cystoscopy with bladder and urethral biopsies on 09/26/17 was positive for high-grade transitional cell carcinoma, grade 3, with invasion into the smooth muscle. Underwent left-sided percutaneous nephrostomy tube. PET CT showed asymmetric thickening of the left posterolateral wall of the urinary bladder as well as a hypermetabolic lytic lesion in the inferior right pubic bone and second lytic lesion in the lower sacrum. Biopsy on 10/25/17 was positive for metastatic urothelial carcinoma. Underwent treatment with mitomycin and 5-FU as well as concurrent radiation therapy from 11/08/17 through 01/06/18. PET scan on 06/15/18 showed interval development of wide-spread metastatic disease with pulmonary metastases, retroperitoneal adenopathy, and new lytic bone metastasis in the sacrum. Began Tecentriq on 07/13/18. PAST MEDICAL HISTORY 1. History of prostate cancer, 1997. 2. Type 2 diabetes. 3. Hypertension. 4. Coronary artery disease, status post four stents. 5. TIA and CVA, status post carotid endarterectomy. 6. Chronic kidney disease, stage 4. SURGICAL HISTORY 1. Carotid endarterectomy, 09/06/17. 2. Tonsillectomy. 3. Hemorrhoidectomy. 4. Prostatectomy, 1997. 5. Bilateral inguinal hernia repair. 6. Exploratory laparotomy. 7. Bilateral rotator cuff repair. 8. Deviated septum surgery. 9. Cholecystectomy. 10. Left percutaneous nephrostomy tube placement. FAMILY HISTORY Father of pancreatic cancer. Paternal uncle had prostate cancer. Brother had prostate and pancreatic cancers. SOCIAL HISTORY Patient is . They have two sons. They are currently living in [facility]. 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 He quit smoking 45 years ago after half a pack per day for 15 years. He then chewed tobacco for about seven years. Denies any abuse of alcohol or illicit drugs. MEDICATIONS 1. Eliquis. 2. Metoprolol. 3. Humulin 70/30 b.i.d. ALLERGIES 1. DEMEROL. 2. MORPHINE. DISCUSSION 1. A total of 60 minutes were spent in counseling today, 100% of which was face to face. At today's chemotherapy teaching session, we discussed his diagnosis as well as the planned chemotherapy regimen and toxicities associated with Tecentriq. Handouts of this drug were provided and reviewed in detail. 2. Side effects and toxicities of immunotherapy agents included, but were not limited to: A. Bone marrow suppression. We reviewed that Tecentriq can cause leukopenia. We discussed infection precautions, and he will notify us if he develops fever or any signs of infection. B. GI side effects. Discussed the possibility of diarrhea/colitis. He usually has loose stools, but he will notify us if persistent diarrhea, abdominal pain, or cramping occurs. C. side effects. Discussed the importance of adequate hydration (minimum 8 cups of fluid per day) and emptying the bladder on a regular basis. IV hydration can be scheduled as needed. D. Lung problems. Discussed that the Tecentriq could cause pneumonitis. He will notify us if he develops shortness of breath or a dry cough. E. Hepatitis. Liver issues can occur in 27% to 40% of patients with immune- mediated hepatitis in 9% of patients. Labs will be monitored at each visit. F. Endocrinopathies. We reviewed that immune reactions can affect the pituitary, thyroid, pancreas, and adrenal glands. Labs will be monitored routinely. Thyroid panel is pending today. G. Fatigue. Discussed that this is one of the most common complaints of patients undergoing treatment. I have encouraged him to remain as active as possible, taking frequent rests as needed. H. Anorexia. This can occur in approximately 25% of patients. He describes his appetite as not being good, but states he eats regularly at [facility]. Will continue to monitor weight with each cycle. 3. I have instructed the patient to call our office if he is prescribed any new medications. It is recommended that multiple supplements or herbal medications may not be taken as these may interfere with the action of the chemotherapy. 4. Discussed dietary issues associated with chemotherapy including anorexia and changes in taste. A handout of nutrition information is given. 5. Office contact information ([phone]) is given. I have encouraged the patient to call with any issues regarding treatment. 6. Patient will begin cycle #1 of Tecentriq today. He feels ready for today's treatment. He will be seen routinely for followup. [facility]
--- NOTE | 2018-07-13 20:58 | ONCOLOGY CHEMO TEACHING ---
DATE OF EVENT: July 13, 2018 DIAGNOSIS Metastatic bladder cancer. The patient and his son are seen today for chemotherapy teaching. A total of 60 minutes was spent with them, 100% of which was [id number] counseling. HISTORY OF PRESENT ILLNESS Patient is an 83-year-old male with previous history of prostate cancer, status post radical prostatectomy in early 2017. PSA was elevated, and he began treatment with Lupron and Casodex. When he underwent carotid endarterectomy in September 2017, he was noted to have an obstructed left ureter and hydronephrosis. DICTATION ENDS HERE. [facility]
[2018-07-17 09:06] VITALS: BP 98/58
--- NOTE | 2018-07-18 09:58 | ONCOLOGY FOLLOW UP NOTE ---
EVENT DATE: July 17, 2018 CHIEF COMPLAINT Follow up for metastatic bladder cancer; new onset rash. HISTORY OF PRESENT ILLNESS Patient is an 83-year-old male who is seen today as a work-in. He received his first cycle of Tecentriq on July 13, 2018. Over the past two days, he has developed a maculopapular pruritic rash on both arms, right knee and left ankle area. He has had no new medications and no new detergents. He has no lesions in his mouth. He tolerated his first cycle of Tecentriq with no other issues. ONCOLOGY HISTORY Patient has a history of prostate cancer, status post radical prostatectomy in 1997. In early 2017, he was noted to have an elevated PSA and began treatment with Lupron and Casodex. When undergoing carotid endarterectomy in September 2017, he was noted to have an obstructed left ureter and hydronephrosis. Cystoscopy with bladder and urethral biopsies on 09/26/17 was positive for high-grade transitional cell carcinoma, grade 3, with invasion into the smooth muscle. Underwent left-sided percutaneous nephrostomy tube. PET CT showed asymmetric thickening of the left posterolateral wall of the urinary bladder as well as a hypermetabolic lytic lesion in the inferior right pubic bone and second lytic lesion in the lower sacrum. Biopsy on 10/25/17 was positive for metastatic urothelial carcinoma. Underwent treatment with mitomycin and 5-FU as well as concurrent radiation therapy from 11/08/17 through 01/06/18. PET scan on 06/15/18 showed interval development of wide-spread metastatic disease with pulmonary metastases, retroperitoneal adenopathy, and new lytic bone metastasis in the sacrum. Began Tecentriq on 07/13/18. PAST MEDICAL HISTORY 1. History of prostate cancer, 1997. 2. Type 2 diabetes. 3. Hypertension. 4. Coronary artery disease, status post four stents. 5. TIA and CVA, status post carotid endarterectomy. 6. Chronic kidney disease, stage 4. SURGICAL HISTORY 1. Carotid endarterectomy, 09/06/17. 2. Tonsillectomy. 3. Hemorrhoidectomy. 4. Prostatectomy, 1997. 5. Bilateral inguinal hernia repair. 6. Exploratory laparotomy. 7. Bilateral rotator cuff repair. 8. Deviated septum surgery. 9. Cholecystectomy. 10. Left percutaneous nephrostomy tube placement. FAMILY HISTORY Father of pancreatic cancer. Paternal uncle had prostate cancer. Brother had prostate and pancreatic cancers. SOCIAL HISTORY Patient is . They have two sons. They are currently living in [facility]. 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 He quit smoking 45 years ago after half a pack per day for 15 years. He then chewed tobacco for about seven years. Denies any abuse of alcohol or illicit drugs. MEDICATIONS 1. Eliquis. 2. Metoprolol. 3. Humulin 70/30 b.i.d. ALLERGIES 1. DEMEROL. 2. MORPHINE. REVIEW OF SYSTEMS A 12-point review of systems is performed and is negative except as stated above. PHYSICAL EXAM VITAL SIGNS: Weight 72 kg, BP 98/58, P 85, R 16, temperature 96.6, O2 sat 97%. GENERAL: Patient is a well-developed, well-nourished male in no acute distress. HEAD: Normocephalic, atraumatic. EYES: Sclerae anicteric. MOUTH: Moist mucous membranes. No lesions noted. NECK: Supple. No palpable adenopathy. LUNGS: Clear bilaterally. CARDIOVASCULAR: Heart rate regular, 85 per minute without murmur, S3 or S4. EXTREMITIES: No edema. NEURO: Nonfocal. SKIN: Maculopapular erythematous rash noted on right arm (between right upper arm and mid right forearm), left arm (from elbow to mid forearm), right knee (surrounding the knee) and a small area on the left ankle. LABS No lab. IMPRESSION The patient is an 83-year old male with high-grade transitional cell carcinoma, grade 3, with invasion of the bladder (he underwent left sided percutaneous nephrostomy tube in September 2017). Biopsy of a lytic lesion in the right pubic bone was positive for metastatic urothelial carcinoma. Completed treatment with mitomycin and 5-FU as well as concurrent radiation from November 08, 2017 through January 06, 2018. PET scan on June 15, 2018 showed interval development of widespread metastatic disease with pulmonary metastases, retroperineal adenopathy and new lytic bone lesions in the sacrum. Began Tecentriq on July 13, 2018. 1. Metastatic bladder cancer. Patient completed cycle #1 of Tecentriq on July 13, 2018. 2. Rash. Presented with a maculopapular rash on both arms, right knee and left ankle. The rash is very pruritic. No evidence of blistering. No oral lesions. We reviewed the NCCN guidelines for immune-mediated rash. As his rash covers less than 30% of his body surface area, he will be treated with triamcinolone 0.1% cream. This will be applied as a thin film to affected areas b.i.d. I also recommended he start Zyrtec 10 mg daily as well as Benadryl q.h.s. He will be seen again in followup on July 20, 2018 to reevaluate rash. Further decisions about treatment will be made based on his response. MTDD
[2018-07-20 09:29] VITALS: BP 110/59
--- NOTE | 2018-07-20 21:07 | ONCOLOGY FOLLOW UP NOTE ---
EVENT DATE: July 20, 2018 CHIEF COMPLAINT Followup for metastatic bladder cancer and rash. HISTORY OF PRESENT ILLNESS Patient is an 83-year-old male who was seen today in followup. He represented on 07/17/18 with a maculopapular, pruritic rash on both arms, right knee, and left ankle area. He received his first cycle of Tecentriq on 07/13/18. He was prescribed triamcinolone cream as well as Zyrtec and Benadryl. Today, he notes that the rash is much long goods drier and less pruritic. The erythema has decreased significantly. He denies any other new complaints. ONCOLOGY HISTORY Patient has a history of prostate cancer, status post radical prostatectomy in 1997. In early 2017, he was noted to have an elevated PSA and began treatment with Lupron and Casodex. When undergoing carotid endarterectomy in September 2017, he was noted to have an obstructed left ureter and hydronephrosis. Cystoscopy with bladder and urethral biopsies on 09/26/17 was positive for high-grade transitional cell carcinoma, grade 3, with invasion into the smooth muscle. Underwent left-sided percutaneous nephrostomy tube. PET CT showed asymmetric thickening of the left posterolateral wall of the urinary bladder as well as a hypermetabolic lytic lesion in the inferior right pubic bone and second lytic lesion in the lower sacrum. Biopsy on 10/25/17 was positive for metastatic urothelial carcinoma. Underwent treatment with mitomycin and 5-FU as well as concurrent radiation therapy from 11/08/17 through 01/06/18. PET scan on 06/15/18 showed interval development of wide-spread metastatic disease with pulmonary metastases, retroperitoneal adenopathy, and new lytic bone metastasis in the sacrum. Began Tecentriq on 07/13/18. PAST MEDICAL HISTORY 1. History of prostate cancer, 1997. 2. Type 2 diabetes. 3. Hypertension. 4. Coronary artery disease, status post four stents. 5. TIA and CVA, status post carotid endarterectomy. 6. Chronic kidney disease, stage 4. SURGICAL HISTORY 1. Carotid endarterectomy, 09/06/17. 2. Tonsillectomy. 3. Hemorrhoidectomy. 4. Prostatectomy, 1997. 5. Bilateral inguinal hernia repair. 6. Exploratory laparotomy. 7. Bilateral rotator cuff repair. 8. Deviated septum surgery. 9. Cholecystectomy. 10. Left percutaneous nephrostomy tube placement. FAMILY HISTORY Father of pancreatic cancer. Paternal uncle had prostate cancer. Brother had prostate and pancreatic cancers. SOCIAL HISTORY Patient is . They have two sons. They are currently living in [facility]. 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 He quit smoking 45 years ago after half a pack per day for 15 years. He then chewed tobacco for about seven years. Denies any abuse of alcohol or illicit drugs. MEDICATIONS 1. Eliquis. 2. Metoprolol. 3. Humulin 70/30 b.i.d. ALLERGIES 1. DEMEROL. 2. MORPHINE. REVIEW OF SYSTEMS A 12-point review of systems is performed and is negative except as stated above. PHYSICAL EXAMINATION VITAL SIGNS: BP 110/59, P 82, R 16, temp 96.9, O2 sat 92%. GENERAL: Patient is a well-developed, well-nourished male in no acute distress. HEAD: Normocephalic. EYES: Sclerae anicteric. MOUTH: Moist mucous membranes. No lesions noted. LUNGS: Clear bilaterally. CARDIOVASCULAR: Heart rate regular, 80 per minute, without murmur, S3, or S4. EXTREMITIES: No edema. NEUROLOGIC: Nonfocal. SKIN: Markedly decreased erythematous rash noted on right arm, left arm, right knee, and ankle. The skin is much long goods drier with some excoriation from previous scratching, but overall much improved. LABORATORY No lab. IMPRESSION The patient is an 83-year old male with high-grade transitional cell carcinoma, grade 3, with invasion of the bladder (he underwent left-sided percutaneous nephrostomy tube in September 2017). Biopsy of a lytic lesion in the right pubic bone was positive for metastatic urothelial carcinoma. Completed treatment with mitomycin and 5-FU as well as concurrent radiation from November 08, 2017, through January 06, 2018. PET scan on June 15, 2018, showed interval development of widespread metastatic disease with pulmonary metastases, retroperineal adenopathy, and new lytic bone lesions in the sacrum. Began Tecentriq on July 13, 2018. PLAN 1. Metastatic bladder cancer. Patient completed cycle #1 of Tecentriq on 07/13/18. 2. Immune-mediated rash. Patient presented with a maculopapular rash on both arms, right knee, and left ankle. As it covered less than 30% of his body surface area, he was treated with triamcinolone cream, Zyrtec, and Benadryl. Rash has improved significantly. The skin is now very dry. We discussed decreasing the use of the triamcinolone cream based on response. I also recommended he increase moisturizing. 3. Follow up as scheduled for cycle #2 of treatment or earlier if there is a problem. MTDD
[2018-07-28 14:50] VITALS: BP 158/73
[2018-08-03] MEDS: NS(*) 0.9% 500 ML BAG 500 ML IV PRN ×2 (10:08→12:15)
[2018-08-03 10:09] VITALS: BP 123/54
[2018-08-03] MEDS: LIDOCAINE/SOD BICARB 8.4% SYR ID PRN (10:09)
[2018-08-03 12:19] VITALS: BP 120/63
[2018-08-03] MEDS: HEPARIN FLSH (PORT) 500 UN/5ML IVP PRN (12:26)
--- NOTE | 2018-08-03 12:54 | RADIOLOGY IMAGING REPORT ---
FACILITY: [facility] PATIENT NAME: Deion Kwong : 1935 MR: [id number] V: [id number] EXAM DATE: ORDERING PHYSICIAN: EMILI SCHNEIDER TECHNOLOGIST: Location: [facility] [place] Patient: Deion Kwong : 1935 Visit/Account:[id number] Date of Sevice: 08/03/2018 Single view chest with right ribs INDICATION: Right-sided thoracic pain. No injury. Transitional cell carcinoma.. COMPARISON: Cranial pictures from the CT examination of the abdomen and pelvis from July 06. FINDINGS: Soft tissue nodular densities are seen over the lungs indicative of metastatic pulmonary no dules. Right-sided chest port. Bones are without acute finding. Dedicated oblique images of the right ribs demonstrate a radiopaque BB in the region of the lateral s eventh right rib. There appears to be a subtle cortical step-off involving the lateral right third r ib. This is seen on the frontal and the initial oblique image. Findings indicative of a subtly disp laced fracture. No additional fractures or focal lesions. No effusion or pneumothorax. External pacer is noted. Impression: 1. There is a cortical irregularity indicative of a subtly displaced lateral fracture of the right th ird rib. No evidence of effusion or pneumothorax. 2. Pulmonary nodular densities indicative of metastatic disease. Report Dictated By: Francisco Benítez MD at 08/03/2018 12:17 PM Report E-Signed By: Francisco Benítez MD at 08/03/2018 12:50 PM WSN:[id number]
--- NOTE | 2018-08-04 04:07 | [facility] ONCOLOGY NOTE ---
EVENT DATE: August 03, 2018 DIAGNOSES 1. Stage IV muscle-invasive transitional cell carcinoma, high grade. 2. History of prostate cancer. 3. History of transient ischemic attack, status post carotid endarterectomy September 2017. 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 ONCOLOGY HISTORY Patient is an 83-year-old male who had prior oncologic history of prostate cancer for which he underwent radical prostatectomy approximately 20 years ago. In early 2017, patient was noted to have an elevated PSA in the range of 18. He started on Lupron and Casodex therapy, and his PSA was brought under control. Patient had recent carotid endarterectomy in [place] in September 2017, and during his hospitalization, patient was found to have obstructed left ureter and hydronephrosis, so the patient was referred to Dr. Gandhi in [place] for further evaluation and management. He had a CT abdomen and pelvis done on September 28, 2017, which showed status post prostatectomy. There may be some residual soft tissue present which was causing mild compression to the urinary bladder versus an intramedullary bladder abnormality with mild left hydronephrosis. He had cystoscopy with bladder and urethral biopsies done on September 26, 2017, under the direction of Dr. Gandhi, and the pathology came back positive for high- grade transitional cell carcinoma grade 3 with invasion into the smooth muscle. 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 Patient underwent left-sided percutaneous nephrostomy tube placement on September 27, 2017. His creatinine dropped after that. He has been evaluated by Dr. You, who requested a PET/CT scan which was done on October 14, 2017, which showed asymmetric thickening of the left posterolateral wall of the urinary bladder, likely correlates with the patient's non-bladder cancer. There was a subcentimeter left pelvic sidewall lymph node with no prominent uptake. There was also hypermetabolic lytic lesion in the inferior right pubic bone, and a second lytic lesion in the lower sacrum to the left of the midline with mild uptake concerning for bony metastasis. Patient is scheduled for CT-guided biopsy of one of the bone lesions in [place]. 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 The patient started chemotherapy and radiosensitizer with radiation therapy with mitomycin and 5-FU on November 07, 2017. After chemoradiation, patient did not receive any other treatment until recently. He has progressive fatigue, and the patient had PET/CT scan done on the June which showed interval development of widespread metastatic disease with pulmonary metastases, retroperitoneal shree adenopathy through the abdomen and pelvis, and new lytic bone metastasis in the sacrum. Sclerotic lesion in the right ilial tuberosity demonstrated slight increased sclerosis with several focal discrete areas of lysis, but there is no appreciable increased glucose uptake. Patient started treatment with Tecentriq on 13 July 2018. HISTORY OF PRESENT ILLNESS Patient is here today for followup of his metastatic bladder cancer, on treatment with Tecentriq. His general condition improved, but he continues to have loss of appetite. He has chills sometimes. He has some nasal discharge. He has some loose stool. He has cough with expectoration, shortness of breath, and wheezing. He had right chest pain around the right axillary area, especially on coughing. It is not pleuritic in nature. He is weak, tired, and fatigued. He developed skin rash over the right arm, which is getting better with anti-allergic medications and triamcinolone ointment. PAST MEDICAL HISTORY 1. Type 2 diabetes. 2. History of prostate cancer. 3. Hypertension. 4. Coronary artery disease, status post four stent placement. 5. TIA and CVA, status post carotid endarterectomy. 6. Chronic kidney disease stage 4. PAST SURGICAL HISTORY 1. Carotid endarterectomy September 06, 2017. 2. Tonsillectomy. 3. Hemorrhoidectomy. 4. Prostatectomy. 5. Bilateral inguinal hernia repair. 6. Exploratory laparotomy. 7. Bilateral rotator cuff repair. 8. Deviated septum surgery. 9. Cholecystectomy. 10. Status post percutaneous nephrostomy tube placement. FAMILY HISTORY Father with pancreatic cancer. Paternal uncle had prostate cancer. Brother had both prostate and pancreatic cancer. SOCIAL HISTORY Patient is with two children. 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 He quit smoking 44 years ago after half a pack a day for 15 years. He chewed tobacco for about seven years. He denies any abuse of alcohol or illicit drugs. CURRENT MEDICATIONS 1. Plavix 75 mg daily. 2. Metoprolol 25 mg twice daily. 3. Aspirin 81 mg daily. 4. Lupron 7.5 mg as directed. 5. Casodex 50 mg daily. 6. Atorvastatin 40 mg at bedtime. 7. Humalog insulin as directed. ALLERGIES 1. DEMEROL which causes his heart to stop. 2. MORPHINE which causes skin rash. REVIEW OF SYSTEMS CONSTITUTIONAL: He has chills and loss of appetite. HEENT: Ears: No tinnitus or hearing problem. Nose: He has nasal discharge. Throat: No sore throat or mouth ulcers. Eyes: No diplopia or visual changes. RESPIRATORY: He has cough with expectoration, shortness of breath, and wheezing. CARDIOVASCULAR: He has right chest pain around the area of the right axilla, especially on coughing. GASTROINTESTINAL: He has some loose stools. GENITOURINARY: No hematuria or dysuria. MUSCULOSKELETAL: No pain in the muscles, joints or bones. NEUROLOGICAL: No tingling or numbness in the hands or feet. No headaches or convulsions. HEMATOLOGIC/LYMPHATIC: He is weak, tired, and fatigued. SKIN: He has a skin rash over the right arm, which is getting better with triamcinolone ointment and Zyrtec. PSYCHIATRIC: No anxiety or depression. PHYSICAL EXAMINATION GENERAL: Looks stable. Well-developed, well-nourished, and in no acute distress. VITAL SIGNS: Blood pressure 123/54, pulse 69 per minute, respirations 17 per minute, temperature 97.4, pulse oximetry 97% on room air. HEENT: Head: Atraumatic. No sinus tenderness to palpation. Eyes: No icterus or conjunctivitis. Mouth and throat: No oral thrush or mucositis. NECK: Supple. No cervical or supraclavicular lymphadenopathy. LUNGS: Clear to auscultation and percussion bilaterally. HEART: Regular rate and rhythm. No gallops, murmurs, clicks or rubs. ABDOMEN: Soft and lax. No tenderness. No hepatosplenomegaly. No masses. EXTREMITIES: No cyanosis, clubbing or edema. LYMPHATICS: No peripheral lymphadenopathy. NEUROLOGICAL: Conscious, alert and oriented times three. No focal motor or sensory deficits. PSYCHIATRIC: Mood and affect appear normal. SKIN: There is a nodular rash over the right arm, which is getting better. DIAGNOSTIC DATA CBC showed a white count of 4.1, hemoglobin 11.3, hematocrit 33, and platelet count 126,000. ASSESSMENT 1. Muscle-invasive transitional cell carcinoma, high grade, with bone metastasis, status post transurethral resection of the bladder tumor done September 26, 2017, under care of Dr. Gandhi. Patient is not a candidate for radical cystectomy. Bladder preservation therapy was the plan of management given that the patient has obstructive uropathy, and a nephrostomy tube was placed. He has chronic kidney disease stage 4, and he is not eligible for cisplatin therapy. For radiosensitization, patient received chemotherapy with 5-FU and mitomycin, started November 07, 2017, and he received two cycles, complicated with severe vomiting, diarrhea, dehydration, and very high blood sugar after the first cycle of chemotherapy. He received radiation therapy. PET scan done October 14, 2017, did reveal, besides abnormal area in the bladder, two lytic lesions, one in the inferior right pubic bone and the second on the lower sacrum. CT-guided biopsy of the symphysis pubis lesion on October 25, 2017, came back positive for high-grade transitional cell carcinoma. PET scan done on 15 June 2018. Patient started treatment with Tecentriq on 13 July 2018. His general condition improved a lot on Tecentriq, and I am planning to proceed with his treatment today. I will see him again in three weeks with CBC, chemistry panel, TSH, free T4, free T3, and magnesium level. 2. Right thoracic cage pain on coughing. I am planning to request an x-ray right rib view to rule out the possibility of rib fracture. 3. Metastatic bone disease with a plan to treat him with Xgeva, but patient was advised to see his dentist before, and he cannot afford it at the moment. 4. Neoplastic-related fatigue. It is reasonable currently. 5. History of prostate cancer, on Lupron and Casodex, with PSA control. PLAN 1. Tecentriq. 2. Patient to return in three weeks with CBC, chem panel, TSH, free T4, free T3, and magnesium level. 3. Check x-ray, right rib view. 4. Patient to contact us for any new concerns or complaints. MTDD
[2018-08-14 09:57] VITALS: Wt 70.8 kg
[~2018-08-24 09:23] MED LIST changes: +ALTEPLASE RECOMB 2 MG VIAL IVP PRN; +ATEZOLIZUMAB IV ONE; +DEXTROSE 5%(*) 100 ML BAG 100 ML IVPB PRN; +LEVA0.6320 IH; +NS 0.9% IV ONE; +NS(*) 0.9% 100 ML BAG 100 ML IVPB PRN; +OSEL30CA PO; +PEG15DRO5 OP; +WATER FOR INJ,STERILE 20 ML IVP PRN
[2018-08-24 09:27] VITALS: BP 112/57
[2018-08-24] MEDS ORDERED: NS 0.9% IV ONE (11:05)
[2018-08-24] MEDS ORDERED: ATEZOLIZUMAB IV ONE (11:05)
[2018-08-24] MEDS: LIDOCAINE/SOD BICARB 8.4% SYR ID PRN (11:09)
[2018-08-24] MEDS: HEPARIN FLSH (PORT) 500 UN/5ML IVP PRN (11:51)
--- NOTE | 2018-08-24 14:53 | ONCOLOGY FOLLOW UP NOTE ---
EVENT DATE: August 24, 2018 DIAGNOSES 1. Stage IV muscle-invasive transitional cell carcinoma, high grade. 2. History of prostate cancer. 3. History of transient ischemic attack, status post carotid endarterectomy September 2017. CHIEF COMPLAINT Patient is here today for followup of his metastatic transitional cell carcinoma of the bladder, currently on treatment with Tecentriq. He is due for Cycle #3 today. ONCOLOGY HISTORY Patient is an 83-year-old male who had prior oncologic history of prostate cancer for which he underwent radical prostatectomy approximately 20 years ago. In early 2017, patient was noted to have an elevated PSA in the range of 18. He started on Lupron and Casodex therapy, and his PSA was brought under control. Patient had recent carotid endarterectomy in [place] in September 2017, and during his hospitalization, patient was found to have obstructed left ureter and hydronephrosis, so the patient was referred to Dr. Gandhi in [place] for further evaluation and management. He had a CT abdomen and pelvis done on September 28, 2017, which showed status post prostatectomy. There may be some residual soft tissue present which was causing mild compression to the urinary bladder versus an intramedullary bladder abnormality with mild left hydronephrosis. He had cystoscopy with bladder and urethral biopsies done on September 26, 2017, under the direction of Dr. Gandhi, and the pathology came back positive for high- grade transitional cell carcinoma grade 3 with invasion into the smooth muscle. 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 Patient underwent left-sided percutaneous nephrostomy tube placement on September 27, 2017. His creatinine dropped after that. He has been evaluated by Dr. You, who requested a PET/CT scan which was done on October 14, 2017, which showed asymmetric thickening of the left posterolateral wall of the urinary bladder, likely correlates with the patient's non-bladder cancer. There was a subcentimeter left pelvic sidewall lymph node with no prominent uptake. There was also hypermetabolic lytic lesion in the inferior right pubic bone, and a second lytic lesion in the lower sacrum to the left of the midline with mild uptake concerning for bony metastasis. Patient is scheduled for CT-guided biopsy of one of the bone lesions in [place]. 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 The patient started chemotherapy and radiosensitizer with radiation therapy with mitomycin and 5-FU on November 07, 2017. After chemoradiation, patient did not receive any other treatment until recently. He has progressive fatigue, and the patient had PET/CT scan done on the June which showed interval development of widespread metastatic disease with pulmonary metastases, retroperitoneal shree adenopathy through the abdomen and pelvis, and new lytic bone metastasis in the sacrum. Sclerotic lesion in the right ilial tuberosity demonstrated slight increased sclerosis with several focal discrete areas of lysis, but there is no appreciable increased glucose uptake. Patient started treatment with Tecentriq on July 13, 2018. We ordered Xgeva with plans for patient to receive this every 28 days. However, he has not yet started this. It was suggested that he first follow up with his dentist, although at last visit stated he could not afford that. He still hasn't followed up with his dentist. HISTORY OF PRESENT ILLNESS Patient is here today for followup of his metastatic bladder cancer, on treatment with Tecentriq. Overall, he feels generally well but continues to have some ongoing loss of appetite and fatigue and generalized weakness. He has also had some nasal discharge but tells me that he thinks this is still related to his flu illness from about three weeks ago. He feels like he's mostly recovered, but not fully. He has some residual fatigue. He no longer has a sore throat. He is no longer reporting any loose stool. He did test positive for influenza A several weeks ago and was seen in the ER. He received Tamiflu. He denies any pain at all and tells me that he feels grateful to not have any pain. He has occasional dyspnea on exertion. He did develop a skin rash over the right arm, which has actually improved with anti-allergy medications and Triamcinolone ointment. He has had occasional intermittent insomnia. He just recently started using CBD capsules and reports he is taking 15 mg daily. He has only taken this for about a week or so. He believes this has helped his general mood and his energy somewhat. He does not feel this has helped his appetite yet but think it's too soon to tell. He reports significant difficulty regarding his fatigue and decreased endurance. PAST MEDICAL HISTORY 1. Type 2 diabetes. 2. History of prostate cancer. 3. Hypertension. 4. Coronary artery disease, status post four stent placement. 5. TIA and CVA, status post carotid endarterectomy. 6. Chronic kidney disease stage 4. PAST SURGICAL HISTORY 1. Carotid endarterectomy September 06, 2017. 2. Tonsillectomy. 3. Hemorrhoidectomy. 4. Prostatectomy. 5. Bilateral inguinal hernia repair. 6. Exploratory laparotomy. 7. Bilateral rotator cuff repair. 8. Deviated septum surgery. 9. Cholecystectomy. 10. Status post percutaneous nephrostomy tube placement. FAMILY HISTORY Father with pancreatic cancer. Paternal uncle had prostate cancer. Brother had both prostate and pancreatic cancer. SOCIAL HISTORY Patient is with two children. 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 He quit smoking 44 years ago after half a pack a day for 15 years. He chewed tobacco for about seven years. He denies any abuse of alcohol or illicit drugs. CURRENT MEDICATIONS 1. Plavix 75 mg daily. 2. Metoprolol 25 mg daily. 3. Eliquis 10 mg b.i.d. 4. Humalog insulin as directed. 5. Atorvastatin 40 mg at bedtime. ALLERGIES 1. DEMEROL which causes his heart to stop. 2. MORPHINE which causes skin rash. REVIEW OF SYSTEMS CONSTITUTIONAL: Patient denies any recent fevers or chills. He recently tested positive for influenza A and was seen in our E.R back in early August. HEENT: He denies any vision changes. No blurry vision. No tinnitus. He has had some nasal discharge, although this has improved since having the flu. He denies any sore throat or oral ulcerations but did have a sore throat several weeks ago. RESPIRATORY: He has a cough which is occasionally productive with sputum. No hemoptysis. No pleuritic chest pain. CARDIOVASCULAR: The patient has had some right chest pain around the right axilla, most noticeable upon coughing. He did have a chest x-ray on August 13, 2018. No acute process was seen. He did have an x-ray of the ribs on August 03, 2018, which did reveal a subtly displaced lateral fracture of the right third rib. He believes this is the source of his occasional pain when coughing. GASTROINTESTINAL: He denies any abdominal pain, nausea, vomiting or diarrhea. No constipation. No bright red blood per rectum or melena. His appetite has been decreasing. GENITOURINARY: No hematuria, dysuria, genitourinary discharge or testicular pain. MUSCULOSKELETAL: No focal areas of pain other than intermittent right axillary/right rib pain as noted above. NEURO: He denies any headaches or seizure like activity. He denies any numbness or tingling in the extremities. HEMATOLOGIC/LYMPHATIC: He denies any unusual lymph node swelling. He denies any free bleeding. ENDOCRINE: He denies any heat or cold intolerance. He does have fatigue and decreased endurance. He reports generalized weakness. DERM: He reports a rash over the right arm, which has improved over the last few weeks. This is not pruritic. PSYCH: He denies any severe anxiety, severe depression, suicidal or homicidal ideation. The remainder of a 12-point review of systems is performed today and is otherwise negative. PHYSICAL EXAMINATION VITAL SIGNS: Weight today 70.8 kg, down approximately five pounds, temperature 97.7 degrees Fahrenheit, P 77, R 16, BP 112/57, oxygen saturation 93% room air. GENERAL: This is a pleasant, elderly, 83-year old male who appears somewhat chronically ill but is in no acute distress. HEAD: Atraumatic, normocephalic. EYES: Sclerae anicteric. ENT/MOUTH: No mucositis. No thrush. No suspicious lesions. NECK: Supple. No lymphadenopathy. No JVD. LUNGS: Clear breath sounds to auscultation with diminished bases bilaterally. No wheezes, rales or rhonchi. HEART: Regular rate and rhythm. No ectopy. ABDOMEN: Soft, nontender, nondistended. No organomegaly. EXTREMITIES: No cyanosis or clubbing. NEUROLOGICAL: Patient is awake, alert and oriented x3. There are no obvious focal motor or sensory deficits. Strength overall is 5/5 throughout. PSYCHIATRIC: Mood and affect are appropriate today. DERM: Patient has a scant papular rash noted over the right upper arm, over the biceps. There is no drainage. No pustules. This appears to look like previous blisters but again this has overall improved and does not follow any dermatomes. LABORATORY CBC today: WBC 4.5, ANC 3.3, hemoglobin 11.2, hematocrit 33.1%, platelets 118,000. CMP today: Sodium minimally low at 131, down from 140 previously on August 15, 2018. Calcium 4.5, normal. Serum creatinine up to 1.9, previously 1.7 on August 15, 2018. Glucose, which was seen after our visit, was up to 382. Magnesium normal at 1.9, total bilirubin normal at 0.6, AST 25, ALT 25, normal, alkaline phosphatase minimally elevated at 141, total protein normal at 7.2, TSH 3.56, normal, Free T4 1.34, normal. Free T3 is still currently pending. IMAGING Single view chest with right ribs on August 03, 2018: 1. There is a cortical irregularity indicative of a subtly displaced lateral fracture of the right third rib. No evidence of effusion or pneumothorax. 2. Pulmonary nodular densities, indicative of metastatic disease. IMPRESSION AND PLAN Muscle-invasive transitional cell carcinoma, high grade, with bone metastasis, status post transurethral resection of the bladder tumor done September 26, 2017, under care of Dr. Gandhi. Patient is not a candidate for radical cystectomy. Bladder preservation therapy was the plan of management given that the patient has obstructive uropathy, and a nephrostomy tube was placed. He has chronic kidney disease stage 4, and he is not eligible for cisplatin therapy. For radiosensitization, patient received chemotherapy with 5-FU and mitomycin, started November 07, 2017, and he received two cycles, complicated with severe vomiting, diarrhea, dehydration, and very high blood sugar after the first cycle of chemotherapy. He received radiation therapy. PET scan done October 14, 2017, did reveal, besides abnormal area in the bladder, two lytic lesions, one in the inferior right pubic bone and the second on the lower sacrum. CT-guided biopsy of the symphysis pubis lesion on October 25, 2017, came back positive for high-grade transitional cell carcinoma. PET scan done on 15 June 2018. Patient started Tecentriq every three weeks on July 13, 2018. His general condition improved quite a bit while on Tecentriq and we are planning on currently proceeding with treatment. He does still report ongoing fatigue, quite significant, and generalized weakness. He did recently have the flu, testing positive for influenza A in early August and this may certainly be a component as he may certainly still be recovering, although is non-infectious and non-toxic appearing. 1. Muscle-invasive transitional cell carcinoma, high grade, with bone metastasis: Patient will continue with Tecentriq and will receive Cycle #3 today. 2. Bone metastases: We did plan for patient to start monthly Xgeva, however, patient has not yet seen his dentist and believes that he may need a tooth extraction. As such, I have ordered that we HOLD Xgeva for now. We will re- evaluate this at his next visit. I did firmly instruct the patient to follow up with his dentist as soon as possible as we won't be able to start Xgeva until appropriate time has elapsed after any invasive dental work. I explained the risks with Xgeva, to include ONJ (osteonecrosis of the jaw), as well as common side effects. 3. Pain: None at this time. We will continue to monitor. He does have a known rib fracture. 4. Fatigue/weight loss: Patient is down approximately five pounds today. I did encourage him to continue taking his CBD capsule, which he just started, and he does notice that this has helped his overall mindset and energy a bit. I instructed patient to try to increase this and see if this helps with his appetite. 5. Patient will return to the clinic in three weeks for followup, labs and to begin Cycle #4 with Tecentriq. FRANKIE
[2018-08-29] MEDS ORDERED: OXYGENHOME INH (15:12)
[2018-08-29] MEDS ORDERED: PROM25SU8 RC (16:12)
[2018-08-29] MEDS ORDERED: HYDR-2966 PO (16:12)
[2018-08-29] MEDS ORDERED: LOPE2CAP15 PO (16:12)
[2018-08-29] MEDS ORDERED: CALC1TAB24 PO (16:12)
[2018-08-29] MEDS ORDERED: ASPI-757 PO (16:12)
[2018-08-29] MEDS ORDERED: OXYC5TAB38 PO (16:12)
[2018-08-29] MEDS ORDERED: MAG-65 PO (16:12)
[2018-08-29] MEDS ORDERED: GUAI237L36 PO (16:12)
== END 2018-09-14 ==
LOC: ONC 09:23
PROVIDERS: ATTEND Internal Medicine Hematology
DX: Z51.11 Encounter for antineoplastic chemotherapy (principal); C67.9 Malignant neoplasm of bladder, unspecified; N18.4 Chronic kidney disease, stage 4 (severe); Z85.46 Personal history of malignant neoplasm of prostate; Z86.73 Personal history of transient ischemic attack (TIA), and cerebral infarction without residual deficits; Z87.891 Personal history of nicotine dependence; R53.1 Weakness; R53.83 Other fatigue; M89.9 Disorder of bone, unspecified; K44.9 Diaphragmatic hernia without obstruction or gangrene; R91.8 Other nonspecific abnormal finding of lung field; E11.22 Type 2 diabetes mellitus with diabetic chronic kidney disease; M54.6 Pain in thoracic spine; Z92.3 Personal history of irradiation
CPT/HCPCS: 71100; 83735; 84100; 84439; 84443; 84481; 85027; 96365; 96374; 96523; G0463; J1642; J7040; J7050; J9022; 82040; 82247; 82310; 82374; 82435; 82565; 82947; 83036; 84075; 84132; 84155; 84295; 84450; 84460; 84520; 99212

== ENCOUNTER 2018-10-21 22:01 | Emergency (ER) | payer MEDICARE, OTHER, MEDICAID ==
[2018-08-14 09:57] VITALS: Wt 72.8 kg
[~2018-10-21 22:01] MED LIST changes: -ALTEPLASE RECOMB 2 MG VIAL IVP PRN; -ATEZOLIZUMAB IV ONE; +CALC-515 PO; +CALC1TAB24 PO; +CARB15DR72 OP; -DEXTROSE 5%(*) 100 ML BAG 100 ML IVPB PRN; +DICL100G39 TOP; +GUAI237L36 PO; +LEVO25TA61 PO; +LOPE-147 PO; +LOPE2CAP15 PO; +MAG-65 PO; -NS 0.9% IV ONE; -NS(*) 0.9% 100 ML BAG 100 ML IVPB PRN; +OXYGENHOME INH; +PROM25SU9 RC; -WATER FOR INJ,STERILE 20 ML IVP PRN
--- NOTE | 2018-10-21 22:28 | ER Report ---
History and Physical Time Seen By MD: 22:28 Hx. of Stated Complaint: UNCONTOLLED NAUSEA/VOMITING. NO ZOFRAN. HAS A PHENERGAN SUPPOSITORIES. TOOK ONE ABOUT 30 MIN AGO BUT UNSURE HE GOT ENOUGH TO STAY IN. UNABLE TO KEEP ANYTHING DOWN TODAY HPI/ROS CHIEF COMPLAINT: vomiting. HISTORY OF PRESENT ILLNESS: This is an 83 year old male. He has metastatic cancer on chemo and radiation. Has had vomiting since last night, unable to keep fluids down. Tried a phenergan suppository, no relief. Out of Zofran. Denies abdominal pain with this. Has pain in knee associated with cancer mets and pathologic fracture. Normal bowels. Normal urination. Allergies: Coded Allergies: meperidine (Verified Allergy, Severe, 10/21/18) morphine (Verified Allergy, Severe, 10/21/18) Home Meds Active Scripts Ondansetron 4 Mg Odt (ONDANSETRON 4 MG ODT) 4 Mg Tab.rapdis, 4 MG PO Q6H PRN for NAUSEA/VOMITING, #20 TAB 0 Refills Prov:DANIE HICKMAN MD 10/22/18 Ondansetron 4 Mg Odt (ONDANSETRON 4 MG ODT) 4 Mg Tab.rapdis, 4 MG PO Q6H PRN for NAUSEA/VOMITING, #20 TAB 0 Refills Prov:DANIE HICKMAN MD 10/22/18 Oxycodone Hcl (OXYCODONE HCL) 5 Mg Tablet, 1 TAB PO BID PRN for PAIN for 90 Days, #90 TAB 0 Refills Prov:KONRAD HAMMONDS MD 10/18/18 Nitroglycerin (NITROGLYCERIN) 0.4 Mg Tab.subl, 0.4 MG SL Q5MIN for 30 Days, #10 TAB Keeps in room-Self administers Prov:KONRAD HAMMONDS MD 04/25/18 Apixaban (ELIQUIS) 2.5 Mg Tablet, 2.5 MG PO BID for 90 Days, #180 TAB Prov:KONRAD HAMMONDS MD 04/25/18 Metoprolol Tartrate (METOPROLOL TARTRATE) 25 Mg Tablet, 1 TAB PO BID for 90 Days, TAB Prov:KONRAD HAMMONDS MD 04/25/18 Reported Medications Levothyroxine Sodium (LEVOTHYROXINE SODIUM) 25 Mcg Tablet, 1 TAB PO QDAY, TAB 09/29/18 Oxygen (OXYGEN) Inha, 2 L INH, L 08/29/18 Hum Insulin Nph/Reg Insulin Hm (NOVOLIN 70-30 100 UNIT/ML VIAL) 100 Unit/1 Ml Vial, 20 UNIT SQ BID, VIAL Self administers 01/19/18 Discontinued Reported Medications Promethazine Hcl (PROMETHAZINE HCL) 25 Mg Supp.rect, 1 SUPP.RECT RC PRN, SUPP.RECT 09/26/18 Carboxymethylcellulose Sodium (REFRESH TEARS) 15 Ml Drops, 1 DROP OP PRN 09/26/18 Loperamide Hcl (ANTI-DIARRHEA) 2 Mg Tablet, 1-2 TAB PO DIRECTED PRN for DIARRHEA 09/26/18 Calcium Carbonate (TUMS) Unknown Strength Tab.chew, 2 TAB.CHEW PO PRN PRN for HEARTBURN, TAB.CHEW 09/26/18 Mag Hydrox/Aluminum Hyd/Simeth (Maalox Advanced Suspension) 200 Mg-200 Mg-20 Mg/5 Ml Oral.susp, 15 MG PO PRN PRN for GAS/HEARTBURN 09/26/18 Aspirin (ASPIRIN) 325 Mg Tablet, 1 TAB PO ONCE PRN for CHEST PAIN, TAB 09/26/18 Hydrochlorothiazide (HYDROCHLOROTHIAZIDE) 25 Mg Tablet, 1 TAB PO PRN, TAB Take if systolic is greater than 190 08/29/18 Guaifenesin/Dextromethorphan (Robitussin Cough-Chest Dm Liq) 50 Mg-5 Mg/5 Ml Liquid, 5 ML PO Q4-6H PRN for COUGH 08/29/18 Acetaminophen (TYLENOL) 325 Mg Tablet, 325 MG PO PRN for PAIN/TEMP OVER 100.4, TAB 07/06/18 Discontinued Scripts Diclofenac Sodium 1% Gel (VOLTAREN 1% GEL) 100 Gm Gel..gram., 2 GM TOP QID for 30 Days, #1 TUBE 4 Refills Prov:KONRAD HAMMONDS MD 09/26/18 Reviewed Nurses Notes: Yes Hx Smoking: Yes (20 YRS) Smoking Status: Former Smoker Hx Substance Use Disorder: No Hx Alcohol Use: Yes Constitutional Vital Sign - Last 24 Hours 10/21/18 10/21/18 10/21/18 10/21/18 22:01 22:06 22:08 22:16 Temp 98.1 Pulse ??? 94 130 Resp 12 B/P (MAP) 127/64 127/64 (85) Pulse Ox 91 91 O2 Delivery Room Air 10/21/18 10/21/18 10/21/18 10/21/18 22:30 22:31 22:46 23:00 Pulse 91 92 B/P (MAP) 145/78 (100) ???/??? (1665) Pulse Ox 92 88 10/21/18 10/21/18 10/21/18 10/21/18 23:01 23:09 23:16 23:30 Pulse ??? 88 B/P (MAP) 148/84 (105) 141/69 (93) Pulse Ox 96 10/21/18 10/21/18 10/21/18 10/22/18 23:31 23:46 23:51 00:00 Pulse 92 94 102 B/P (MAP) 148/81 (103) Pulse Ox 99 96 94 10/22/18 10/22/18 00:06 00:21 Pulse 93 91 Pulse Ox 95 93 Intake and Output 10/21/18 10/21/18 10/22/18 15:00 23:00 07:00 Intake Total 1000 ml Balance 1000 ml Physical Exam General Appearance: Alert, having vomting and distress due to this. Eyes: Pupils equal and round no injection. ENT: Normal oral mucosa. Moist mucous membranes. Respiratory: Breathing easily, clear. Cardiac: regular rate and rhythm Gastrointestinal: Abdomen is soft and non tender, bowel sounds normal. DIFFERENTIAL DIAGNOSIS: After history and physical exam differential diagnosis was considered for vomiting. Medical Decision Making Data Points Result Diagram: 10/21/185 10/21/182314 Laboratory Hematology Test 10/21/18 23:15 10/21/18 23:52 Red Blood Count 3.63 M/uL (4.00-5.60) Mean Corpuscular Volume 95.4 fL (80.0-96.0) Mean Corpuscular Hemoglobin 32.0 pg (26.0-33.0) Mean Corpuscular Hemoglobin Concent 33.5 g/dL (32.0-36.0) Red Cell Distribution Width 15.3 % (11.5-14.5) Mean Platelet Volume 6.9 fL (7.2-11.1) Neutrophils (%) (Auto) 74.5 % (39.4-72.5) Lymphocytes (%) (Auto) 14.1 % (17.6-49.6) Monocytes (%) (Auto) 10.3 % (4.1-12.4) Eosinophils (%) (Auto) 0.6 % (0.4-6.7) Basophils (%) (Auto) 0.5 % (0.3-1.4) Nucleated RBC Relative Count (auto) 0.1 /100WBC Neutrophils # (Auto) 3.8 K/uL (2.0-7.4) Lymphocytes # (Auto) 0.7 K/uL (1.3-3.6) Monocytes # (Auto) 0.5 K/uL (0.3-1.0) Eosinophils # (Auto) 0.0 K/uL (0.0-0.5) Basophils # (Auto) 0.0 K/uL (0.0-0.1) Nucleated RBC Absolute Count (auto) 0.00 K/uL Sodium Level 136 mmol/L (137-145) Potassium Level 4.4 mmol/L (3.5-5.0) Chloride Level 104 mmol/L (98-107) Carbon Dioxide Level 24 mmol/L (22-30) Blood Urea Nitrogen 25 mg/dl (9-21) Creatinine 1.80 mg/dl (0.66-1.25) Glomerular Filtration Rate Calc 36.0 Random Glucose 186 mg/dl (75-110) Calcium Level 9.1 mg/dl (8.4-10.2) Total Bilirubin 0.3 mg/dl (0.2-1.3) Aspartate Amino Transf (AST/SGOT) 21 U/L (0-35) Alanine Aminotransferase (ALT/SGPT) 14 U/L (0-56) Alkaline Phosphatase 152 U/L (0-126) Total Protein 7.6 g/dl (6.3-8.2) Albumin 3.8 g/dl (3.5-5.0) Urine Color Yellow Urine Clarity Clear Urine pH 6.0 pH (4.8-9.5) Urine Specific [place] 1.014 Urine Protein Negative mg/dL (NEGATIVE) Urine Glucose (UA) Negative mg/dL (NEGATIVE) Urine Ketones Trace mg/dL (NEGATIVE) Urine Blood Negative (NEGATIVE) Urine Nitrite Negative (NEGATIVE) Urine Bilirubin Negative (NEGATIVE) Urine Urobilinogen Negative mg/dL (0.2-1.9) Urine Leukocyte Esterase Negative (NEGATIVE) Urine RBC <1 /HPF (0-2/HPF) Urine WBC 1 /HPF (0-5/HPF) Urine Squamous Epithelial Cells None /LPF (</=FEW) Urine Bacteria Negative /HPF (NONE-FEW) Urine Hyaline Casts Few /LPF (NONE-FEW) Urine Mucus None /HPF (NONE-FEW) Chemistry Test 10/21/18 23:15 10/21/18 23:52 White Blood Count 5.1 k/uL (4.5-11.0) Red Blood Count 3.63 M/uL (4.00-5.60) Hemoglobin 11.6 g/dL (14.0-18.0) Hematocrit 34.6 % (42.0-52.0) Mean Corpuscular Volume 95.4 fL (80.0-96.0) Mean Corpuscular Hemoglobin 32.0 pg (26.0-33.0) Mean Corpuscular Hemoglobin Concent 33.5 g/dL (32.0-36.0) Red Cell Distribution Width 15.3 % (11.5-14.5) Platelet Count 145 K/uL (150-450) Mean Platelet Volume 6.9 fL (7.2-11.1) Neutrophils (%) (Auto) 74.5 % (39.4-72.5) Lymphocytes (%) (Auto) 14.1 % (17.6-49.6) Monocytes (%) (Auto) 10.3 % (4.1-12.4) Eosinophils (%) (Auto) 0.6 % (0.4-6.7) Basophils (%) (Auto) 0.5 % (0.3-1.4) Nucleated RBC Relative Count (auto) 0.1 /100WBC Neutrophils # (Auto) 3.8 K/uL (2.0-7.4) Lymphocytes # (Auto) 0.7 K/uL (1.3-3.6) Monocytes # (Auto) 0.5 K/uL (0.3-1.0) Eosinophils # (Auto) 0.0 K/uL (0.0-0.5) Basophils # (Auto) 0.0 K/uL (0.0-0.1) Nucleated RBC Absolute Count (auto) 0.00 K/uL Glomerular Filtration Rate Calc 36.0 Calcium Level 9.1 mg/dl (8.4-10.2) Total Bilirubin 0.3 mg/dl (0.2-1.3) Aspartate Amino Transf (AST/SGOT) 21 U/L (0-35) Alanine Aminotransferase (ALT/SGPT) 14 U/L (0-56) Alkaline Phosphatase 152 U/L (0-126) Total Protein 7.6 g/dl (6.3-8.2) Albumin 3.8 g/dl (3.5-5.0) Urine Color Yellow Urine Clarity Clear Urine pH 6.0 pH (4.8-9.5) Urine Specific [place] 1.014 Urine Protein Negative mg/dL (NEGATIVE) Urine Glucose (UA) Negative mg/dL (NEGATIVE) Urine Ketones Trace mg/dL (NEGATIVE) Urine Blood Negative (NEGATIVE) Urine Nitrite Negative (NEGATIVE) Urine Bilirubin Negative (NEGATIVE) Urine Urobilinogen Negative mg/dL (0.2-1.9) Urine Leukocyte Esterase Negative (NEGATIVE) Urine RBC <1 /HPF (0-2/HPF) Urine WBC 1 /HPF (0-5/HPF) Urine Squamous Epithelial Cells None /LPF (</=FEW) Urine Bacteria Negative /HPF (NONE-FEW) Urine Hyaline Casts Few /LPF (NONE-FEW) Urine Mucus None /HPF (NONE-FEW) Urinalysis Test 10/21/18 23:52 Urine Color Yellow Urine Clarity Clear Urine pH 6.0 pH (4.8-9.5) Urine Specific [place] 1.014 Urine Protein Negative mg/dL (NEGATIVE) Urine Glucose (UA) Negative mg/dL (NEGATIVE) Urine Ketones Trace mg/dL (NEGATIVE) Urine Blood Negative (NEGATIVE) Urine Nitrite Negative (NEGATIVE) Urine Bilirubin Negative (NEGATIVE) Urine Urobilinogen Negative mg/dL (0.2-1.9) Urine Leukocyte Esterase Negative (NEGATIVE) Urine RBC <1 /HPF (0-2/HPF) Urine WBC 1 /HPF (0-5/HPF) Urine Squamous Epithelial Cells None /LPF (</=FEW) Urine Bacteria Negative /HPF (NONE-FEW) Urine Hyaline Casts Few /LPF (NONE-FEW) Urine Mucus None /HPF (NONE-FEW) ED Course/Re-evaluation Clinical Indication for ER IV: Hydration, IV Access ED Course Mild dehydration, improved vomiting with Zofran, given a liter or normal saline. Labs as noted above. He feels better and will go home, follow-up with cancer center. Given Zofran take home and prescription. Decision to Disposition Date: October 22, 2018 Decision to Disposition Time: 00:15 Depart Departure Latest Vital Signs Vital Signs Date Time Temp Pulse Resp B/P (MAP) Pulse Ox O2 Delivery O2 Flow Rate FiO2 10/22/18 00:21 91 93 10/22/18 00:00 148/81 (103) 10/21/18 22:06 98.1 12 Room Air Impression: Primary Impression: Nausea & vomiting Condition: Improved Disposition: HOME OR SELF-CARE Referrals: KONRAD HAMMONDS MD (PCP) New Scripts Ondansetron 4 Mg Odt (ONDANSETRON 4 MG ODT) 4 Mg Tab.rapdis 4 MG PO Q6H PRN for NAUSEA/VOMITING, #20 TAB 0 Refills Prov: DANIE HICKMAN MD 10/22/18 Ondansetron 4 Mg Odt (ONDANSETRON 4 MG ODT) 4 Mg Tab.rapdis 4 MG PO Q6H PRN for NAUSEA/VOMITING, #20 TAB 0 Refills Prov: DANIE HICKMAN MD 10/22/18 Patient Instructions: Acute Nausea and Vomiting (ED) Additional Instructions: Take Zofran 4mg, one every 6 hours as needed for nausea and vomiting. Problem Qualifiers Primary Impression: Nausea & vomiting Vomiting type: unspecified Vomiting Intractability: non-intractable Qualified Codes: R11.2 - Nausea with vomiting, unspecified DANIE HICKMAN MD October 21, 2018 22:28
[2018-10-21] MEDS ORDERED: NS(*) 0.9% 1000 ML BAG 1,000 ML IV ONE (22:40)
[2018-10-21] MEDS ORDERED: ONDANSETRON 4 MG/2 ML VIAL IVP ONE (22:40)
[2018-10-21 23:22] LABS: PLATELET COUNT, AUTOMATED 145 K/uL (150-450)
--- NOTE | 2018-10-21 23:28 | RADIOLOGY IMAGING REPORT ---
FACILITY: [facility] - [place] PATIENT NAME: Deion Kwong : 1935 MR: [id number] V: [id number] EXAM DATE: ORDERING PHYSICIAN: DANIE HICKMAN TECHNOLOGIST: Location: Patient: Deion Kwong : 1935 Visit/Account:[id number] Date of Sevice: 10/21/2018 PORTABLE CHEST: Indication: Nausea and vomiting. Technique: A single frontal film was obtained. Comparison: 08/13/2018 Skeletal and soft tissue structures: Intact and unchanged. Heart and mediastinum: Stable. A port catheter remains in satisfactory position in the SVC. The leadl ess pacemaker appears unchanged. Lung anne: Well-expanded and clear. No acute findings. Pleural spaces: Unremarkable. Impression: No acute process or significant change. Report Dictated By: Can Murphy MD at 10/21/2018 11:21 PM Report E-Signed By: Can Murphy MD at 10/21/2018 11:24 PM WSN:[id number]
--- NOTE | 2018-10-21 23:31 | RADIOLOGY IMAGING REPORT ---
FACILITY: [facility] [place] PATIENT NAME: Deion Kwong : 1935 MR: [id number] V: [id number] EXAM DATE: ORDERING PHYSICIAN: DANIE HICKMAN TECHNOLOGIST: Location: [facility] Patient: Deion Kwong : 1935 Visit/Account:[id number] Date of Sevice: 10/21/2018 Abdomen: Indication: Vomiting. Technique: Supine and erect views of the abdomen were obtained. Comparison: None available. Findings: The intestinal gas pattern is unremarkable. There is no evidence of obstruction, focal dila tation, or free air. Multiple surgical clips are present in the deep pelvis. No suspicious calcificat ions are identified. There are mild degenerative changes in the lumbar spine. No acute skeletal defor mity is identified. IMPRESSION: No evidence of obstruction or other acute process. Report Dictated By: Can Murphy MD at 10/21/2018 11:24 PM Report E-Signed By: Can Murphy MD at 10/21/2018 11:27 PM WSN:[id number]
[2018-10-22] VITALS: BP 148/81
[2018-10-22] MEDS ORDERED: oxyCODONE HCL 5 MG CAP PO ONE (00:05)
[2018-10-22] MEDS ORDERED: ONDANSETRON 4 MG ODT TH SL ONE (00:15)
[2018-10-22] MEDS ORDERED: ONDA4TAB9 PO ×2 (00:16→00:17)
[2018-10-22] MEDS ORDERED: HEPARIN FLSH (PORT) 500 UN/5ML ONE (00:26)
[2018-10-24] MEDS ORDERED: PROM25SU8 RC ×2 (12:14→12:16)
[2018-10-24] MEDS ORDERED: ONDA4TAB9 PO ×2 (12:14→12:16)
[2018-10-24] MEDS ORDERED: SENN1TAB9 PO ×2 (12:14→12:16)
== END 2018-10-22 00:34 | disposition home or self-care (01) ==
LOC: ER 22:15
DX: R11.2 Nausea with vomiting, unspecified (principal); E86.0 Dehydration
CPT/HCPCS: 36415; 71045; 74019; 81001; 85025; 96361; 96374; 99284; A9270; J1642; J2405; J7030; Q0162; 82040; 82247; 82310; 82374; 82435; 82565; 82947; 84075; 84132; 84155; 84295; 84450; 84460; 84520; S0119

== ENCOUNTER 2018-11-09 07:30 | Outpatient (RCR) | payer MEDICARE, OTHER, MEDICAID ==
[2018-08-14 09:57] VITALS: BMI 25.1
[2018-10-19 09:16] VITALS: BP 129/62
--- NOTE | 2018-10-19 13:49 | PURVIANCE CONSULTATION ---
EVENT DATE: October 19, 2018 REFERRING PHYSICIAN Vel Powers MD DIAGNOSIS Transitional cell carcinoma of the bladder. CHIEF COMPLAINT Right knee pain. 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 The patient underwent cystoscopy under the care of Dr. Gandhi on September 26, 2017, which noted a tumor mass within the bladder. Biopsy of this mass revealed a high-grade transitional cell carcinoma with invasion into this muscle. The patient underwent TURBT and subsequent chemoradiation to the bladder to a total dose of 6,660 cGy. The patient subsequently noted to have a hypermetabolic lytic lesion in the inferior right pubic bone as well as a second lytic lesion in the lower sacrum on the left in October 2017. CT guided biopsy showed a high- grade urothelial carcinoma. The patient was observed after undergoing chemoradiation therapy and more recently in June 2018 was showed to develop widespread metastatic disease with pulmonary metastases as well as retroperitoneum shree lymphadenopathy and new bone lesions within the sacrum. The patient has been initiated on Tecentriq immunotherapy in July 2018. More recently, the patient has noted over the last two months to have worsening right knee pain. An MRI of his right knee from October 10, 2018, shows multiple bone lesions in the right knee with adjacent bone marrow edema including medial tibial metaphysis, patella and fibular head. There is a longitudinal nondisplaced pathologic fracture through the medial tibia and metaphyseal region. The patient has been referred to Radiation Oncology by Dr. Powers to discuss palliative radiotherapy to his right knee. The patient on presentation today states that his right knee pain is his only source of pain. The patient notes that he is unable to weight bear significantly on his right leg and has to walk with crutches or assistance. The patient has no significant urinary complaints. PAST MEDICAL HISTORY 1. Prostate carcinoma over 20 years ago, status post radical prostatectomy. 2. CVA. 3. Transitional cell carcinoma of bladder. See HPI. 4. Coronary artery disease, status post four stents in 2007. 5. Arthritis. 6. Cataracts. 7. Chronic kidney disease. 8. Diabetes. 9. Gout. 10. Hydronephrosis. 11. Hypertension. PAST SURGICAL HISTORY 1. Status post appendectomy. 2. Status post bilateral inguinal hernia repair. 3. Status post carotid endarterectomy. 4. Status post exploratory laparotomy. 5. Status post prostatectomy. ALLERGIES Morphine and Demerol. MEDICATIONS 1. Oxycodone. 2. Diclofenac. 3. Oxygen. 4. Nitroglycerin. 5. Apixaban. 6. Insulin. 7. Metoprolol. 8. Lupron. 9. Aspirin. SOCIAL HISTORY Patient is a former smoker. No significant alcohol or drug use. Patient lives with his spouse and has supportive family including a son. FAMILY HISTORY Noncontributory. PHYSICAL EXAMINATION VITAL SIGNS: Temperature 97.0, pulse 76, blood pressure 129/62, respiratory rate 16, O2 saturation 93% on room air. CONSTITUTIONAL AND GENERAL APPEARANCE: The patient is sitting comfortably in chair, no acute distress. HEENT: Pupils are equal, round and reactive to light and accommodation. Extraocular movements are intact. There are no lesions of the oropharynx. NECK: Supple, trachea is midline. LYMPHATIC SURVEY: No palpable supraclavicular lymphadenopathy bilaterally. LUNGS: Clear to auscultation and percussion bilaterally. CARDIOVASCULAR: Regular rate and rhythm. Normal S1 and S2. No murmurs, rubs or gallops. ABDOMEN: Soft and nontender with active bowel sounds. No hepatosplenomegaly. EXTREMITIES: No edema, clubbing or cyanosis. MUSCULOSKELETAL: On inspection of the patient's right knee, there is significant point tenderness, particularly over the medial tibial epicondyle. The patient has significant pain on passive range of motion of the right knee. The patient is unable to weight bear secondary to knee pain. NEUROLOGIC: The patient is alert and oriented x3. Motor strength is 5/5 in upper and lower extremities bilaterally. 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 The patient has undergone TURBT as well as chemoradiation therapy to the bladder. He has significant pulmonary shree and bone metastases The patient is with severe pain in his right knee with significant metastatic burden in this area on MRI with evidence of a nondisplaced fracture on the right medial tibia. The patient is currently on Tecentriq. He has been referred to Radiation Oncology for discussion of palliative radiotherapy of his right knee. PLAN The patient was apprised that radiotherapy is an effective palliative treatment to relieve pain from his metastatic lesion to the right knee. The goal of radiotherapy to relieve pain as well as to aid ultimately in healing of his pathologic fracture was discussed with the patient. We did discuss an orthopedic evaluation to discuss surgical fixation of this fracture. However, the patient at this time is not interested in pursuing surgery. As this fracture is nondisplaced, there is a reasonable chance following radiotherapy in the three to six month range of further healing of the bone fragment, which may potentially allow the patient to ambulate. The side effect profile of radiotherapy to the right knee was discussed at length with the patient. The patient understands this and has signed written informed consent to undergo this treatment. The patient will be scheduled for a CT scan for planning simulation purposes. We will plan to proceed with radiotherapy starting next week. We will complete a 15 fraction course of palliative radiotherapy to the right knee. MTDD
[~2018-11-09 07:30] MED LIST changes: +ONDA4TAB9 PO; +SENN1TAB9 PO
[2018-11-10] MEDS ORDERED: OXCA300T59 PO (13:38)
[2018-11-10] MEDS ORDERED: OFLO5DRO41 LEFT EAR (15:16)
[2018-11-10] MEDS ORDERED: AMOX-559 PO (15:16)
[2018-11-12] MEDS ORDERED: AMOX-559 PO (15:58)
[2018-11-12] MEDS ORDERED: HYDROMORPHONE PO (15:58)
[2018-11-12] MEDS ORDERED: OFLO5DRO41 LEFT EAR (15:58)
[2018-11-16] MEDS ORDERED: HYDR2TAB74 PO (10:10)
[2018-11-21] MEDS ORDERED: NAPR500T31 PO (13:23)
[2018-11-21] MEDS ORDERED: DOCU-202 PO (13:23)
[2018-11-21] MEDS ORDERED: LOR1 PO (13:23)
[2018-11-21] MEDS ORDERED: FENT-19 TD (13:23)
[2018-11-21] MEDS ORDERED: LORA-630 PO (13:23)
[2018-11-21] MEDS ORDERED: Bisacodyl PR (13:23)
[2018-11-21] MEDS ORDERED: PROM25SU9 RC (13:23)
[2018-11-21] MEDS ORDERED: CIPDEXPT LEFT EAR (13:23)
[2018-11-21] MEDS ORDERED: LIDO700A19 TP (15:22)
[2018-11-27] MEDS ORDERED: NAPR500T31 PO ×2 (16:18→16:33)
[2018-11-28] MEDS ORDERED: OXYC5TAB38 PO (17:56)
[2018-11-28] MEDS ORDERED: OMEP-126 PO (17:56)
[2018-11-29] MEDS ORDERED: POLY17PO25 PO (12:38)
[2018-11-29] MEDS ORDERED: ACET650S35 RC (12:38)
[2018-11-29] MEDS ORDERED: GLYC1SUP11 RC ×2 (12:38→12:46)
[2018-11-29] MEDS ORDERED: HUM100VI15 SQ (12:38)
[2018-11-29] MEDS ORDERED: BISA10SU62 RC (12:46)
[2018-11-29] MEDS ORDERED: FENT-19 TD (16:13)
[2018-11-29] MEDS ORDERED: HYOS-10 PO (18:43)
[2018-11-29] MEDS ORDERED: MORP100S32 SL (18:52)
[2018-12-11] MEDS ORDERED: FENT-19 TD (15:00)
== END 2018-12-04 13:50 | disposition home or self-care (01) ==
LOC: RAON 07:30
PROVIDERS: ATTEND Radiology Radiation Oncology
DX: Z51.0 Encounter for antineoplastic radiation therapy (principal); C67.9 Malignant neoplasm of bladder, unspecified; C79.51 Secondary malignant neoplasm of bone
CPT/HCPCS: 77295; 77300; 77334; 77336; 77412; 82040; 82247; 82310; 82374; 82435; 82565; 82947; 83735; 84075; 84132; 84155; 84295; 84439; 84443; 84450; 84460; 84481; 84520; 85025; 96365; 99212; J1642; J7050; J9022

== ENCOUNTER 2018-11-10 13:26 | Outpatient (RCR) | payer MEDICARE, MEDICAID ==
[2018-08-14 09:57] VITALS: Wt 69.3 kg
[2018-09-15 09:24] VITALS: BP 105/66
[2018-09-15] MEDS: HEPARIN FLSH (PORT) 500 UN/5ML IVP PRN (10:37)
[2018-09-15 10:46] VITALS: BP 133/70
--- NOTE | 2018-09-16 10:38 | [facility] ONCOLOGY NOTE ---
EVENT DATE: September 15, 2018 DIAGNOSES 1. Stage IV muscle-invasive transitional cell carcinoma, high grade. 2. History of prostate cancer. 3. History of transient ischemic attack, status post carotid endarterectomy September 2017. 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 ONCOLOGY HISTORY Patient is an 83-year-old male who had prior oncologic history of prostate cancer for which he underwent radical prostatectomy approximately 20 years ago. In early 2017, patient was noted to have an elevated PSA in the range of 18. He started on Lupron and Casodex therapy, and his PSA was brought under control. Patient had recent carotid endarterectomy in [place] in September 2017, and during his hospitalization, patient was found to have obstructed left ureter and hydronephrosis, so the patient was referred to Dr. Gandhi in [place] for further evaluation and management. He had a CT abdomen and pelvis done on September 28, 2017, which showed status post prostatectomy. There may be some residual soft tissue present which was causing mild compression to the urinary bladder versus an intramedullary bladder abnormality with mild left hydronephrosis. He had cystoscopy with bladder and urethral biopsies done on September 26, 2017, under the direction of Dr. Gandhi, and the pathology came back positive for high- grade transitional cell carcinoma grade 3 with invasion into the smooth muscle. 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 Patient underwent left-sided percutaneous nephrostomy tube placement on September 27, 2017. His creatinine dropped after that. He has been evaluated by Dr. You, who requested a PET/CT scan which was done on October 14, 2017, which showed asymmetric thickening of the left posterolateral wall of the urinary bladder, likely correlates with the patient's non-bladder cancer. There was a subcentimeter left pelvic sidewall lymph node with no prominent uptake. There was also hypermetabolic lytic lesion in the inferior right pubic bone, and a second lytic lesion in the lower sacrum to the left of the midline with mild uptake concerning for bony metastasis. Patient is scheduled for CT-guided biopsy of one of the bone lesions in [place]. 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 The patient started chemotherapy and radiosensitizer with radiation therapy with mitomycin and 5-FU on November 07, 2017. After chemoradiation, patient did not receive any other treatment until recently. He has progressive fatigue, and the patient had PET/CT scan done on the June which showed interval development of widespread metastatic disease with pulmonary metastases, retroperitoneal shree adenopathy through the abdomen and pelvis, and new lytic bone metastasis in the sacrum. Sclerotic lesion in the right ilial tuberosity demonstrated slight increased sclerosis with several focal discrete areas of lysis, but there is no appreciable increased glucose uptake. Patient started treatment with Tecentriq on 13 July 2018. HISTORY OF PRESENT ILLNESS Patient is here today for followup of his metastatic bladder cancer, on treatment with Tecentriq. Patient is complaining of extreme fatigue since he had his flu recently. He bruises easily. He is complaining of allergic skin rash. He has right lower extremity pain. He has cough with expectoration and chills. PAST MEDICAL HISTORY 1. Type 2 diabetes. 2. History of prostate cancer. 3. Hypertension. 4. Coronary artery disease, status post four stent placement. 5. TIA and CVA, status post carotid endarterectomy. 6. Chronic kidney disease stage 4. PAST SURGICAL HISTORY 1. Carotid endarterectomy September 06, 2017. 2. Tonsillectomy. 3. Hemorrhoidectomy. 4. Prostatectomy. 5. Bilateral inguinal hernia repair. 6. Exploratory laparotomy. 7. Bilateral rotator cuff repair. 8. Deviated septum surgery. 9. Cholecystectomy. 10. Status post percutaneous nephrostomy tube placement. FAMILY HISTORY Father with pancreatic cancer. Paternal uncle had prostate cancer. Brother had both prostate and pancreatic cancer. SOCIAL HISTORY Patient is with two children. 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 He quit smoking 44 years ago after half a pack a day for 15 years. He chewed tobacco for about seven years. He denies any abuse of alcohol or illicit drugs. CURRENT MEDICATIONS 1. Plavix 75 mg daily. 2. Metoprolol 25 mg twice daily. 3. Aspirin 81 mg daily. 4. Lupron 7.5 mg as directed. 5. Casodex 50 mg daily. 6. Atorvastatin 40 mg at bedtime. 7. Humalog insulin as directed. ALLERGIES 1. DEMEROL which causes his heart to stop. 2. MORPHINE which causes skin rash. REVIEW OF SYSTEMS CONSTITUTIONAL: Patient has chills. HEENT: Ears: No tinnitus or hearing problem. Nose: He has nasal discharge. Throat: No sore throat or mouth ulcers. Eyes: No diplopia or visual changes. RESPIRATORY: He has cough with expectoration. CARDIOVASCULAR: He has right chest pain around the area of the right axilla, especially on coughing. GASTROINTESTINAL: He has some loose stools. GENITOURINARY: No hematuria or dysuria. MUSCULOSKELETAL: He has right lower extremity pain. NEUROLOGICAL: No tingling or numbness in the hands or feet. No headaches or convulsions. HEMATOLOGIC/LYMPHATIC: He bruises easily. He is weak, tired, and fatigued. SKIN: He has allergic skin rash. PSYCHIATRIC: No anxiety or depression. PHYSICAL EXAMINATION GENERAL: Looks stable. Well-developed, well-nourished, and in no acute distress. VITAL SIGNS: Blood pressure 133/70, pulse 90 per minute, respirations 16 per minute, temperature 97.6, pulse oximetry 94% on room air. HEENT: Head: Atraumatic. No sinus tenderness to palpation. Eyes: No icterus or conjunctivitis. Mouth and throat: No oral thrush or mucositis. NECK: Supple. No cervical or supraclavicular lymphadenopathy. LUNGS: Clear to auscultation and percussion bilaterally. HEART: Regular rate and rhythm. No gallops, murmurs, clicks or rubs. ABDOMEN: Soft and lax. No tenderness. No hepatosplenomegaly. No masses. EXTREMITIES: No cyanosis, clubbing or edema. LYMPHATICS: No peripheral lymphadenopathy. NEUROLOGICAL: Conscious, alert and oriented times three. No focal motor or sensory deficits. PSYCHIATRIC: Mood and affect appear normal. SKIN: There is a nodular rash over the right arm, which is getting better. DIAGNOSTIC DATA CBC showed white count of 5.6, hemoglobin 11.6, hematocrit 34.9 and platelet count 149,000. Chem panel totally normal except sodium 134, BUN 22, creatinine 1.9, blood sugar 288, alkaline phosphatase 148. TSH is mildly elevated at 4.79. Free T4 was normal at 1.09 and free T3 is pending. ASSESSMENT 1. Muscle-invasive transitional cell carcinoma, high grade, with bone metastasis, status post transurethral resection of the bladder tumor done September 26, 2017, under care of Dr. Gandhi. Patient is not a candidate for radical cystectomy. Bladder preservation therapy was the plan of management given that the patient has obstructive uropathy and a nephrostomy tube was placed. He has chronic kidney disease stage 4 and he is not eligible for cisplatin therapy. For radiosensitization, patient received chemotherapy with 5-FU and mitomycin, started November 07, 2017, and he received two cycles, complicated with severe vomiting, diarrhea, dehydration, and very high blood sugar after the first cycle of chemotherapy. He received radiation therapy. PET scan October 14, 2017, did reveal, besides abnormal area in the bladder, two lytic lesions, one in the inferior right pubic bone and the second on the lower sacrum. CT-guided biopsy of the symphysis pubis lesion on October 25, 2017, came back positive for high-grade transitional cell carcinoma. PET scan done on June 15, 2018. Patient started treatment with Tecentriq on July 13, 2018. His treatment is okay but he is complaining of severe fatigue currently but patient agreed to continue treatment until he will get his PET scan by the end of October 2018. I am planning to proceed with his treatment as planned and I will see him in three weeks with CBC, chem panel, TSH, free T3, free T4 and magnesium level. 2. Hypothyroidism, most probably due to treatment with checkpoint inhibitor like Tecentriq. I am planning to start treatment with Synthroid 25 mcg daily. 3. Metastatic bon disease with a plan to treat with Xgeva and patient is going to see his dentist prior to starting that treatment for evaluation. 4. History of prostate cancer, on Lupron and Casodex with PSA controlled. PLAN 1. Tecentriq as per schedule. 2. Synthroid 25 mcg orally daily. 3. Patient to return in three weeks with CBC, chem panel, free T3, free T4, TSH and magnesium level. 4. Patient to contact us for any new concerns or complaints. MTDD
[2018-10-05 09:23] VITALS: BP 115/6
[2018-10-05 11:25] VITALS: BP 134/67
[2018-10-05] MEDS: HEPARIN FLSH (PORT) 500 UN/5ML IVP PRN (11:33)
[2018-10-05] MEDS: NS(*) 0.9% 250 ML BAG 250 ML IVPB PRN (11:34)
--- NOTE | 2018-10-05 22:59 | ONCOLOGY FOLLOW UP NOTE ---
EVENT DATE: October 05, 2018 DIAGNOSES 1. Stage IV muscle-invasive transitional cell carcinoma, high grade. 2. History of prostate cancer. 3. History of transient ischemic attack, status post carotid endarterectomy September 2017. 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 ONCOLOGY HISTORY Patient is an 83-year-old male who had prior oncologic history of prostate cancer, for which he underwent radical prostatectomy approximately 20 years ago. In early 2017, patient was noted to have an elevated PSA in the range of 18. He started on Lupron and Casodex therapy, and his PSA was brought under control. Patient had recent carotid endarterectomy in [place] in September 2017, and during his hospitalization, patient was found to have obstructed left ureter and hydronephrosis, so the patient was referred to Dr. Gandhi in [place] for further evaluation and management. He had a CT abdomen and pelvis done on September 28, 2017, which showed status post prostatectomy. There may be some residual soft tissue present which was causing mild compression to the urinary bladder versus an intramedullary bladder abnormality with mild left hydronephrosis. He had cystoscopy with bladder and urethral biopsies done on September 26, 2017, under the direction of Dr. Gandhi, and the pathology came back positive for high- grade transitional cell carcinoma grade 3 with invasion into the smooth muscle. 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 Patient underwent left-sided percutaneous nephrostomy tube placement on September 27, 2017. His creatinine dropped after that. He has been evaluated by Dr. You, who requested a PET/CT scan which was done on October 14, 2017, which showed asymmetric thickening of the left posterolateral wall of the urinary bladder, likely correlates with the patient's non-bladder cancer. There was a subcentimeter left pelvic sidewall lymph node with no prominent uptake. There was also a hypermetabolic lytic lesion in the inferior right pubic bone and a second lytic lesion in the lower sacrum to the left of the midline with mild uptake, concerning for bony metastasis. Patient was scheduled for CT-guided biopsy of one of the bone lesions in [place]. 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 The patient started chemotherapy and radiosensitizer with radiation therapy with mitomycin and 5-FU on November 07, 2017. After chemoradiation, patient did not receive any other treatment until recently. He has had progressive fatigue, and the patient had PET/CT scan done on the June, which showed interval development of widespread metastatic disease with pulmonary metastases, retroperitoneal shree adenopathy through the abdomen and pelvis, and new lytic bone metastasis in the sacrum. Sclerotic lesion in the right ilial tuberosity demonstrated slight increased sclerosis with several focal discrete areas of lysis, but there was no appreciable increased glucose uptake. Patient started treatment with Tecentriq on the July. HISTORY OF PRESENT ILLNESS Mr. Kwong is here today for followup for his metastatic bladder cancer, currently on treatment with Tecentriq. He has complained of extreme fatigue since he had flu a few months ago. He continues to bruise easily and continues to have a rash that waxes and wanes. He has an occasional cough with sputum production. In the past, he has reported right lower extremity pain. He is accompanied in the office today by his son, Edson. Patient and his son tell me that he was recently seen at the [facility] by Dr. Alban Coughlin. At that time, patient reported acute knee pain and tells me that an x-ray was done at the [facility]. Apparently, further workup was needed, and an MRI was supposed to be ordered by his physician at the [facility], though patient and son are quite concerned as they say that this has not been scheduled yet. They believe that there is an authorization in place for patient to have this done here locally in [place], though he has not had this done yet. He occasionally takes Tylenol for his pain. Mr. Kwong tells me that he does have a prescription for oxycodone which he received in August from the [facility], 5 mg tablets, though he does not like taking this. He says he does not want to take this due to the potential for addiction. At times, he reports that his pain is severe and near 10/10 scale. He has not noticed any swelling to the area. He denies any antecedent trauma, though per his son, he has had a couple of falls at home, most recently two or three weeks ago. Mr. Kwong also reports occasional pain in his heel. This is his most pressing issue at this time. PAST MEDICAL HISTORY 1. Type 2 diabetes. 2. History of prostate cancer. 3. Hypertension. 4. Coronary artery disease, status post four stent placement. 5. TIA and CVA, status post carotid endarterectomy. 6. Chronic kidney disease stage 4. PAST SURGICAL HISTORY 1. Carotid endarterectomy September 06, 2017. 2. Tonsillectomy. 3. Hemorrhoidectomy. 4. Prostatectomy. 5. Bilateral inguinal hernia repair. 6. Exploratory laparotomy. 7. Bilateral rotator cuff repair. 8. Deviated septum surgery. 9. Cholecystectomy. 10. Status post percutaneous nephrostomy tube placement. FAMILY HISTORY Father with pancreatic cancer. Paternal uncle had prostate cancer. Brother had both prostate and pancreatic cancer. SOCIAL HISTORY Patient is with two children. 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 He quit smoking 44 years ago after half a pack a day for 15 years. He chewed tobacco for about seven years. He denies any abuse of alcohol or illicit drugs. CURRENT MEDICATIONS 1. Plavix 75 mg daily. 2. Metoprolol 25 mg twice daily. 3. Aspirin 81 mg daily. 4. Lupron 7.5 mg as directed. 5. Casodex 50 mg daily. 6. Atorvastatin 40 mg at bedtime. 7. Humalog insulin as directed. ALLERGIES 1. DEMEROL which causes his heart to stop. 2. MORPHINE which causes skin rash. REVIEW OF SYSTEMS CONSTITUTIONAL: Patient denies any recent fevers, chills, or infections. HEENT: He denies any vision changes. No tinnitus. No nasal drainage or mouth sores. RESPIRATORY: He has an occasional cough with sputum production. No pleuritic chest pain. No hemoptysis. CARDIOVASCULAR: He denies any chest pain, syncope, or presyncope. GASTROINTESTINAL: No abdominal pain, nausea, vomiting, constipation, or diarrhea. He is most concerned with constipation with narcotics. He reports occasional constipation. No bright red blood per rectum or melena. Appetite is stable. GENITOURINARY: No dysuria, hematuria, or genitourinary discharge. MUSCULOSKELETAL: He has a history of right lower extremity pain, though today is reporting right knee pain. Currently, he rates this to be moderate. This is new in the last couple of weeks. NEUROLOGIC: He denies any headaches or seizure activity. No numbness or tingling in the hands or feet. SKIN: He has an allergic skin rash which tends to wax and wane. No free bleeding. Patient reports an ulceration to the tip of his nose which tends to scab up and peel off, but does not ever go away. This has been new in the last few weeks. PSYCHIATRIC: He denies any severe anxiety, severe depression, suicidal or homicidal ideation. ENDOCRINE: No heat or cold intolerance. He reports some generalized weakness. The remainder of a 12-point review of systems is performed today and is otherwise negative. PHYSICAL EXAMINATION VITAL SIGNS: T 97.6, P 85, R 16, BP 116/59, oxygen saturation 95% room air. HEAD: Atraumatic, normocephalic. EYES: Sclerae anicteric. ENT, MOUTH: Moist mucous membranes. No mucositis. NECK: Supple. No lymphadenopathy. LUNGS: Clear to auscultation bilaterally. No focal findings. CARDIAC: Regular rate and rhythm. No ectopy. ABDOMEN: Soft, nontender, nondistended. No organomegaly. EXTREMITIES: No edema noted. No clubbing or cyanosis. MUSCULOSKELETAL: There is no pain to palpation of the knee on the right or left. There is no obvious swelling. NEUROLOGIC: Patient is awake, alert, oriented x3. PSYCHIATRIC: Mood and affect are appropriate. DERM: Patient has a nodular rash over the right arm, which has been improving. LABORATORY CBC today: WBC 5.5, ANC 3.9, hemoglobin 11.0, hematocrit 33.1%, platelets 156,000. CMP today: Sodium 134, minimally low. Creatinine up to 2.2; previously, this was 1.9 on 09/15/18. He does have a history of renal insufficiency and stage 4 CKD. Glucose elevated up to 303. He does have a history of type 2 diabetes. LFTs normal with minimally elevated alkaline phosphatase at 139, improved from 148 on 09/15/18. Total protein normal with normal albumin of 3.6. TSH normal at 3.43. Free T4 normal at 1.23. IMPRESSION AND PLAN This is a pleasant 83-year-old male with history of muscle-invasive transitional cell carcinoma, high grade, with bone metastasis, status post transurethral resection of the bladder tumor done September 26, 2017, under care of Dr. Gandhi. Patient is not a candidate for radical cystectomy. Bladder preservation therapy was the plan of management given that the patient has obstructive uropathy, and a nephrostomy tube was placed. He has chronic kidney disease stage 4, and he is not eligible for cisplatin therapy. For radiosensitization, patient received chemotherapy with 5-FU and mitomycin, started November 07, 2017, and he received two cycles, complicated with severe vomiting, diarrhea, dehydration, and very high blood sugar after the first cycle of chemotherapy. He received radiation therapy. PET scan October 14, 2017, did reveal, besides abnormal area in the bladder, two lytic lesions, one in the inferior right pubic bone and the second on the lower sacrum. CT-guided biopsy of the symphysis pubis lesion on October 25, 2017, came back positive for high-grade transitional cell carcinoma. PET scan done on June 15, 2018. Patient started treatment with Tecentriq on 07/13/18. He has been tolerating treatment fairly well, but does report severe fatigue. He recently agreed to continue with treatment until his PET scan. He is scheduled to have his PET scan on 11/02/2018. We will re-evaluate after PET scan results are available. Until then, we will continue with treatment. 1. Muscle-invasive transitional cell carcinoma, high grade, with bone metastases: Patient will continue with Tecentriq for now. 2. Metastatic bone disease: We have had a plan to treat with Xgeva, although patient wanted to hold off for this. We had also previously instructed him to see a dentist prior to starting that treatment. He has not yet done so. 3. History of prostate cancer: Currently on Lupron and Casodex with PSA control. 4. Hyperthyroidism: Likely due to treatment with checkpoint inhibitor. We re- initiated Synthroid 25 mcg daily. 5. Right knee pain: Patient is quite concerned about his knee pain. He is only using Tylenol, which does not help alleviate his pain. He was supposed to have an MRI through the [facility], though this has not yet been ordered. His son is quite concerned as well. I have ordered an MRI of the right knee today. I also encouraged patient to try using his oxycodone for either moderate or severe pain, and he can use Tylenol occasionally for more mild pain. I instructed him to refrain from ibuprofen, however. 6. He is also concerned about his renal disease, and although his renal function is up today with a serum creatinine of 2.2, he does have known chronic kidney disease stage 4, and at this time, it is largely stable. 7. Patient will return to the clinic in three weeks for followup with his medical oncologist, labs, and his next cycle with Tecentriq. We should have MRI results at that time. 8. Incidentally, the patient does have an ulceration noted at the tip of his nose, which could possibly be a basal cell. I have recommended Dermatology followup for biopsy, and patient and his son tell me they will have this done at the [facility]. MTDD
--- NOTE | 2018-10-10 15:07 | RADIOLOGY IMAGING REPORT ---
FACILITY: [facility] [place] PATIENT NAME: Deion Kwong : 1935 MR: [id number] V: [id number] EXAM DATE: ORDERING PHYSICIAN: EMILI SCHNEIDER TECHNOLOGIST: Location: [facility] [place] Patient: Deion Kwong : 1935 Visit/Account:[id number] Date of Sevice: 10/10/2018 MR KNEE RT W/O CONTRAST COMPARISON: None. HISTORY: Right knee pain and swelling, history of prostate and bladder cancer reported by the cait mead. This patient has known bone metastases and other metastases by 07/06/2018 CT abdomen/pelvis. TECHNIQUE: Noncontrast multiplanar MRI of the right knee utilizing T1 weighted and fluid sensitive s equences. CONTRAST: None. FINDINGS: FLUID: Small effusion. No Corey's cyst or soft tissue fluid collection. MENISCI: Radial and undersurface tearing of the medial meniscal body and posterior horn of the media l meniscus. The anterior horn is intact. The lateral meniscus is intact. No meniscal flipped fragment or extrusion. TENDONS/LIGAMENTS: The anterior and posterior cruciate ligaments are intact. The medial collateral ligament is intact. The fibular collateral ligament, biceps femoris tendon, iliotibial tract and pop liteus tendon are intact and unremarkable. Retinacula and extensor mechanism are intact and unremark able. Extensor mechanism is intact. Thickening/intermediate signal in the lateral retinaculum near it s patellar attachment consistent with a partial-thickness retinacular tear. The medial retinaculum in tact. MUSCLES: Mild lateral soleus muscle edema. BONES AND CARTILAGE: Severe bone marrow edema in the medial tibial metaphysis, with mild bone marrow edema extending into the lateral tibial metaphysis. Abnormal longitudinal low signal lining the media l tibial metaphysis, most consistent with a nondisplaced pathologic fracture through an elongated med ial sided lesion which is partially intramedullary and probably partially periosteal. Moderate bone marrow edema in the patella adjacent to a marrow replacing lesion occupying its lower p ole consistent with metastasis. Additional metastasis in the lateral patella. Mild bone marrow edema in the fibular neck adjacent to a small marrow replacing lesion in the fibular head consistent with metastasis. Mild thinning of the lateral patellar facet articular cartilage deep to the lateral metastasis. Mild superficial thinning of the medial femoral condyle articular cartilage with the near full-thickness f issure lining its lateral margin near the intercondylar notch. No significant subjacent marrow signal abnormality. No significant cartilage loss in the lateral compartment. OTHER: Negative. IMPRESSION: 1. Multiple bone metastases in the right knee, with adjacent bone marrow edema including medial tibi al metaphysis, patella and fibular head. Longitudinal nondisplaced pathologic fracture through the me dial tibial metaphysis lesion. 2. Small effusion. 3. Radial and undersurface tearing of the medial meniscal body and posterior horn. 4. Partial-thickness tear in the medial retinaculum near its patellar attachment. 5. Mild lateral soleus muscle edema/strain. 6. Mild patellar and medial femoral condyle chondromalacia. Report Dictated By: Louis Simon at 10/10/2018 2:34 PM Report E-Signed By: Louis Simon at 10/10/2018 3:03 PM WSN:[id number]
[2018-10-26 09:49] VITALS: BP 121/70
[2018-10-26] MEDS: NS(*) 0.9% 250 ML BAG 250 ML IVPB PRN (09:59)
[2018-10-26] MEDS: LIDOCAINE/SOD BICARB 8.4% SYR ID PRN (09:59)
[2018-10-26 10:03] LABS: PLATELET COUNT, AUTOMATED 156 K/uL (150-450)
[2018-10-26] MEDS: HEPARIN FLSH (PORT) 500 UN/5ML IVP PRN (11:43)
--- NOTE | 2018-10-26 16:57 | ONCOLOGY FOLLOW UP NOTE ---
EVENT DATE: October 26, 2018 DIAGNOSES 1. Stage IV muscle-invasive transitional cell carcinoma, high grade. 2. History of prostate cancer. 3. History of transient ischemic attack, status post carotid endarterectomy September 2017. 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 ONCOLOGY HISTORY Patient is an 83-year-old male who had prior oncologic history of prostate cancer, for which he underwent radical prostatectomy approximately 20 years ago. In early 2017, patient was noted to have an elevated PSA in the range of 18. He started on Lupron and Casodex therapy, and his PSA was brought under control. Patient had recent carotid endarterectomy in [place] in September 2017, and during his hospitalization, patient was found to have obstructed left ureter and hydronephrosis, so the patient was referred to Dr. Gandhi in [place] for further evaluation and management. He had a CT abdomen and pelvis done on September 28, 2017, which showed status post prostatectomy. There may be some residual soft tissue present which was causing mild compression to the urinary bladder versus an intramedullary bladder abnormality with mild left hydronephrosis. He had cystoscopy with bladder and urethral biopsies done on September 26, 2017, under the direction of Dr. Gandhi, and the pathology came back positive for high- grade transitional cell carcinoma grade 3 with invasion into the smooth muscle. 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 Patient underwent left-sided percutaneous nephrostomy tube placement on September 27, 2017. His creatinine dropped after that. He has been evaluated by Dr. You, who requested a PET/CT scan which was done on October 14, 2017, which showed asymmetric thickening of the left posterolateral wall of the urinary bladder, likely correlates with the patient's non-bladder cancer. There was a subcentimeter left pelvic sidewall lymph node with no prominent uptake. There was also hypermetabolic lytic lesion in the inferior right pubic bone and a second lytic lesion in the lower sacrum to the left of the midline with mild uptake, concerning for bony metastases. Patient was scheduled for CT-guided biopsy of one of the bone lesions in [place]. 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 The patient started chemotherapy and radiosensitizer with radiation therapy with mitomycin and 5-FU on November 07, 2017. After chemoradiation, patient did not receive any other treatment until recently. He had progressive fatigue, and the patient had PET/CT scan done on the June which showed interval development of widespread metastatic disease with pulmonary metastases, retroperitoneal shree adenopathy through the abdomen and pelvis, and new lytic bone metastasis in the sacrum. Sclerotic lesion in the right ilial tuberosity demonstrated slight increased sclerosis with several focal discrete areas of lysis, but there was no appreciable increased glucose uptake. Patient started treatment with Tecentriq on the July. 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 He is complaining of right knee pain recently, and the patient had an MRI of the right knee done on the October, which showed multiple metastases of the right knee area, and the patient started radiation therapy a few days ago. He is complaining sometimes of dry heaves. Other than that, he is really doing very well. PAST MEDICAL HISTORY 1. Type 2 diabetes. 2. History of prostate cancer. 3. Hypertension. 4. Coronary artery disease, status post four stent placement. 5. TIA and CVA, status post carotid endarterectomy. 6. Chronic kidney disease stage 4. PAST SURGICAL HISTORY 1. Carotid endarterectomy September 06, 2017. 2. Tonsillectomy. 3. Hemorrhoidectomy. 4. Prostatectomy. 5. Bilateral inguinal hernia repair. 6. Exploratory laparotomy. 7. Bilateral rotator cuff repair. 8. Deviated septum surgery. 9. Cholecystectomy. 10. Status post percutaneous nephrostomy tube placement. FAMILY HISTORY Father with pancreatic cancer. Paternal uncle had prostate cancer. Brother had both prostate and pancreatic cancer. SOCIAL HISTORY Patient is with two children. 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 He quit smoking 44 years ago after half a pack a day for 15 years. He chewed tobacco for about seven years. He denies any abuse of alcohol or illicit drugs. CURRENT MEDICATIONS 1. Plavix 75 mg daily. 2. Metoprolol 25 mg twice daily. 3. Aspirin 81 mg daily. 4. Lupron 7.5 mg as directed. 5. Casodex 50 mg daily. 6. Atorvastatin 40 mg at bedtime. 7. Humalog insulin as directed. ALLERGIES 1. DEMEROL, which causes his heart to stop. 2. MORPHINE, which causes skin rash. REVIEW OF SYSTEMS CONSTITUTIONAL: No appetite or weight change. No fever, chills, or sweating. No recent infection. HEENT: Ears: No tinnitus or hearing problem. Nose: No nasal discharge or epistaxis. Throat: No sore throat or mouth ulcers. Eyes: No diplopia or visual changes. RESPIRATORY: No shortness of breath. No cough, expectoration, or hemoptysis. CARDIOVASCULAR: No chest pain, orthopnea, or paroxysmal nocturnal dyspnea (PND). No edema. No palpitations. GASTROINTESTINAL: No diarrhea. He has constipation from his narcotics. The patient stopped his oxycodone, and now he is taking only Tylenol. No heartburn or swallowing difficulties. He has also dry heaves. No abdominal pain. No jaundice. No hematemesis, melena, or rectal bleeding. GENITOURINARY: No hematuria or dysuria. MUSCULOSKELETAL: He has pain in the right knee. NEUROLOGIC: No tingling or numbness in the hands or feet. No headaches or convulsions. HEMATOLOGIC/LYMPHATIC: No bleeding or easy bruising. No weakness or fatigue. No enlarged lymph nodes. SKIN: No skin rash or lumps. PSYCHIATRIC: No anxiety or depression. PHYSICAL EXAMINATION GENERAL: Looks stable. Well developed, well nourished, and in no acute distress. VITAL SIGNS: Blood pressure 121/70, pulse 84 per minute, respirations 16 per minute, temperature 98.6, pulse ox 94% on room air. HEENT: Head: Atraumatic. No sinus tenderness to palpation. Eyes: No icterus or conjunctivitis. Mouth and Throat: No oral thrush or mucositis. NECK: Supple. No cervical or supraclavicular lymphadenopathy. LUNGS: Clear to auscultation and percussion bilaterally. HEART: Regular rate and rhythm. No gallops, murmurs, clicks, or rubs. ABDOMEN: Soft and lax. No tenderness. No hepatosplenomegaly. No masses. EXTREMITIES: No cyanosis, clubbing, or edema. LYMPHATICS: No peripheral lymphadenopathy. NEUROLOGIC: Conscious, alert, and oriented times three. No focal motor or sensory deficits. PSYCHIATRIC: Mood and affect appear normal. SKIN: No skin rash, bruise, or purpuric eruption. DIAGNOSTIC DATA CBC showed white count 5.3, hemoglobin 11, hematocrit 32.5, platelets 156,000. Chem panel totally normal except BUN 24, creatinine 1.9, blood sugar 246, alkaline phosphatase 143. MRI of the right knee on the October did reveal multiple metastases of the right knee area. ASSESSMENT 1. Muscle-invasive transitional cell carcinoma, high grade, with bone metastases, status post transurethral resection of the bladder tumor done September 26, 2017, under care of Dr. Gandhi. Patient is not a candidate for radical cystectomy. Bladder preservation therapy was the plan of management given that the patient had obstructive uropathy, and a nephrostomy tube was placed. He has chronic kidney disease stage 4, and he is not eligible for cisplatin therapy. For radiosensitization, patient received chemotherapy with 5-FU and mitomycin, started November 07, 2017, and he received two cycles, complicated with severe vomiting, diarrhea, dehydration, and very high blood sugar after the first cycle of chemotherapy. He received radiation therapy. PET scan October 14, 2017, did reveal besides abnormal area in the bladder two lytic lesions, one in the inferior right pubic bone and the second one in the lower sacrum. CT-guided biopsy of the symphysis pubis lesion October 25, 2017, was positive for high-grade transitional cell carcinoma. PET scan done on June 15, 2018. He started treatment with Tecentriq on July 13, 2018. He is tolerating treatment well so far except for fatigue. He presented recently with right knee pain, and MRI of the right knee done on the October showed multiple metastases of the right knee area. Patient started radiation therapy to palliate his pain. I am planning to continue his Tecentriq now. I am planning to see him again in three weeks with CBC, chemistry panel, magnesium, free T3, free T4, and TSH. 2. Hypothyroidism, most probably due to treatment with Tecentriq. He is currently on Synthroid 25 mcg daily. Will continue to monitor the thyroid function tests. 3. Metastatic bon disease with a plan to treat with Xgeva. 4. History of prostate cancer, on Lupron and Casodex with PSA control. PLAN 1. Tecentriq as per schedule. 2. Synthroid 25 mcg daily. 3. Patient to return in three weeks with CBC, chem panel, free T3, free T4, TSH, and magnesium level. 4. Continue radiation therapy of right knee area. 5. Patient to contact us for any new concerns or complaints. MTDD
[~2018-11-10 13:26] MED LIST changes: +ALTEPLASE RECOMB 2 MG VIAL IVP PRN; +ATEZOLIZUMAB IV ONE; +DEXTROSE 5%(*) 100 ML BAG 100 ML IVPB PRN; +NS 0.9% IV ONE; +NS(*) 0.9% 100 ML BAG 100 ML IVPB PRN; +NS(*) 0.9% 500 ML BAG 500 ML IV ONE; +WATER FOR INJ,STERILE 20 ML IVP PRN
[2018-11-10 13:33] VITALS: BP 107/60
[2018-11-10] MEDS ORDERED: OXCA300T59 PO (13:38)
[2018-11-10] MEDS ORDERED: HYDROmorphone HCL 2 MG/ML SDV IVP ONE (14:00)
[2018-11-10] MEDS ORDERED: OFLO5DRO41 LEFT EAR (15:16)
[2018-11-10] MEDS ORDERED: AMOX-559 PO (15:16)
[2018-11-10] MEDS: LIDOCAINE/SOD BICARB 8.4% SYR ID PRN (16:32)
[2018-11-10] MEDS: HEPARIN FLSH (PORT) 500 UN/5ML IVP PRN (16:32)
--- NOTE | 2018-11-10 21:00 | ONCOLOGY FOLLOW UP NOTE ---
EVENT DATE: November 10, 2018 DIAGNOSES 1. Stage IV muscle-invasive transitional cell carcinoma, high grade. 2. History of prostate cancer. 3. History of transient ischemic attack, status post carotid endarterectomy September 2017. 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 ONCOLOGY HISTORY Patient is an 83-year-old male who had prior oncologic history of prostate cancer, for which he underwent radical prostatectomy approximately 20 years ago. In early 2017, patient was noted to have an elevated PSA in the range of 18. He started on Lupron and Casodex therapy, and his PSA was brought under control. Patient had recent carotid endarterectomy in [place] in September 2017, and during his hospitalization, patient was found to have obstructed left ureter and hydronephrosis, so the patient was referred to Dr. Gandhi in [place] for further evaluation and management. He had a CT abdomen and pelvis done on September 28, 2017, which showed status post prostatectomy. There may be some residual soft tissue present which was causing mild compression to the urinary bladder versus an intramedullary bladder abnormality with mild left hydronephrosis. He had cystoscopy with bladder and urethral biopsies done on September 26, 2017, under the direction of Dr. Gandhi, and the pathology came back positive for high- grade transitional cell carcinoma grade 3 with invasion into the smooth muscle. 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 Patient underwent left-sided percutaneous nephrostomy tube placement on September 27, 2017. His creatinine dropped after that. He has been evaluated by Dr. You, who requested a PET/CT scan which was done on October 14, 2017, which showed asymmetric thickening of the left posterolateral wall of the urinary bladder, likely correlates with the patient's non-bladder cancer. There was a subcentimeter left pelvic sidewall lymph node with no prominent uptake. There was also hypermetabolic lytic lesion in the inferior right pubic bone and a second lytic lesion in the lower sacrum to the left of the midline with mild uptake, concerning for bony metastases. Patient was scheduled for CT-guided biopsy of one of the bone lesions in [place]. 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 The patient started chemotherapy and radiosensitizer with radiation therapy with mitomycin and 5-FU on November 07, 2017. After chemoradiation, patient did not receive any other treatment until recently. He had progressive fatigue, and the patient had PET/CT scan done on the June, which showed interval development of widespread metastatic disease with pulmonary metastases, retroperitoneal shree adenopathy through the abdomen and pelvis, and new lytic bone metastasis in the sacrum. Sclerotic lesion in the right ilial tuberosity demonstrated slight increased sclerosis with several focal discrete areas of lysis, but there was no appreciable increased glucose uptake. Patient started treatment with Tecentriq on the July. 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 Patient is complaining of pain in the right knee area which is getting better with his current radiation therapy. He has also some dry cough and nausea occasionally. Patient had a myringotomy tube done on the October, and since then, he started to have severe pain in front of his left ear going to around the left eye and going down to his left jaw. Pain is severe enough that it is actually affecting his mood. PAST MEDICAL HISTORY 1. Type 2 diabetes. 2. History of prostate cancer. 3. Hypertension. 4. Coronary artery disease, status post four stent placement. 5. TIA and CVA, status post carotid endarterectomy. 6. Chronic kidney disease stage 4. PAST SURGICAL HISTORY 1. Carotid endarterectomy September 06, 2017. 2. Tonsillectomy. 3. Hemorrhoidectomy. 4. Prostatectomy. 5. Bilateral inguinal hernia repair. 6. Exploratory laparotomy. 7. Bilateral rotator cuff repair. 8. Deviated septum surgery. 9. Cholecystectomy. 10. Status post percutaneous nephrostomy tube placement. FAMILY HISTORY Father with pancreatic cancer. Paternal uncle had prostate cancer. Brother had both prostate and pancreatic cancer. SOCIAL HISTORY Patient is with two children. 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 He quit smoking 44 years ago after half a pack a day for 15 years. He chewed tobacco for about seven years. He denies any abuse of alcohol or illicit drugs. CURRENT MEDICATIONS 1. Plavix 75 mg daily. 2. Metoprolol 25 mg twice daily. 3. Aspirin 81 mg daily. 4. Lupron 7.5 mg as directed. 5. Casodex 50 mg daily. 6. Atorvastatin 40 mg at bedtime. 7. Humalog insulin as directed. ALLERGIES 1. DEMEROL, which causes his heart to stop. 2. MORPHINE, which causes skin rash. REVIEW OF SYSTEMS CONSTITUTIONAL: No appetite or weight change. No fever, chills, or sweating. No recent infection. HEENT: Ears: No tinnitus or hearing problem. Nose: No nasal discharge or epistaxis. Throat: No sore throat or mouth ulcers. Eyes: No diplopia or visual changes. RESPIRATORY: No shortness of breath. He has some dry cough. No expectoration or hemoptysis. CARDIOVASCULAR: No chest pain, orthopnea, or paroxysmal nocturnal dyspnea (PND). No edema. No palpitations. GASTROINTESTINAL: He has occasional nausea. No vomiting. No diarrhea or constipation. No change in bowel movements. No heartburn or swallowing difficulties. No abdominal pain. No jaundice. No hematemesis, melena, or rectal bleeding. GENITOURINARY: No hematuria or dysuria. MUSCULOSKELETAL: No pain in the muscles, joints, or bones. NEUROLOGIC: He has severe pain along the distribution of the left facial nerve from in front of the left ear to around the left eye and down to the left jaw area after he had a myringotomy done on the 12 of October for possible fluid behind the eardrum. No headaches or convulsions. HEMATOLOGIC/LYMPHATIC: No bleeding or easy bruising. No weakness or fatigue. No enlarged lymph nodes. SKIN: No skin rash or lumps. PSYCHIATRIC: No anxiety or depression. PHYSICAL EXAMINATION GENERAL: Looks stable. Well developed, well nourished, and in no acute distress. VITAL SIGNS: Blood pressure 107/60, pulse 87 per minute, respirations 16 per minute, temperature 97.4, pulse ox 91% on room air. HEENT: Head: Atraumatic. No sinus tenderness to palpation. Eyes: No icterus or conjunctivitis. Mouth and Throat: No oral thrush or mucositis. NECK: Supple. No cervical or supraclavicular lymphadenopathy. LUNGS: Clear to auscultation and percussion bilaterally. HEART: Regular rate and rhythm. No gallops, murmurs, clicks, or rubs. ABDOMEN: Soft and lax. No tenderness. No hepatosplenomegaly. No masses. EXTREMITIES: No cyanosis, clubbing, or edema. LYMPHATICS: No peripheral lymphadenopathy. NEUROLOGIC: Conscious, alert, and oriented times three. No focal motor or sensory deficits. PSYCHIATRIC: Mood and affect appear normal. SKIN: No skin rash, bruise, or purpuric eruption. DIAGNOSTIC DATA PET/CT scan done on the October showed overall disease progression compared to June 15, 2018 PET scan. There is worsening skeletal metastases with several new hypermetabolic skeletal lesions and worsening hypermetabolism in the previously described skeletal metastases. There is hypermetabolic mediastinal adenopathy which is new. There is hypermetabolic hepatic metastasis which is also new. There is metastatic abnormal abdominal adenopathy which is worse. Pelvic adenopathy is stable. Probably, there is a mixed response in the pulmonary nodules. There are a few new pulmonary nodules; however, others have resolved. None are significantly hypermetabolic. ASSESSMENT 1. Muscle-invasive transitional cell carcinoma, high grade, with bone metastases, status post transurethral resection of the bladder tumor September 26, 2017, under care of Dr. Gandhi. Patient was not a candidate for radical cystectomy. Bladder preservation therapy was the plan of management given that the patient had obstructive uropathy, and a nephrostomy tube was placed. He has chronic kidney disease stage 4, and he was not a candidate for cisplatin therapy. For radiosensitization, patient received chemotherapy with 5-FU and mitomycin, started November 07, 2017, and he received two cycles, complicated with severe nausea, vomiting, diarrhea, dehydration, and very high blood sugar after the first cycle of chemotherapy. He received radiation therapy. PET scan October 14, 2017, did reveal besides abnormal area in the bladder two lytic lesions, one in the inferior right pubic bone and the second one in the lower sacrum. CT- guided biopsy of the symphysis pubis lesion October 25, 2017, was positive for high- grade transitional cell carcinoma. PET scan done on June 15, 2018, and the patient started Tecentriq on July 13, 2018. He presented recently with severe right knee pain, and MRI of the right knee done on the October showed multiple metastases of the right knee area. Patient is currently under radiation therapy with improvement of his pain. His recent PET scan done on the October showed worsening of his disease with new lesions in the bones and in the liver and mediastinal adenopathy. Given this information, patient was planning actually to quit treatment and go for palliative care, and we are going to see him next week for further discussion. 2. Severe pain along the distribution of the left facial nerve after a myringotomy tube placed on the October. I am planning to refer the patient to Dr. Roderick Garcia for further evaluation, and I will give him here in the office 1 mg of Dilaudid intravenously to control his pain now. The patient was also given an oral Dilaudid 2 mg q.3 hours p.r.n. for pain to use at home. 3. History of prostate cancer, on Lupron and Casodex with PSA control. PLAN 1. Stop Tecentriq. 2. Consider palliative care. 3. Refer to Dr. Roderick Garcia, our ENT surgeon. 4. Dilaudid 1 mg intravenously stat. 5. Dilaudid 2 mg orally q.3 hours p.r.n. for pain. 6. Patient to return in one week for further evaluation and management. 7. Patient to contact us for any new concerns or complaints. MTDD
[2018-11-12] MEDS ORDERED: OFLO5DRO41 LEFT EAR (15:58)
[2018-11-12] MEDS ORDERED: AMOX-559 PO (15:58)
[2018-11-12] MEDS ORDERED: HYDROMORPHONE PO (15:58)
[2018-11-16] MEDS ORDERED: HYDR2TAB74 PO (10:10)
[2018-11-21] MEDS ORDERED: NAPR500T31 PO (13:23)
[2018-11-21] MEDS ORDERED: LOR1 PO (13:23)
[2018-11-21] MEDS ORDERED: PROM25SU9 RC (13:23)
[2018-11-21] MEDS ORDERED: DOCU-202 PO (13:23)
[2018-11-21] MEDS ORDERED: Bisacodyl PR (13:23)
[2018-11-21] MEDS ORDERED: CIPDEXPT LEFT EAR (13:23)
[2018-11-21] MEDS ORDERED: LORA-630 PO (13:23)
[2018-11-21] MEDS ORDERED: FENT-19 TD (13:23)
[2018-11-21] MEDS ORDERED: LIDO700A19 TP (15:22)
[2018-11-27] MEDS ORDERED: NAPR500T31 PO ×2 (16:18→16:33)
[2018-11-28] MEDS ORDERED: OXYC5TAB38 PO (17:56)
[2018-11-28] MEDS ORDERED: OMEP-126 PO (17:56)
[2018-11-29] MEDS ORDERED: POLY17PO25 PO (12:38)
[2018-11-29] MEDS ORDERED: ACET650S35 RC (12:38)
[2018-11-29] MEDS ORDERED: GLYC1SUP11 RC ×2 (12:38→12:46)
[2018-11-29] MEDS ORDERED: HUM100VI15 SQ (12:38)
[2018-11-29] MEDS ORDERED: BISA10SU62 RC (12:46)
[2018-11-29] MEDS ORDERED: FENT-19 TD (16:13)
[2018-11-29] MEDS ORDERED: HYOS-10 PO (18:43)
[2018-11-29] MEDS ORDERED: MORP100S32 SL (18:52)
[2018-12-11] MEDS ORDERED: FENT-19 TD (15:00)
== END 2018-12-04 15:27 | disposition home or self-care (01) ==
LOC: ONC 13:26
PROVIDERS: ATTEND Nurse Practitioner
DX: C67.8 Malignant neoplasm of overlapping sites of bladder (principal); C79.51 Secondary malignant neoplasm of bone; N18.4 Chronic kidney disease, stage 4 (severe); Z92.21 Personal history of antineoplastic chemotherapy; Z92.3 Personal history of irradiation; R53.83 Other fatigue; E03.9 Hypothyroidism, unspecified; Z85.46 Personal history of malignant neoplasm of prostate; Z79.818 Long term (current) use of other agents affecting estrogen receptors and estrogen levels; Z79.899 Other long term (current) drug therapy; Z87.891 Personal history of nicotine dependence; E11.9 Type 2 diabetes mellitus without complications; R05 Cough
CPT/HCPCS: 83735; 84439; 84443; 84481; 85027; 96365; G0463; J1642; J7040; J7050; J9022; 82040; 82247; 82310; 82374; 82435; 82565; 82947; 84075; 84132; 84155; 84295; 84450; 84460; 84520; 85025; 99212; J1170

== ENCOUNTER 2018-11-12 15:39 | Inpatient (IN) | payer MEDICARE, MEDICAID ==
[2018-08-14 09:57] VITALS: Ht 167.6 cm; Wt 69.6 kg
[~2018-11-12] VITALS: Ht 167.6 cm; Wt 69.6 kg
[~2018-11-12 15:39] MED LIST changes: -ALTEPLASE RECOMB 2 MG VIAL IVP PRN; +AMOX-559 PO; -ATEZOLIZUMAB IV ONE; -DEXTROSE 5%(*) 100 ML BAG 100 ML IVPB PRN; -NS 0.9% IV ONE; -NS(*) 0.9% 100 ML BAG 100 ML IVPB PRN; -NS(*) 0.9% 500 ML BAG 500 ML IV ONE; +OFLO5DRO41 LEFT EAR; +OXCA300T59 PO; -WATER FOR INJ,STERILE 20 ML IVP PRN
--- NOTE | 2018-11-12 15:45 | ER Report ---
History and Physical Time Seen By MD: 15:44 (JADEN SIMS DO) HPI/ROS CHIEF COMPLAINT: Abdominal pain HISTORY OF PRESENT ILLNESS: Patient is an 83-year-old male here with complaints of abdominal pain, constipation in the setting of bladder cancer, last bowel movement was 2 days prior. Patient currently resides at [facility] and is currently on hydromorphone regimen. Patient denies fevers, chills, chest pain, shortness breath. He does complain of nausea with retching. Patient is afebrile, hemodynamically stable at time of evaluation. He does have a history significant for ventral hernia repairs. REVIEW OF SYSTEMS: Constitutional: No fever, no chills. Eyes: No discharge. ENT: No sore throat. Cardiovascular: No chest pain, no palpitations. Respiratory: No cough, no shortness of breath. Gastrointestinal: + Diffuse abdominal pain, + nausea and vomiting. Genitourinary: No hematuria. Musculoskeletal: No back pain. Skin: No rashes. Neurological: No headache. (JADEN SIMS DO) Allergies: Coded Allergies: meperidine (Verified Allergy, Severe, UNKNOWN, 11/21/18) "They had to use the paddles to bring him back" per son Edson morphine (Verified Allergy, Severe, RASH, 11/21/18) Home Meds Active Scripts Lidocaine (Lidocaine) 5 % Adh..patch, 1 EACH TP QDAY for 9 Days, #5 PATCH Prov:VERONICA GIBBONS 11/21/18 Naproxen (NAPROXEN) 500 Mg Tablet, 500 MG PO TID for 9 Days, #27 TAB Prov:JUAN HENAOVERONICA 11/21/18 Lorazepam (LORAZEPAM) 0.5 Mg Tablet, 0.5 MG PO TIDAC for 9 Days, #27 TAB Prov:JUAN HENAOVERONICA 11/21/18 Promethazine Hcl (PROMETHAZINE HCL) 25 Mg Supp.rect, 25 MG RC Q8H for 9 Days, #27 SUPP.RECT Prov:JUAN HENAOVERONICA 11/21/18 Lorazepam (LORAZEPAM) 1 Mg Tab, 1 MG PO Q4-6H PRN for ANXIETY for 9 Days, #54 TAB Prov:VERONICA GIBBONS 11/21/18 Fentanyl 50 Mcg Patch (FENTANYL 50 MCG PATCH) 1 Each Patch.td72, 50 MCG TD Q72H for 9 Days, #3 PATCH.72H Prov:VERONICA GIBBONS DO 11/21/18 Docusate Sodium (DOCUSATE SODIUM) 100 Mg Capsule, 100 MG PO BID for 30 Days, CAPSULE Prov:VERONICA GIBBONS DO 11/21/18 Ciprofloxacin/Dexamethasone 0.3%-0.1% Otic Mejía (CIPRODEX 0.3%-0.1% OTIC SUSP) 7.5 Ml Soln, 0 ML LEFT EAR BID for 8 Days, #1 BOTTLE Prov:VERONICA GIBBONS DO 11/21/18 [Bisacodyl(*) 10 Mg Supp] 10 MG SUPP No Conflict Check, 10 MG ND QDAY PRN for CONSTIPATION, SUPP INSERT Prov:VERONICA GIBBONS DO 11/21/18 Sennosides/Docusate Sodium (SENNA LAXATIVE TABLET) 1 Each Tablet, 1 EACH PO QHS for 90 Days, #90 TAB Prov:KONRAD HAMMONDS MD 11/08/18 Ondansetron 4 Mg Odt (ONDANSETRON 4 MG ODT) 4 Mg Tab.rapdis, 4 MG PO Q6H PRN for NAUSEA/VOMITING for 30 Days, #30 TAB 0 Refills Prov:KONRAD HAMMONDS MD 10/24/18 Discontinued Reported Medications Hydromorphone Hcl (DILAUDID) 2 Mg Tablet, 1 TAB PO TID PRN for PAIN 11/16/18 Ofloxacin (Ofloxacin) 0.3 % Drops, 4 DROP LEFT EAR BID 11/12/18 Amoxicillin/Pot Clav 875-125 Mg Tab (AUGMENTIN 875-125 TABLET) 1 Each Tablet, 1 TAB PO Q12H, TAB 11/12/18 [Hydromorphone ] No Conflict Check, 2 MG PO 11/12/18 Discontinued Scripts Apixaban (ELIQUIS) 2.5 Mg Tablet, 2.5 MG PO BID for 90 Days, #180 TAB Prov:KONRAD HAMMONDS MD 04/25/18 Hx Smoking: Yes (20 YRS) Smoking Status: Former Smoker Hx Substance Use Disorder: No Hx Alcohol Use: Yes (JADEN SIMS DO) Constitutional Vital Sign - Last 24 Hours 11/12/18 11/12/18 11/12/18 11/12/18 15:44 16:00 16:30 16:32 Temp 97.8 Pulse 97 80 76 Resp 16 B/P (MAP) 139/80 153/75 (101) 130/70 (90) Pulse Ox 93 96 99 O2 Flow Rate 2.5 11/12/18 11/12/18 11/12/18 11/12/18 17:00 17:30 18:00 18:30 Pulse 83 85 91 94 B/P (MAP) 142/84 (103) 154/74 (100) 151/74 (99) 113/66 (82) Pulse Ox 97 98 97 99 11/12/18 11/12/18 11/12/18 11/12/18 18:35 18:50 19:00 19:05 Pulse 99 84 93 B/P (MAP) 146/63 (90) Pulse Ox 98 96 95 (DANIE RINALDI MD) Physical Exam General Appearance: The patient is alert, has no immediate need for airway protection and no signs of toxicity. Uncomfortable appearing Eyes: Pupils equal and round no pallor or injection. ENT, Mouth: Mucous membranes are moist. Respiratory: There are no retractions, lungs are clear to auscultation. Cardiovascular: Regular rate and rhythm. Gastrointestinal: + Diffuse tenderness on palpation, worse in the suprapubic distribution Neurological: No focal neurological deficits on examination Skin: Warm and dry, no rashes. Musculoskeletal: Neck is supple non tender. Extremities are nontender, nonswollen and have full range of motion. DIFFERENTIAL DIAGNOSIS: After history and physical exam differential diagnosis was considered for abdominal pain including but not limited to appendicitis, cholecystitis, gastritis and urinary tract infection, incarcerated hernia, malignancy (JADEN SIMS DO) Medical Decision Making Data Points Laboratory Hematology Test 11/12/18 16:15 11/12/18 17:48 Red Blood Count 3.62 M/uL (4.00-5.60) Mean Corpuscular Volume 93.5 fL (80.0-96.0) Mean Corpuscular Hemoglobin 31.4 pg (26.0-33.0) Mean Corpuscular Hemoglobin Concent 33.6 g/dL (32.0-36.0) Red Cell Distribution Width 15.0 % (11.5-14.5) Mean Platelet Volume 7.1 fL (7.2-11.1) Neutrophils (%) (Auto) 72.6 % (39.4-72.5) Lymphocytes (%) (Auto) 14.0 % (17.6-49.6) Monocytes (%) (Auto) 12.5 % (4.1-12.4) Eosinophils (%) (Auto) 0.6 % (0.4-6.7) Basophils (%) (Auto) 0.3 % (0.3-1.4) Nucleated RBC Relative Count (auto) 0.0 /100WBC Neutrophils # (Auto) 3.7 K/uL (2.0-7.4) Lymphocytes # (Auto) 0.7 K/uL (1.3-3.6) Monocytes # (Auto) 0.6 K/uL (0.3-1.0) Eosinophils # (Auto) 0.0 K/uL (0.0-0.5) Basophils # (Auto) 0.0 K/uL (0.0-0.1) Nucleated RBC Absolute Count (auto) 0.00 K/uL Prothrombin Time 15.5 seconds (12.0-14.4) Prothromb Time International Ratio 1.23 Activated Partial Thromboplast Time 58 seconds (23-35) Sodium Level 135 mmol/L (137-145) Potassium Level 4.1 mmol/L (3.5-5.0) Chloride Level 98 mmol/L (98-107) Carbon Dioxide Level 27 mmol/L (22-30) Blood Urea Nitrogen 34 mg/dl (9-21) Creatinine 1.60 mg/dl (0.66-1.25) Glomerular Filtration Rate Calc 41.3 Random Glucose 207 mg/dl (75-110) Lactate 1.7 mmol/L (0.7-2.1) Calcium Level 9.2 mg/dl (8.4-10.2) Total Bilirubin 0.5 mg/dl (0.2-1.3) Aspartate Amino Transf (AST/SGOT) 29 U/L (0-35) Alanine Aminotransferase (ALT/SGPT) 37 U/L (0-56) Alkaline Phosphatase 181 U/L (0-126) Total Protein 7.2 g/dl (6.3-8.2) Albumin 3.4 g/dl (3.5-5.0) Lipase 60 U/L (23-300) Urine Color Yellow Urine Clarity Clear Urine pH 6.0 pH (4.8-9.5) Urine Specific [place] 1.011 Urine Protein Negative mg/dL (NEGATIVE) Urine Glucose (UA) Negative mg/dL (NEGATIVE) Urine Ketones Negative mg/dL (NEGATIVE) Urine Blood Negative (NEGATIVE) Urine Nitrite Negative (NEGATIVE) Urine Bilirubin Negative (NEGATIVE) Urine Urobilinogen Negative mg/dL (0.2-1.9) Urine Leukocyte Esterase Negative (NEGATIVE) Urine RBC 3 /HPF (0-2/HPF) Urine WBC 1 /HPF (0-5/HPF) Urine Squamous Epithelial Cells Few /LPF (</=FEW) Urine Bacteria Negative /HPF (NONE-FEW) Urine Mucus None /HPF (NONE-FEW) Chemistry Test 11/12/18 16:15 11/12/18 17:48 White Blood Count 5.2 k/uL (4.5-11.0) Red Blood Count 3.62 M/uL (4.00-5.60) Hemoglobin 11.4 g/dL (14.0-18.0) Hematocrit 33.9 % (42.0-52.0) Mean Corpuscular Volume 93.5 fL (80.0-96.0) Mean Corpuscular Hemoglobin 31.4 pg (26.0-33.0) Mean Corpuscular Hemoglobin Concent 33.6 g/dL (32.0-36.0) Red Cell Distribution Width 15.0 % (11.5-14.5) Platelet Count 141 K/uL (150-450) Mean Platelet Volume 7.1 fL (7.2-11.1) Neutrophils (%) (Auto) 72.6 % (39.4-72.5) Lymphocytes (%) (Auto) 14.0 % (17.6-49.6) Monocytes (%) (Auto) 12.5 % (4.1-12.4) Eosinophils (%) (Auto) 0.6 % (0.4-6.7) Basophils (%) (Auto) 0.3 % (0.3-1.4) Nucleated RBC Relative Count (auto) 0.0 /100WBC Neutrophils # (Auto) 3.7 K/uL (2.0-7.4) Lymphocytes # (Auto) 0.7 K/uL (1.3-3.6) Monocytes # (Auto) 0.6 K/uL (0.3-1.0) Eosinophils # (Auto) 0.0 K/uL (0.0-0.5) Basophils # (Auto) 0.0 K/uL (0.0-0.1) Nucleated RBC Absolute Count (auto) 0.00 K/uL Prothrombin Time 15.5 seconds (12.0-14.4) Prothromb Time International Ratio 1.23 Activated Partial Thromboplast Time 58 seconds (23-35) Glomerular Filtration Rate Calc 41.3 Lactate 1.7 mmol/L (0.7-2.1) Calcium Level 9.2 mg/dl (8.4-10.2) Total Bilirubin 0.5 mg/dl (0.2-1.3) Aspartate Amino Transf (AST/SGOT) 29 U/L (0-35) Alanine Aminotransferase (ALT/SGPT) 37 U/L (0-56) Alkaline Phosphatase 181 U/L (0-126) Total Protein 7.2 g/dl (6.3-8.2) Albumin 3.4 g/dl (3.5-5.0) Lipase 60 U/L (23-300) Urine Color Yellow Urine Clarity Clear Urine pH 6.0 pH (4.8-9.5) Urine Specific [place] 1.011 Urine Protein Negative mg/dL (NEGATIVE) Urine Glucose (UA) Negative mg/dL (NEGATIVE) Urine Ketones Negative mg/dL (NEGATIVE) Urine Blood Negative (NEGATIVE) Urine Nitrite Negative (NEGATIVE) Urine Bilirubin Negative (NEGATIVE) Urine Urobilinogen Negative mg/dL (0.2-1.9) Urine Leukocyte Esterase Negative (NEGATIVE) Urine RBC 3 /HPF (0-2/HPF) Urine WBC 1 /HPF (0-5/HPF) Urine Squamous Epithelial Cells Few /LPF (</=FEW) Urine Bacteria Negative /HPF (NONE-FEW) Urine Mucus None /HPF (NONE-FEW) Coagulation Test 11/12/18 16:15 Prothrombin Time 15.5 seconds Prothromb Time International Ratio 1.23 Activated Partial Thromboplast Time 58 seconds Urinalysis Test 11/12/18 17:48 Urine Color Yellow Urine Clarity Clear Urine pH 6.0 pH (4.8-9.5) Urine Specific [place] 1.011 Urine Protein Negative mg/dL (NEGATIVE) Urine Glucose (UA) Negative mg/dL (NEGATIVE) Urine Ketones Negative mg/dL (NEGATIVE) Urine Blood Negative (NEGATIVE) Urine Nitrite Negative (NEGATIVE) Urine Bilirubin Negative (NEGATIVE) Urine Urobilinogen Negative mg/dL (0.2-1.9) Urine Leukocyte Esterase Negative (NEGATIVE) Urine RBC 3 /HPF (0-2/HPF) Urine WBC 1 /HPF (0-5/HPF) Urine Squamous Epithelial Cells Few /LPF (</=FEW) Urine Bacteria Negative /HPF (NONE-FEW) Urine Mucus None /HPF (NONE-FEW) (DANIE RINALDI MD) EKG/Imaging Imaging PATIENT NAME: Deion Kwong : 1935 MR: [id number] V: [id number] EXAM DATE: ORDERING PHYSICIAN: JADEN SIMS TECHNOLOGIST: Location: [facility] [place] Patient: Deion Kwong : 1935 Visit/Account:[id number] Date of Sevice: 11/12/2018 CT ABDOMEN PELVIS W/O CON HISTORY: Abdominal pain, history of metastatic bladder cancer TECHNIQUE: CT abdomen and pelvis without intravenous contrast. Contiguous axial images of the abdomen and pelvis was performed from the lung bases to the symphysis pubis. One of the following dose optimization techniques was utilized in the performance of this exam: Automated exposure control; adjustment of the mA and/or kV according to the patient's size; or use of an iterative reconstruction technique. Specific details can be referenced in the facility's radiology CT exam operational policy. CONTRAST: None. COMPARISON: PET/CT 11/02/2018, diagnostic CT scan 07/06/2018 as well as multiple priors FINDINGS: Visualized lung bases: Numerous metastatic pulmonary nodules are noted at the lung bases overall not grossly changed from recent PET/CT. Index right lower lobe nodule image 37 measures 1.9 x 0.7 cm. Index nodule the left lung base image 27 measures 0.9 x 1 cm. Hepatobiliary: Patient has known hepatic metastases. 2.8 x 2.6 or hypodensity segment 7 of liver image 35 is stable. Subtle hypodensity segment 5/8 image 40 is also noted. Spleen: Negative. Adrenals: Negative. Kidneys/: There is moderately severe left hydronephrosis. Left ureter is dilated to the pelvic brim and may be obstructed by malignant adenopathy. This finding is unchanged. Small nonobstructing stones noted lower pole right kidney measuring 2 mm. Some benign renal cortical cysts are noted. Soft tissue in the prostate bed is stable. Pancreas: Negative. GI: Patient is remarkably constipated. Large stool ball in rectal vault is noted. There is also colonic diverticulosis. Moderate hiatal hernia is noted. Fullness in the anorectal junction is stable. Vessels/spaces/nodes: Metastatic retroperitoneal adenopathy is essentially stable from recent PET/CT. Index aortocaval lymph node image 66 measures 2.7 x 1.2 cm. Index left retroperitoneal lymph node image 68 measures 2.6 x 2 cm. Significant calcified atherosclerotic disease is noted. Bones/soft tissues: Patient has known osseous metastatic disease. Sclerotic lesion in the right inferior pubic ramus is stable. Lytic lesion right acetabulum appears stable. Subtle lesion in the left sacrum are stable. Sclerotic lesion in the L3 vertebral body is stable. There is also bilateral L5 spondylolysis. IMPRESSION: 1. Constipation and potential fecal impaction possibly the source of this patient's pain. 2. Patient has known metastatic bladder cancer overall not grossly changed compared to PET/CT 11/02/2018. Pulmonary nodules, hepatic metastases, osseous metastases and metastatic retroperitoneal adenopathy is stable. 3. Moderately severe left hydronephrosis. The left ureter appears to be obstructed at the pelvic brim possibly due to malignant adenopathy. This finding is also stable. (JADEN SIMS DO) ED Course/Re-evaluation ED Course Patient is an 83-year-old male here with complaints of diffuse abdominal pain which is worse in the suprapubic distribution, constipation, nausea, vomiting. Patient is afebrile, hemodynamically stable time of evaluation. Patient does have a history significant for ventral hernia repairs, bladder cancer. Patient reports that he has been taking suppositories, Senokot without relief of constipation. Labs are stable, CT imaging showed moderate to severe left hydronephrosis, unclear regarding chronicity. I discussed the patient with Dr. Gandhi with urology who will follow. Patient also complains of severe diffuse pain, inability to keep down oral formulations of analgesics. Patient appears fluid down at time of evaluation. Patient also complains of diffuse abdominal pain, neck pain. Patient's son explains that the patient is not controlled with pain medications, is not sleeping and currently they're unable to obtain IV pain formulation due to the patient's current living situation at [facility]. Patient was given IV fluid bolus, mag citrate, zofran, dilaudid for symptom management. I discussed the patient with Dr. Lui who will evaluate the patient. Patient was signed out to Dr. Rinaldi at shift change. Decision to Disposition Date: Nov 12, 2018 Decision to Disposition Time: 18:00 (JADEN SIMS DO) ED Course Patient was evaluated by the hospitalist, Dr. Lui, and accepted for admission. Urology will evaluate as well. 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 Ureteral obstruction, left Condition: Condition Unchanged Disposition: Admitted from ER Referrals: KONRAD HAMMONDS MD (PCP) Marquez Rocha Lidocaine (Lidocaine) 5 % Adh..patch 1 EACH TP QDAY for 9 Days, #5 PATCH Prov: VERONICA GIBBONS DO 11/21/18 Naproxen (NAPROXEN) 500 Mg Tablet 500 MG PO TID for 9 Days, #27 TAB Prov: VERONICA GIBBONS DO 11/21/18 Lorazepam (LORAZEPAM) 0.5 Mg Tablet 0.5 MG PO TIDAC for 9 Days, #27 TAB Prov: BECKY GIBBONSHAN DO 11/21/18 Promethazine Hcl (PROMETHAZINE HCL) 25 Mg Supp.rect 25 MG RC Q8H for 9 Days, #27 SUPP.RECT Prov: VERONICA GIBBONS DO 11/21/18 Lorazepam (LORAZEPAM) 1 Mg Tab 1 MG PO Q4-6H PRN for ANXIETY for 9 Days, #54 TAB Prov: VERONICA GIBBONS DO 11/21/18 Fentanyl 50 Mcg Patch (FENTANYL 50 MCG PATCH) 1 Each Patch.td72 50 MCG TD Q72H for 9 Days, #3 PATCH.72H Prov: VERONICA GIBBONS DO 11/21/18 Docusate Sodium (DOCUSATE SODIUM) 100 Mg Capsule 100 MG PO BID for 30 Days, CAPSULE Prov: VERONICA GIBBONS DO 11/21/18 Ciprofloxacin/Dexamethasone 0.3%-0.1% Otic Mejía (CIPRODEX 0.3%-0.1% OTIC SUSP) 7.5 Ml Soln 0 ML LEFT EAR BID for 8 Days, #1 BOTTLE Prov: VERONICA GIBBONS DO 11/21/18 [Bisacodyl(*) 10 Mg Supp] 10 MG SUPP No Conflict Check 10 MG ND QDAY PRN for CONSTIPATION, SUPP INSERT Prov: VERONICA GIBBONS DO 11/21/18 Problem Qualifiers Primary Impression: Abdominal pain Abdominal location: unspecified location Qualified Codes: R10.9 - Unspecified abdominal pain JADEN SIMS DO Nov 12, 2018 15:45 DANIE RINALDI MD Nov 12, 2018 19:17
[2018-11-12] MEDS ORDERED: NS(*) 0.9% 1000 ML BAG 1,000 ML IV ONE (15:57)
[2018-11-12] MEDS ORDERED: AMOX-559 PO (15:58)
[2018-11-12] MEDS ORDERED: OFLO5DRO41 LEFT EAR (15:58)
[2018-11-12] MEDS ORDERED: HYDROMORPHONE PO (15:58)
[2018-11-12] MEDS ORDERED: ONDANSETRON 4 MG/2 ML VIAL IVP ONE (16:00)
[2018-11-12] MEDS ORDERED: HYDROMORPHONE HCL 1 MG/ML SYRINGE IVP ONE (16:00)
[2018-11-12] MEDS ORDERED: IOPAMIDOL 76% 100 ML INFUS BTL 0 ML ONE (16:22)
[2018-11-12 16:25] LABS: PLATELET COUNT, AUTOMATED 141 K/uL (150-450)
[2018-11-12 16:38] LABS: INR 1.23
--- NOTE | 2018-11-12 17:23 | RADIOLOGY IMAGING REPORT ---
FACILITY: [facility] PATIENT NAME: Deion Kwong : 1935 MR: [id number] V: [id number] EXAM DATE: ORDERING PHYSICIAN: JADEN SIMS TECHNOLOGIST: Location: [facility] [place] Patient: Deion Kwong : 1935 Visit/Account:[id number] Date of Sevice: 11/12/2018 CT ABDOMEN PELVIS W/O CON HISTORY: Abdominal pain, history of metastatic bladder cancer TECHNIQUE: CT abdomen and pelvis without intravenous contrast. Contiguous axial images of the abdom en and pelvis was performed from the lung bases to the symphysis pubis. One of the following dose optimization techniques was utilized in the performance of this exam: Autom ated exposure control; adjustment of the mA and/or kV according to the patient's size; or use of an i terative reconstruction technique. Specific details can be referenced in the facility's radiology C T exam operational policy. CONTRAST: None. COMPARISON: PET/CT 11/02/2018, diagnostic CT scan 07/06/2018 as well as multiple priors FINDINGS: Visualized lung bases: Numerous metastatic pulmonary nodules are noted at the lung bases overall not grossly changed from recent PET/CT. Index right lower lobe nodule image 37 measures 1.9 x 0.7 cm. Index nodule the left lung base image 27 measures 0.9 x 1 cm. Hepatobiliary: Patient has known hepatic metastases. 2.8 x 2.6 or hypodensity segment 7 of liver im age 33 is stable. Subtle hypodensity segment 5/8 image 40 is also noted. Spleen: Negative. Adrenals: Negative. Kidneys/: There is moderately severe left hydronephrosis. Left ureter is dilated to the pelvic br im and may be obstructed by malignant adenopathy. This finding is unchanged. Small nonobstructing s tones noted lower pole right kidney measuring 2 mm. Some benign renal cortical cysts are noted. Soft tissue in the prostate bed is stable. Pancreas: Negative. GI: Patient is remarkably constipated. Large stool ball in rectal vault is noted. There is also co lonic diverticulosis. Moderate hiatal hernia is noted. Fullness in the anorectal junction is stable . Vessels/spaces/nodes: Metastatic retroperitoneal adenopathy is essentially stable from recent PET/CT . Index aortocaval lymph node image 66 measures 2.7 x 1.2 cm. Index left retroperitoneal lymph node im age 66 measures 2.6 x 2 cm. Significant calcified atherosclerotic disease is noted. Bones/soft tissues: Patient has known osseous metastatic disease. Sclerotic lesion in the right inf erior pubic ramus is stable. Lytic lesion right acetabulum appears stable. Subtle lesion in the lef t sacrum are stable. Sclerotic lesion in the L3 vertebral body is stable. There is also bilateral L 5 spondylolysis. IMPRESSION: 1. Constipation and potential fecal impaction possibly the source of this patient's pain. 2. Patient has known metastatic bladder cancer overall not grossly changed compared to PET/CT 019. Pulmonary nodules, hepatic metastases, osseous metastases and metastatic retroperitoneal adenop athy is stable. 3. Moderately severe left hydronephrosis. The left ureter appears to be obstructed at the pelvic br im possibly due to malignant adenopathy. This finding is also stable. Report Dictated By: Canelo Garcia MD at 11/12/2018 5:00 PM Report E-Signed By: Canelo Garcia MD at 11/12/2018 5:19 PM WSN:[email or web address]
[2018-11-12] MEDS ORDERED: MAGNESIUM CITRATE 300 ML BTL PO ONE (17:40)
[2018-11-12] MEDS ORDERED: ONDANSETRON 4 MG/2 ML VIAL IVP PRN (19:20)
[2018-11-12] MEDS ORDERED: MAGNESIUM HYDROXIDE* 30ML UDCP PO PRN (19:20)
[2018-11-12] MEDS ORDERED: BISACODYL 10 MG SUPP PR PRN (19:20)
[2018-11-12] MEDS ORDERED: ACETAMINOPHEN 325 MG TAB PO PRN (19:20)
[2018-11-12] MEDS ORDERED: MORPHINE 10 MG/5 ML UDC PO PRN ×2 (19:20→19:45)
[2018-11-12] MEDS ORDERED: fentaNYL 12 MCG TDSY TD SCH (20:00)
--- NOTE | 2018-11-12 20:10 | History & Physical ---
History of Present Illness History of Present Illness 83yo male with stage IV muscle-invasive transitional cell carcinoma, high grade, with bone metastasis and recent otitis media who was brought to the ER for nausea, vomiting and ear pain. About 4 weeks ago, had a myringotomy tube placed on the left for effusion. About 5 days later, he developed pain in the ear. The pain has progressed and can radiate to the left eye or forehead. He saw Dr. Diehl on 11/12 who started ofloxacin drops and Augmentin. The patient has had difficulty taking the Augmentin secondary to nausea and vomiting. He has had some bloody discharge from the ear since starting the drops. The pain has continued, but he has difficulty keeping his medications down. His last BM was 2 days ago. He was reportedly manually disimpacted about 5 days ago. In the ER, he received 1 liter of crystalloid, Zofran, Magnesium Citrate, and IV Dilaudid. 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 Status: Chronic (5) CVA (cerebral vascular accident) Status: Chronic (6) Hydronephrosis Status: Chronic (7) HTN (hypertension) Status: Chronic (8) CKD (chronic kidney disease) stage 4, GFR 15-29 ml/min Status: Chronic (9) Prostate cancer Status: Chronic Home Meds Active Scripts Sennosides/Docusate Sodium (SENNA LAXATIVE TABLET) 1 Each Tablet, 1 EACH PO QHS for 90 Days, #90 TAB Prov:KONRAD HAMMONDS MD 11/08/18 Ondansetron 4 Mg Odt (ONDANSETRON 4 MG ODT) 4 Mg Tab.rapdis, 4 MG PO Q6H PRN for NAUSEA/VOMITING for 30 Days, #30 TAB 0 Refills Prov:KONRAD HAMMONDS MD 10/24/18 Apixaban (ELIQUIS) 2.5 Mg Tablet, 2.5 MG PO BID for 90 Days, #180 TAB Prov:KONRAD HAMMONDS MD 04/25/18 Reported Medications Ofloxacin (Ofloxacin) 0.3 % Drops 11/12/18 Amoxicillin/Pot Clav 875-125 Mg Tab (AUGMENTIN 875-125 TABLET) 1 Each Tablet, 1 TAB PO Q12H, TAB 11/12/18 [Hydromorphone ] No Conflict Check, 2 MG PO 11/12/18 Discontinued Reported Medications Oxcarbazepine (OXCARBAZEPINE) 300 Mg Tablet, 300 MG PO BID 11/10/18 Oxycodone Hcl (OXYCODONE HCL) 5 Mg Tablet, 5 MG PO 2-3XD PRN for pain 11/08/18 Oxygen (OXYGEN) Inha, 2 L INH, L 08/29/18 Hum Insulin Nph/Reg Insulin Hm (NOVOLIN 70-30 100 UNIT/ML VIAL) 100 Unit/1 Ml Vial, 20 UNIT SQ BID, VIAL Self administers 01/19/18 Levothyroxine Sodium (LEVOTHYROXINE SODIUM) 25 Mcg Tablet, 1 TAB PO QDAY, TAB 09/29/18 Discontinued Scripts Ofloxacin (Ofloxacin) 0.3 % Drops, 4 DROP LEFT EAR BID for 10 Days, #1 BOT Prov:NEVIN DIEHL JR, MD 11/10/18 Amoxicillin/Pot Clav 875-125 Mg Tab (AUGMENTIN 875-125 TABLET) 1 Each Tablet, 1 TAB PO Q12H for 10 Days, #20 TAB Prov:NEVIN DIEHL JR, MD 11/10/18 Nitroglycerin (NITROGLYCERIN) 0.4 Mg Tab.subl, 0.4 MG SL Q5MIN for 30 Days, #10 TAB Keeps in room-Self administers Prov:KONRAD HAMMONDS MD 04/25/18 Metoprolol Tartrate (METOPROLOL TARTRATE) 25 Mg Tablet, 1 TAB PO BID for 90 Days, TAB Prov:KONRAD HAMMONDS MD 04/25/18 Allergies: Coded Allergies: meperidine (Verified Allergy, Severe, 11/12/18) morphine (Verified Allergy, Severe, 11/12/18) Patient History: FH: arthritis BROTHER OR SISTER FH: diabetes mellitus MOTHER, , Age:86 FH: pancreatic cancer FATHER, , Age:61 BROTHER OR SISTER Hx Smoking: Yes (20 YRS) Smoking Status: Former Smoker Caffeine Intake: Soda Caffeine/Cups Per Day: 1 CUP Hx Alcohol Use: Yes Hx Substance Use Disorder: No Review of Systems All Systems Reviewed/Normal: Yes, Except as Noted Exam Vital Signs Vital Signs Date Time Temp Pulse Resp B/P (MAP) Pulse Ox O2 Delivery O2 Flow Rate FiO2 11/12/18 18:30 94 113/66 (82) 99 11/12/18 16:32 2.5 11/12/18 15:44 97.8 16 General Appearance: Alert, Awake, No Acute Distress Neuro: No Gross deficits Eyes: PERRLA ENT: Moist Mucous Membranes, Other (Right TM and canal wnl. Left canal has some blood at the orifice and the blood on the ant TM. Myringotomy tube in place.) Cardiovascular: Regular Rate and Rhythm Respiratory: Clear to Auscultation GI: Abd Soft and Non-Tender Integumentary: No Jaundice, No Cyanosis Medical Decision Making Data Points Result Diagram: 11/12/18 16111/12/18 161 Item Value Date Time Neutrophils (%) (Auto) 72.6 % H 11/12/18 1615 Lymphocytes (%) (Auto) 14.0 % L 11/12/18 1615 Monocytes (%) (Auto) 12.5 % H 11/12/18 1615 Creatinine 1.80 mg/dl H 10/21/18 2315 Creatinine 1.90 mg/dl H 10/26/18 0955 Total Bilirubin 0.2 mg/dl 10/26/18 0955 Aspartate Amino Transf (AST/SGOT) 22 U/L 10/26/18 0955 Alanine Aminotransferase (ALT/SGPT) 12 U/L 10/26/18 0955 Alkaline Phosphatase 143 U/L H 10/26/18 0955 Total Bilirubin 0.5 mg/dl 11/12/18 1615 Aspartate Amino Transf (AST/SGOT) 29 U/L 11/12/18 1615 Alanine Aminotransferase (ALT/SGPT) 37 U/L 11/12/18 1615 Alkaline Phosphatase 181 U/L H 11/12/18 1615 Lactate 1.7 mmol/L 11/12/18 1615 Urine RBC 3 /HPF 11/12/18 1748 Urine WBC 1 /HPF 11/12/18 1748 Urine Bacteria Negative /HPF 11/12/18 1748 Urine Squamous Epithelial Cells Few /LPF 11/12/18 1748 EKG / Imaging Imaging Abd/Pelvis CT - 1. Constipation and potential fecal impaction possibly the source of this patient's pain. 2. Patient has known metastatic bladder cancer overall not grossly changed compared to PET/CT 11/02/2018. Pulmonary nodules, hepatic metastases, osseous metastases and metastatic retroperitoneal adenopathy is stable. 3. Moderately severe left hydronephrosis. The left ureter appears to be obstructed at the pelvic brim possibly due to malignant adenopathy. This finding is also stable. Assessment and Plan Problems: (1) Ear pain Status: Acute Assessment & Plan: He presented with progressive left ear pain. A myringomtomy tube was placed about a month ago and 5 days later started getting progressive pain. He saw Dr. Diehl on 11/12. He reported that the tube wasn't draining and there was a secondary otitis media. Ofloxacin ear drops and Augmentin was started. The patient hasn't been able to keep down the Augmentin or pain medications secondary to nausea and vomiting. There is some blood in the external canal. Will continue ear drops and start Unasyn. (2) Nausea & vomiting Status: Acute Assessment & Plan: Secondary to constipation and possibly Augmentin and/or Dilaudid. Will hydrate and give Phenergan/Zofran prn. (3) Transitional cell bladder cancer Status: Chronic Assessment & Plan: Stage IV muscle-invasive transitional cell carcinoma, high grade, with bone metastasis. The patient and family are considering Hospice care. The patient has much pain related to the metastasis. Will start a Fen tanyl patch at 12.5mcg and use liquid morphine prn. He reports that he was told that he got a rash from morphine, but doesn't remember the details. His allergy list reports a severe reaction, but that doesn't coincide with his report. Will try oral morphine because it could be a very good medication for outpatient treatment. He is a DNR/DNI. (4) Constipation Status: Chronic Assessment & Plan: Secondary to pain medications. He was reportedly manually disimpacted 5 days prior to admission. His last BM was about 2 days ago. He is constipated by CT. He was given a bottle of Mag Citrate in the ER. Will start a bowel regimen. (5) Hydronephrosis Status: Chronic Assessment & Plan: Moderately severe on the left. Dr. Gandhi was notified by the ER and he is reportedly going to see the patient. (6) T2DM (type 2 diabetes mellitus) Status: Chronic Assessment & Plan: Chronically on 70/30 20 units bid. Will hold until eating better. SSI level 1. (7) CKD (chronic kidney disease) stage 4, GFR 15-29 ml/min Status: Chronic Assessment & Plan: Baseline creatinine is 1.6-2.1. His creatinine was 1.6 today. Copies to: KONRAD HAMMONDS MD; EMILI SCHNEIDER MD; NEVIN DIEHL JR, MD ; Venous Thromboembolism Antithrombotics Is Pt On Any Antithrombotics?: Yes Exam Sepsis Risk: No Definite Risk Problem Qualifiers (1) Ear pain: Laterality: left Qualified Codes: H92.02 - Otalgia, left ear ELIUD ORTIZ MD Nov 12, 2018 20:10
[2018-11-12 20:40] VITALS: BP 141/65
[2018-11-12] MEDS: APIXABAN 2.5 MG TABLET PO SCH (21:20)
[2018-11-12] MEDS: NS(*) 0.9% 1000 ML BAG 1,000 ML IV PRN (21:20)
[2018-11-12] MEDS: DOCUSATE SODIUM 100 MG CAP PO SCH (21:20)
[2018-11-12 23:22] VITALS: BP 138/78
[2018-11-12] MEDS: AMPICILLIN IVPB SCH (23:27)
[2018-11-12] MEDS: SULBACT IVPB SCH (23:27)
[2018-11-12] MEDS: [UNRECOGNIZED DRUG - OTHER] IVPB SCH (23:27)
[2018-11-12] MEDS: NS 0.9% IVPB SCH (23:27)
[2018-11-12] MEDS: OFLOXACIN 0.3% OP SOLN 5ML BTL OS SCH (23:28)
[2018-11-12] MEDS: HYDROmorphone HCL 2 MG/ML SDV IVP PRN (23:28)
[2018-11-13 00:05] VITALS: BP 138/70
[2018-11-13] MEDS: HYDROmorphone HCL 2 MG/ML SDV IVP PRN ×3 (03:39→21:23)
[2018-11-13 03:43] VITALS: BP 120/57
[2018-11-13] MEDS: NS 0.9% IVPB SCH (05:36)
[2018-11-13] MEDS: [UNRECOGNIZED DRUG - OTHER] IVPB SCH (05:36)
[2018-11-13] MEDS: AMPICILLIN IVPB SCH (05:36)
[2018-11-13] MEDS: SULBACT IVPB SCH (05:36)
[2018-11-13 06:51] VITALS: BP 120/64
[2018-11-13] MEDS ORDERED: INS HUMAN ISOPH/INS REG 70/30 100 UNIT/ML 3ML VIAL SUBQ SCH (08:00)
[2018-11-13] MEDS: OFLOXACIN 0.3% OP SOLN 5ML BTL OS SCH ×4 (08:46→21:22)
[2018-11-13] MEDS: NS(*) 0.9% 1000 ML BAG 1,000 ML IV PRN ×2 (08:46→20:13)
[2018-11-13] MEDS: APIXABAN 2.5 MG TABLET PO SCH ×2 (08:46→21:23)
[2018-11-13] MEDS: POLYETHYLENE GLYCOL 17 GM PKT PO SCH (08:49)
[2018-11-13] MEDS: DOCUSATE SODIUM 100 MG CAP PO SCH ×3 (08:49→21:23)
--- NOTE | 2018-11-13 10:10 | Antimicrobial Stewardship ---
Antimicrobial Stewardship Empiricly appropriate: Yes (Otitis Media - S/p myrigotomy tubes) Support empiric regimen: Yes (Unasyn 1.5g IV q6h- secondary to inability to hold down oral, adjusted for renal function) Approriate Cultures done: Yes (No cultures obtained) Renal/Hepatic dosing: Yes (Scr =1.6, CrCl ~33ml/min) Determine cumulative duration: 11/13/18- Started Unasyn Determine standard duration: Treatment duration is 10 days total Comment 83 yo M with Stg IV bladder cancer who is s/p myringotomy tube placement. Saw Dr. Garcia and was started on Augmentin 875mg po BID ( which he was not able to keep down) and ofloxacin drops. He is now able to eat and with complaints of dfiffuse abdominal pain and nausea/vomiting. Tmax afebrile WBC wnl Scr 1.6, CrCl ~33ml/min (borderline) UA (-) INR 1.23 Started on Unasyn 1.5g IV q6h, today is day 1 of treatment (was unable to keep any oral doses down last week), was eating breakfast and he kept it down. will switch to oral Augmentin 875mg po BID (borderline) to complete 10 days. Plan to continue topical treatment as well. Anne Rosas, PharmD, BCOP ANNE ROSAS Nov 13, 2018 10:10
--- NOTE | 2018-11-13 10:18 | Hospitalist Progress Note ---
Subjective Progress Notes Subjective This patient was admitted for otitis media. He had no acute events overnight. Patient Complains of: Cardiovascular: No: Chest Pain Respiratory: No: Shortness of Breath Physical Exam Vital Signs Date Time Temp Pulse Resp B/P (MAP) Pulse Ox O2 Delivery O2 Flow Rate FiO2 11/13/18 06:51 98.4 82 16 120/64 (82) 93 Nasal Cannula 3.0 Intake and Output 11/13/18 07:00 Intake Total 1350 ml Balance 1350 ml Intake Oral 150 ml IV Total 1200 ml # Voids 2 # Bowel Movements 1 Cardiovascular: Regular Rate and Rhythm Respiratory: Clear to Auscultation Result Diagram: 11/12/18 1615 11/12/18 1615 Assessment and Plan Problems: (1) Otitis media Assessment & Plan: He presented with progressive left ear pain. A myringomtomy tube was placed about a month ago and 5 days later started getting progressive pain. He saw Dr. Garcia on 11/12, and was started on treatment with Augmentin and ofloxacin drops. He was unable to take the Augmentin secondary to nausea. We did have him on Unasyn, but will switch him back to the oral Augmentin today. (2) Nausea & vomiting Status: Acute Assessment & Plan: Resolved. (3) Transitional cell bladder cancer Status: Chronic Assessment & Plan: Stage IV muscle-invasive transitional cell carcinoma, high g rade, with bone metastasis. The patient and family are considering Hospice care. The patient has much pain related to the metastasis. Will start a Fentanyl patch at 12.5mcg and use liquid morphine prn. He reports that he was told that he got a rash from morphine, but doesn't remember the details. His allergy list reports a severe reaction, but that doesn't coincide with his report. Will try oral morphine because it could be a very good medication for outpatient treatment. He is a DNR/DNI. (4) Constipation Status: Chronic Assessment & Plan: Secondary to pain medications. He was reportedly manually disimpacted 5 days prior to admission. His last BM was about 2 days ago. He is constipated by CT. He was given a bottle of Mag Citrate in the ER. Will start a bowel regimen. (5) Hydronephrosis Status: Chronic Assessment & Plan: Moderately severe on the left. Dr. Gandhi was notified by the ER and he is reportedly going to see the patient. (6) T2DM (type 2 diabetes mellitus) Status: Chronic Assessment & Plan: Chronically on 70/30 20 units bid. Will hold until eating better. SSI level 1. (7) CKD (chronic kidney disease) stage 4, GFR 15-29 ml/min Status: Chronic Assessment & Plan: Baseline creatinine is 1.6-2.1. His creatinine was 1.6 today. Exam Sepsis Risk: No Definite Risk CANDY GREGORIO DO Nov 13, 2018 10:18
[2018-11-13 10:46] VITALS: BP 128/74
[2018-11-13] MEDS ORDERED: MORPHINE 10 MG/5 ML UDC PO PRN (13:20)
--- NOTE | 2018-11-13 14:57 | Medical Nutrition Therapy ---
Nutrition Anthropometrics Height (Inches): 66.00 Height (Calculated Centimeters: 167.257574 Weight (Pounds): 153 Weight (Calculated Kilograms): 69.400 BMI: 24.7 Chun Nutrition Score: Probably Inadequate Chun Nutrition Risk Score: 20 Dietary Referral Nutrition Risk Factors: Unplanned Loss >10lbs Nutrition Risk Comment: nausea R/T cancer Physical Findings Physical Appearance: wnr Skin Appearance Skin Appearance: Edema Edema Location Modifier: Edema Location: Type of Edema: Degree of Edema: Gastrointestinal Symptoms GI Symtoms: Nausea, Constipation Tube Present: Bowel Sounds: Recent Bowel Pattern: Constipated Stool Characteristics: Nutritional Diagnosis Nutritional Risk Acuity 2: V/D > 3 Days Nutritional Risk Acuity 3: Fair Appetite, Weight Loss (4.1% since August 2018), Cancer (Stage 4 , current chemo tx) Past Medical History: Hx of DVT, CABG, HTN, CVM, CAD, anemia, CKD-4 , T2DM, prostate cancer, cellbladder cancer Nutritional Acuity: 2-Moderate Nutrition Diagnosis: Increased Nutrient Needs Nutrition Etiology: Physiological Causes Nutrition Problem/Etiology/Sym: AEB dx Ca with mets, N/ V > 3 days Energy Requirement: 2240 (MSJ X 1.3 SF) Protein Requirement: 90 (1.3 gm/kg) Fluid Requirement: 1735 (25ml/kg) Diet Type: Diet as Tolerated ANKUSH/REG Nutrition Intervention: Cont diet as ordered, Encourage intake, Between meal supplement Additional Diet Restrictions: OFFER NUTR SUPPLMENTS Nutrition Monitoring & Eval Nutrition Goals: Eat 75-100% Meal RD Patient Assessment Time: [address] Assessment Type: RD Assessment Patient Nutrition Acuity: 2-Moderate Follow Up Date: Nov 17, 2018 Nutritional Comment: 10/14 Pt admitted with stage 4 badder Ca, ear pain, and N/V. Pt has hx T2DM. BG ranging 164-204. Pt has dx CKD -4. BUN 34, creatinine 1.6. Pt on ANKUSH. D/t age and condition, recommend cont ANKUSH to provide more choices and to encourage intake. Pt eating 50-100% of small portions. Pt has hx of 4.1% wt loss since august 2018. Will offer nutr supplment to incease kcal and to encourage adequate protein intake. Will cont to monitor and encourage intake. FINA DENSI Nov 13, 2018 14:57
[2018-11-13 16:04] VITALS: BP 146/73
[2018-11-13] MEDS ORDERED: HYDROmorphone HCL 2 MG TAB PO PRN (16:20)
[2018-11-13] MEDS ORDERED: fentaNYL 25 MCG TDSY TD SCH (17:00)
[2018-11-13] MEDS: PATCH REMOVAL 1 EA TP SCH (17:00)
[2018-11-13] MEDS: INSULIN HUM LISPRO 100 UN/ML 3 ML VIAL SUBQ PRN ×2 (17:24→21:24)
[2018-11-13] MEDS: AMOX/CLAV 875 MG TAB PO SCH (17:39)
[2018-11-13 18:42] VITALS: BP 128/62
[2018-11-14 02:03] VITALS: BP 106/73
[2018-11-14 04:50] VITALS: BP 142/55
[2018-11-14] MEDS: NS(*) 0.9% 1000 ML BAG 1,000 ML IV PRN ×2 (06:05→17:41)
[2018-11-14 06:53] VITALS: BP 125/64
[2018-11-14] MEDS ORDERED: MAGNESIUM CITRATE 300 ML BTL PO ONE (07:55)
[2018-11-14] MEDS: AMOX/CLAV 875 MG TAB PO SCH ×2 (08:49→17:39)
[2018-11-14] MEDS: POLYETHYLENE GLYCOL 17 GM PKT PO SCH (09:24)
[2018-11-14] MEDS: OFLOXACIN 0.3% OP SOLN 5ML BTL OS SCH (09:25)
[2018-11-14] MEDS: APIXABAN 2.5 MG TABLET PO SCH ×2 (09:25→21:08)
[2018-11-14] MEDS: DOCUSATE SODIUM 100 MG CAP PO SCH ×2 (09:25→21:08)
--- NOTE | 2018-11-14 09:46 | Hospitalist Progress Note ---
Subjective Progress Notes Subjective He reports only small BM yesterday. Pain in the right ear improving. Physical Exam Vital Signs Date Time Temp Pulse Resp B/P (MAP) Pulse Ox O2 Delivery O2 Flow Rate FiO2 11/14/18 08:18 92 Nasal Cannula 3.0 11/14/18 06:53 98.9 94 20 125/64 (84) Intake and Output 11/14/18 07:00 Intake Total 3510 ml Balance 3510 ml Intake Oral 1510 ml IV Total 2000 ml # Voids 6 # Bowel Movements 1 General Appearance: Alert, Awake, No Acute Distress ENT: Other (Blood in external auditory canal, less blood on TM. Myringotomy tube seen. Some tenderness with exam) GI: Soft and Non-Tender Result Diagram: 11/12/18 1615 11/12/18 1615 Assessment and Plan Problems: (1) Constipation Status: Chronic Assessment & Plan: Secondary to pain medications. He was reportedly manually disimpacted 5 days prior to admission. His last BM was small yesterday. He is constipated by CT. He was just on Senna. Now on MiraLax, docusate and prn MOM/Dulcolax supp. Will give a dose of Mag Citrate and try a soap suds enema. (2) Otitis media Assessment & Plan: He presented with progressive left ear pain. A myringomtomy tube was placed about a month ago and 5 days later started getting progressive pain. He saw Dr. Garcia on 11/12, and was started on treatment with Augmentin and ofloxacin drops. He was unable to take the Augmentin secondary to nausea. We did have him on Unasyn, but will switch him back to the oral Augmentin which he is tolerating. Afebrile. Less blood on TM by exam. Dr. Garcia is aware the patient is in the hospital. (3) Nausea & vomiting Status: Acute Assessment & Plan: Resolved. (4) Transitional cell bladder cancer Status: Chronic Assessment & Plan: Stage IV muscle-invasive transitional cell carcinoma, high grade, with bone metastasis. The patient and family are considering Hospice care. The patient has much pain related to the metastasis. Start a Fentanyl patch at 12.5mcg (now at 25mcg) and using liquid morphine prn. He reports that he was told that he got a rash from morphine, but doesn't remember the details. His allergy list reports a severe reaction, but that doesn't coincide with his report. No problems with rash, so far. He is a DNR/DNI. (5) Hydronephrosis Status: Chronic Assessment & Plan: Moderately severe on the left. Dr. Gandhi was notified by the ER and he is going to see the patient. (6) T2DM (type 2 diabetes mellitus) Status: Chronic Assessment & Plan: Chronically on 70/30 20 units bid. Will hold until eating b du. SSI level 1. (7) CKD (chronic kidney disease) stage 4, GFR 15-29 ml/min Status: Chronic Assessment & Plan: Baseline creatinine is 1.6-2.1. His creatinine was 1.6 on admission. Exam Sepsis Risk: No Definite Risk ELIUD ORTIZ MD Nov 14, 2018 09:46
[2018-11-14] MEDS: PROMETHAZINE 25 MG/ML 1 ML AMP IVP PRN ×2 (10:56→21:08)
[2018-11-14 11:23] VITALS: BP 146/70
[2018-11-14] MEDS: HYDROmorphone HCL 2 MG/ML SDV IVP PRN ×3 (11:34→22:50)
[2018-11-14] MEDS: INSULIN HUM LISPRO 100 UN/ML 3 ML VIAL SUBQ PRN ×3 (11:41→21:13)
[2018-11-14 15:26] VITALS: BP 117/67
[2018-11-14] MEDS: CIPROFLOXACIN /DEX OP 7.5 ML BTL LEFT EAR SCH (21:09)
[2018-11-14 22:35] VITALS: BP 158/71
[2018-11-14] MEDS ORDERED: NALOXONE HCL 0.4 MG/ML VIAL IVP ONE (23:50)
[2018-11-15] MEDS: PATCH REMOVAL 1 EA TP SCH (00:03)
--- NOTE | 2018-11-15 00:03 | NUR ---
Removed patch from right upper arm due to patient lethargy, VO from provider to remove, TIMOTHY RN
[2018-11-15] MEDS ORDERED: HYDROmorphone HCL 2 MG/ML SDV IVP PRN (00:20)
--- NOTE | 2018-11-15 00:54 | Miscellaneous Provider Note ---
Miscellaneous Provider Note Note The patient was given 2mg of oral Dilaudid at 2133 and then 2mg of IV Dilaudid at 2250. A little while later he started dropping his O2 saturations. He was very lethargic. He apparently was going down below 70% for a couple of minutes and this occurred a number of times over the course of about 45 minutes. Finall y, the patient required a jaw thrust to help keep his airway open. Then, I was notified. The Fentanyl patch was removed and BIPAP was started. After the initiation of BIPAP, his O2 saturations have remained >90%. BP has been wnl throughout the event. His heart rate was in the 120's and now is 116-117. He is taking in volumes of about 300-350cc and breathing at a rate of about 16. He is still very lethargic. Will continue current treatment for now, but might need to give Narcan for any decompensation. The goal of his care is comfort, so am hesitant to get to aggressive with reversal of pain medications. Will follow closely. ELIUD ORTIZ MD Nov 15, 2018 00:54
[2018-11-15 02:50] VITALS: BP 117/60
[2018-11-15 06:53] VITALS: BP 115/62
--- NOTE | 2018-11-15 07:11 | ENT Progress Note ---
Subjective Progress Notes Subjective We were asked by Dr. Lui to see Mr. Kwong because of bloody drainage coming out of the left ear, despite using Ofloxin otic drops. Mr. Kwong had a tube placed about a month ago by Dr. Kramer at the [place]. No other ENT concerns. Physical Exam Vital Signs Date Time Temp Pulse Resp B/P (MAP) Pulse Ox O2 Delivery O2 Flow Rate FiO2 11/15/18 06:53 98.2 95 16 115/62 (79) 95 Nasal Cannula 11/15/18 05:11 4.0 11/15/18 04:45 50.0 Intake and Output 11/15/18 07:00 Intake Total 1896 ml Output Total 300 ml Balance 1596 ml Intake Oral 966 ml IV Total 930 ml Output Emesis 300 ml # Voids 4 # Bowel Movements 4 # Emeses 1 General Appearance: Alert ENT: External Auditory Canals Clear, External Auditory Canals (Left TM shows tube intact with a small amount of bloody drainage. ) Result Diagram: 11/12/18 1615 11/12/18 1615 Assessment and Plan Problems: (1) Otitis media ENT Procedure Procedure Start Ciprodex otic drops--4 drops bid. I did administer the first dosing and he says it felt better already. Let us know if this does not fix the problem. IMAN PISANO PA-C Nov 15, 2018 07:11
[2018-11-15] MEDS: AMOX/CLAV 875 MG TAB PO SCH ×2 (08:30→16:35)
[2018-11-15] MEDS: DOCUSATE SODIUM 100 MG CAP PO SCH ×2 (08:30→20:52)
[2018-11-15] MEDS: CIPROFLOXACIN /DEX OP 7.5 ML BTL LEFT EAR SCH ×2 (08:31→20:53)
[2018-11-15] MEDS: APIXABAN 2.5 MG TABLET PO SCH ×2 (08:33→20:52)
[2018-11-15] MEDS: POLYETHYLENE GLYCOL 17 GM PKT PO SCH (08:33)
[2018-11-15] MEDS ORDERED: HYDROmorphone HCL 2 MG TAB PO PRN (08:35)
--- NOTE | 2018-11-15 09:38 | Hospitalist Progress Note ---
Subjective Progress Notes Subjective He reports better pain control, but had significant sedation last evening which required reduction of narcotics. Physical Exam Vital Signs Date Time Temp Pulse Resp B/P (MAP) Pulse Ox O2 Delivery O2 Flow Rate FiO2 11/15/18 06:53 98.2 95 16 115/62 (79) 95 Nasal Cannula 11/15/18 05:11 4.0 11/15/18 04:45 50.0 Intake and Output 11/15/18 07:00 Intake Total 1896 ml Output Total 300 ml Balance 1596 ml Intake Oral 966 ml IV Total 930 ml Output Emesis 300 ml # Voids 4 # Bowel Movements 4 # Emeses 1 General Appearance: Alert, Awake ENT: Other (left external canal packed currently) Cardiovascular: Regular Rate and Rhythm Respiratory: Clear to Auscultation GI: Other (soft/BS present) Extremities: Warm, Perfused Psych: Alert & Oriented X3 Result Diagram: 11/12/18 1615 11/12/18 1615 Assessment and Plan Problems: (1) Constipation Status: Chronic Assessment & Plan: Now improved. Secondary to pain medications. He was reportedly manually disimpacted 5 days prior to admission. He was constipated by CT. He was just on Senna. Now on Miralax, docusate and prn MOM/Dulcolax supp. (2) Otitis media Assessment & Plan: Now improved. He presented with progressive left ear pain. A myringotomy tube was placed about a month ago and 5 days later started getting progressive pain. He saw Dr. Garcia on 11/12/18 and was started on treatment with Augmentin and ofloxacin drops. He was unable to take the Augmentin secondary to nausea. We did have him on Unasyn, but did switch him back to the oral Augmentin which he is now tolerating. Afebrile. Dr. Garcia is aware the patient is in the hospital. (3) Nausea & vomiting Status: Acute Assessment & Plan: Resolved. (4) Transitional cell bladder cancer Status: Chronic Assessment & Plan: Stage IV muscle-invasive transitional cell carcinoma, high grade, with bone metastasis. The patient and family are considering Hospice care - they will be meeting tomorrow. The patient has had significant pain related to the metastasis. Unfortunately, he had significant sedation with the increased pain regimen. We will now have him on Dilaudid 2-4mg PO q4hrs PRN pain and Dilaudid 0.5-1mg IV q4hrs PRN pain not controlled by oral medication. Watch closely. He is a DNR/DNI. (5) Hydronephrosis Status: Chronic Assessment & Plan: Moderately severe on the left. Dr. Gandhi was notified by the ER and he is going to see the patient. (6) T2DM (type 2 diabetes mellitus) Status: Chronic Assessment & Plan: Chronically on 70/30 20 units bid. Will hold until eating better. SSI level 1. (7) CKD (chronic kidney disease) stage 4, GFR 15-29 ml/min Status: Chronic Assessment & Plan: Baseline creatinine is 1.6-2.1. His creatinine was 1.6 on admission. Exam Sepsis Risk: No Definite Risk ANNA HERNANDEZ MD Nov 15, 2018 09:38
[2018-11-15] MEDS ORDERED: fentaNYL 25 MCG TDSY TD SCH (10:00)
[2018-11-15 11:01] VITALS: BP 148/75
[2018-11-15] MEDS: INSULIN HUM LISPRO 100 UN/ML 3 ML VIAL SUBQ PRN ×3 (11:06→21:23)
--- NOTE | 2018-11-15 14:09 | CONSULTATION ---
HISTORY OF PRESENT ILLNESS This is an 83-year-old white male whom I was asked to see by Dr. Kelley from the emergency room and Dr. Lui the hospitalist. The patient presents with a problem with diffuse metastatic disease probably from transitional cell carcinoma of the bladder. 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 He had a left nephrostomy tube placed for his left ureteral obstruction. He had his chemotherapy and radiation and did well and subsequent had his stent removed approximately 5 months later. In follow up of June 2018, CT IVP showed resolution of the left ureteral pelvocaliectasis. The patient was doing well and was informed that he probably had a cure. Subsequently, the patient has known metastasis and diagnosed on his most recent visits in November and October of 2018. Lungs show evidence of metastatic disease. His liver shows metastatic disease. He has retroperitoneal adenopathy. He has bony lesions including the legs and the spine. The patient was admitted for therapy for probable pain from his metastatic disease. He has been treated with a fentanyl patch. The patient is a known diabetic. He has had TIAs and carotid endarterectomy in the past. The patient had radical retropubic prostatectomy approximately 21 years ago. When seen in September 2017, the patient's PSA had reportedly gone up to 18 and he had been treated with Lupron and Casodex therapy by Dr. Sahu at the [facility] in [place]. The patient has discontinued his Lupron and Casodex therapy. Current PSA is 0.27. Options were rediscussed with the patient, pretty much as they were in 2018. I explained the possibility of pass of a stent below, but probably would be unsuccessful and the patient would again need the percutaneous placement of a antegrade ureteral stent placement versus a percutaneous if unable to place the stent down the ureter as they were unable to a little over a year ago. Considering the patient states that he has discussed this with his sons and family and is not real sure whether he wants to continue any more interventional type therapy such as chemotherapy and/or radiation or what the Oncologist/Radiologist recommends. The patient has not seen Dr. Powers yet. The patient has been informed that he probably has 6 months of life remaining if untreated. IMPRESSION 1. 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 2. Left ureteral obstruction probably secondary to extensive lymphadenopathy and metastatic retroperitoneal disease. RECOMMENDATIONS As noted in the body of the report, cystoscopy and renal pyelograms with possible stent placement versus radiology intervention with percutaneous placement of a ureteral stent versus nephrostomy. That is my clinical impression and if he decides to have interventional therapy with the radiologist and wants improved kidney function at tests prior to instituting chemotherapy, he will probably need to have drainage of the left kidney to improve his overall renal function status. Current GFR is 41. Thank you for letting me consult with your patient. It is sincerely appreciated. MTDD
[2018-11-15 15:36] VITALS: BP 144/70
[2018-11-15] MEDS: HYDROmorphone HCL 2 MG/ML SDV IVP PRN ×2 (16:35→21:21)
[2018-11-15 19:35] VITALS: BP 148/75
[2018-11-15] MEDS: NS(*) 0.9% 1000 ML BAG 1,000 ML IV PRN (19:45)
[2018-11-16] MEDS: PROMETHAZINE 25 MG/ML 1 ML AMP IVP PRN ×3 (01:27→19:26)
[2018-11-16] MEDS: HYDROmorphone HCL 2 MG/ML SDV IVP PRN (02:20)
[2018-11-16 03:17] VITALS: BP 144/75
[2018-11-16] MEDS: NS(*) 0.9% 1000 ML BAG 1,000 ML IV PRN (04:51)
[2018-11-16 06:56] VITALS: BP 154/76
[2018-11-16] MEDS: INSULIN HUM LISPRO 100 UN/ML 3 ML VIAL SUBQ PRN ×4 (07:48→21:29)
[2018-11-16] MEDS: AMOX/CLAV 875 MG TAB PO SCH ×2 (08:24→17:04)
[2018-11-16] MEDS: CIPROFLOXACIN /DEX OP 7.5 ML BTL LEFT EAR SCH ×2 (08:24→21:30)
[2018-11-16] MEDS: APIXABAN 2.5 MG TABLET PO SCH ×2 (08:24→21:30)
[2018-11-16] MEDS: POLYETHYLENE GLYCOL 17 GM PKT PO SCH (08:24)
[2018-11-16] MEDS: DOCUSATE SODIUM 100 MG CAP PO SCH ×2 (08:24→21:00)
[2018-11-16] MEDS ORDERED: INFLUENZA VIRUS VAC 0.5ML SYR IM ONLY ONE (09:00)
[2018-11-16] MEDS ORDERED: HYDR2TAB74 PO (10:10)
--- NOTE | 2018-11-16 10:22 | Hospitalist Progress Note ---
Subjective Progress Notes Subjective He reports increased pain this morning. He wants to have increased pain medications. He feels the Dilaudid is giving him headaches. Patient Complains of: Cardiovascular: No: Chest Pain Respiratory: No: Shortness of Breath Physical Exam Vital Signs Date Time Temp Pulse Resp B/P (MAP) Pulse Ox O2 Delivery O2 Flow Rate FiO2 11/16/18 07:46 94 Nasal Cannula 5.0 11/16/18 06:56 98.3 95 16 154/76 (102) 11/15/18 04:45 50.0 Intake and Output 11/16/18 07:00 Intake Total 2720 ml Balance 2720 ml Intake Oral 720 ml IV Total 2000 ml # Voids 5 # Bowel Movements 2 General Appearance: Alert, Awake, No Acute Distress, Afebrile Neuro: No Gross deficits Cardiovascular: Regular Rate and Rhythm Respiratory: No Respiratory Distress, Clear to Auscultation Psych: Alert & Oriented X3, Appropriate Mood & Affect Result Diagram: 11/12/18 1615 11/12/18 1615 Assessment and Plan Problems: (1) Constipation Status: Chronic Assessment & Plan: Now improved. Secondary to pain medications. He was reportedly manually disimpacted 5 days prior to admission. He was constipated by CT. He was just on Senna. Now on Miralax, docusate and prn MOM/Dulcolax supp. He is improved with soap suds enema. (2) Otitis media Assessment & Plan: Now improved. He presented with progressive left ear pain. A myringotomy tube was placed about a month ago and 5 days later started getting progressive pain. He saw Dr. Garcia on 11/12/18 and was started on treatment with Augmentin and ofloxacin drops. He was unable to take the Augmentin secondary to nausea. We did have him on Unasyn, but did switch him back to the oral Augmentin which he is now tolerating. Afebrile. Dr. Garcia is aware the patient is in the hospital. (3) Nausea & vomiting Status: Acute Assessment & Plan: Resolved. (4) Transitional cell bladder cancer Status: Chronic Assessment & Plan: Stage IV muscle-invasive transitional cell carcinoma, high grade, with bone metastasis. The patient and family are considering Hospice care - they will be meeting today. The patient has had significant pain related to the metastasis. Unfortunately, he had significant sedation with the increased pain regimen. We will now have him on Dilaudid 0.5-1mg IV q4hrs PRN pain not controlled by oral medication. Watch closely. He is a DNR/DNI. Will try schedu led Tylenol to help with pain. (5) Hydronephrosis Status: Chronic Assessment & Plan: Moderately severe on the left. Dr. Gandhi was notified by the ER and he is going to see the patient. (6) T2DM (type 2 diabetes mellitus) Status: Chronic Assessment & Plan: Chronically on 70/30 20 units bid. Will hold until eating better. SSI level 1. (7) CKD (chronic kidney disease) stage 4, GFR 15-29 ml/min Status: Chronic Assessment & Plan: Baseline creatinine is 1.6-2.1. His creatinine was 1.6 on admission. Exam Sepsis Risk: No Definite Risk GISSELL ANDERSEN MYCOLOGY TEACHER Nov 16, 2018 10:22
[2018-11-16] MEDS: ACETAMINOPHEN 500 MG TAB PO SCH ×2 (13:25→21:29)
[2018-11-16 19:01] VITALS: BP 184/96
[2018-11-16 19:31] VITALS: BP 176/72
[2018-11-17 03:57] VITALS: BP 174/99
[2018-11-17] MEDS: PROMETHAZINE 25 MG/ML 1 ML AMP IVP PRN ×3 (04:20→21:18)
[2018-11-17] MEDS: ACETAMINOPHEN 500 MG TAB PO SCH ×2 (06:00→14:00)
[2018-11-17] MEDS: HYDROmorphone HCL 2 MG/ML SDV IVP PRN (06:01)
[2018-11-17 06:43] VITALS: BP 150/78
[2018-11-17] MEDS ORDERED: fentaNYL 12 MCG TDSY TD SCH (09:00)
[2018-11-17] MEDS ORDERED: FENTANYL TOP SCH (09:00)
[2018-11-17] MEDS ORDERED: TDSY TOP SCH (09:00)
[2018-11-17] MEDS ORDERED: PATCH REMOVAL 1 EA TP ONE (09:00)
[2018-11-17] MEDS: APIXABAN 2.5 MG TABLET PO SCH ×2 (09:04→21:00)
[2018-11-17] MEDS: DOCUSATE SODIUM 100 MG CAP PO SCH ×2 (09:04→21:00)
[2018-11-17] MEDS: AMOX/CLAV 875 MG TAB PO SCH (09:04)
[2018-11-17] MEDS: POLYETHYLENE GLYCOL 17 GM PKT PO SCH (09:05)
[2018-11-17] MEDS: CIPROFLOXACIN /DEX OP 7.5 ML BTL LEFT EAR SCH ×2 (09:09→21:18)
[2018-11-17] MEDS: INSULIN HUM LISPRO 100 UN/ML 3 ML VIAL SUBQ PRN (09:09)
[2018-11-17] MEDS: LORazepam 2 MG/ML VIAL IVP PRN ×2 (09:47→16:39)
--- NOTE | 2018-11-17 10:29 | Hospitalist Progress Note ---
Subjective Progress Notes Subjective He reports pain control was "better yesterday, but got worse through the night". Some nausea with IV Dilaudid. Physical Exam Vital Signs Date Time Temp Pulse Resp B/P (MAP) Pulse Ox O2 Delivery O2 Flow Rate FiO2 11/17/18 06:43 98.3 100 16 150/78 (102) 94 Nasal Cannula 5.0 11/15/18 04:45 50.0 Intake and Output 11/17/18 07:01 Intake Total 230 ml Output Total 1050 ml Balance -820 ml Intake Oral 230 ml Output Emesis 1050 ml # Voids 6 # Bowel Movements 3 # Emeses 4 General Appearance: Alert, Awake Cardiovascular: Regular Rate and Rhythm Respiratory: Clear to Auscultation GI: Other (Soft/BS present) Extremities: Warm, Perfused Assessment and Plan Problems: (1) Transitional cell bladder cancer Status: Chronic Assessment & Plan: Stage IV muscle-invasive transitional cell carcinoma, high grade, with bone metastasis. The patient and family are considering Hospice care - they are hoping he can return to [facility] with Hospice. The patient has had significant pain related to the metastasis. Unfort unately, he had significant sedation and possibly nausea with the increased pain regimen. We will now have him on Fentanyl patch 37mcg (25mcg + 12mcg patches) q72hrs and use fentanyl 25-50mcg IV q2hrs prn breakthrough pain. Will also try Ativan 0.5mg IV q4hrs prn anxiety/nausea. Watch closely. He is a DNR/DNI. (2) Constipation Status: Chronic Assessment & Plan: Now improved. Secondary to pain medications. He was reportedly manually disimpacted 5 days prior to admission. He was found to be constipated on CT. He was previously just on Senna. He is now on Miralax, do cusate and prn MOM/Dulcolax suppository. He has been having fairly frequent soft stools. Will watch and modify regimen as needed. (3) Otitis media Assessment & Plan: Now improved. He presented with progressive left ear pain. A myringotomy tube was placed about a month ago and 5 days later started getting progressive pain. He saw Dr. Garcia on 11/12/18 and was started on treatment with Augmentin and ofloxacin drops. He was unable to take the Augmentin secondary to nausea. We did have him on Unasyn, but did switch him back to the oral Augmentin which he is now tolerating. (4) Nausea & vomiting Status: Acute Assessment & Plan: Intermittent. Possibly exacerbated by the Dilaudid. Will see if can get better control. (5) Hydronephrosis Status: Chronic Assessment & Plan: Moderately severe on the left. Most likely due to metastatic disease. Dr. Gandhi was notified by the ER and he is going to see the patient. (6) T2DM (type 2 diabetes mellitus) Status: Chronic Assessment & Plan: Chronically on 70/30 20 units bid. We are currently holding until eating better. SSI level 1. (7) CKD (chronic kidney disease) stage 4, GFR 15-29 ml/min Status: Chronic Assessment & Plan: Baseline creatinine is 1.6-2.1. His creatinine was 1.6 on admission. Exam Sepsis Risk: No Definite Risk ANNA HERNANDEZ MD Nov 17, 2018 10:28
--- NOTE | 2018-11-17 10:45 | Medical Nutrition Therapy ---
Nutrition Anthropometrics Height (Inches): 66.00 Height (Calculated Centimeters: 167.836621 Weight (Pounds): 153 Weight (Calculated Kilograms): 69.400 BMI: 24.7 Chun Nutrition Score: Probably Inadequate Chun Nutrition Risk Score: 19 Dietary Referral Nutrition Risk Factors: Unplanned Loss >10lbs Nutrition Risk Comment: nausea R/T cancer Physical Findings Physical Appearance: wnr Skin Appearance Skin Appearance: Edema Edema Location Modifier: Both Edema Location: Lower Extremity Type of Edema: Degree of Edema: Gastrointestinal Symptoms GI Symtoms: Nausea Tube Present: Bowel Sounds: Recent Bowel Pattern: Constipated Stool Characteristics: Nutrition/Food History N/V, Constipation Poor Nutritional Diagnosis Nutritional Risk Acuity 2: V/D > 3 Days Nutritional Risk Acuity 3: Fair Appetite, Weight Loss (4.1% since August 2018), Cancer (Stage 4 , current chemo tx) Past Medical History: Hx of DVT, CABG, HTN, CVM, CAD, anemia, CKD-4 , T2DM, prostate cancer, cellbladder cancer Nutritional Acuity: 2-Moderate Nutrition Diagnosis: Increased Nutrient Needs Nutrition Etiology: Physiological Causes Nutrition Problem/Etiology/Sym: AEB dx Ca with mets, N/ V > 3 days Energy Requirement: 2240 (MSJ X 1.3 SF) Protein Requirement: 90 (1.3 gm/kg) Fluid Requirement: 1735 (25ml/kg) Diet Type: Diet as Tolerated ANKUSH/REG Nutrition Intervention: Cont diet as ordered, Encourage intake, Between meal supplement, Obtain Height and Weight Food Dislikes: mighty shake Additional Diet Restrictions: OFFER SF NUTR SUPPLMENT Diet Comment To RSA: Please deliver crackers and cheese at 1400 every day. Allow pt to order supplements prn. Nutrition Monitoring & Eval Nutrition Goals: Eat 90-100% Meal Nutrition Follow-Up: Fair Intake Nutrition Monitoring: Monitor intake, actual weight. RD Patient Assessment Time: [address] Assessment Type: RD Assessment Patient Nutrition Acuity: 2-Moderate Follow Up Date: Nov 22, 2018 Nutritional Comment: 10/14 Pt admitted with stage 4 badder Ca, ear pain, and N/V. Pt has hx T2DM. BG ranging 164-204. Pt has dx CKD -4. BUN 34, creatinine 1.6. Pt on ANKUSH. D/t age and condition, recommend cont ANKUSH to provide more choices and to encourage intake. Pt eating 50-100% of small portions. Pt has hx of 4.1% wt loss since august 2018. Will offer nutr supplment to incease kcal and to encourage adequate protein intake. Will cont to monitor and encourage intake. BK 11/17/18-Pt experiencing significant nausea. Pt given IV phenergan. Renal labs wnl given CKD. BG averaging 196 over past 3 days. Noted possible discussion of hospice. Discussed avoiding empty stomach and trying snacks between meals. Added snack at 1000 and 1400. Will continue to monitor and encourage intake.PATRICK MAIER Nov 17, 2018 10:45
--- NOTE | 2018-11-17 12:54 | ENT Progress Note ---
Subjective Progress Notes Subjective Patient reports improving left ear pain. No otorrhea. Physical Exam Vital Signs Date Time Temp Pulse Resp B/P (MAP) Pulse Ox O2 Delivery O2 Flow Rate FiO2 11/17/18 10:20 84 11/17/18 09:58 Nasal Cannula 4.0 11/17/18 06:43 98.3 100 16 150/78 (102) 11/15/18 04:45 50.0 Intake and Output 11/17/18 07:01 Intake Total 230 ml Output Total 1050 ml Balance -820 ml Intake Oral 230 ml Output Emesis 1050 ml # Voids 6 # Bowel Movements 3 # Emeses 4 General Appearance: Alert, Awake, No Acute Distress ENT: Other (left canal clear, PE tube intact and clear, no effusion) Assessment and Plan Problems: (1) Otitis media Status: Acute Assessment & Plan: Patient with interval clearing of his PE tube. No middle ear effusion. Complete full 2 week course of Ciprodex. Please send patient home with this as not covered as outpatient by Medicare. Patient may follow up with me or ENT at OR for tube check in 6 months. Time Spent: < 30 min Problem Qualifiers (1) Otitis media: Otitis media type: suppurative Chronicity: acute Laterality: left Recurrence: non-recurrent Spontaneous tympanic membrane rupture: without spontaneous rupture Qualified Codes: H66.002 - Acute suppurative otitis media without spontaneous rupture of ear drum, left ear SHANITA RHODES,NEVIN Rea MD Nov 17, 2018 12:54
[2018-11-17 15:20] VITALS: BP 180/96
[2018-11-17] MEDS: AMPICILLIN/SULBACT (*) 3 GM VL 3 GM in NS(*) 0.9% 100 ML MINI-BAG 100 ML IVPB SCH (18:35)
[2018-11-17 18:36] VITALS: BP 170/60
--- NOTE | 2018-11-17 19:43 | NUR ---
Pt has verbally stated that if he stops breathing he does not want any invasive measures done. He does not want to wear BiPAP or anything to reverse an imminent . Addendum: 11/17/18 at 1946 by CHERIE CISNEROS RN Pt is A&Ox4 at this time.
[2018-11-17] MEDS: ACETAMINOPHEN(*)1000 MG/100 ML 100 ML IVPB PRN (23:39)
[2018-11-18] MEDS: AMPICILLIN/SULBACT (*) 3 GM VL 3 GM in NS(*) 0.9% 100 ML MINI-BAG 100 ML IVPB SCH ×4 (00:01→17:51)
[2018-11-18] MEDS: ACETAMINOPHEN(*)1000 MG/100 ML 100 ML IVPB PRN ×2 (05:32→18:30)
[2018-11-18 06:45] VITALS: BP 175/85
--- NOTE | 2018-11-18 08:45 | Hospitalist Progress Note ---
Subjective Progress Notes Subjective 83M admitted for pain control, constipation related to stage 4 bladder Ca. SVETLANA overnight, pain and nausea well controlled. Patient Complains of: Respiratory: No: Cough Gastrointestinal: Nausea (improved); No Vomiting Physical Exam Vital Signs Date Time Temp Pulse Resp B/P (MAP) Pulse Ox O2 Delivery O2 Flow Rate FiO2 11/18/18 06:45 98.3 98 14 175/85 (115) 95 Nasal Cannula 2.0 11/15/18 04:45 50.0 Intake and Output 11/18/18 07:01 Intake Total 450 ml Output Total 600 ml Balance -150 ml Intake Oral 50 ml IV Total 400 ml Output Emesis 600 ml # Voids 4 # Emeses 5 General Appearance: Alert, Awake, No Acute Distress, Afebrile Neuro: No Gross deficits Cardiovascular: Normal Rhythm & Peripheral Pulses Respiratory: No Respiratory Distress GI: Soft and Non-Tender (+ BS) Assessment and Plan Problems: (1) Transitional cell bladder cancer Status: Chronic Assessment & Plan: Stage IV muscle-invasive transitional cell carcinoma, high grade, with bone metastasis. The patient and family are considering Hospice care - they are hoping he can return to [facility] with Hospice. The patient has had significant pain related to the metastasis. Unfortunately, he had significant sedation and possibly nausea with the increased pain regimen. We will now have him on Fentanyl patch 37mcg (25mcg + 12mcg patches) q72hrs and use fentanyl 25-50mcg IV q2hrs prn breakthrough pain. Will also try Ativan 0.5mg IV q4hrs prn anxiety/nausea. Watch closely. He is a DNR/DNI. (2) Constipation Status: Chronic Assessment & Plan: Now improved. Secondary to pain medications. He was reportedly manually disimpacted 5 days prior to admission. He was found to be constipated on CT. He was previously just on Senna. He is now on Miralax, docusate and prn MOM/Dulcolax suppository. He has been having fairly frequent soft stools. Will watch and modify regimen as needed. (3) Otitis media Status: Acute Assessment & Plan: Now improved. He presented with progressive left ear pain. A myringotomy tube was placed about a month ago and 5 days later started getting progressive pain. He saw Dr. Garcia on 6/9/19 and was started on treatment with Augmentin and ofloxacin drops. He was unable to take the Augmentin secondary to nausea. We did have him on Unasyn, but did switch him back to the oral Augmentin which he is now tolerating. (4) Nausea & vomiting Status: Acute Assessment & Plan: Improved, Possibly exacerbated by the Dilaudid. Continue PRN Ativan (5) Hydronephrosis Status: Chronic Assessment & Plan: Moderately severe on the left. Most likely due to metastatic disease. Dr. Gandhi was notified by the ER and he is going to see the patient. (6) T2DM (type 2 diabetes mellitus) Status: Chronic Assessment & Plan: Chronically on 70/30 20 units bid. We are currently holding until eating better. SSI level 1. (7) CKD (chronic kidney disease) stage 4, GFR 15-29 ml/min Status: Chronic Assessment & Plan: Baseline creatinine is 1.6-2.1. His creatinine was 1.6 on admission. Exam Sepsis Risk: No Definite Risk Problem Qualifiers (1) Otitis media: Otitis media type: suppurative Chronicity: acute Laterality: left Recurrence: non-recurrent Spontaneous tympanic membrane rupture: without spontaneous rupture Qualified Codes: H66.002 - Acute suppurative otitis media without spontaneous rupture of ear drum, left ear VERONICA GIBBONS DO Nov 18, 2018 08:45
[2018-11-18] MEDS: POLYETHYLENE GLYCOL 17 GM PKT PO SCH (09:00)
[2018-11-18] MEDS: CIPROFLOXACIN /DEX OP 7.5 ML BTL LEFT EAR SCH ×2 (09:02→20:36)
[2018-11-18] MEDS: DOCUSATE SODIUM 100 MG CAP PO SCH ×2 (09:02→20:36)
[2018-11-18] MEDS: APIXABAN 2.5 MG TABLET PO SCH ×2 (09:02→20:36)
[2018-11-18] MEDS ORDERED: fentaNYL 25 MCG TDSY TD SCH (10:00)
[2018-11-18 19:40] VITALS: BP 170/87
[2018-11-19] MEDS: AMPICILLIN/SULBACT (*) 3 GM VL 3 GM in NS(*) 0.9% 100 ML MINI-BAG 100 ML IVPB SCH ×4 (00:09→18:09)
[2018-11-19 03:27] VITALS: BP 162/78
[2018-11-19] MEDS: ACETAMINOPHEN(*)1000 MG/100 ML 100 ML IVPB PRN ×2 (03:36→09:38)
[2018-11-19 06:48] VITALS: BP 185/88
[2018-11-19] MEDS: PROMETHAZINE 25 MG/ML 1 ML AMP IVP PRN ×2 (07:22→18:13)
[2018-11-19] MEDS: DOCUSATE SODIUM 100 MG CAP PO SCH ×2 (08:41→21:37)
[2018-11-19] MEDS: APIXABAN 2.5 MG TABLET PO SCH ×2 (08:41→21:37)
[2018-11-19] MEDS: CIPROFLOXACIN /DEX OP 7.5 ML BTL LEFT EAR SCH ×2 (08:42→21:37)
[2018-11-19] MEDS: POLYETHYLENE GLYCOL 17 GM PKT PO SCH (08:46)
--- NOTE | 2018-11-19 09:27 | Hospitalist Progress Note ---
Subjective Progress Notes Subjective The patient is having pain in his right knee where he has bony mets. Tylenol has been helping when needed. Physical Exam Vital Signs Date Time Temp Pulse Resp B/P (MAP) Pulse Ox O2 Delivery O2 Flow Rate FiO2 11/19/18 07:30 93 Nasal Cannula 2.0 11/19/18 06:48 98.0 14 185/88 (120) 11/19/18 03:27 97 Intake and Output 11/19/18 07:01 Intake Total 880 ml Balance 880 ml Intake Oral 660 ml IV Total 220 ml # Voids 3 General Appearance: Alert, Awake, No Acute Distress, Afebrile Neuro: No Gross deficits Eyes: PERRLA Cardiovascular: Regular Rate and Rhythm Respiratory: Clear to Auscultation GI: Soft and Non-Tender Extremities: Warm, Perfused, Other (No edema.) Psych: Alert & Oriented X3, Appropriate Mood & Affect Assessment and Plan Problems: (1) Transitional cell bladder cancer Status: Chronic Assessment & Plan: Stage IV muscle-invasive transitional cell carcinoma, high grade, with bone metastasis. The patient and family are considering Hospice ca re - they are hoping he can return to [facility] with Hospice. The patient has had significant pain related to the metastasis. Unfortunately, he had significant sedation and possibly nausea with the increased pain regimen. We will now have him on Fentanyl patch 37mcg (25mcg + 12mcg patches) q72hrs and use fentanyl 25-50mcg IV q2hrs prn breakthrough pain. He is also getting Tylenol prn. Will also try Ativan 0.5mg IV q4hrs prn anxiety/nausea. Watch closely. He is a DNR/DNI. (2) Constipation Status: Chronic Assessment & Plan: Now improved. Secondary to pain medications. He was reportedly manually disimpacted 5 days prior to admission. He was found to be constipated on CT. He was previously just on Senna. He is now on Miralax, docusate and prn MOM/Dulcolax suppository. He has been having fairly frequent soft stools. Will watch and modify regimen as needed. (3) Otitis media Status: Acute Assessment & Plan: Now improved. He presented with progressive left ear pain. A myringotomy tube was placed about a month ago and 5 days later started getting progressive pain. He saw Dr. Garcia on 11/12/18 and was started on treatment with Augmentin and ofloxacin drops. He was unable to take the Augmentin secondary to nausea. He is now on Unasyn IV. (4) Nausea & vomiting Status: Acute Assessment & Plan: Improved, Possibly exacerbated by the Dilaudid and Augmentin. Continue PRN Ativan and promethazine. (5) Hydronephrosis Status: Chronic Assessment & Plan: Moderately severe on the left. Most likely due to metastatic disease. Dr. Gandhi was notified by the ER and he is going to see the patient. (6) T2DM (type 2 diabetes mellitus) Status: Chronic Assessment & Plan: Chronically on 70/30 20 units bid. We are currently holding until eating better. SSI level 1. (7) CKD (chronic kidney disease) stage 4, GFR 15-29 ml/min Status: Chronic Assessment & Plan: Baseline creatinine is 1.6-2.1. His creatinine was 1.6 on admission. Time Spent on Plan of Care: < 30 min Exam Sepsis Risk: No Definite Risk Problem Qualifiers (1) Otitis media: Otitis media type: suppurative Chronicity: acute Laterality: left Recurrence: non-recurrent Spontaneous tympanic membrane rupture: without spontaneous rupture Qualified Codes: H66.002 - Acute suppurative otitis media without spontaneous rupture of ear drum, left ear MARCELO HERNANDEZ MD Nov 19, 2018 09:27
[2018-11-19] MEDS: LIDOCAINE 5% PATCH TP SCH (09:38)
[2018-11-19 11:40] VITALS: BP 159/84
[2018-11-19] MEDS: fentaNYL CITR 100 MCG/2 ML AMP IVP PRN ×2 (15:07→18:27)
[2018-11-19 18:33] VITALS: BP 166/114
[2018-11-19] MEDS: LORazepam 2 MG/ML VIAL IVP PRN (20:35)
[2018-11-19] MEDS: PATCH REMOVAL 1 EA TP SCH (21:00)
[2018-11-19] MEDS ORDERED: PATCH REMOVAL 1 EA TP ONE (21:00)
[2018-11-19] MEDS ORDERED: fentaNYL 50 MCG TDSY TD SCH (21:00)
[2018-11-19] MEDS ORDERED: fentaNYL 12 MCG TDSY TD SCH (22:00)
[2018-11-19] MEDS ORDERED: fentaNYL 25 MCG TDSY TD SCH (22:00)
[2018-11-19 23:06] VITALS: BP 175/87
[2018-11-20] MEDS: AMPICILLIN/SULBACT (*) 3 GM VL 3 GM in NS(*) 0.9% 100 ML MINI-BAG 100 ML IVPB SCH ×5 (00:09→23:54)
[2018-11-20] MEDS: PROMETHAZINE 25 MG/ML 1 ML AMP IVP PRN (01:30)
[2018-11-20 05:39] VITALS: BP 151/87
[2018-11-20 06:47] VITALS: BP 155/96
[2018-11-20] MEDS ORDERED: fentaNYL 50 MCG TDSY TD SCH (08:00)
[2018-11-20] MEDS: LORazepam 1 MG TAB PO PRN ×2 (08:39→21:24)
[2018-11-20] MEDS: APIXABAN 2.5 MG TABLET PO SCH ×2 (08:39→21:24)
[2018-11-20] MEDS: DOCUSATE SODIUM 100 MG CAP PO SCH ×2 (08:39→21:24)
[2018-11-20] MEDS: POLYETHYLENE GLYCOL 17 GM PKT PO SCH (08:41)
[2018-11-20] MEDS: LIDOCAINE 5% PATCH TP SCH (08:41)
[2018-11-20] MEDS: CIPROFLOXACIN /DEX OP 7.5 ML BTL LEFT EAR SCH ×2 (08:42→21:26)
[2018-11-20] MEDS ORDERED: PATCH REMOVAL 1 EA TP SCH (09:00)
[2018-11-20] MEDS ORDERED: PATCH REMOVAL 1 EA TP ONE (09:00)
--- NOTE | 2018-11-20 10:32 | Hospitalist Progress Note ---
Subjective Progress Notes Subjective He reports some intermittent pain. He had two doses of IV fentanyl for breakthrough. Nausea seems to be better. Physical Exam Vital Signs Date Time Temp Pulse Resp B/P (MAP) Pulse Ox O2 Delivery O2 Flow Rate FiO2 11/20/18 06:47 98.3 104 20 155/96 (115) 94 High-Flow Nasal Cannula 2.0 Intake and Output 11/20/18 07:01 Intake Total 1172 ml Output Total 101 ml Balance 1071 ml Intake Oral 650 ml IV Total 522 ml Output Stool Total 1 ml Emesis 100 ml # Voids 4 # Emeses 1 General Appearance: Alert, Awake Cardiovascular: Regular Rate and Rhythm Respiratory: Clear to Auscultation Extremities: Warm, Perfused Psych: Alert & Oriented X3 Assessment and Plan Problems: (1) Transitional cell bladder cancer Status: Chronic Assessment & Plan: Stage IV muscle-invasive transitional cell carcinoma, high grade, with bone metastasis. The patient and family are wanting to transition to Hospice care - they are hoping he can return to [facility] with Hospice. The patient has had significant pain related to the metastasis. Unfortunately, he had significant sedation and possibly nausea with the increased pain regimen. We will now change him to Fentanyl patch 50mcg q72hrs and use fentanyl 25-50mcg IV q2hrs prn breakthrough pain. He is also getting Tylenol prn. Will also transition Ativan to 1mg PO q4-6hrs prn anxiety/nausea. Watch closely. He is a DNR/DNI. (2) Constipation Status: Chronic Assessment & Plan: Now improved. Secondary to pain medications. He was reportedly manually disimpacted 5 days prior to admission. He was found to be constipated on CT. He was previously just on Senna. He is now on Miralax, docusate and prn MOM/Dulcolax suppository. He has been having fairly frequent soft stools. Will watch and modify regimen as needed. (3) Otitis media Status: Acute Assessment & Plan: Now improved. He presented with progressive left ear pain. A myringotomy tube was placed about a month ago and 5 days later started getting progressive pain. He saw Dr. Garcia on 11/12/18 and was started on treatment with Augmentin and ofloxacin drops. He was unable to take the Augmentin secondary to nausea. He is now on Unasyn IV and will complete therapy soon. (4) Nausea & vomiting Status: Acute Assessment & Plan: Improved, Possibly exacerbated by the Dilaudid and Augmentin. Continue PRN Ativan and promethazine. (5) Hydronephrosis Status: Chronic Assessment & Plan: Moderately severe on the left. Most likely due to metastatic disease. Dr. Gandhi was notified by the ER and he is going to see the patient. (6) T2DM (type 2 diabetes mellitus) Status: Chronic Assessment & Plan: Chronically on 70/30 20 units bid. We are currently holding until eating better. SSI level 1. (7) CKD (chronic kidney disease) stage 4, GFR 15-29 ml/min Status: Chronic Assessment & Plan: Baseline creatinine is 1.6-2.1. His creatinine was 1.6 on admission. Exam Sepsis Risk: No Definite Risk Problem Qualifiers (1) Otitis media: Otitis media type: suppurative Chronicity: acute Laterality: left Recurrence: non-recurrent Spontaneous tympanic membrane rupture: without spontaneous rupture Qualified Codes: H66.002 - Acute suppurative otitis media without spontaneous rupture of ear drum, left ear ANNA HERNANDEZ MD Nov 20, 2018 10:32
--- NOTE | 2018-11-20 10:50 | NUR ---
Pt sitting on couch, too far from monitor for continuous. Addendum: 11/20/18 at 1051 by LUNA HEDRICK RN Amended: Links added.
[2018-11-20 10:54] VITALS: BP 158/86
[2018-11-20] MEDS ORDERED: HEPARIN FLSH (PORT) 500 UN/5ML IVP PRN (10:55)
[2018-11-20] MEDS ORDERED: NS(*) 0.9% 500 ML BAG 500 ML ONE (11:56)
[2018-11-20 15:30] VITALS: BP 144/66
[2018-11-20 19:11] VITALS: BP 161/84
[2018-11-20] MEDS: PATCH REMOVAL 1 EA TP SCH (21:25)
[2018-11-21 03:22] VITALS: BP 162/86
[2018-11-21] MEDS: AMPICILLIN/SULBACT (*) 3 GM VL 3 GM in NS(*) 0.9% 100 ML MINI-BAG 100 ML IVPB SCH ×2 (05:58→12:27)
[2018-11-21] MEDS: LORazepam 1 MG TAB PO PRN ×2 (06:05→14:13)
[2018-11-21 07:36] VITALS: BP 163/96
[2018-11-21] MEDS: POLYETHYLENE GLYCOL 17 GM PKT PO SCH (10:56)
[2018-11-21] MEDS: LIDOCAINE 5% PATCH TP SCH (10:56)
[2018-11-21 11:58] VITALS: BP 176/80
[2018-11-21] MEDS: CIPROFLOXACIN /DEX OP 7.5 ML BTL LEFT EAR SCH (12:19)
[2018-11-21] MEDS: APIXABAN 2.5 MG TABLET PO SCH (12:19)
[2018-11-21] MEDS: DOCUSATE SODIUM 100 MG CAP PO SCH (12:19)
[2018-11-21] MEDS ORDERED: NAPROXEN 500 MG TAB PO ONE (12:30)
[2018-11-21] MEDS ORDERED: LORA-630 PO (13:23)
[2018-11-21] MEDS ORDERED: LOR1 PO (13:23)
[2018-11-21] MEDS ORDERED: FENT-19 TD (13:23)
[2018-11-21] MEDS ORDERED: PROM25SU9 RC (13:23)
[2018-11-21] MEDS ORDERED: NAPR500T31 PO (13:23)
[2018-11-21] MEDS ORDERED: Bisacodyl PR (13:23)
[2018-11-21] MEDS ORDERED: CIPDEXPT LEFT EAR (13:23)
[2018-11-21] MEDS ORDERED: DOCU-202 PO (13:23)
--- NOTE | 2018-11-21 13:32 | Hospitalist Depart ---
Discharge Summary Reason for Hosp/Final Diag: (1) Transitional cell bladder cancer Status: Chronic Hospital Course & Plan: Stage IV muscle-invasive transitional cell carcinoma, high grade, with bone metastasis. The patient and family are transitioning to Hospice care - returning to [facility] with Hospice. The patient has had significant pain related to the metastasis. Current regimen 50mcg fentanyl patch q72h, Naprosyn 500mg tablet TID, PRN Tyenol, Ativan 0.5mg po tid ac, Ativan to 1mg PO q4-6hrs prn anxiety/nausea. This has controlled nausea but is sedating though he wakes to voice. Monitor for oversedation with fentanyl as he was increased rapidly to get adequate pain control and the patch will not reach steady state for several more days. He is a DNR/DNI. (2) Constipation Status: Chronic Hospital Course & Plan: Now improved. Secondary to pain medications. He was reportedly manually disimpacted 5 days prior to admission. He was found to be constipated on CT. He was previously just on Senna. He is now on Miralax, docusate and prn Dulcolax suppository. He has been having fairly frequent soft stools. (3) Otitis media Status: Acute Hospital Course & Plan: Now improved. He presented with progressive left ear pain. A myringotomy tube was placed about a month ago and 5 days later started getting progressive pain. He saw Dr. Garcia on 11/12/18 and was started on treatment with Augmentin and ofloxacin drops. He was unable to take the Augmentin secondary to nausea. Completed Unasyn, continue Ciprodex for another 8 days. (4) Nausea & vomiting Status: Acute Hospital Course & Plan: Improved, Possibly exacerbated by the Dilaudid and Augmentin. Continue scheduled Ativan, PRN Ativan and promethazine. (5) Hydronephrosis Status: Chronic Hospital Course & Plan: Moderately severe on the left. Most likely due to metastatic disease. (6) T2DM (type 2 diabetes mellitus) Status: Chronic Hospital Course & Plan: Chronically on 70/30 20 units bid. Recommend stopping insulin as he is now comfort care. (7) CKD (chronic kidney disease) stage 4, GFR 15-29 ml/min Status: Chronic Hospital Course & Plan: Baseline creatinine is 1.6-2.1. His creatinine was 1.6 on admission. Departure Weight (Pounds): 153 Weight (Ounces): 8.0 Condition: Improved Discharge: Assisted Living Discharge Instructions Home Meds Active Scripts Naproxen (NAPROXEN) 500 Mg Tablet, 500 MG PO TID for 9 Days, #27 TAB Prov:VERONICA GIBBONS 11/21/18 Lorazepam (LORAZEPAM) 0.5 Mg Tablet, 0.5 MG PO TIDAC for 9 Days, #27 TAB Prov:VERONICA GIBBONS 11/21/18 Promethazine Hcl (PROMETHAZINE HCL) 25 Mg Supp.rect, 25 MG RC Q8H for 9 Days, #27 SUPP.RECT Prov:VERONICA GIBBONS 11/21/18 Lorazepam (LORAZEPAM) 1 Mg Tab, 1 MG PO Q4-6H PRN for ANXIETY for 9 Days, #54 TAB Prov:VERONICA GIBBONS 11/21/18 Fentanyl 50 Mcg Patch (FENTANYL 50 MCG PATCH) 1 Each Patch.td72, 50 MCG TD Q72H for 9 Days, #3 PATCH.72H Prov:VERONICA GIBBONS 11/21/18 Docusate Sodium (DOCUSATE SODIUM) 100 Mg Capsule, 100 MG PO BID for 30 Days, CAPSULE Prov:VERONICA GIBBONS 11/21/18 Ciprofloxacin/Dexamethasone 0.3%-0.1% Otic Mejía (CIPRODEX 0.3%-0.1% OTIC SUSP) 7.5 Ml Soln, 0 ML LEFT EAR BID for 8 Days, #1 BOTTLE Prov:VERONICA GIBBONS 11/21/18 [Bisacodyl(*) 10 Mg Supp] 10 MG SUPP No Conflict Check, 10 MG FL QDAY PRN for CONSTIPATION, SUPP INSERT Prov:VERONICA GIBBONS 11/21/18 Sennosides/Docusate Sodium (SENNA LAXATIVE TABLET) 1 Each Tablet, 1 EACH PO QHS for 90 Days, #90 TAB Prov:KONRAD HAMMONDS MD 11/08/18 Ondansetron 4 Mg Odt (ONDANSETRON 4 MG ODT) 4 Mg Tab.rapdis, 4 MG PO Q6H PRN for NAUSEA/VOMITING for 30 Days, #30 TAB 0 Refills Prov:KONRAD HAMMONDS MD 10/24/18 Discontinued Reported Medications Hydromorphone Hcl (DILAUDID) 2 Mg Tablet, 1 TAB PO TID PRN for PAIN 11/16/18 Ofloxacin (Ofloxacin) 0.3 % Drops, 4 DROP LEFT EAR BID 11/12/18 Amoxicillin/Pot Clav 875-125 Mg Tab (AUGMENTIN 875-125 TABLET) 1 Each Tablet, 1 TAB PO Q12H, TAB 11/12/18 [Hydromorphone ] No Conflict Check, 2 MG PO 11/12/18 Discontinued Scripts Apixaban (ELIQUIS) 2.5 Mg Tablet, 2.5 MG PO BID for 90 Days, #180 TAB Prov:KONRAD HAMMONDS MD 04/25/18 Diet: Regular Activity: As Tolerated Copies to: KONRAD HAMMONDS MD ; Venous Thromboembolism Antithrombotics Is Pt On Any Antithrombotics?: Yes Problem Qualifiers (1) Otitis media: Otitis media type: suppurative Chronicity: acute Laterality: left Recurrence: non-recurrent Spontaneous tympanic membrane rupture: without spontaneous rupture Qualified Codes: H66.002 - Acute suppurative otitis media without spontaneous rupture of ear drum, left ear VERONICA GIBBONS DO Nov 21, 2018 13:31
[2018-11-21] MEDS ORDERED: LIDO700A19 TP (15:22)
[2018-11-22] MEDS ORDERED: FENTANYL PATCH REMOVAL TP SCH ×2 (21:00)
[2018-11-23] MEDS ORDERED: FENTANYL PATCH REMOVAL TP SCH (09:00)
== END 2018-11-21 16:20 | disposition hospice, inpatient (51) | DRG 153 ==
LOC: ER 15:56 → MED 19:15
PROVIDERS: ADMIT Internal Medicine; ATTEND Internal Medicine
PROC: 5A09357 Assistance with Respiratory Ventilation, Less than 24 Consecutive Hours, Continuous Positive Airway Pressure (ICD-10-PCS; principal; 2018-11-15)
DX: H66.002 Acute suppurative otitis media without spontaneous rupture of ear drum, left ear (principal); N18.4 Chronic kidney disease, stage 4 (severe); C78.02 Secondary malignant neoplasm of left lung; C78.01 Secondary malignant neoplasm of right lung; N13.30 Unspecified hydronephrosis; C67.9 Malignant neoplasm of bladder, unspecified; Z51.5 Encounter for palliative care; I25.10 Atherosclerotic heart disease of native coronary artery without angina pectoris; I12.9 Hypertensive chronic kidney disease with stage 1 through stage 4 chronic kidney disease, or unspecified chronic kidney disease; K59.03 Drug induced constipation; E11.22 Type 2 diabetes mellitus with diabetic chronic kidney disease; G89.3 Neoplasm related pain (acute) (chronic); Z66 Do not resuscitate; Z86.718 Personal history of other venous thrombosis and embolism; Z88.5 Allergy status to narcotic agent; Z85.46 Personal history of malignant neoplasm of prostate; Z79.01 Long term (current) use of anticoagulants; Z86.73 Personal history of transient ischemic attack (TIA), and cerebral infarction without residual deficits; Z79.1 Long term (current) use of non-steroidal anti-inflammatories (NSAID); Z79.899 Other long term (current) drug therapy; Z87.891 Personal history of nicotine dependence
CPT/HCPCS: 36416; 74176; 81001; 82040; 82247; 82310; 82374; 82435; 82565; 82947; 82948; 83605; 83690; 84075; 84132; 84153; 84155; 84295; 84450; 84460; 84520; 85025; 85610; 85730; 94660; J0131; J0295; J1170; J1642; J2060; J2405; J2550; J3010; J7030; J7040; J7050; Q9967